=== PATIENT | male | born 1965 | race Caucasian/White ===

== ENCOUNTER 2019-10-09 15:27 | Emergency (ER) | payer OTHER, SELFPAY | END 2019-10-09 16:19 | disposition left against medical advice (07) | LOC: ER 10-10 06:49 | PROVIDERS: Emergency Provider Family Medicine; Family Provider Emergency Medicine Emergency Medical Services; PCP Emergency Medicine Emergency Medical Services | DX: Z53.21 Procedure and treatment not carried out due to patient leaving prior to being seen by health care provider (principal) | CPT/HCPCS: 87400; 87635; 99281 ==

== ENCOUNTER 2022-05-27 09:52 | Outpatient (CLI) | payer OTHER, SELFPAY ==
--- NOTE | 2022-05-27 10:02 | MR_ITS ---
WS: [id number] MRI BRAIN WITH HIGH-RESOLUTION IMAGING THROUGH THE INTERNAL AUDITORY CANALS WITHOUT AND WITH CONTRAST HISTORY: TINNITUS, BILATERAL/DIZZINESS GIDDINESS COMPARISON: None available. TECHNIQUE: Multiplanar, multisequence imaging is performed through the brain. Additional 3 mm imaging performed in multiple planes through the internal auditory canal. Postcontrast imaging with 19 ml's of MultiHance. No acute intracranial hemorrhage, midline shift, edema or mass effect. Scattered T2 and FLAIR signal hyperintensities in the subcortical white matter of the frontal, tempor al and parietal lobes. No prior infarct. Ventricles and extra-axial spaces are normal. No inferior displacement of cerebellar tonsils. Clivus and pituitary gland are normal. Internal and external auditory canals: Unremarkable. Cranial nerves VII and VIII complexes: Unremarkable. No enhancement or mass. Cerebellopontine angles: Normal. Paranasal sinuses: Normal. Mastoid air cells: Small amount of fluid in the RIGHT mastoid air cells. Calvarium and scalp: Normal. Visualized [place] of [place] and dural venous sinuses demonstrate no abnormality. MR/MR iac's wo/w con* [id number] IMPRESSION: 1. No signal abnormality or mass at the cerebellopontine angle or along the 7t h and 8th cranial nerve complexes. 2. Mild small vessel ischemic changes within the white matter. 3. No prior infarct or hemorrhage. 4. No mass.
== END 2022-05-27 09:53 | disposition home or self-care (01) ==
LOC: RAD 09:54
PROVIDERS: PCP Emergency Medicine Emergency Medical Services; Visit Provider Otolaryngology
DX: Z01.118 Encounter for examination of ears and hearing with other abnormal findings (principal); H93.13 Tinnitus, bilateral; R42 Dizziness and giddiness
CPT/HCPCS: 70553; A9577

== ENCOUNTER 2022-11-10 11:05 | Emergency (ER) | payer OTHER, SELFPAY ==
[2022-11-10 11:13] VITALS: BP 196/104; PULSE 68; RESP 18; TEMP 36.6; O2SAT 99
--- NOTE | 2022-11-10 11:16 | XR_ITS ---
WS: [id number] Exam: XR chest 1V portable [id number] Date/Time of Exam: 11/10/2022 11:25 AM Reason For Exam: cp Comparison 10/05/2016. Findings: The lungs are clear and fully expanded. Costophrenic angles are sharp. No infiltrates. Bronchovascula r relief appears normal. Cardiac silhouette is unremarkable. Bony elements are intact. XR/XR chest 1V portable [id number] IMPRESSION: Unremarkable chest radiograph.
--- NOTE | 2022-11-10 11:33 | ECG_ITS ---
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 Measurements Intervals [place] Rate: 57 P: 29 AR: 158 QRS: 8 QRSD: 87 T: -3 QT: 418 QTc: 407 Interpretive Statements SINUS BRADYCARDIA Compared to ECG 10/05/2016 20:37:34 Sinus rhythm no longer present Electronically Signed On 11-11-2022 10:07:12 CDT by Montez Baum M.D. [email or web address]conodataohio[facility] methodist hospitalYuantiku/store/[id number]
[2022-11-10 11:37] LABS: Basophils # 0.1 10^3/uL (0.0-0.1); Basophils % 1.1 %; Eosinophils # 0.4 10^3/uL (0.0-0.8); Eosinophils % 4.9 %; Hematocrit 40.6 % (42.0-52.0); Hemoglobin 13.9 g/dL (11.7-16.6); Lymphocytes # 2.4 10^3/uL (0.8-4.8); Lymphocytes % 32.6 %; Mean Corpuscular HGB Conc 34.2 g/dL (30.0-36.0); Mean Corpuscular Hemoglobin 32.5 pg (28.0-34.0); Mean Corpuscular Volume 94.9 fl (80-94); Mean Platelet Volume 8.7 fL (7.4-10.4); Monocytes # 0.5 10^3/uL (0.2-0.9); Monocytes % 7.1 %; Neutrophils # 3.93 10^3/uL (1.8-7.7); Nucleated Red Blood Cells % 0 %; Platelet Count 264 10^3/cmm (130-400); Red Blood Count 4.28 10^6/uL (4.1-5.3); Red Cell Distribution Width 12.9 % (12.1-15.1); White Blood Count 7.3 10^3/uL (4.0-10.0)
--- NOTE | 2022-11-10 11:48 | ED_ITS ---
HPI - Chest Pain General: Chief Complaint: Chest Pain Stated Complaint: [facility] Time Seen by Provider: 11/10/22 11:19 Source: patient Mode of arrival: ambulatory Limitations: no limitations History of Present Illness: 56-year-old male states he been having intermittent chest and left arm pain liborio ng with some neck pain for the last 2 weeks. States pains been sharp in nature rates it a 6 out of 10 denies any worsening improving factors. He has had no shortness of breath denies any vomiting or diarrhea states he has been under a lot of stress [facility] here as he was hypertensive. Associated symptoms: Deny abdominal pain, dyspnea, fever(s), nausea or vomiting Review of Systems Const: Denies: fever(s), chills, body aches or change in appetite Eyes: Denies: blurry vision or eye discomfort ENMT: Denies: throat pain or dental pain Card: Reports: chest pain Resp: Denies: dyspnea GI: Denies: abdominal pain, nausea, vomiting or diarrhea : Denies: dysuria Musc: Denies: neck pain or back pain Skin/Breast: Denies: rash Neuro: Denies: headache(s) PFSH ED PFSH: Social History Smoking and tobacco status: current every day smoker Physical Exam Const: COMMON NORMALS: no acute distress, patient oriented x3 and healthy appearing HENMT: COMMON NORMALS: normocephalic and atraumatic HEAD & SCALP: normocephalic and atraumatic Eye: COMMON NORMALS: conjunctivae normal CONJUNCTIVA: Yes conjunctivae normal Neck/C-Spine: COMMON NORMALS: full ROM and supple Chest: COMMONS NORMALS: normal inspection of the chest and normal palpation of entire chest wall Resp: COMMON NORMALS: normal respiratory effort, No retractions, No use of accessory muscles and clear to auscultation bilaterally AUSCULTATION: clear to auscultation bilaterally Cardio: COMMON NORMALS: regular rate, regular rhythm and No murmurs present (Cardio) RATE: regular rate RHYTHM: regular rhythm GI: COMMON NORMALS: Normal to inspection, nondistended, normoactive bowel sounds present, Soft to palpation, non-tender and no masses PALPATION: Yes Soft to palpation Extremity: COMMON NORMALS: normal to inspection and full ROM Neuro: COMMON NORMALS: patient oriented x3, moves all extremities and no focal motor deficits Psych: COMMON NORMALS: mental status grossly normal, Normal thought process present and cooperative THOUGHT PROCESS: Normal thought process present Skin: COMMON NORMALS: no rashes or lesions noted and no wounds GENERAL SKIN EXAM: no rashes or lesions noted Course Vital Signs: Vital signs: Vital Signs Temperature 97.9 F 11/10/22 11:13 Pulse Rate 68 11/10/22 11:13 Respiratory Rate 18 11/10/22 11:13 Blood Pressure 196/104 11/10/22 11:13 Pulse Oximetry 99 11/10/22 11:13 Oxygen Delivery Me thod Room Air 11/10/22 11:13 MDM - Chest Pain Medical Decision Making Patient presents here with chest pains atypical in nature he is having some neck pain it could be radicular he is hypertensive here he states he been running high we will double his dose of losartan from 25-50. He has no signs of acute coronary syndrome his troponin here is normal no signs of PE or dissection he is to follow-up with his PCP and return if worsening. Medical Records I reviewed the patient's medical records. Lab Data I reviewed the patient's lab results. 11/10/22 11:29 11/10/22 11:29 Radiology Impressions Chest X-Ray 11/10/22 11:16 IMPRESSION: Unremarkable chest radiograph. Laboratory Results WBC 7.3 10^3/uL (4.0-10.0) 11/10/22 11:29 RBC 4.28 10^6/uL (4.1-5.3) 11/10/22 11:29 Hgb 13.9 g/dL (11.7-16.6) 11/10/22 11:29 Hct 40.6 % (42.0-52.0) L 11/10/22 11:29 MCV 94.9 fl (80-94) H 11/10/22 11:29 MCH 32.5 pg (28.0-34.0) 11/10/22 11:29 MCHC 34.2 g/dL (30.0-36.0) 11/10/22 11:29 RDW 12.9 % (12.1-15.1) 11/10/22 11:29 Plt Count 264 10^3/cmm (130-400) 11/10/22 11:29 MPV 8.7 fL (7.4-10.4) 11/10/22 11:29 Neut % (Auto) 54.0 % 11/10/22 11:29 Lymph % (Auto) 32.6 % 11/10/22 11:29 [place] % (Auto) 7.1 % 11/10/22 11:29 Eos % (Auto) 4.9 % 11/10/22 11:29 Baso % (Auto) 1.1 % 11/10/22 11:29 Neut # (Auto) 3.93 10^3/uL (1.8-7.7) 11/10/22 11:29 Lymph # (Auto) 2.4 10^3/uL (0.8-4.8) 11/10/22 11:29 [place] # (Auto) 0.5 10^3/uL (0.2-0.9) 11/10/22 11:29 Eos # (Auto) 0.4 10^3/uL (0.0-0.8) 11/10/22 11:29 Baso # (Auto) 0.1 10^3/uL (0.0-0.1) 11/10/22 11:29 Nucleated RBC % (auto) 0 % 11/10/22 11:29 Nucleated RBCs # 0.0 /100WBC 11/10/22 11:29 PT 12.40 SECONDS (12.1-14.9) 11/10/22 11:29 INR 0.90 (0.8-1.2) 11/10/22 11:29 Sodium 142 mmol/L (136-145) 11/10/22 11:29 Potassium 4.3 mmol/L (3.5-5.1) 11/10/22 11:29 Chloride 106 mmol/L (98-107) 11/10/22 11:29 Carbon Dioxide 25 mmol/L (22-29) 11/10/22 11:29 Anion Gap 15.3 (5-19) 11/10/22 11:29 BUN 21 mg/dL (6-20) H 11/10/22 11:29 Creatinine 1.5 mg/dL (0.7-1.2) H 11/10/22 11:29 GFR Calculation 48.8 mL/min (90-130) L 11/10/22 11:29 Glucose 87 mg/dL (65-115) 11/10/22 11:29 Calculated Osmolality 296 mOsm/kg (285-295) H 11/10/22 11:29 Calcium 9.1 mg/dL (8.5-10.5) 11/10/22 11:29 Total Bilirubin 0.5 mg/dL (0.15-1.2) 11/10/22 11:29 AST 20 U/L (0-40) 11/10/22 11:29 ALT 16 U/L (0-41) 11/10/22 11:29 Alkaline Phosphatase 66 U/L (40-130) 11/10/22 11:29 Troponin T Baseline 10 ng/L (0-15) 11/10/22 11:29 Total Protein 6.5 g/dL (6.6-8.7) L 11/10/22 11:29 Albumin 4.5 g/dL (3.5-5.2) 11/10/22 11:29 Globulin 2.0 g/dL (1.3-4.6) 11/10/22 11:29 EKG Data EKG 1: I personally reviewed and interpreted this EKG as follows: EKG interpretation date: 11/10/22 EKG interpretation time: 11:33 Interpretation: sinus reese hr [address] or t wave anormalities qrs Discharge Plan Discharge Patient Disposition: Home Clinical Impression: Chest pain, Hypertension Condition: Stable Prescriptions: New losartan 50 mg tablet 50 mg PO DAILY Qty: 30 0RF Discontinued losartan 25 mg tablet 25 mg PO DAILY No Action hydrocodone-acetaminophen 10-325 mg tablet 1 tab PO Q4H PRN levothyroxine 50 mcg capsule 50 mcg PO DAILY albuterol sulfate [ProAir HFA] 90 mcg/actuation HFA aerosol inhaler 2 puff INHALATION Q6H PRN fluticasone propionate [Flonase Allergy Relief] 50 mcg/actuation spray,suspension 1 spray INTRANASAL DAILY Rx Instructions: administer into each nostril lisinopril 30 mg tablet 30 mg PO DAILY pantoprazole 40 mg tablet,delayed release (DR/EC) 40 mg PO DAILY Discharge Orders: Discharge ED (Routine); Ordered 11/10/22 Ordered By: Pipo Ham Referrals: Manchester,Jairon D, DO [Primary Care Provider] - 1-3 days Discharge Diet: Advance as tolerated Discharge Activity: Resume usual activity Patient Instructions: Chest Pain (ED), Hypertension (ED) Stand Alone Forms: Work/School Release Coding Level of Care Code ED Dock Worker for Azul Nash
[2022-11-10 11:58] LABS: Alanine Aminotransferase 16 U/L (0-41); Albumin Level 4.5 g/dL (3.5-5.2); Alkaline Phosphatase 66 U/L (40-130); Anion Gap 15.3 (5-19); Aspartate Amino Transferase 20 U/L (0-40); Blood Urea Nitrogen 21 mg/dL (6-20); Calcium 9.1 mg/dL (8.5-10.5); Carbon Dioxide 25 mmol/L (22-29); Chloride 106 mmol/L (98-107); Glomerular Filtration Rate 48.8 mL/min (90-130); Glucose 87 mg/dL (65-115); Osmolality Calculated 296 mOsm/kg (285-295); Potassium 4.3 mmol/L (3.5-5.1); Sodium 142 mmol/L (136-145); Total Bilirubin 0.5 mg/dL (0.15-1.2); Total Protein 6.5 g/dL (6.6-8.7)
[2022-11-10 12:00] LABS: Creatinine Clr Calc Pharmacy 61.1989
[2022-11-10 12:01] LABS: Troponin(5th) Baseline 10 ng/L (0-15)
--- NOTE | 2022-11-10 12:26 | PC.NURSE ---
PER PROVIDER IVP CHANGED TO IM. MD REQUESTED SAME DOSE, PT CARE PLAN TO DC WITH NEW RX.
[2022-11-10] MEDS: ondansetron 2 mg/ML SDV 2 mL 4 MG IM (12:32)
[2022-11-10] MEDS: morphine 4 mg/mL SDV 1 mL IM (12:33)
== END 2022-11-10 12:44 | disposition home or self-care (01) ==
PROVIDERS: Emergency Provider Emergency Medicine; PCP Emergency Medicine Emergency Medical Services
DX: R07.9 Chest pain, unspecified (principal); I10 Essential (primary) hypertension
CPT/HCPCS: 36415; 71045; 80053; 84484; 85025; 85610; 93005; 96372; 99285; J2270; J2405

== ENCOUNTER 2023-01-12 11:41 | Emergency (ER) | payer OTHER, SELFPAY ==
[2023-01-12 11:48] VITALS: BP 110/72; PULSE 77; RESP 16; TEMP 37.1; O2SAT 97
[2023-01-12 14:23] LABS: Basophils # 0.1 10^3/uL (0.0-0.1); Basophils % 0.9 %; Eosinophils # 0.1 10^3/uL (0.0-0.8); Eosinophils % 1.1 %; Hematocrit 38.6 % (37-53); Lymphocytes # 2.1 10^3/uL (0.8-4.8); Lymphocytes % 26.7 %; Mean Corpuscular HGB Conc 34.5 g/dL (30-55); Mean Corpuscular Hemoglobin 32.6 pg (27-33); Mean Corpuscular Volume 94.6 fl (82-101); Mean Platelet Volume 9.1 fL (7.4-10.4); Monocytes # 0.4 10^3/uL (0.2-0.9); Neutrophils # 5.25 10^3/uL (1.8-7.7); Nucleated Red Blood Cells % 0 %; Platelet Count 331 10^3/cmm (157-399); Red Blood Count 4.08 10^6/uL (3.85-5.65); Red Cell Distribution Width 12.2 % (12.1-15.1); White Blood Count 7.95 10^3/uL (3.29-11.43)
[2023-01-12 14:38] LABS: Alanine Aminotransferase 15 U/L (0-41); Albumin Level 5.1 g/dL (3.5-5.2); Alkaline Phosphatase 60 U/L (40-130); Anion Gap 14.8 (5-19); Aspartate Amino Transferase 21 U/L (0-40); Blood Urea Nitrogen 42 mg/dL (6-20); Calcium 10.1 mg/dL (8.5-10.5); Carbon Dioxide 28 mmol/L (22-29); Chloride 97 mmol/L (98-107); Globulin 2.6 g/dL (1.3-4.6); Glomerular Filtration Rate 42.1 mL/min (90-130); Glucose 171 mg/dL (65-115); Lipase 30 U/L (13-60); Osmolality Calculated 297 mOsm/kg (285-295); Potassium 3.8 mmol/L (3.5-5.1); Sodium 136 mmol/L (136-145); Total Bilirubin 0.8 mg/dL (0.15-1.2); Total Protein 7.7 g/dL (6.6-8.7)
--- NOTE | 2023-01-12 15:18 | ED_ITS ---
HPI - Nausea/Vomiting/Diarrhea General: Chief complaint: Nausea/Vomiting/Diarrhea Stated complaint: abd pain, N/V Time Seen by Provider: 01/12/23 15:11 History of Present Illness: Patient been having increasing left-sided flank pain that radiates down to his groin. Patient was seen by his doctor over [facility] and was told that he is having some kidney issues with elevated BUN and creatinine that she come here to get an ultrasound or CT scan. Patient does state he has some nausea vomiting every time he eats or drinks anything that comes right back up. Patient denies any diarrhea constipation or black and tarry stools at this time. Patient does not have a history of kidney stones. Patient does state he has seen Dr. Saucedo in the past for cystoscopy for some reason. Review of Systems General: Reports: 10 or more systems reviewed and unremarkable except in HPI and below PFSH ED PFSH: Social History Smoking and tobacco status: current every day smoker Physical Exam Const: COMMON NORMALS: no acute distress, average body habitus, patient oriented x3, no limitations, healthy appearing, alert and well nourished HENMT: COMMON NORMALS: normocephalic, atraumatic, hearing grossly normal bilaterally, external ears normal, Normal external nose present and moist oral mucous membranes HEAD & SCALP: normocephalic and atraumatic NOSE: Normal external nose present EXTERNAL EAR: Yes external ears normal Eye: COMMON NORMALS: Equal, round and reactive pupils present, EOMs intact bilaterally, conjunctivae normal and no scleral icterus CONJUNCTIVA: Yes conjunctivae normal PUPIL: Yes Equal, round and reactive pupils present Neck/C-Spine: COMMON NORMALS: full ROM, no lymphadenopathy, supple, no menin geal signs, no JVD and Thyroid normal THYROID: Thyroid normal Lymph: LYMPHATIC: no lymphadenopathy noted Chest: COMMONS NORMALS: normal inspection of the chest and normal palpation of entire chest wall Resp: COMMON NORMALS: normal respiratory effort, No retractions, No use of accessory muscles and clear to auscultation bilaterally AUSCULTATION: clear to auscultation bilaterally Cardio: COMMON NORMALS: no JVD, regular rate, regular rhythm, S1 normal heart sound present, S2 normal heart sound present, No gallops present (Cardio), No clicks present (Cardio), No murmurs present (Cardio) and No rub (Cardio) RATE: regular rate RHYTHM: regular rhythm HEART SOUNDS: S1 normal heart sound present and S2 normal heart sound present GI: COMMON NORMALS: Normal to inspection, nondistended, normoactive bowel sounds present, Soft to palpation, non-tender, No hepatosplenomegaly present and no masses PALPATION: Yes Soft to palpation and Yes No hepatosplenomegaly present : COMMON NORMALS: No no CVA tenderness (Left CVA tenderness) BLADDER/KIDNEY EXAM: No no CVA tenderness (Left CVA tenderness) Back/Pelvis: COMMON NORMALS: negative for no CVA tenderness (Left CVA tenderness) Neuro: COMMON NORMALS: patient oriented x3 SENSORIUM/ORIENTATION: Yes alert MENINGEAL SIGNS: Yes no meningeal signs Course Vital Signs: Vital signs: Vital Signs Temperature 98.8 F 01/12/23 11:48 Pulse Rate 77 01/12/23 11:48 Respiratory Rate 16 01/12/23 11:48 Blood Pressure 110/72 01/12/23 11:48 Pulse Oximetry 97 01/12/23 11:48 Oxygen Delivery Me thod Room Air 01/12/23 11:48 MDM - Nausea/Vomiting/Diarrhea Medical Decision Making Presents to the ER with complaints of nominal pain. Patient stated he was sent over here to have an ultrasound of his kidneys due to kidney disease. His lab work was obtained which showed slightly worsening kidney function with a BUN of 42 and creatinine of 1.7 these are elevated from the last time from a BUN of about 20 something to the creatinine of 1.5. Noncontrasted CT scan of his abdomen pelvis was obtained which was essentially benign. Patient be diagnosed with diagnosis of abdominal pain and acute kidney injury. Patient should fo llow-up with his PCP the next 7 days or sooner as needed. Differential Diagnosis Unlikely traveler's diarrhea, food poisoning, gastroenteritis, clostridium difficile infection, drug-induced nausea and vomiting or dehydration Medical Records I reviewed the patient's medical records. Lab Data I reviewed the patient's lab results. 01/12/23 14:13 01/12/23 14:13 Laboratory Results WBC 7.95 10^3/uL (3.29-11.43) 01/12/23 14:13 RBC 4.08 10^6/uL (3.85-5.65) 01/12/23 14:13 Hgb 13.30 g/dL (11.27-16.99) 01/12/23 14:13 Hct 38.6 % (37-53) 01/12/23 14:13 MCV 94.6 fl (82-101) 01/12/23 14:13 MCH 32.6 pg (27-33) 01/12/23 14:13 MCHC 34.5 g/dL (30-55) 01/12/23 14:13 RDW 12.2 % (12.1-15.1) 01/12/23 14:13 Plt Count 331 10^3/cmm (157-399) 01/12/23 14:13 MPV 9.1 fL (7.4-10.4) 01/12/23 14:13 Neut % (Auto) 66.0 % 01/12/23 14:13 Lymph % (Auto) 26.7 % 01/12/23 14:13 [place] % (Auto) 5.0 % 01/12/23 14:13 Eos % (Auto) 1.1 % 01/12/23 14:13 Baso % (Auto) 0.9 % 01/12/23 14:13 Neut # (Auto) 5.25 10^3/uL (1.8-7.7) 01/12/23 14:13 Lymph # (Auto) 2.1 10^3/uL (0.8-4.8) 01/12/23 14:13 [place] # (Auto) 0.4 10^3/uL (0.2-0.9) 01/12/23 14:13 Eos # (Auto) 0.1 10^3/uL (0.0-0.8) 01/12/23 14:13 Baso # (Auto) 0.1 10^3/uL (0.0-0.1) 01/12/23 14:13 Nucleated RBC % (auto) 0 % 01/12/23 14:13 Nucleated RBCs # 0.0 /100WBC 01/12/23 14:13 Sodium 136 mmol/L (136-145) 01/12/23 14:13 Potassium 3.8 mmol/L (3.5-5.1) 01/12/23 14:13 Chloride 97 mmol/L (98-107) L 01/12/23 14:13 Carbon Dioxide 28 mmol/L (22-29) 01/12/23 14:13 Anion Gap 14.8 (5-19) 01/12/23 14:13 BUN 42 mg/dL (6-20) H 01/12/23 14:13 Creatinine 1.7 mg/dL (0.7-1.2) H 01/12/23 14:13 GFR Calculation 42.1 mL/min (90-130) L 01/12/23 14:13 Glucose 171 mg/dL (65-115) H 01/12/23 14:13 Calculated Osmolality 297 mOsm/kg (285-295) H 01/12/23 14:13 Calcium 10.1 mg/dL (8.5-10.5) 01/12/23 14:13 Total Bilirubin 0.8 mg/dL (0.15-1.2) 01/12/23 14:13 AST 21 U/L (0-40) 01/12/23 14:13 ALT 15 U/L (0-41) 01/12/23 14:13 Alkaline Phosphatase 60 U/L (40-130) 01/12/23 14:13 Total Protein 7.7 g/dL (6.6-8.7) 01/12/23 14:13 Albumin 5.1 g/dL (3.5-5.2) 01/12/23 14:13 Globulin 2.6 g/dL (1.3-4.6) 01/12/23 14:13 Lipase 30 U/L (13-60) 01/12/23 14:13 Urine Color Yellow (Yellow) 01/12/23 15:17 Urine Appearance Clear (CLEAR) 01/12/23 15:17 Urine pH 5 (5-7) 01/12/23 15:17 Ur Specific [place] 1.020 (1.005-1.030) 01/12/23 15:17 Urine Protein Neg (Negative) 01/12/23 15:17 Urine Glucose (UA) Norm (Normal) 01/12/23 15:17 Urine Ketones Negative (Negative) 01/12/23 15:17 Urine Blood Neg (Negative) 01/12/23 15:17 Urine Nitrate Negative (Negative) 01/12/23 15:17 Urine Bilirubin 1+ (Negative) H 01/12/23 15:17 Urine Urobilinogen 1 mg/dL (Negative) H 01/12/23 15:17 Ur Leukocyte Esterase Negative (Negative) 01/12/23 15:17 Discharge Plan Discharge Patient Disposition: Home Clinical Impression: Acute kidney injury Abdominal pain Qualifiers: Abdominal location: unspecified location Qualified Code(s): R10.9 - Unspecified abdominal pain Condition: Stable Prescriptions: No Action hydrocodone-acetaminophen 10-325 mg tablet 1 tab PO Q4H PRN (Reason: Pain) levothyroxine 50 mcg capsule 50 mcg PO DAILY albuterol sulfate [ProAir HFA] 90 mcg/actuation HFA aerosol inhaler 2 puff INHALATION Q6H PRN (Reason: Shortness Of Breath) fluticasone propionate [Flonase Allergy Relief] 50 mcg/actuation spray,suspension 1 spray INTRANASAL DAILY Rx Instructions: administer into each nostril pantoprazole 40 mg tablet,delayed release (DR/EC) 40 mg PO DAILY losartan 50 mg tablet 50 mg PO DAILY Qty: 30 0RF gabapentin 600 mg Tablet 600 mg PO TID cetirizine 10 mg Tablet 10 mg PO DAILY hydrochlorothiazide 25 mg tablet 25 mg PO DAILY Discharge Orders: Discharge ED (Routine); Ordered 01/12/23 Ordered By: Laci Goncalves Referrals: Jairon Gan DO [Primary Care Provider] - 1 week Patient Instructions: Acute Kidney Injury (DC), Abdominal Pain (ED) Activity Restrictions/Additional Instructions: Please push plenty of fluids. Please follow-up with your family practice doctor in the next 7 days or sooner as needed for further evaluation and treatment. If symptoms worsen or change feel free to return to the ER for further evaluation. Coding Level of Care Code ED Membership Manager for Azul Nash
--- NOTE | 2023-01-12 15:18 | CT_ITS ---
WS: [id number] CT ABDOMEN AND PELVIS NONCONTRAST HISTORY: left flank pain, elevated bun/cr TECHNIQUE: Imaging performed through the abdomen and pelvis. Coronal and sagittal reformats are submi tted. All CT scans at [facility] use at least one of these dose optimization techniques: auto mated exposure control; mA and/or kV adjustment per patient size (includes targeted exams where dose is matched to clinical indication); or iterative reconstruction. DLP: 713.15 mGy.cm COMPARISON: None available. Lower thorax: Lung bases are clear. Visualized heart is normal. No hiatal hernia. Liver: Normal size liver. There are few too small to characterize hypodensities which may be cysts. N o bile duct dilatation. Gallbladder: Normal gallbladder. No pericholecystic fluid or cholelithiasis. No gallbladder wall thic k[place]. Pancreas: Normal size and attenuation. Normal pancreatic duct. No pancreatitis or mass. Spleen: Normal. Adrenal glands: Normal RIGHT adrenal gland. Very mild hyperplasia of the LEFT adrenal gland. Right kidney: Normal size kidney with no mass or hydronephrosis. Left kidney: Normal size kidney with no mass or hydronephrosis. Aorta: Mild atherosclerosis. No aneurysm. No free fluid, intraperitoneal air or significant lymphadenopathy. GI tract: Prior gastric bypass. No small bowel obstruction. Normal appendix. No colon obstruction or significant diverticular disease. No pericolonic inflammation. Abdominal wall: Negative. No hernia. Pelvis: Nondistended urinary bladder. No free fluid or adenopathy. Bilateral inguinal canals are [place] nt containing fat only. Osseous structures: Unremarkable. IMPRESSION: 1. No renal obstruction or calcifications. 2. Prior gastric bypass. 3. No GI tract obstruction or pericolonic inflammation. 4. No ascites or adenopathy.
[2023-01-12 15:25] LABS: Add Urine Microscopic? NO; Charge for UA Resulting for Rev
[2023-01-12 15:34] LABS: Bilirubin Urine 1+ (Negative); Blood Urine Neg (Negative); Glucose Urine UA Norm (Normal); Ketones Urine Negative (Negative); Nitrate Urine Negative (Negative); Protein Urine Neg (Negative); Urine Appearance Clear (CLEAR); Urine Color Yellow (Yellow); pH Urine 5 (5-7)
[2023-01-12 15:35] LABS: Leukocyte Esterase Urine Negative (Negative); Urobilinogen Urine 1 mg/dL (Negative)
[2023-01-12] MEDS: sodium chloride 0.9% 1,000 ML 999 ML IV (16:24)
== END 2023-01-12 17:48 | disposition home or self-care (01) ==
PROVIDERS: Physician Assistant; Emergency Provider Emergency Medicine; PCP Emergency Medicine Emergency Medical Services
DX: N17.9 Acute kidney failure, unspecified (principal); R10.9 Unspecified abdominal pain; F17.210 Nicotine dependence, cigarettes, uncomplicated
CPT/HCPCS: 36415; 74176; 80053; 81003; 83690; 85025; 99284; J7030

== ENCOUNTER 2023-08-24 10:56 | Outpatient (CLI) | payer MEDICAID, SELFPAY ==
--- NOTE | 2023-08-24 11:02 | US_ITS ---
WS: [id number] RENAL ULTRASOUND HISTORY: ISOLATED PROTEINURIA/MICROSCOPIC HEMATURIA COMPARISON: None available. TECHNIQUE: 2-D and color Doppler imaging of the kidney submitted. Right kidney: 9.8 cm x 5.0 cm x 4.6 cm. Cortex: 1.2 cm Normal echogenicity with no hydronephrosis or mass. Left kidney: 9.8 cm x 4.5 cm x 5.0 cm. Cortex: 1.5 cm Normal echogenicity with no hydronephrosis or mass. Aorta: Normal. Urinary Bladder: Nondistended. IMPRESSION: Normal renal ultrasound.
== END 2023-08-24 10:57 | disposition home or self-care (01) ==
PROVIDERS: PCP Emergency Medicine Emergency Medical Services; Visit Provider Internal Medicine
DX: R80.0 Isolated proteinuria (principal); R31.29 Other microscopic hematuria
CPT/HCPCS: 76770

== ENCOUNTER → 2023-10-25 08:54 | Outpatient (BNVA) | payer MEDICAID, SELFPAY | PROVIDERS: PCP Emergency Medicine Emergency Medical Services; Visit Provider Internal Medicine Cardiovascular Disease | DX: I10 Essential (primary) hypertension (principal) | CPT/HCPCS: 93005 ==

== ENCOUNTER 2024-04-28 07:41 | Emergency (ER) | payer OTHER, SELFPAY ==
[2024-04-28 07:50] VITALS: BP 137/76; PULSE 74; RESP 16; TEMP 36.7; O2SAT 97; BMI 31.3
--- NOTE | 2024-04-28 07:52 | ED_ITS ---
HPI - Abdominal Pain 2 General: Chief Complaint: Abdominal Pain Stated Complaint: burning sensation in stomach Time Seen by Provider: 04/28/24 07:43 Source: patient Mode of arrival: ambulatory Limitations: no limitations History of Present Illness: 58-year-old male states he has been havi ng a burning sensation in his upper abdomen over the last few days. States that some burning pain he rates a 4 out of 10 he denies any worse or improving factors he denies any radiation of pain he denies any chest pain denies any vomiting or diarrhea. Associated Symptoms: Denies chills, diarrhea, fever(s), nausea and vomiting Related Data Home Medications Medication Instructions Recorded Confirmed metoclopramide HCl 10 mg tablet See Rx Instructions .Route 04/28/24 04/28/24 .COMPLEX PRN Abdominal Pain Previous Rx's Medication Instructions Recorded pantoprazole 40 mg tablet,delayed 40 mg PO DAILY #60 tabs 04/28/24 release (Protonix) sucralfate 1 gram tablet 1 g PO BID 4 weeks #56 tabs 04/28/24 Allergies Allergy/AdvReac Type Severity Reaction Status Date / Time No Known Allergies Allergy Verified 04/28/24 07:57 Review of Systems 2 Const: Denies: fever(s), chills, body aches or change in appetite ENMT: Denies: throat pain or dental pain Card: Denies: chest pain Resp: Denies: dyspnea GI: Reports: abdominal pain; Denies: nausea, vomiting or diarrhea Musc: Denies: neck pain or back pain Skin/Breast: Denies: rash Neuro: Denies: headache(s) PFSH ED 2 PFSH: Social History Smoking and tobacco/nicotine status: current every day tobacco/nicotine user Physical Exam 2 Const: COMMON NORMALS: no acute distress, patient oriented x3 and healthy appearing HENMT: COMMON NORMALS: normocephalic and atraumatic HEAD & SCALP: n ormocephalic and atraumatic Eye: COMMON NORMALS: Equal, round and reactive pupils present and EOMs intact bilaterally PUPIL: Yes Equal, round and reactive pupils present Neck/C-Spine: COMMON NORMALS: full ROM and supple Chest: COMMONS NORMALS: normal inspection of the chest Resp: COMMON NORMALS: normal respiratory effort, No retractions, No use of accessory muscles and clear to auscultation bilaterally AUSCULTATION: clear to auscultation bilaterally Cardio: COMMON NORMALS: regular rate, regular rhythm and No murmurs present (Cardio) RATE: regular rate RHYTHM: regular rhythm GI: COMMON NORMALS: Normal to inspection, nondistended, normoactive bowel sounds present, Soft to palpation and no masses PALPATION: Yes Soft to palpation OTHER: mild epigastric tenderness Extremity: COMMON NORMALS: normal to inspection and full ROM Neuro: COMMON NORMALS: patient oriented x3, moves all extremities and no focal motor deficits Psych: COMMON NORMALS: mental status grossly normal, Normal thought process present and cooperative THOUGHT PROCESS: Normal thought process present Skin: COMMON NORMALS: no rashes or lesions noted and no wounds GENERAL SKIN EXAM: no rashes or lesions noted Course 2 Vital Signs: Vital signs: Vital Signs Temperature 98.0 F 04/28/24 07:50 Pulse Rate 74 04/28/24 07:50 Respiratory Rate 16 04/28/24 07:50 Blood Pressure 120/76 04/28/24 09:04 Pulse Oximetry 97 04/28/24 09:04 Oxygen Delivery Me thod Room Air 04/28/24 09:04 MDM - Abdominal Pain Medical Decision Making Patient presents with burning epigastric pain blood work here is normal CT showed no acute findings exam at discharge is benign he likely has a gastritis we will start him on sulcal fate along with Protonix we will get him follow-up with surgery he is return if worsening he understands agrees to plan. Medical Records I reviewed the patient's medical records. Lab Data I reviewed the patient's lab results. 04/28/24 08:09 04/28/24 08:09 Labs/Radiology: Radiology Impressions Abdomen/Pelvis CT 04/28/24 08:18 IMPRESSION: 1. No calcific stone seen of visualized portions of kidneys, ureters bilaterally, nor urinary bladder. No dilation seen of visualized portions of renal collecting systems, ureters bilaterally. 2. Atherosclerotic disease perhaps more advanced than expected for age. Correlate for causes, risk factors for atherosclerotic disease, arterial calcification. 3. Evidence of atherosclerotic plaque near origin superior mesenteric artery causing partial narrowing. 4. Please see body of report for additional findings. Laboratory Results WBC 9.02 10^3/uL (3.29-11.43) 04/28/24 08:09 RBC 4.26 10^6/uL (3.85-5.65) 04/28/24 08:09 Hgb 13.60 g/dL (11.27-16.99) 04/28/24 08:09 Hct 40.1 % (37-53) 04/28/24 08:09 MCV 94.1 fl (82-101) 04/28/24 08:09 MCH 31.9 pg (27-33) 04/28/24 08:09 MCHC 33.9 g/dL (30-55) 04/28/24 08:09 RDW 12.6 % (12.1-15.1) 04/28/24 08:09 Plt Count 309 10^3/cmm (157-399) 04/28/24 08:09 MPV 8.6 fL (7.4-10.4) 04/28/24 08:09 Neut % (Auto) 55.3 % 04/28/24 08:09 Lymph % (Auto) 33.3 % 04/28/24 08:09 [place] % (Auto) 8.4 % 04/28/24 08:09 Eos % (Auto) 1.8 % 04/28/24 08:09 Baso % (Auto) 0.8 % 04/28/24 08:09 Neut # (Auto) 4.99 10^3/uL (1.8-7.7) 04/28/24 08:09 Lymph # (Auto) 3.0 10^3/uL (0.8-4.8) 04/28/24 08:09 [place] # (Auto) 0.8 10^3/uL (0.2-0.9) 04/28/24 08:09 Eos # (Auto) 0.2 10^3/uL (0.0-0.8) 04/28/24 08:09 Baso # (Auto) 0.1 10^3/uL (0.0-0.1) 04/28/24 08:09 Nucleated RBC % (auto) 0 % 04/28/24 08:09 Nucleated RBCs # 0.0 /100WBC 04/28/24 08:09 Sodium 135 mmol/L (136-145) L 04/28/24 08:09 Potassium 3.5 mmol/L (3.5-5.1) 04/28/24 08:09 Chloride 95 mmol/L (98-107) L 04/28/24 08:09 Carbon Dioxide 28 mmol/L (22-29) 04/28/24 08:09 Anion Gap 15.5 (5-19) 04/28/24 08:09 BUN 28 mg/dL (6-20) H 04/28/24 08:09 Creatinine 1.7 mg/dL (0.7-1.2) H 04/28/24 08:09 GFR Calculation 41.9 mL/min (90-130) L 04/28/24 08:09 Glucose 105 mg/dL (65-115) 04/28/24 08:09 Calculated Osmolality 286 mOsm/kg (285-295) 04/28/24 08:09 Calcium 9.7 mg/dL (8.5-10.5) 04/28/24 08:09 Total Bilirubin 0.3 mg/dL (0.15-1.2) 04/28/24 08:09 AST 16 U/L (0-40) 04/28/24 08:09 ALT 16 U/L (0-41) 04/28/24 08:09 Alkaline Phosphatase 82 U/L (40-130) 04/28/24 08:09 Total Protein 6.3 g/dL (6.6-8.7) L 04/28/24 08:09 Albumin 4.0 g/dL (3.5-5.2) 04/28/24 08:09 Globulin 2.3 g/dL (1.3-4.6) 04/28/24 08:09 Lipase 21 U/L (13-60) 04/28/24 08:09 Urine Color Yellow (Yellow) 04/28/24 09:03 Urine Appearance Clear (CLEAR) 04/28/24 09:03 Urine pH 6.0 (5-7) 04/28/24 09:03 Ur Specific [place] 1.022 (1.005-1.030) 04/28/24 09:03 Urine Protein Trace (Negative) A 04/28/24 09:03 Urine Glucose (UA) Negative (Normal) 04/28/24 09:03 Urine Ketones Negative (Negative) 04/28/24 09:03 Urine Blood Trace (Negative) A 04/28/24 09:03 Urine Nitrate Negative (Negative) 04/28/24 09:03 Urine Bilirubin Negative (Negative) 04/28/24 09:03 Urine Urobilinogen 1.0 mg/dL (Negative) 04/28/24 09:03 Ur Leukocyte Esterase Negative (Negative) 04/28/24 09:03 Urine RBC 0-2 /hpf (0-2) 04/28/24 09:03 Urine WBC 0-5 /hpf (0-5) 04/28/24 09:03 Ur Squamous Epith Cells 0-5 /hpf (0-5) 04/28/24 09:03 Amorphous Sediment Not Reportable 04/28/24 09:03 Urine Bacteria None seen /hpf (NONE) 04/28/24 09:03 Hyaline Casts 2.05 /lpf 04/28/24 09:03 All radiology interpretation(s) finalized by discharge Discharge Plan Discharge Patient Disposition: Home Clinical Impression: Abdominal pain Condition: Stable Prescriptions: New pantoprazole [Protonix] 40 mg tablet,delayed release (DR/EC) 40 mg PO DAILY Qty: 60 0RF sucralfate 1 gram tablet 1 g PO BID 28 Days Qty: 56 0RF No Action metoclopramide HCl 10 mg tablet See Rx Instructions .ROUTE .COMPLEX PRN (Reason: Abdominal Pain) Rx Instructions: TAKE 1 TABLET BY MOUTH 1/2 HOUR PRIOR TO MEAL TWICE A DAY NEEDED. Discharge Orders: Discharge ED (Routine); Ordered 04/28/24 Ordered By: Pipo Ham Referrals: Ankit Muñoz MD [Physician] - 4-7 days Jairon Gan DO [Primary Care Provider] - Discharge Diet: Advance as tolerated Discharge Activity: Resume usual activity Patient Instructions: Abdominal Pain (ED) Coding Level of Care Code ED Extras Casting Director for Azul Nash
[2024-04-28] MEDS: lidocaine 2% viscous 15 ML, aluminum-mag hydrox-simethicon 30 ML, sucralfate oral liq 1 GM PO (08:01)
--- NOTE | 2024-04-28 08:13 | PC.PHAR ---
Pt had alot of old medications on file that he no longer takes. Removed all but Reglan 10mg, which is the only current medication pt states he is taking. Pt took Medrol DosePak therapy 04/18/24.
[2024-04-28 08:14] LABS: Basophils # 0.1 10^3/uL (0.0-0.1); Basophils % 0.8 %; Eosinophils # 0.2 10^3/uL (0.0-0.8); Eosinophils % 1.8 %; Hematocrit 40.1 % (37-53); Lymphocytes % 33.3 %; Mean Corpuscular HGB Conc 33.9 g/dL (30-55); Mean Corpuscular Hemoglobin 31.9 pg (27-33); Mean Corpuscular Volume 94.1 fl (82-101); Mean Platelet Volume 8.6 fL (7.4-10.4); Monocytes # 0.8 10^3/uL (0.2-0.9); Monocytes % 8.4 %; Neutrophils # 4.99 10^3/uL (1.8-7.7); Neutrophils % 55.3 %; Nucleated Red Blood Cells % 0 %; Platelet Count 309 10^3/cmm (157-399); Red Blood Count 4.26 10^6/uL (3.85-5.65); Red Cell Distribution Width 12.6 % (12.1-15.1); White Blood Count 9.02 10^3/uL (3.29-11.43)
--- NOTE | 2024-04-28 08:18 | CTR_ITS ---
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 Radiation optimization: All CT scans at this facility use at least one of these dose optimization techniques: automated exposure control; mA and/or kV adjustment per patient size (includes targeted exams where dose is matched to clinical indication); or iterative reconstruction. COMPARISON: CT kidney stone [id number] 01/12/2023 3:24 PM RADIATION DOSE METRICS: Total DLP (mGy-cm): 747.74 FINDINGS: Lungs: Slight probable atelectasis and/or fibrosis lung bases. Liver: Tiny hypodensities of the liver, too small to accurately characterize, not otherwise further characterized. Gallbladder and biliary ducts: Gallbladder appears perhaps mildly distended. No calcific stones seen of gallbladder. No obvious gallbladder wall thickening nor pericholecystic fluid seen. No bile duct dilatation seen. Pancreas: Noncontrasted pancreas perhaps mildly atrophic. Spleen: Noncontrasted spleen unremarkable. Adrenal glands: Noncontrasted adrenals unremarkable. Kidneys and ureters: Noncontrasted kidneys unremarkable. No calcific stone seen of visualized portions of kidneys, ureters bilaterally, nor urinary bladder. No dilation seen of visualized portions of renal collecting systems, ureters bilaterally. Minimal perinephric stranding bilaterally. Stomach and bowel: Postoperative changes stomach region. Bowel pattern appears nonobstructive. Stomach appears mostly empty, decompressed. [id number] stool and gas of the colon. Relative narrowing rectum, rectosigmoid colon, possibly transient, though stricture or other process not excluded. Appendix: Dense material near origin, base of appendix possibly ingested material versus appendicolith. No acute appendicitis seen. Intraperitoneal space: No free intraperitoneal air and no free abdominal or pelvic fluid collections seen. Vasculature: Atherosclerotic disease. No aneurysm seen of abdominal aorta. Evidence of atherosclerotic plaque near origin superior mesenteric artery causing some narrowing. Lymph nodes: Scattered small lymph nodes, nonspecific. Urinary bladder: Urinary bladder appears partly filled. Reproductive: Calcifications prostate. Seminal vesicles unremarkable. Bones/joints: Degenerative changes spine. Hypertrophic changes, possible fragmentation along anterior outer acetabular regions bilaterally. Correlate for femoroacetabular impingement (CHANO) or other process. Soft tissues: Small fat containing inguinal hernias, right greater than left. CT/CT abdomen pelvis wo con [id number] IMPRESSION: 1. No calcific stone seen of visualized portions of kidneys, ureters bilaterally, nor urinary bladder. No dilation seen of visualized portions of renal collecting systems, ureters bilaterally. 2. Atherosclerotic disease perhaps more advanced than expected for age. Correlate for causes, risk factors for atherosclerotic disease, arterial calcification. 3. Evidence of atherosclerotic plaque near origin superior mesenteric artery causing partial narrowing. 4. Please see body of report for additional findings.
[2024-04-28 08:34] LABS: Alanine Aminotransferase 16 U/L (0-41); Alkaline Phosphatase 82 U/L (40-130); Anion Gap 15.5 (5-19); Aspartate Amino Transferase 16 U/L (0-40); Blood Urea Nitrogen 28 mg/dL (6-20); Calcium 9.7 mg/dL (8.5-10.5); Carbon Dioxide 28 mmol/L (22-29); Chloride 95 mmol/L (98-107); Creatinine Clr Calc Pharmacy 52.1206; Globulin 2.3 g/dL (1.3-4.6); Glomerular Filtration Rate 41.9 mL/min (90-130); Glucose 105 mg/dL (65-115); Lipase 21 U/L (13-60); Osmolality Calculated 286 mOsm/kg (285-295); Potassium 3.5 mmol/L (3.5-5.1); Sodium 135 mmol/L (136-145); Total Bilirubin 0.3 mg/dL (0.15-1.2); Total Protein 6.3 g/dL (6.6-8.7)
[2024-04-28 09:04] VITALS: BP 120/76; O2SAT 97
[2024-04-28 09:21] LABS: Add Urine Microscopic? YES; Bacteria Urine None Seen /hpf; Bilirubin Urine Negative (Negative); Blood Urine Trace (Negative); Glucose Urine UA Negative (Normal); Hyaline Casts Urine 2.05 /lpf; Ketones Urine Negative (Negative); Leukocyte Esterase Urine Negative (Negative); Nitrate Urine Negative (Negative); Protein Urine Trace (Negative); RBC Urine 0-2 /hpf (0-2); Specific Gravity, Urine 1.022 (1.005-1.030); Squamous Epithelial Cell Urine 0-5 /hpf (0-5); Urine Appearance Clear (CLEAR); Urine Color Yellow (Yellow); WBC Urine 0-5 /hpf (0-5)
--- NOTE | 2024-04-30 07:38 | DCPLANNER ---
messaged gen surg for er f/u
== END 2024-04-28 10:12 | disposition home or self-care (01) ==
PROVIDERS: Emergency Provider Emergency Medicine; PCP Emergency Medicine Emergency Medical Services
DX: R10.9 Unspecified abdominal pain (principal); Z72.0 Tobacco use
CPT/HCPCS: 36415; 74176; 80053; 81001; 83690; 85025; 99284

== ENCOUNTER → 2024-05-18 09:28 | Outpatient (BNVA) | payer OTHER, SELFPAY | PROVIDERS: PCP Emergency Medicine Emergency Medical Services; Visit Provider Student in an Organized Health Care Education/Training Program | DX: R19.4 Change in bowel habit (principal); R12 Heartburn | CPT/HCPCS: 99204 ==

== ENCOUNTER 2024-05-21 07:33 | Emergency (ER) | payer OTHER, SELFPAY ==
[2024-05-21 07:33] VITALS: BP 139/94; PULSE 79; RESP 18; TEMP 36.7; O2SAT 100; BMI 29.7
--- NOTE | 2024-05-21 07:36 | XR_ITS ---
WS: [id number] PORTABLE CHEST HISTORY: dyspnea/cough COMPARISON: 11/10/2022 Subtle area of increased attenuation in the lingula, abutting the LEFT heart border. This is been pre sent on the prior study. This may be an artifact due to position of the patient with radiograph being obtained in the lordotic projection. Pneumonia not excluded. No pleural effusion or pneumothorax. Cardiac size: Normal. Mediastinum/Aorta: Normal mediastinum. No osseous abnormality seen. XR/XR chest 1V portable [id number] IMPRESSION: Subtle area of increased attenuation in the lingula. Developing pneumonia/pneum onitis versus artifact. Upright PA chest may help resolve artifact versus pneum onia.
--- NOTE | 2024-05-21 07:36 | ECG_ITS ---
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 Measurements Intervals [place] Rate: 81 P: 71 IA: 148 QRS: 41 QRSD: 89 T: 27 QT: 368 QTc: 428 Interpretive Statements SINUS RHYTHM NONSPECIFIC T-WAVE ABNORMALITY Compared to ECG 10/25/2023 09:01:34 T-wave abnormality now present Electronically Signed On 05-21-2024 17:11:39 [employer] by Montez Baum M.D. [email or web address]
--- NOTE | 2024-05-21 07:42 | ED_ITS ---
HPI - Abdominal Pain 2 General: Chief Complaint: Abdominal Pain Stated Complaint: RLQ pain Time Seen by Provider: 05/21/24 07:35 History of Present Illness: 58-year-old male presents emergency room patient with chronic abdominal pain seen here twice once about 3 weeks ago and then previously in late December 2022 both of those visits were for abdominal pain both times he had a CT done and were negative. Patient has a EGD scheduled for tomorrow. He has previously had gastric bypass surgery still has both his appendix and his gallbladder. Associated Symptoms: Reports nausea; Denies chills, dysuria and fever(s) Related Data Home Medications Medication Instructions Recorded Confirmed metoclopramide HCl 10 mg tablet See Rx Instructions .Route 04/28/24 05/21/24 .COMPLEX PRN Abdominal Pain albuterol sulfate 90 mcg/actuation 1 inh inhalation QID 05/18/24 05/21/24 aerosol inhaler fluticasone propionate 50 1 spray intranasal DAILY 05/18/24 05/21/24 mcg/actuation nasal spray,suspension hydrocodone 10 mg-acetaminophen 1 - 2 tab PO .Q4-6H PRN Pain 05/18/24 05/21/24 325 mg tablet levothyroxine 50 mcg tablet 50 mcg PO DAILY 05/18/24 05/21/24 atorvastatin 20 mg tablet 20 mg PO QPM 05/21/24 05/21/24 cholecalciferol (vitamin D3) 50 50 mcg PO DAILY 05/21/24 05/21/24 mcg (2,000 unit) tablet (Vitamin D3) finasteride 5 mg tablet 5 mg PO DAILY 05/21/24 05/21/24 losartan 100 mg tablet 100 mg PO DAILY 05/21/24 05/21/24 trazodone 50 mg tablet 50 mg PO QPM 05/21/24 05/21/24 Previous Rx's Medication Instructions Recorded pantoprazole 40 mg tablet,delayed 40 mg PO DAILY #60 tabs 04/28/24 release (Protonix) sucralfate 1 gram tablet 1 g PO BID 4 weeks #56 tabs 04/28/24 hydrocodone 5 mg-acetaminophen 325 1 tab PO Q6H PRN pain #10 tabs 05/21/24 mg tablet promethazine 25 mg tablet 25 mg PO Q6H PRN nausea and 05/21/24 vomiting #20 tabs Allergies Allergy/AdvReac Type Severity Reaction Status Date / Time No Known Allergies Allergy Verified 05/18/24 11:23 Review of Systems 2 Const: Denies: fever(s) or chills Card: Denies: chest pain Resp: Denies: dyspnea GI: Reports: abdominal pain and nausea : Denies: dysuria, urinary frequency or urinary urgency Musc: Denies: neck pain or back pain Skin/Breast: Denies: rash PFSH ED 2 PFSH: Social History Smoking and tobacco/nicotine status: current every day tobacco/nicotine user Physical Exam 2 Const: COMMON NORMALS: no acute distress GENERAL APPEARANCE: cooperative and comfortable ORIENTATION/CONSCIOUSNESS: Yes awake, Yes oriented to person, Yes oriented to place and Yes oriented to time HENMT: COMMON NORMALS: normocephalic, atraumatic and hearing grossly normal bilaterally HEAD & SCALP: normocephalic and atraumatic Resp: COMMON NORMALS: normal respiratory effort, No retractions, No use of accessory muscles and clear to auscultation bilaterally AUSCULTATION: clear to auscultation bilaterally Cardio: COMMON NORMALS: regular rate, regular rhythm and No murmurs present (Cardio) RATE: regular rate RHYTHM: regular rhythm GI: COMMON NORMALS: Soft to palpation and No hepatosplenomegaly present A USCULTATION: Yes normoactive bowel sounds PALPATION: Yes Soft to palpation, No Tenderness to palpation present (GI), No Guarding due to palpation present (GI) and Yes No hepatosplenomegaly present Extremity: COMMON NORMALS: normal to inspection, capillary refill normal, no clubbing, cyanosis or edema, no calf tenderness and no pedal edema Neuro: SENSORIUM/ORIENTATION: Yes oriented to person, Yes oriented to place and Yes oriented to time Skin: COMMON NORMALS: no rashes or lesions noted GENERAL SKIN EXAM: no rashes or lesions noted Course 2 Vital Signs: Vital signs: Vital Signs Temperature 98.1 F 05/21/24 07:33 Pulse Rate 77 05/21/24 10:09 Respiratory Rate 18 05/21/24 07:33 Blood Pressure 118/72 05/21/24 10:09 Pulse Oximetry 99 05/21/24 10:09 Oxygen Delivery Me thod Room Air 05/21/24 07:33 MDM - Abdominal Pain Medical Decision Making No acute findings. Very mild elevation of white count but CT of the abdomen is negative. He has some chronic kidney disease with a creatinine of 1.7. UA shows proteinuria but no acute infection. Patient is not having any further pain at this time. I suspect he may be having some biliary dyskinesia of the gallbladder ultrasound showed question of polyp. Discussed Dr. Kam she feels as warrants further evaluation. Patient has previously had a bariatric surgery. Discussed this with the patient he is frustrated he feels this may be an acute appendicitis and that he should have an MRI for evaluation. Discussed with him that CTs what is typically used we do not perform MRIs to evaluate acute appendicitis. He disagrees with this and feels that the MRI is the gold standard for evaluation of appendicitis. He has an EGD tomorrow we discussed Dr. Jane who is doing his EGD that I suspect he may have biliary dyskinesia we will set him up for an outpatient HIDA scan follow-up with Dr. Jane as outpatient. Patient does have a right inguinal hernia but there is no bowel or signs of inflammation in the hernia. Will discharge patient home have him follow-up with the Dr. Jane regarding his hernia as well. He is convinced that needs to be repaired. Advised him that if they do not have strangulated or incarcerated contents hernias often or just observed Medical Records I reviewed the patient's medical records. Lab Data I reviewed the patient's lab results. 05/21/24 07:45 05/21/24 07:45 Labs/Radiology: Radiology Impressions Chest X-Ray 05/21/24 07:36 IMPRESSION: Subtle area of increased attenuation in the lingula. Developing pneumonia/pneumonitis versus artifact. Upright PA chest may help resolve artifact versus pneumonia. Abdomen/Pelvis CT 05/21/24 08:20 IMPRESSION: 1. No renal obstruction or calcifications. 2. Normal appendix. 3. No GI tract obstruction. 4. Prior gastric bypass. 5. Few areas of increased attenuation within the gallbladder lumen. This corresponds to the findings on recent ultrasound. Tumefactive sludge versus mass. No adjacent inflammation. Gallbladder Ultrasound 05/21/24 08:20 IMPRESSION: 1. Abnormal gallbladder. There is lobulated soft tissue without increased vascularity projecting into the gallbladder lumen. No stones identified. This may be tumefactive sludge adherent to the gallbladder wall. Neoplastic polyp or gallbladder carcinoma should be considered also. Recommend surgical evaluation. 2. No intrahepatic duct dilatation. 3. Nonvisualization of the pancreas. Laboratory Results WBC 11.49 10^3/uL (3.29-11.43) H 05/21/24 07:45 RBC 3.86 10^6/uL (3.85-5.65) 05/21/24 07:45 Hgb 12.30 g/dL (11.27-16.99) 05/21/24 07:45 Hct 35.0 % (37-53) L 05/21/24 07:45 MCV 90.7 fl (82-101) 05/21/24 07:45 MCH 31.9 pg (27-33) 05/21/24 07:45 MCHC 35.1 g/dL (30-55) 05/21/24 07:45 RDW 12.9 % (12.1-15.1) 05/21/24 07:45 Plt Count 466 10^3/cmm (157-399) H 05/21/24 07:45 MPV 8.2 fL (7.4-10.4) 05/21/24 07:45 Neut % (Auto) 69.2 % 05/21/24 07:45 Lymph % (Auto) 22.0 % 05/21/24 07:45 Cooper % (Auto) 6.5 % 05/21/24 07:45 Eos % (Auto) 0.6 % 05/21/24 07:45 Baso % (Auto) 0.5 % 05/21/24 07:45 Neut # (Auto) 7.94 10^3/uL (1.8-7.7) H 05/21/24 07:45 Lymph # (Auto) 2.5 10^3/uL (0.8-4.8) 05/21/24 07:45 Cooper # (Auto) 0.8 10^3/uL (0.2-0.9) 05/21/24 07:45 Eos # (Auto) 0.1 10^3/uL (0.0-0.8) 05/21/24 07:45 Baso # (Auto) 0.1 10^3/uL (0.0-0.1) 05/21/24 07:45 Nucleated RBC % (auto) 0 % 05/21/24 07:45 Nucleated RBCs # 0.0 /100WBC 05/21/24 07:45 Sodium 141 mmol/L (136-145) 05/21/24 07:45 Potassium 3.9 mmol/L (3.5-5.1) 05/21/24 07:45 Chloride 103 mmol/L (98-107) 05/21/24 07:45 Carbon Dioxide 23 mmol/L (22-29) 05/21/24 07:45 Anion Gap 18.9 (5-19) 05/21/24 07:45 BUN 30 mg/dL (6-20) H 05/21/24 07:45 Creatinine 1.7 mg/dL (0.7-1.2) H 05/21/24 07:45 GFR Calculation 41.9 mL/min (90-130) L 05/21/24 07:45 Glucose 114 mg/dL (65-115) 05/21/24 07:45 Calculated Osmolality 299 mOsm/kg (285-295) H 05/21/24 07:45 Lactic Acid 1.8 mmol/L (0.5-2.2) 05/21/24 07:45 Calcium 9.4 mg/dL (8.5-10.5) 05/21/24 07:45 Total Bilirubin 0.3 mg/dL (0.15-1.2) 05/21/24 07:45 AST 16 U/L (0-40) 05/21/24 07:45 ALT 17 U/L (0-41) 05/21/24 07:45 Alkaline Phosphatase 80 U/L (40-130) 05/21/24 07:45 Total Protein 6.5 g/dL (6.6-8.7) L 05/21/24 07:45 Albumin 3.7 g/dL (3.5-5.2) 05/21/24 07:45 Globulin 2.8 g/dL (1.3-4.6) 05/21/24 07:45 Lipase 35 U/L (13-60) 05/21/24 07:45 Urine Color Yellow (Yellow) 05/21/24 08:20 Urine Appearance Cloudy (CLEAR) A 05/21/24 08:20 Urine pH 5.5 (5-7) 05/21/24 08:20 Ur Specific [place] 1.020 (1.005-1.030) 05/21/24 08:20 Urine Protein 2+ (Negative) A 05/21/24 08:20 Urine Glucose (UA) Negative (Normal) 05/21/24 08:20 Urine Ketones Negative (Negative) 05/21/24 08:20 Urine Blood Negative (Negative) 05/21/24 08:20 Urine Nitrate Negative (Negative) 05/21/24 08:20 Urine Bilirubin Negative (Negative) 05/21/24 08:20 Urine Urobilinogen 0.2 mg/dL (Negative) 05/21/24 08:20 Ur Leukocyte Esterase Negative (Negative) 05/21/24 08:20 Urine RBC 0-2 /hpf (0-2) 05/21/24 08:20 Urine WBC 0-5 /hpf (0-5) 05/21/24 08:20 Ur Squamous Epith Cells 0-5 /hpf (0-5) 05/21/24 08:20 Amorphous Sediment Not Reportable 05/21/24 08:20 Urine Bacteria None seen /hpf (NONE) 05/21/24 08:20 Hyaline Casts 1.65 /lpf 05/21/24 08:20 All radiology interpretation(s) finalized by discharge Discharge Plan Discharge Patient Disposition: Home Clinical Impression: Biliary dyskinesia, Right inguinal hernia, CKD (chronic kidney disease) Condition: Stable Prescriptions: New hydrocodone-acetaminophen 5-325 mg tablet 1 tab PO Q6H PRN (Reason: pain) Qty: 10 0RF promethazine 25 mg tablet 25 mg PO Q6H PRN (Reason: nausea and vomiting) Qty: 20 0RF No Action hydrocodone-acetaminophen 10-325 mg tablet 1 - 2 tab PO .Q4-6H PRN (Reason: Pain) Rx Instructions: max 8 tabs daily levothyroxine 50 mcg tablet 50 mcg PO DAILY albuterol sulfate 90 mcg/actuation HFA aerosol inhaler 1 inh inhalation QID fluticasone propionate 50 mcg/actuation spray,suspension 1 spray intranasal DAILY Rx Instructions: administer into each nostril metoclopramide HCl 10 mg tablet See Rx Instructions .ROUTE .COMPLEX PRN (Reason: Abdominal Pain) Rx Instructions: TAKE 1 TABLET BY MOUTH 1/2 HOUR PRIOR TO MEAL TWICE A DAY NEEDED. pantoprazole [Protonix] 40 mg tablet,delayed release (DR/EC) 40 mg PO DAILY Qty: 60 0RF sucralfate 1 gram tablet 1 g PO BID 28 Days Qty: 56 0RF atorvastatin 20 mg Tablet 20 mg PO QPM trazodone 50 mg Tablet 50 mg PO QPM losartan 100 mg Tablet 100 mg PO DAILY finasteride 5 mg Tablet 5 mg PO DAILY cholecalciferol (vitamin D3) [Vitamin D3] 50 mcg (2,000 unit) Tablet 50 mcg PO DAILY Discharge Orders: Discharge ED (Routine); Ordered 05/21/24 Ordered By: Yeyo Page Referrals: Jairon Gan, DO [Primary Care Provider] - Discharge Diet: As Directed Discharge Activity: Increase activity as tolerated Patient Instructions: Biliary Dyskinesia (DC), Opioid Safety, Pain Management Activity Restrictions/Additional Instructions: [facility]. It is very important that you follow up as instructed or that you return to the Emergency Department should you have concerns or if your condition changes or worsens in any way. You were seen in the emergency room with complaints of abdominal pain. CT did not show any acute emergent conditions. Ultrasound her gallbladder did show what appears to be some sludge and a possible polyp but there is no signs of acute infection. Your white count was not significantly elevated your liver functions were normal. Your kidney function is elevated but this is chronic. Based on the history you gave suspect you may have some biliary dyskinesia and this is where the gallbladder does not function properly and causes symptoms. I discussed with Dr. Jane the surgeon who is doing your EGD tomorrow he concurs with getting the HIDA scan and he will follow-up with you on this. With the CT there is an incidental finding of a inguinal hernia but it only contains a small amount of fat there is no sign of inflammation at that area and there is no bowel involved. Many times these do not require any intervention you can follow-up with this with Dr. Jane as well. To minimize irritation to your gallbladder avoid red meats fatty foods fried foods dairy products citrus fruit tomato based products. Also avoid any other foods that you noticed that seems to aggravate symptoms. You are given pain and nausea medications. Continue the other medications you have previously been prescribed as well. Coding Level of Care Code ED [employer] for Azul Nash
[2024-05-21] MEDS: ketorolac 30 mg/mL INJ IVP (07:53)
[2024-05-21] MEDS: ondansetron 2 mg/ML SDV 2 mL 4 MG IVP (07:53)
[2024-05-21 07:59] LABS: Basophils # 0.1 10^3/uL (0.0-0.1); Basophils % 0.5 %; Eosinophils # 0.1 10^3/uL (0.0-0.8); Eosinophils % 0.6 %; Lymphocytes # 2.5 10^3/uL (0.8-4.8); Mean Corpuscular HGB Conc 35.1 g/dL (30-55); Mean Corpuscular Hemoglobin 31.9 pg (27-33); Mean Corpuscular Volume 90.7 fl (82-101); Mean Platelet Volume 8.2 fL (7.4-10.4); Monocytes # 0.8 10^3/uL (0.2-0.9); Monocytes % 6.5 %; Neutrophils # 7.94 10^3/uL (1.8-7.7); Neutrophils % 69.2 %; Nucleated Red Blood Cells % 0 %; Platelet Count 466 10^3/cmm (157-399); Red Blood Count 3.86 10^6/uL (3.85-5.65); Red Cell Distribution Width 12.9 % (12.1-15.1); White Blood Count 11.49 10^3/uL (3.29-11.43)
--- NOTE | 2024-05-21 08:08 | PC.PHAR ---
[facility]
[2024-05-21 08:16] LABS: Alanine Aminotransferase 17 U/L (0-41); Albumin Level 3.7 g/dL (3.5-5.2); Alkaline Phosphatase 80 U/L (40-130); Anion Gap 18.9 (5-19); Aspartate Amino Transferase 16 U/L (0-40); Blood Urea Nitrogen 30 mg/dL (6-20); Calcium 9.4 mg/dL (8.5-10.5); Carbon Dioxide 23 mmol/L (22-29); Chloride 103 mmol/L (98-107); Creatinine Clr Calc Pharmacy 50.8757; Globulin 2.8 g/dL (1.3-4.6); Glomerular Filtration Rate 41.9 mL/min (90-130); Glucose 114 mg/dL (65-115); Lipase 35 U/L (13-60); Osmolality Calculated 299 mOsm/kg (285-295); Potassium 3.9 mmol/L (3.5-5.1); Sodium 141 mmol/L (136-145); Total Bilirubin 0.3 mg/dL (0.15-1.2); Total Protein 6.5 g/dL (6.6-8.7)
[2024-05-21 08:17] LABS: Lactic Sepsis W/Reflex 1.8 mmol/L (0.5-2.2)
--- NOTE | 2024-05-21 08:20 | CT_ITS ---
WS: [id number] CT ABDOMEN AND PELVIS NONCONTRAST HISTORY: RIGHT lower quadrant pain, nausea and vomiting for 6 weeks. TECHNIQUE: Imaging performed through the abdomen and pelvis. Coronal and sagittal reformats are submi tted. All CT scans at [facility] use at least one of these dose optimization techniques: auto mated exposure control; mA and/or kV adjustment per patient size (includes targeted exams where dose is matched to clinical indication); or iterative reconstruction. DLP: 747.56 mGy.cm COMPARISON: 04/28/2024 Lower thorax: No pneumonia at the lung bases. Opacification noted on the recent chest x-ray was proba charleen due to rotation of the patient. Normal size heart. Liver: Normal size liver. No mass or bile duct dilatation. Gallbladder: Normally distended gallbladder. No adjacent inflammation. There are a few areas of incre ased attenuation within the gallbladder lumen. These were better visualized by ultrasound. No wall th ickening. Pancreas: Normal size and attenuation. Normal pancreatic duct. No pancreatitis or mass. Spleen: Normal. Adrenal glands: Normal. No mass. Right kidney: Normal size kidney with no mass or hydronephrosis. Left kidney: Normal size kidney with no mass or hydronephrosis. Aorta: Mild atherosclerosis abdominal aorta with no aneurysm. No free fluid, intraperitoneal air or significant lymphadenopathy. GI tract: Prior gastric bypass surgery. No GI tract obstruction. No colitis. Normal appendix. Abdominal wall: Negative. No hernia. Pelvis: No free fluid or adenopathy. Urinary bladder is not distended. Patent RIGHT inguinal canal co ntaining fat only. Osseous structures: Small sclerotic foci in the proximal femurs most consistent with bone islands. CT/CT abdomen pelvis wo con [id number] IMPRESSION: 1. No renal obstruction or calcifications. 2. Normal appendix. 3. No GI tract obstruction. 4. Prior gastric bypass. 5. Few areas of increased attenuation within the gallbladder lumen. This corre sponds to the findings on recent ultrasound. Tumefactive sludge versus mass. No adjacent inflammation.
--- NOTE | 2024-05-21 08:20 | US_ITS ---
WS: [id number] RIGHT UPPER QUADRANT ULTRASOUND HISTORY: Abdominal pain, status post bariatric surgery COMPARISON: Prior ultrasound 05/10/2014, CT 05/21/2024 Liver: 16.7 cm in length. Normal size liver and echogenicity. No bile duct dilatation or mass. Portal Vein: Normal hepatopetal flow with monophasic waveform. Gallbladder: Normally distended gallbladder. Lobulated soft tissue within the gallbladder lumen witho ut increased vascularity. Multifocal areas of soft tissue component with the largest measuring 1.5 cm . There are a few small calcifications within the soft tissue component. CBD: 0.7 cm Pancreas: Obscured by bowel gas. Right kidney: 10.0 cm in length. Normal size and echogenicity. No hydronephrosis or mass. Aorta and IVC: Unremarkable abdominal aorta and IVC. No ascites. US/US gall bladder [id number] IMPRESSION: 1. Abnormal gallbladder. There is lobulated soft tissue without increased vasc ularity projecting into the gallbladder lumen. No stones identified. This may b e tumefactive sludge adherent to the gallbladder wall. Neoplastic polyp or gall bladder carcinoma should be considered also. Recommend surgical evaluation. 2. No intrahepatic duct dilatation. 3. Nonvisualization of the pancreas.
[2024-05-21 08:33] LABS: Bilirubin Urine Negative (Negative); Blood Urine Negative (Negative); Glucose Urine UA Negative (Normal); Ketones Urine Negative (Negative); Leukocyte Esterase Urine Negative (Negative); Nitrate Urine Negative (Negative); Protein Urine 2+ (Negative); Urine Appearance Cloudy (CLEAR); Urine Color Yellow (Yellow); Urobilinogen Urine 0.2 mg/dL (Negative); pH Urine 5.5 (5-7)
[2024-05-21 08:36] LABS: Add Urine Microscopic? YES; Bacteria Urine None Seen /hpf; Hyaline Casts Urine 1.65 /lpf; RBC Urine 0-2 /hpf (0-2); Squamous Epithelial Cell Urine 0-5 /hpf (0-5); WBC Urine 0-5 /hpf (0-5)
[2024-05-21] MEDS: morphine 4 mg/mL SDV 1 mL IVP (09:46)
[2024-05-21 10:09] VITALS: BP 118/72; PULSE 77; O2SAT 99
--- NOTE | 2024-05-21 11:07 | PC.PHAR ---
[facility]
--- NOTE | 2024-05-24 15:24 | DCPLANNER ---
faxed outpatient hida to scheduling for er f/u
== END 2024-05-21 11:22 | disposition home or self-care (01) ==
PROVIDERS: Emergency Provider Family Medicine; PCP Emergency Medicine Emergency Medical Services
DX: K82.8 Other specified diseases of gallbladder (principal); K40.90 Unilateral inguinal hernia, without obstruction or gangrene, not specified as recurrent; N18.9 Chronic kidney disease, unspecified
CPT/HCPCS: 36415; 71045; 74176; 76705; 80053; 81001; 83605; 83690; 85025; 93005; 96374; 96375; 99285; J1885; J2270; J2405

== ENCOUNTER 2024-05-22 10:01 | Day surgery (SDC) | payer OTHER, SELFPAY ==
[2024-05-22 10:29] VITALS: BP 140/100; PULSE 75; RESP 18; TEMP 36.7; O2SAT 97
[2024-05-22 10:30] VITALS: BMI 29.7
[2024-05-22] MEDS: sodium chloride 0.9% 500 ML 15 ML IV (10:56)
[2024-05-22] MEDS: ondansetron 2 mg/ML SDV 2 mL 4 MG IVP (11:03)
[2024-05-22] MEDS: fentaNYL 50 mcg/mL INJ 2mL IVP (11:17)
--- NOTE | 2024-05-22 12:04 | W.PM.OPSUD ---
Surgery/Procedure H&P Update DATE OF PROCEDURE: May 22, 2024 DATE H&P PERFORMED: 05/18/24 H&P UPDATE INFORMATION: I have reviewed H&P completed within last 30 days, I have examined patient prior to procedure, No changes to prior documentation and H&P is in [facility] [place] on date indicated PLANNED PROCEDURE: Operation Date: 05/22/24 11:30 Proposed Procedures p EGD 12299, 89018, G0105, R19.4, R12(Not Applicable) - Jorge Luis Jane MD s Colonoscopy(Not Applicable) - Jorge Luis Jane MD
--- NOTE | 2024-05-22 12:40 | ANES.PREANE2 ---
Pre-Anesthetic Assessment Height/Weight: Height 1.7 m Weight 86.183 kg Temp Pulse Resp BP Pulse Ox O2 Del Method 98.1 F 75 18 140/100 97 Room Air 05/22/24 10:29 05/22/24 10:29 05/22/24 10:29 05/22/24 10:29 05/22/24 10:29 05/22/24 10:29 Operation Date: 05/22/24 11:30 Proposed Procedures p EGD 42949, 94590, G0105, R19.4, R12(Not Applicable) - Jorge Luis Jane MD s Colonoscopy(Not Applicable) - Jorge Luis Jane MD Familial anesthetic complications: none Was Beta Spencer taken within 24 hours: N/A Was Clonidine taken within 24 hours: N/A Last intake: Intake Last Liquid Date 05/22/24 Last Liquid Time 10:20 Last Solid Date 05/20/24 Social Tobacco and No alcohol Exam alert, oriented x 3 and regular rate & rhythm Airway Submandibular: within normal limits Cervical ROM: within normal limits Mallampati: Class II Dentition: chipped CV/HEM Hypertension Chronic Renal Insufficiency Metabolic Hyperlipidemia and Thyroid Disease Neuropsych Chronic pain Anesthetic Plan ASA status: 3 Anesthesia: MAC Medications/Allergies Home Medications Medication Instructions Recorded Confirmed Last Taken Type metoclopramide HCl 10 mg tablet See Rx Instructions .Route 04/28/24 05/21/24 05/21/24 History .COMPLEX PRN Abdominal Pain pantoprazole 40 mg tablet,delayed 40 mg PO DAILY #60 tabs 04/28/24 05/22/24 05/21/24 Rx release (Protonix) sucralfate 1 gram tablet 1 g PO BID 4 weeks #56 tabs 04/28/24 05/21/24 05/21/24 Rx albuterol sulfate 90 mcg/actuation 1 inh inhalation QID 05/18/24 05/21/24 05/21/24 History aerosol inhaler fluticasone propionate 50 1 spray intranasal DAILY 05/18/24 05/21/24 05/21/24 History mcg/actuation nasal spray,suspension hydrocodone 10 mg-acetaminophen 1 - 2 tab PO .Q4-6H PRN Pain 05/18/24 05/21/24 05/22/24 History 325 mg tablet levothyroxine 50 mcg tablet 50 mcg PO DAILY 05/18/24 05/21/2425 History atorvastatin 20 mg tablet 20 mg PO QPM 05/21/24 05/22/24 05/21/24 History cholecalciferol (vitamin D3) 50 50 mcg PO DAILY 05/21/24 05/22/24 05/21/24 History mcg (2,000 unit) tablet (Vitamin D3) finasteride 5 mg tablet 5 mg PO DAILY 05/21/24 05/22/24 05/21/24 History hydrocodone 5 mg-acetaminophen 325 1 tab PO Q6H PRN pain #10 tabs 05/21/24 05/22/24 Unknown Rx mg tablet losartan 100 mg tablet 100 mg PO DAILY 05/21/24 05/22/24 05/21/24 History promethazine 25 mg tablet 25 mg PO Q6H PRN nausea and 05/21/24 05/22/24 05/21/24 Rx vomiting #20 tabs trazodone 50 mg tablet 50 mg PO QPM 05/21/24 05/22/24 05/21/24 History Allergies Allergy/AdvReac Type Severity Reaction Status Date / Time No Known Allergies Allergy Verified 05/22/24 10:27 Current Medications Generic Name Dose Route Start Last Admin Trade Name Freq PRN Reason Stop Dose Admin Fentanyl 50 mcg 05/22/24 10:05/22/24 11:17 Fentanyl 50 Mcg/Ml Inj 2ml IVP 50 mcg ONCE PRN Administration Preop or postop pain Sodium Chloride 500 mls @ 15 mls/hr 05/22/24 10:05/22/24 10:56 Sodium Chloride 0.9% IV 05/23/24 10:05 15 mls/hr .Q24H PRN Administration COLONOSCOPY FLUIDS Ondansetron HCl 4 mg 05/22/24 10:05/22/24 11:03 Ondansetron 2 Mg/Ml Sdv 2 Ml IVP 4 mg ONCE PRN Administration NAUSEA AND VOMITING PFSH Anesthesia Social History Smoking and tobacco/nicotine status: current every day tobacco/nicotine user Data Anesthesia Cardiac Studies: No Data to Display
[2024-05-22 13:38] VITALS: BP 109/77; PULSE 68; RESP 12; TEMP 36.1; O2SAT 99
[2024-05-22 13:54] VITALS: BP 133/91; PULSE 63; RESP 12; O2SAT 95
--- NOTE | 2024-05-22 13:54 | ANE.PACU2 ---
Inpatient post-anesthesia follow up: Airway intact: Yes Vital signs: Temperature 97 F Pulse Rate 68 Respiratory Rate 12 Blood Pressure 109/77 Pulse Oximetry 99 Oxygen Delivery Me thod Room Air Oxygen Flow Rate Fraction of Inspir ed Oxygen Hydration adequate: Yes Nausea and vomiting: No Pain level: 2 Mental status: Baseline
== END 2024-05-22 14:15 | disposition home or self-care (01) ==
PROVIDERS: Visit Provider Student in an Organized Health Care Education/Training Program
PROC: 0DJ08ZZ Inspection of Upper Intestinal Tract, Via Natural or Artificial Opening Endoscopic (ICD-10-PCS; principal; 2024-05-22 11:30)
PROC: 0DJD8ZZ Inspection of Lower Intestinal Tract, Via Natural or Artificial Opening Endoscopic (ICD-10-PCS; CPT 45378; 2024-05-22 11:30)
DX: R19.4 Change in bowel habit (principal); R12 Heartburn; K29.70 Gastritis, unspecified, without bleeding; K52.9 Noninfective gastroenteritis and colitis, unspecified; I10 Essential (primary) hypertension; E78.5 Hyperlipidemia, unspecified; G89.29 Other chronic pain; F17.200 Nicotine dependence, unspecified, uncomplicated
CPT/HCPCS: 43239; 45380; 88305; J2405; J2704; J3010; J7040

== ENCOUNTER 2024-05-23 08:32 | Emergency (ER) | payer OTHER, SELFPAY ==
--- NOTE | 2024-05-23 08:34 | XR_ITS ---
WS: [id number] Portable AP upright chest, 05/23/2024 Clinical Data: cp Comparison: Portable chest, 05/21/2024 Findings: No nodules, masses or effusions are seen. The heart is normal. The pulmonary vascularity is not increased. No pneumonia or pneumothorax is seen. Monitor leads are on the chest wall. There is a minimal calcification inferior to the left glenoid rim which could indicate calcific bursitis and/or tendinitis. XR/XR chest 1V portable [id number] Impression: Negative chest.
--- NOTE | 2024-05-23 08:41 | ECG_ITS ---
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 Measurements Intervals Ten Sleep Rate: 67 P: 40 MA: 146 QRS: 32 QRSD: 78 T: 16 QT: 411 QTc: 434 Interpretive Statements SINUS RHYTHM NONSPECIFIC T-WAVE ABNORMALITY Compared to ECG 05/21/2024 07:42:22 No significant changes Electronically Signed On 05-23-2024 17:23:38 [employer] by Montez Baum M.D. [email or web address]
--- NOTE | 2024-05-23 08:43 | ED_ITS ---
HPI - Abdominal Pain 2 General: Chief Complaint: Chest Pain Stated Complaint: ABD/CHEST PAIN Time Seen by Provider: 05/23/24 08:33 Source: patient and EMS Mode of arrival: EMS Limitations: no limitations History of Present Illness: 58-year-old male who states has been hav ing abdominal pains been going on for over a month. He did see Dr. Jane he had a EGD and a colonoscopy done yesterday states he had some worsening diffuse abdominal pain along with chest pain since then. States pain is an 8 out of 10 he states that he wants to have his gallbladder removed he believes that is causing his pain denies any fevers. Associated Symptoms: Denies chills, diarrhea, dysuria, fever(s), nausea and vomiting Related Data Home Medications Medication Instructions Recorded Confirmed metoclopramide HCl 10 mg tablet 10 mg PO BID PRN Abdominal Pain 04/28/24 05/23/24 albuterol sulfate 90 mcg/actuation 1 inh inhalation QID PRN Shortness 05/18/24 05/23/24 aerosol inhaler Of Breath fluticasone propionate 50 1 spray intranasal DAILY 05/18/24 05/23/24 mcg/actuation nasal spray,suspension hydrocodone 10 mg-acetaminophen 1 - 2 tab PO .Q4-6H PRN Pain 05/18/24 05/23/24 325 mg tablet levothyroxine 50 mcg tablet 50 mcg PO DAILY 05/18/24 05/23/24 atorvastatin 20 mg tablet 10 mg PO QPM 05/21/24 05/23/24 cholecalciferol (vitamin D3) 50 50 mcg PO DAILY 05/21/24 05/23/24 mcg (2,000 unit) tablet (Vitamin D3) finasteride 5 mg tablet 5 mg PO DAILY 05/21/24 05/23/24 losartan 100 mg tablet 100 mg PO DAILY 05/21/24 05/23/24 trazodone 50 mg tablet 50 mg PO QPM 05/21/24 05/23/24 Previous Rx's Medication Instructions Recorded pantoprazole 40 mg tablet,delayed 40 mg PO DAILY #60 tabs 04/28/24 release (Protonix) sucralfate 1 gram tablet 1 g PO BID 4 weeks #56 tabs 04/28/24 hydrocodone 5 mg-acetaminophen 325 1 tab PO Q6H PRN pain #10 tabs 05/21/24 mg tablet promethazine 25 mg tablet 25 mg PO Q6H PRN nausea and 05/21/24 vomiting #20 tabs sucralfate 100 mg/mL oral 1 g (10 mL) PO BID 8 weeks #1,120 05/22/24 suspension mL Allergies Allergy/AdvReac Type Severity Reaction Status Date / Time No Known Allergies Allergy Verified 05/22/24 10:27 Review of Systems 2 Const: Denies: fever(s), chills, body aches or change in appetite ENMT: Denies: throat pain or dental pain Card: Reports: chest pain Resp: Denies: dyspnea GI: Reports: abdominal pain; Denies: nausea, vomiting or diarrhea : Denies: dysuria Musc: Denies: neck pain or back pain Skin/Breast: Denies: rash Neuro: Denies: headache(s) PFSH ED 2 PFSH: Social History Smoking and tobacco/nicotine status: current every day tobacco/nicotine user Physical Exam 2 Const: COMMON NORMALS: no acute distress, patient oriented x3 and healthy appearing HENMT: COMMON NORMALS: normocephalic and atraumatic HEAD & SCALP: n ormocephalic and atraumatic Neck/C-Spine: COMMON NORMALS: full ROM and supple Chest: COMMONS NORMALS: normal inspection of the chest Resp: COMMON NORMALS: normal respiratory effort, No retractions, No use of accessory muscles and clear to auscultation bilaterally AUSCULTATION: clear to auscultation bilaterally Cardio: COMMON NORMALS: regular rate, regular rhythm and No murmurs present (Cardio) RATE: regular rate RHYTHM: regular rhythm GI: COMMON NORMALS: Normal to inspection, nondistended, normoactive bowel sounds present, Soft to palpation and no masses PALPATION: Yes Soft to palpation OTHER: mild diffuse tenderness Extremity: COMMON NORMALS: normal to inspection and full ROM Neuro: COMMON NORMALS: patient oriented x3, moves all extremities and no focal motor deficits Psych: COMMON NORMALS: mental status grossly normal, Normal thought process present and cooperative THOUGHT PROCESS: Normal thought process present Skin: COMMON NORMALS: no rashes or lesions noted and no wounds GENERAL SKIN EXAM: no rashes or lesions noted Course 2 Vital Signs: Vital signs: Vital Signs Temperature 97.6 F 05/23/24 08:46 Pulse Rate 71 05/23/24 08:46 Respiratory Rate 18 05/23/24 09:15 Blood Pressure 132/80 05/23/24 08:46 Pulse Oximetry 99 05/23/24 09:15 Oxygen Delivery Me thod Room Air 05/23/24 08:46 MDM - Abdominal Pain Medical Decision Making Patient presents here with abdominal pain exam is benign CT showed no acute findings here he complained of some chest pain 2 is atypical troponins negative no signs of ACS he is to follow back up with Dr. Jane he is return if worsening he understands agrees to plan. Medical Records I reviewed the patient's medical records. Lab Data I reviewed the patient's lab results. 05/23/24 08:20 05/23/24 08:20 Labs/Radiology: Radiology Impressions Chest X-Ray 05/23/24 08:34 Impression: Negative chest. Abdomen/Pelvis CT 05/23/24 08:43 IMPRESSION: 1. Recently described increased attenuation of the gallbladder is becoming less conspicuous by CT. Favor this is probably tumefactive sludge that is changing with gallbladder contraction. 2. No intrahepatic duct dilatation. 3. Prior gastric bypass. 4. No GI tract obstruction. 5. Normal appendix. Laboratory Results WBC 9.67 10^3/uL (3.29-11.43) 05/23/24 08:20 RBC 4.21 10^6/uL (3.85-5.65) 05/23/24 08:20 Hgb 13.40 g/dL (11.27-16.99) 05/23/24 08:20 Hct 38.1 % (37-53) 05/23/24 08:20 MCV 90.5 fl (82-101) 05/23/24 08:20 MCH 31.8 pg (27-33) 05/23/24 08:20 MCHC 35.2 g/dL (30-55) 05/23/24 08:20 RDW 12.7 % (12.1-15.1) 05/23/24 08:20 Plt Count 475 10^3/cmm (157-399) H 05/23/24 08:20 MPV 8.5 fL (7.4-10.4) 05/23/24 08:20 Neut % (Auto) 73.9 % 05/23/24 08:20 Lymph % (Auto) 20.0 % 05/23/24 08:20 [place] % (Auto) 5.0 % 05/23/24 08:20 Eos % (Auto) 0.2 % 05/23/24 08:20 Baso % (Auto) 0.4 % 05/23/24 08:20 Neut # (Auto) 7.15 10^3/uL (1.8-7.7) 05/23/24 08:20 Lymph # (Auto) 1.9 10^3/uL (0.8-4.8) 05/23/24 08:20 [place] # (Auto) 0.5 10^3/uL (0.2-0.9) 05/23/24 08:20 Eos # (Auto) 0.0 10^3/uL (0.0-0.8) 05/23/24 08:20 Baso # (Auto) 0.0 10^3/uL (0.0-0.1) 05/23/24 08:20 Nucleated RBC % (auto) 0 % 05/23/24 08:20 Nucleated RBCs # 0.0 /100WBC 05/23/24 08:20 Sodium 140 mmol/L (136-145) 05/23/24 08:20 Potassium 3.3 mmol/L (3.5-5.1) L 05/23/24 08:20 Chloride 102 mmol/L (98-107) 05/23/24 08:20 Carbon Dioxide 23 mmol/L (22-29) 05/23/24 08:20 Anion Gap 18.3 (5-19) 05/23/24 08:20 BUN 25 mg/dL (6-20) H 05/23/24 08:20 Creatinine 1.5 mg/dL (0.7-1.2) H 05/23/24 08:20 GFR Calculation 48.4 mL/min (90-130) L 05/23/24 08:20 Glucose 103 mg/dL (65-115) 05/23/24 08:20 Calculated Osmolality 295 mOsm/kg (285-295) 05/23/24 08:20 Calcium 9.8 mg/dL (8.5-10.5) 05/23/24 08:20 Total Bilirubin 0.5 mg/dL (0.15-1.2) 05/23/24 08:20 AST 17 U/L (0-40) 05/23/24 08:20 ALT 17 U/L (0-41) 05/23/24 08:20 Alkaline Phosphatase 77 U/L (40-130) 05/23/24 08:20 Troponin T Baseline 11 ng/L (0-15) 05/23/24 08:20 Total Protein 6.9 g/dL (6.6-8.7) 05/23/24 08:20 Albumin 4.1 g/dL (3.5-5.2) 05/23/24 08:20 Globulin 2.8 g/dL (1.3-4.6) 05/23/24 08:20 Lipase 33 U/L (13-60) 05/23/24 08:20 All radiology interpretation(s) finalized by discharge EKG Data EKG 1: I personally reviewed and interpreted this EKG as follows: EKG interpretation date: 05/23/24 EKG interpretation time: 08:41 Interpretation: nsr hr [address] elevation qrs 78 qtc 423 Discharge Plan Discharge Patient Disposition: Home Clinical Impression: Chest pain Condition: Stable Prescriptions: No Action hydrocodone-acetaminophen 10-325 mg tablet 1 - 2 tab PO .Q4-6H PRN (Reason: Pain) Rx Instructions: max 8 tabs daily levothyroxine 50 mcg tablet 50 mcg PO DAILY albuterol sulfate 90 mcg/actuation HFA aerosol inhaler 1 inh inhalation QID PRN (Reason: Shortness Of Breath) fluticasone propionate 50 mcg/actuation spray,suspension 1 spray intranasal DAILY Rx Instructions: administer into each nostril metoclopramide HCl 10 mg tablet 10 mg PO BID PRN (Reason: Abdominal Pain) pantoprazole [Protonix] 40 mg tablet,delayed release (DR/EC) 40 mg PO DAILY Qty: 60 0RF sucralfate 1 gram tablet 1 g PO BID 28 Days Qty: 56 0RF sucralfate 100 mg/mL suspension 1 g PO BID 56 Days Qty: 1120 0RF hydrocodone-acetaminophen 5-325 mg tablet 1 tab PO Q6H PRN (Reason: pain) Qty: 10 0RF promethazine 25 mg tablet 25 mg PO Q6H PRN (Reason: nausea and vomiting) Qty: 20 0RF atorvastatin 20 mg Tablet 10 mg PO QPM trazodone 50 mg Tablet 50 mg PO QPM losartan 100 mg Tablet 100 mg PO DAILY finasteride 5 mg Tablet 5 mg PO DAILY cholecalciferol (vitamin D3) [Vitamin D3] 50 mcg (2,000 unit) Tablet 50 mcg PO DAILY Discharge Orders: Discharge ED (Routine); Ordered 05/23/24 Ordered By: Pipo Ham Referrals: Jorge Luis Jane MD [Physician] - 4-7 days Discharge Diet: Advance as tolerated Discharge Activity: Resume usual activity Patient Instructions: Chest Pain (ED) Coding Level of Care Code ED Loom Technician for Azul Nash
--- NOTE | 2024-05-23 08:43 | CT_ITS ---
WS: [id number] CT ABDOMEN AND PELVIS WITH CONTRAST HISTORY: Abdomen pain without trauma. TECHNIQUE: Imaging performed of the abdomen and pelvis with IV contrast. Single phase imaging of the abdomen. Coronal and sagittal reformats are submitted. All CT scans at [facility] use at [address] one of these dose optimization techniques: automated exposure control; mA and/or kV adjustment per patient size (includes targeted exams where dose is matched to clinical indication); or iterative re construction. IV CONTRAST: Omnipaque 350; 100 mL IV. Oral contrast: No DLP: 719.95 mGy.cm COMPARISON: Prior CT and ultrasound 05/21/2024. Lower thorax: Lung bases are clear. Heart is normal size. No hiatal hernia. Liver/biliary system: Normal size liver with a few scattered hypodensities which are probably cysts. No intrahepatic duct dilatation. Gallbladder: Normal. No gallstones or wall thickening. No pericholecystic fluid. The recently describ ed increased attenuation within the gallbladder has become less apparent. Favor this is probably tume factive sludge that is resolving. Pancreas: Normal size pancreas and pancreatic duct. No adjacent inflammation. Spleen: Normal size spleen. No mass or infarct. Adrenal glands: Normal. Right kidney: Normal. Left kidney: Normal. Aorta: Mild atherosclerosis with no aneurysm. Lymphadenopathy: None. Free fluid: None. GI tract: Surgical changes at the stomach appear to be gastric bypass related. No obstruction. Normal appendix. New high density material in the descending colon is probably medicinal. Abdominal wall: Unremarkable abdominal wall. No hernia. Pelvis: No free fluid or adenopathy within the pelvis. RIGHT inguinal canal hernia contains fat only. Bones: No change. CT/CT abdomen pelvis w con* [id number] IMPRESSION: 1. Recently described increased attenuation of the gallbladder is becoming les s conspicuous by CT. Favor this is probably tumefactive sludge that is changing with gallbladder contraction. 2. No intrahepatic duct dilatation. 3. Prior gastric bypass. 4. No GI tract obstruction. 5. Normal appendix.
[2024-05-23 08:46] VITALS: BP 132/80; PULSE 71; RESP 18; TEMP 36.4; O2SAT 98
[2024-05-23 08:49] LABS: Basophils % 0.4 %; Eosinophils % 0.2 %; Hematocrit 38.1 % (37-53); Lymphocytes # 1.9 10^3/uL (0.8-4.8); Mean Corpuscular HGB Conc 35.2 g/dL (30-55); Mean Corpuscular Hemoglobin 31.8 pg (27-33); Mean Corpuscular Volume 90.5 fl (82-101); Mean Platelet Volume 8.5 fL (7.4-10.4); Monocytes # 0.5 10^3/uL (0.2-0.9); Neutrophils # 7.15 10^3/uL (1.8-7.7); Neutrophils % 73.9 %; Nucleated Red Blood Cells % 0 %; Platelet Count 475 10^3/cmm (157-399); Red Blood Count 4.21 10^6/uL (3.85-5.65); Red Cell Distribution Width 12.7 % (12.1-15.1); White Blood Count 9.67 10^3/uL (3.29-11.43)
[2024-05-23 09:07] LABS: Alanine Aminotransferase 17 U/L (0-41); Albumin Level 4.1 g/dL (3.5-5.2); Alkaline Phosphatase 77 U/L (40-130); Anion Gap 18.3 (5-19); Aspartate Amino Transferase 17 U/L (0-40); Blood Urea Nitrogen 25 mg/dL (6-20); Calcium 9.8 mg/dL (8.5-10.5); Carbon Dioxide 23 mmol/L (22-29); Chloride 102 mmol/L (98-107); Creatinine Clr Calc Pharmacy 57.6592; Globulin 2.8 g/dL (1.3-4.6); Glomerular Filtration Rate 48.4 mL/min (90-130); Glucose 103 mg/dL (65-115); Lipase 33 U/L (13-60); Osmolality Calculated 295 mOsm/kg (285-295); Potassium 3.3 mmol/L (3.5-5.1); Sodium 140 mmol/L (136-145); Total Bilirubin 0.5 mg/dL (0.15-1.2); Total Protein 6.9 g/dL (6.6-8.7); Troponin(5th) Baseline 11 ng/L (0-15)
[2024-05-23 09:15] VITALS: RESP 18; O2SAT 99
[2024-05-23] MEDS: HYDROmorphone 1 mg/mL INJ 1 mL IVP (09:15)
[2024-05-23] MEDS: ondansetron 2 mg/ML SDV 2 mL 4 MG IVP (09:15)
[2024-05-23] MEDS: iohexol 350 mg/mL 500 mL Btl (per mL) IV (09:16)
[2024-05-23 10:33] VITALS: BP 124/84; PULSE 68; O2SAT 98
[2024-05-23 10:50] VITALS: BP 128/82; PULSE 67; O2SAT 98
== END 2024-05-23 10:53 | disposition home or self-care (01) ==
PROVIDERS: Emergency Provider Emergency Medicine
DX: R07.9 Chest pain, unspecified (principal); Z72.0 Tobacco use
CPT/HCPCS: 71045; 74177; 80053; 83690; 84484; 85025; 93005; 96374; 96375; 99285; J1171; J2405

== ENCOUNTER → 2024-05-29 09:35 | Outpatient (BNVA) | payer OTHER, SELFPAY | PROVIDERS: Visit Provider Student in an Organized Health Care Education/Training Program | DX: K52.9 Noninfective gastroenteritis and colitis, unspecified (principal); Z09 Encounter for follow-up examination after completed treatment for conditions other than malignant neoplasm | CPT/HCPCS: 99214 ==

== ENCOUNTER 2024-10-01 09:56 | Outpatient (CLI) | payer OTHER, SELFPAY | END 2024-10-01 09:57 | disposition home or self-care (01) | LOC: RAD 10-03 13:56 | PROVIDERS: PCP Family Medicine; Visit Provider Student in an Organized Health Care Education/Training Program | DX: K82.9 Disease of gallbladder, unspecified (principal) | CPT/HCPCS: 99204 ==

== ENCOUNTER 2024-10-03 07:42 | Day surgery (SDC) | payer OTHER, SELFPAY ==
[2024-10-03] VITALS (26 sets, daily range): BP systolic 119–163; BP diastolic 77–103; PULSE 60–75; RESP 14–18; TEMP 36.1–36.8; O2SAT 96–100; BMI 31.3
--- NOTE | 2024-10-03 07:56 | W.PM.OPSUD ---
Surgery/Procedure H&P Update DATE OF PROCEDURE: October 03, 2024 DATE H&P PERFORMED: 10/01/24 H&P UPDATE INFORMATION: I have reviewed H&P completed within last 30 days, I have examined patient prior to procedure and No changes to prior documentation PLANNED PROCEDURE: Operation Date: 10/03/24 09:20 Proposed Procedures p Laparoscopic Cholecystectomy 18435 K82.9(Not Applicable) - Jorge Luis Jane MD
--- NOTE | 2024-10-03 08:07 | ANES.PREANE2 ---
Pre-Anesthetic Assessment Height/Weight: Height 5 ft 7 in Weight 200 lb O2 Del Method Room Air 10/03/24 08:02 Preop Diagnosis: Chronic cholecystitis Operation Date: 10/03/24 09:20 Proposed Procedures p Laparoscopic Cholecystectomy 21786 K82.9(Not Applicable) - Jorge Luis Jane MD Was Beta Spencer taken within 24 hours: N/A Was Clonidine taken within 24 hours: N/A Last intake: Intake Last Liquid Date 10/02/24 Last Liquid Time 19:30 Last Solid Date 10/02/24 Last Solid Time 19:30 Social Alcohol and Tobacco Occasional alcohol use Exam alert, oriented x 3 and regular rate & rhythm Decreased breath sounds bilaterally Airway Submandibular: within normal limits Cervical ROM: within normal limits Mallampati: Class III Dentition: full Anesthetic Plan ASA status: 3 Anesthesia: General Other: No prior issues with anesthesia NPO since yesterday evening Patient recently had a colonoscopy without issues RENETTA, no treatment Current smoker History of hypothyroidism on Synthroid Patient takes 5or6 hydrocodone 10?3 25 daily for leg pain Hypertension on losartan GERD on Protonix Labs reviewed acceptable for procedure today Plan for GETA Medications/Allergies Home Medications ?Medication ?Instructions ?Recorded ?Confirmed ?Last Taken ?Type metoclopramide HCl 10 mg tablet 10 mg PO BID PRN Abdominal Pain 04/28/24 10/02/24 10/02/24 History pantoprazole 40 mg tablet,delayed 40 mg PO DAILY #60 tabs 04/28/24 10/02/24 09/30/24 Rx release (Protonix) albuterol sulfate 90 mcg/actuation 1 inh inhalation QID PRN Shortness 05/18/24 10/02/24 10/02/24 History aerosol inhaler Of Breath fluticasone propionate 50 1 spray intranasal DAILY 05/18/24 10/02/24 10/02/24 History mcg/actuation nasal spray,suspension hydrocodone 10 mg-acetaminophen 1 - 2 tab PO .Q4-6H PRN Pain 05/18/24 10/02/24 10/03/24 History 325 mg tablet levothyroxine 50 mcg tablet 50 mcg PO DAILY 05/18/24 10/02/24 10/03/24 History atorvastatin 20 mg tablet 10 mg PO QPM 05/21/24 10/02/24 09/30/24 History cholecalciferol (vitamin D3) 50 50 mcg PO DAILY 05/21/24 10/02/24 10/02/24 History mcg (2,000 unit) tablet (Vitamin D3) finasteride 5 mg tablet 5 mg PO DAILY 05/21/24 10/02/24 10/02/24 History hydrocodone 5 mg-acetaminophen 325 1 tab PO Q6H PRN pain #10 tabs 05/21/24 10/02/24 Unknown Rx mg tablet losartan 100 mg tablet 100 mg PO DAILY 05/21/24 10/02/24 10/02/24 History promethazine 25 mg tablet 25 mg PO Q6H PRN nausea and 05/21/24 10/02/24 05/21/24 Rx vomiting #20 tabs trazodone 50 mg tablet 50 mg PO QPM 05/21/24 10/02/24 05/22/24 History sucralfate 100 mg/mL oral 1 g (10 mL) PO BID 8 weeks #1,120 09/24/24 10/02/24 10/02/24 Rx suspension mL Allergies Allergy/AdvReac Type Severity Reaction Status Date / Time No Known Allergies Allergy Verified 10/01/24 10:16 PFS Anesthesia Social History Smoking and tobacco/nicotine status: never used tobacco/nicotine
[2024-10-03] MEDS: sodium chloride 0.9% 1,000 ML 30 ML IV (08:24)
[2024-10-03] MEDS: ceFAZolin 2,000 mg SDV 2000 MG IVP (08:40)
[2024-10-03] MEDS: lidocaine-epi 1% 20 mL INJ INJECTION (09:32)
--- NOTE | 2024-10-03 10:02 | P.OP_ITS ---
Operative Report Date of procedure: October 03, 2024 Pre-op diagnosis: Gallbladder polyp Post-op diagnosis: same Post-op findings: Unremarkable gallbladder. Procedure done: Laparoscopic cholecystectomy Implants: N/A Specimens removed/disposition: Gallbladder sent to pathology Pathology: Gallbladder sent to pathology Surgeon: Jorge Luis Jane MD Specialty Development Consultant: N/A Anesthesia: General Estimated blood loss (mL): 10 Complications: N/A Findings: Unremarkable gallbladder. Condition: stable Disposition: same day Brief History: 58-year-old male who presented with gallbladder polyp. Discussed risk and benefits and patient agreed to proceed with laparoscopic cholecystectomy possible open. Procedure: I discussed the risks and benefits of laparoscopic cholecystectomy, and obtained consent prior to proceeding to the operating room. SCDs were utilized. Prophylactic antibiotics were administered. General anesthesia was induced. The patient was placed supine, and was prepped and draped in the usual sterile fashion. Insufflation to 15mmHg was achieved using a Veress needle at Roland's point. A 12mm optiview trocar was placed at the umbilicus under direct visualization. The left upper quadrant was inspected, and no injuries were not ed. Two 5mm ports were placed in the right upper quadrant, and a 12mm working port was placed in the epigastrium. The gallbladder was then retracted cephalad through the lateral RUQ port, and the infundibulum grabbed through the medial RUQ port and retracted laterally. The gallbladder was not inflammed. Gallbladder appeared normal without any obvious mass. I proceeded to score the peritoneum over the medial aspect of the gallbladder using a laparoscopic hook with electrocautery. Then the infundibulum was retracted medially in order to score the peritoneum over the lateral aspect of the galbladder. Using a combination of energy and blunt dissection with the [place] and a Kittner dissector, the cystic artery and cystic duct were dissected. I then proceeded to dissect the cystic plate in order to to achieve the critical view of safety. The cystic artery and the cystic duct were clipped three times (leaving two clips on the proximal end of both structures). I then proceeded to dissect the gallbladder off the liver using hook electrocautery. The specimen was placed in an endocatch bag and retrieved from the abdomen through the port on the epigastrium. I then irrigated the gallbladder fossa with 1L of NS to confirm adequate hemostasis and the absence of any bile leaks. The gallbladder fossa was then cauterized again. Prior to ending the laparoscopic portion, I examined the rest of the abdomen and did not find any abnormalities or injuries. The abdomen was then desufflated, and the 12mm port at the umbilicus was closed using 0 vicryl on a UR needle after irrigating copiously. Skin was closed using 4-0 monocryl and surgical glue. The patient woke up from anesthesia and transferred to PACU without any complications.
[2024-10-03] MEDS: fentaNYL 50 mcg/mL INJ 2mL IVP ×2 (10:19→10:37)
[2024-10-03] MEDS: HYDROmorphone 1 mg/mL INJ 1ml 0.5 MG IVP ×2 (10:46→10:57)
--- NOTE | 2024-10-03 11:19 | SUR.PHASEI ---
1105 1 mg Fenytanyl given IVP per Dr Rodriguez orders. Medication would not scan. given at 1105.
[2024-10-03] MEDS: oxyCODONE 5 mg IR Tab/Cap PO (12:10)
--- NOTE | 2024-10-03 13:00 | ANE.PACU2 ---
Inpatient post-anesthesia follow up: Airway intact: Yes Vital signs: Temperature 97.8 F Pulse Rate 75 Respiratory Rate 16 Blood Pressure 142/90 Pulse Oximetry 96 Oxygen Delivery Me thod Room Air Oxygen Flow Rate 2 Fraction of Inspir ed Oxygen Hydration adequate: Yes Nausea and vomiting: No Pain level: 1 Mental status: Baseline
== END 2024-10-03 13:00 | disposition home or self-care (01) ==
PROVIDERS: PCP Family Medicine; Visit Provider Student in an Organized Health Care Education/Training Program
PROC: 0FT44ZZ Resection of Gallbladder, Percutaneous Endoscopic Approach (ICD-10-PCS; CPT 47562; principal; 2024-10-03 09:10)
DX: K80.10 Calculus of gallbladder with chronic cholecystitis without obstruction (principal); G47.33 Obstructive sleep apnea (adult) (pediatric); K21.9 Gastro-esophageal reflux disease without esophagitis; E03.9 Hypothyroidism, unspecified; F17.200 Nicotine dependence, unspecified, uncomplicated; I10 Essential (primary) hypertension
CPT/HCPCS: 47562; 88304; A4216; J0131; J0690; J1100; J1171; J1885; J2704; J3010; J3475; J3490; J7030; J9999

== ENCOUNTER 2024-10-15 14:05 | Outpatient (CLI) | payer OTHER, SELFPAY ==
--- NOTE | 2024-10-15 14:09 | CTR_ITS ---
PROCEDURE INFORMATION: Exam: CTA Abdominal Aorta and Bilateral Lower Extremities (Run-off) With Contrast Exam date and time: 10/15/2024 2:32 PM Age: 58 years old Clinical indication: Chronic bilateral lower leg pain; Additional info: Bilateral leg pain w/atherosclerosis noted on knee xray TECHNIQUE: Imaging protocol: Computed tomographic angiography of the of the abdominal aorta, pelvis and bilateral lower extremities with contrast. 3D rendering (Not supervised by radiologist): MIP and/or 3D reconstructed images were created by the technologist. Radiation optimization: All CT scans at this facility use at least one of these dose optimization techniques: automated exposure control; mA and/or kV adjustment per patient size (includes targeted exams where dose is matched to clinical indication); or iterative reconstruction. Contrast material: OMNIPAQUE 350; Contrast volume: 100 ml; Contrast route: INTRAVENOUS (IV); COMPARISON: No relevant prior studies available. RADIATION DOSE METRICS: Total DLP (mGy-cm): 1366 FINDINGS: Aorta: The inferior most aorta is visualized and is nonaneurysmal. However, the abdominal aorta is not visualized in its entirety. Atherosclerotic calcifications. Right iliac arteries: No occlusion or significant stenosis. Right femoral/popliteal arteries: No occlusion or significant stenosis. Right infrapopliteal arteries: No occlusion or significant stenosis. Left iliac arteries: No occlusion or significant stenosis. Left femoral/popliteal arteries: No occlusion or significant stenosis. Left infrapopliteal arteries: No occlusion or significant stenosis. Bowel: Sigmoid diverticulosis without diverticulitis. Appendix: No evidence of appendicitis. Urinary bladder: Likely excreted contrast within the urinary bladder. No bladder wall thickening. Reproductive: Unremarkable as visualized. Intraperitoneal space: Unremarkable. No free air. No significant fluid collection. Lymph nodes: No lymphadenopathy. Bones/joints: No acute fracture. No dislocation. Soft tissues: Small fat containing right inguinal hernia. [place] [id number] IMPRESSION: No hemodynamically significant stenosis or occlusion involving the arteries of bilateral lower extremities. Patent three-vessel runoff bilaterally.
[2024-10-15] MEDS: iohexol 350 mg/mL 500 mL Btl (per mL) IV (14:50)
== END 2024-10-15 14:06 | disposition home or self-care (01) ==
PROVIDERS: PCP Family Medicine; Visit Provider Family Medicine
DX: Z01.89 Encounter for other specified special examinations (principal); I70.0 Atherosclerosis of aorta; K57.30 Diverticulosis of large intestine without perforation or abscess without bleeding; K40.90 Unilateral inguinal hernia, without obstruction or gangrene, not specified as recurrent
CPT/HCPCS: 73706

== ENCOUNTER → 2024-10-18 08:45 | Outpatient (BNVA) | payer OTHER, SELFPAY | PROVIDERS: PCP Family Medicine; Visit Provider Student in an Organized Health Care Education/Training Program | DX: Z90.49 Acquired absence of other specified parts of digestive tract (principal); Z98.890 Other specified postprocedural states | CPT/HCPCS: 99024 ==

== ENCOUNTER 2024-10-26 06:12 | Outpatient (CLI) | payer OTHER, SELFPAY ==
[2024-10-26 06:36] VITALS: BP 107/65; PULSE 67; BMI 29.7
--- NOTE | 2024-10-26 06:38 | ECG_ITS ---
[employer] Test Date: 2024-10-26 Pat Name: Tez Botello Department: Room: Gender: Male [place] Turner: : 1965 Requested By: Erna Boston Order Number: [id number] Dariusz MD: Montez Baum M.D. Interpretive Statements Lung unchanged pre/post procedure; Lung unchanged pre/post procedure; Symptoms resoled by discharge PROCEDURE: At the baseline, the EKG revealed sinus bradycardia with a nonspecific ST-T changes, diffuse. The baseline heart was 57 bpm with a blood pressue of 114/81 mm of Hg Lexiscan was infused over a period of 20 seconds. A total of 0.4 milligrams of Lexiscan was infused. The stress phase was continued for a total of 5 minutes. Heart rate at the end of the stress phase was 71 bpm with a blood pressure 102/71 mm of Hg. The EKG at the peak infusion revealed no significant changes. Sestamibi was injected 20 seconds after the Lexiscan infusion. Heart rate at the end of the recovery phase was 69 bpm with a blood pressure of 107/65 mm of Hg. CONCLUSION: 1. No significant EKG changes with the LexiScan infusion 2. No LexiScan induced chest pain or cardiac arrhythmia 3. Normal blood pressure and heart rate response 4. Sestamibi/sestamibi perfusion scan pending; see separate report. Electronically Signed On 10-26-2024 21:58:51 CDT by Montez Baum M.D. [email or web address]
--- NOTE | 2024-10-26 06:39 | NMCV_ITS ---
NM bell perf SPECT r/s* [id number] Tez Botello Age: 58 Gender: M : 1965 Exam Date: 10/26/2024 07:21 Ordering Phys: Erna Boston MD Technologist: DARIANA Lau Exam Location: [facility] [address] Indications: cp STRESS TEST Please see separate stress test report in [facility] for full findings IMAGE PROTOCOL Rest/Stress 1 Lexiscan Day Radiopharmaceutical Dose (mCi) Administration Site Administered by Rest: Tc-99m 10.3 IV Mely Vela, V BELT FINISHER Sestamibi Stress:Tc-99m 32.5 IV Mely Gossgle, V BELT FINISHER Sestamibi Rest: 26-Oct-2024 60 Discovery 630 Stress: 26-Oct-2024 30 Discovery 630 0.4mg Lexiscan. Images obtained in supine and prone position. SPECT RESULTS Technical Quality: Good Raw Data Analysis: Normal Image Corrections: No attenuation or motion correction applied Summed Stress Score: 0 Summed Rest Score: 0 Summed Difference Score: 0 PERFUSION FINDINGS Fairly uniform myocardial tracer uptake with no significant Perfusion abnormalities FUNCTIONAL RESULTS (calculated via Gated SPECT) Stress Image LV EF (%): 74 Stress EDV (mL):82 TID: 1.1 Stress ESV (mL):21 FUNCTIONAL FINDINGS: Segmental wall motion analysis revealing no gross wall motion abnormalities IMPRESSIONS 1. Myocardial perfusion imaging revealing fairly uniform tracer uptake with no significant Perfusion abnormalities 2. Normal LV ejection fraction 74%. 3. LV wall motion analysis revealing no gross wall motion abnormalities. 4. Normal LV volume . Low probability for coronary ischemia, based on the above findings Dr Montez Baum MD FACC (Electronically Signed) Final Date: 26 October 2024 09:26 S
[2024-10-26] MEDS: regadenoson 0.4 Mg/5 ml Syringe IVP (07:44)
== END 2024-10-26 06:13 | disposition home or self-care (01) ==
LOC: CDL 06:13
PROVIDERS: PCP Family Medicine; Visit Provider Family Medicine
DX: I25.10 Atherosclerotic heart disease of native coronary artery without angina pectoris (principal)
CPT/HCPCS: 36415; 78452; 93017; 96374; 99204; A9500; J2785

== ENCOUNTER 2025-01-16 14:19 | Inpatient (IN) | payer OTHER, SELFPAY ==
--- OUTSIDE RECORDS SUMMARY | 2024-03-11 04:00 | XMS_ITS ---
Author Organization [facility] Address [address] [place] [address] Care Team Providers Care Interventional Physician Name Role Phone Erna Larsen MD Primary Care Provider UnaBarby Chowdhury Unavailable [place], Mark Whitney Unavailable Unavailable Migration, Provider Unavailable Unavailable REASON FOR VISIT [facility] [place] Medications Medication SIG (Take, Route, Frequency, Duration) Notes Start Date End Date Status Fenofibrate *[facility]* Active ProAir HFA *Reorder from [facility] for eRx and Interaction Alerts* Active pantoprazole *Reorder from [facility] for eRx and Interaction Alerts* Active Ursodiol *Pick strength-f orm from [facility] for eRX* Active fluticasone *Reorder from [facility] for eRx and Interaction Alerts* Active Losartan *Reorder from [facility] for eRx and Interaction Alerts* Active Loratadine *[facility]* Active Meloxicam *[facility]* Active Levothyroxine *Reorder from [facility] for eRx and Interaction Alerts* Active Vitamin B-12 *[facility]* Active Social History Social History Additional Details Category Social Info Options Details Migrated Social History Migrated Social History Alcoholic beverages? - No, Currently on disability? - No, Drug or substance abuse? - No, Marital Status - single, Nonprescription drug use? - No, Smoking - 1 PPD, Smoking status (MU) - Current every day smoker, Working currently? - No Encounters Encounter Location Date Provider Diagnosis Migrated_Facility 0 0 03/11/2024 Provider Migration Plan Of Treatment Next Appt Details Provider Name:Helen Castellanos magy, 02/14/2025 08:40:00 AM, [address], [place], [address], Provider Name:Dada Lugo , 02/19/2025 09:30:00 AM, [address], [place], [address], Progress Notes * Tez GIRARD TDOB: [birth year] (59 yo M)Acc No.[id number]:03/11/2024 Patient: Tez ROGERS :1965 A ge:58 Y S ex:Male Address:[address] [place] [address], [address], [place] [address] Subjective: * Chief Complaints: * E MR-Lalo * Medical History: High blood pressure, M uscle disease, * Surgical History: Gastric bypass surgery * Social History: M igrated Social History: M igrated Social History: Alcoholic beverages? - No, C urrently on disability? - No, D rug or substance abuse? - No, M arital Status - single, N onprescription drug use? - No, S moking - 1 PPD, S moking status (MU) - Current every day smoker, W orking currently? - No. * Medications: T akingLosartan , Notes to Pharmacist: *Reorder from [facility] for eRx and Interaction Alerts*fluticasone , Notes to Pharmacist: *Reorder from [facility] for eRx and Interaction Alerts*Fenofibrate , Notes to Pharmacist: *Pick strength-form from [facility] for eRX*Vitamin B-12 , Notes to Pharmacist: *Pick strength-form from [facility] for eRX*Meloxicam , Notes to Pharmacist: *Pick strength-form from [facility] for eRX*Loratadine , Notes to Pharmacist: *Pick strength-form from [facility] for eRX*ProAir HFA , Notes to Pharmacist: *Reorder from [facility] for eRx and Interaction Alerts*Ursodiol , Notes to Pharmacist: *Pick strength-form from [facility] for eRX*pantoprazole , Notes to Pharmacist: *Reorder from [facility] for eRx and Interaction Alerts*Levothyroxine , Notes to Pharmacist: *Reorder from [facility] for eRx and Interaction Alerts*Taking Losartan , Notes to Pharmacist: *Reorder from [facility] for eRx and Interaction Alerts*Taking fluticasone , Notes to Pharmacist: *Reorder from [facility] for eRx and Interaction Alerts*Taking Fenofibrate , Notes to Pharmacist: *Pick strength-form from [facility] for eRX*Taking Vitamin B-12 , Notes to Pharmacist: *Pick strength-form from [facility] for eRX*Taking Meloxicam , Notes to Pharmacist: *Pick strength-form from [facility] for eRX*Taking Loratadine , Notes to Pharmacist: *Pick strength-form from [facility] for eRX*Taking ProAir HFA , Notes to Pharmacist: *Reorder from [facility] for eRx and Interaction Alerts*Taking Ursodiol , Notes to Pharmacist: *Pick strength-form from [facility] for eRX*Taking pantoprazole , Notes to Pharmacist: *Reorder from [facility] for eRx and Interaction Alerts*Taking Levothyroxine , Notes to Pharmacist: *Reorder from [facility] for eRx and Interaction Alerts* * * Date:
--- OUTSIDE RECORDS SUMMARY | 2024-03-12 08:00 | XMS_ITS | Encounter Summary ---
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 This section includes the names of all active insurance providers for the patient. Insurance Provider Type of Coverage Plan Name Start of Policy Coverage End of Policy Coverage Group Number Member ID Insurance Provider's Telephone Number Policy Gordon's Name Patient's Relationship to Policy Gordon BCBS [facility] (R) MEDICAID MEDIC AID Mar 18, 2009 [id number] [phone] TESSA BOTELLO JCARLOS PATIENT MEDICAID ([place]) MEDICAID MEDIC AID ([facility]) Mar 16, 2014 MEDICAI D [id number] TESSA BOTELLO JCARLOS PATIENT Selected Encounter This section includes the information on record at [place] for the Encounter. Date/Time Encounter Type Encounter Description Reason Provider Source Mar 12, 2024 01:00 PM OFFICE O/P EST MOD 30 MIN PRIMARY CARE/MEDICINE ICD-10-CM I10 Essential (primary) hypertension CAMERON,TAMM Y IHE Encounter Template Text not used by [place] Assessments - Encounter Diagnoses This section includes the primary and secondary diagnoses documented for the Encounter. Date/Time Primary/Secondary Diagnosis Diagnosis Name Provider Source Mar 12, 2024 09:06 PM PRIMARY Essential (primary) hypertension [facility] Mar 12, 2024 09:06 PM SECONDARY Benign prostatic hyperplasia with lower urinary tract symp [facility] Mar 12, 2024 09:06 PM SECONDARY Chronic obstructive pulmonary disease, unspecified CAMERON,ERNA DES[facility] Mar 12, 2024 09:06 PM SECONDARY Gastro-esophageal reflux disease without esophagitis [facility] Mar 12, 2024 09:06 PM SECONDARY Hyperlipidemia, unspecified CAMERON,ERNA [facility] Mar 12, 2024 09:06 PM SECONDARY Hypothyroidism, unspecified [facility]ERNA [facility] Mar 12, 2024 09:06 PM SECONDARY Insomnia, unspecified [facility]ON[place]ERNA [facility] Mar 12, 2024 09:06 PM SECONDARY Low back pain, unspecified [facility] Mar 12, 2024 09:06 PM SECONDARY Obesity, unspecified [facility] Mar 12, 2024 09:06 PM SECONDARY Other obstructive and reflux uropathy [facility] Mar 12, 2024 09:06 PM SECONDARY Sleep apnea, unspecified [facility]ERNA [facility] Plan of Treatment: Future Appointments (+ 6 months) and Future Tests (+/- 45 days) The Plan of Treatment section includes future care activities for the patient from all [place] treatmentfacilities. This section includes future appointments and future orders which are active, pending or scheduled. Future Appointments This section includes appointments that were scheduled to occur 6 months from the date of the Encounter, up to a maximum of 20 appointments. The data comes from all [place] treatment facilities. Appointment Date/Time Appointment Type Appointme nt Facility Name Mar 23, 2024 10:45 AM AMBULATORY - MEDICINE [facility] Apr 24, 2024 02:00 PM AMBULATORY - MEDICINE [facility] May 18, 2024 09:40 AM [facility] Jun 14, 2024 09:30 AM AMBULATORY - MEDICINE [facility] Jul 05, 2024 02:40 PM [facility] [facility] Sep 03, 2024 10:45 AM AMBULATORY - MEDICINE [facility] Active, Pending, and Scheduled Orders This section includes a listing of several types of active, pending, and scheduled orders, including clinic medications orders, diagnostic test orders, procedure orders and consult orders; where the start date of the order is 45 days before the date of the Encounter or 45 days after the date of theEncounter. The data comes from all [place] treatment facilities. Test Date/Time Test Type Test Details Facility Name Apr 25, 2024 08:03 AM Consult Order [facility] [id number] Cons Machine Operator Hay Stacker's Choice [facility] Lab Results: +/- 30 days of the encounter This section includes the Chemistry and Hematology Lab Results on record with [place] for the patient. Radiology Reports and Pathology Reports are provided separately, in subsequent sections. Lab Results This section contains the Chemistry/Hematology Results that were resulted 30 days before or 30 daysafter the date of the Encounter. Date/Time Source Result Type Result - Unit Interpretation Reference Range Specimen Type Comment Mar 23, 2024 10:38 AM [facility] HGA1C BLOOD Specimen Type: BLOOD No comment entered. Ordering Provider: ERNA BARNES Report Released Date/Time: Jan 23, 2024 02:12 PM Reporting Lab: [place] [facility] [address] [place] [address] Performing Lab: [facility] [facility] [address] [place] [address] HGA1C 5.5 4.0-6.0 Mar 23, 2024 10:38 AM [facility] VITAMIN D, 25-HYDROXY SERUM Specimen Type: SE RUM No comment entered. Ordering Provider: ERNA BARNES Report Released Date/Time: Jan 23, 2024 02:12 PM Reporting Lab: [facility] [place] [facility] [address] [place] [address] Performing Lab: [facility] [place] [facility] [address] [place] [address] VITAMIN D, 25-HYDROXY 20.2 ng/mL L 30-96 Mar 23, 2024 10:38 AM [facility] PROST. SPECIFIC AG.(PB-STL) SERUM Specimen Ty pe: SERUM No comment entered. Ordering Provider: ERNA BARNES Report Released Date/Time: Jan 23, 2024 02:12 PM Reporting Lab: [facility] [place] [facility] [address] [place] [address] Performing Lab: [facility] [place] [facility] [address] [place] [address] PROST. SPECIFIC AG.(PB-STL) 0.55 ng/mL 0 -4 Mar 23, 2024 10:38 AM [facility] CHOLESTEROL PANEL (PB) PLASMA Specimen Type: P LASMA Comment: LDL calculation invalid when Triglyceride exceeds 250 mg/dl Ordering Provider: ERNA BARNES Report Released Date/Time: Jan 23, 2024 02:12 PM Reporting Lab: [facility] [place] [facility] [address] [place] [address] Performing Lab: [facility] [place] [facility] [address] [place] [address] CHOLESTEROL 285 mg/dL H 0-200 TRIGLYCERIDE 352 mg/dL H 0-150 CALCULATED LDL comment mg/dL HDL(New) 48.1 mg/dL H >40 HDL % OF TOTAL CHOLESTEROL (PB) 16.9 >25 DIRECT LDL(MA) 181.2 mg/dL H 0-99.9 Mar 23, 2024 10:38 AM [facility] COMPREHENSIVE METABOLIC PANEL PLASMA Specimen Type: PLASMA Comment: LDL calculation invalid when Triglyceride exceeds 250 mg/dl Ordering Provider: ERNA BARNES Report Released Date/Time: Jan 23, 2024 02:12 PM Reporting Lab: [facility] [place] [facility] [address] [place] [address] Performing Lab: [facility] [place] [facility] [address] [place] [address] CREATININE 1.57 mg/dL H 0.7-1.3 UREA NITROGEN 32 mg/dL H 9-25 GLUCOSE 116 mg/dL H 72-99 SODIUM 137 meq/L 136-145 POTASSIUM 3.7 meq/L 3.5-5 CHLORIDE 100 meq/L 98-107 CARBON DIOXIDE 24 meq/L 22-31 CALCIUM 9.9 mg/dL 8.4-10.4 PROTEIN 7.8 g/dL 6-8.6 ALBUMIN 4.8 g/dL 3.4-5 TOTAL BILIRUBIN 0.4 mg/dL 0.2-1.2 ALKALINE PHOSPHATASE 74 U/L 40-150 AST/SGOT 23 U/L 5-34 ALT/SGPT 22 U/L 8-40 EGFR (CKD-EPI 2020) 51 Mar 23, 2024 10:38 AM [facility] TSH (MA-PB) SERUM Specimen Ty pe: SERUM No comment entered. Ordering Provider: ERNA BARNES Report Released Date/Time: Jan 23, 2024 02:12 PM Reporting Lab: [facility] [facility] [address] [facility] [address] Performing Lab: [facility] [address] [place] [address] TSH 8.158 u[IU]/mL H 0.47-5 Mar 23, 2024 10:38 AM [facility] CBC BLOO D Specimen Type: BLOOD No comment entered. Ordering Provider: ERNA BARNES Report Released Date/Time: Jan 23, 2024 02:12 PM Reporting Lab: [facility] [place] [facility] [address] [facility] [facility] [address] Performing Lab: [facility] [address] [facility] [address] WBC 8.4 10*3/uL 3.6-11.2 RBC 4.69 10*6/uL 4.10-5.70 HGB 15.4 g/dL 13.1-16.8 HCT 44.1 38.2-48.4 MCV 94.0 fL 80.0-100.0 MCH 32.8 pg 27.0-34.0 MCHC 34.9 g/dL 33.0-36.0 PLT 358 10*3/uL 150-400 MPV 9.5 fL 7.5-11.2 RDW 12.3 11.8-15.1 LYMPHOCYTES, AUTO % 26.9 MONOCYTES, AUTO % 6.5 NEUTROPHILS, AUTO % 64.1 EOSINOPHILS, AUTO % 1.4 BASOPHILS, AUTO % 0.7 LYMPHOCYTES, ABSOLUTE 2.25 10*3/uL 0.77- 4.50 MONOCYTES, ABSOLUTE 0.54 10*3/uL 0.19-0. 8 NEUTROPHILS, ABSOLUTE 5.36 10*3/uL 2.10- 8.00 EOSINOPHILS, ABSOLUTE 0.12 10*3/uL 0.00- 0.60 BASOPHILS, ABSOLUTE 0.06 10*3/uL 0.00-0. 20 IMMATURE GRANS, AUTO % 0.4 IMMATURE GRANS, AUTO ABS 0.03 10*3/uL 0. 00-0.05 Mar 23, 2024 10:38 AM [facility] BASIC METABOLIC PANEL PLASMA Specimen Type: PL ASMA No comment entered. Ordering Provider: ERNA BARNES Report Released Date/Time: Mar 12, 2024 01:54 PM Reporting Lab: [facility] [place] [facility] [address] [facility] [place] [address] Performing Lab: [facility] [place] [facility] [address] [facility] [address] CREATININE 1.57 mg/dL H 0.7-1.3 UREA NITROGEN 32 mg/dL H 9-25 GLUCOSE 116 mg/dL H 72-99 SODIUM 136 meq/L 136-145 POTASSIUM 3.6 meq/L 3.5-5 CHLORIDE 100 meq/L 98-107 CARBON DIOXIDE 24 meq/L 22-31 CALCIUM 9.9 mg/dL 8.4-10.4 EGFR (CKD-EPI 2020) 51 Vital Signs: All taken on the encounter date This section contains inpatient and outpatient Vital Signs collected on the date of the Encounter. Date/Time Temperature Pulse Blood Pressure Respiratory Rate SP02 Pain Height Weight Body Mass Index Source Mar 12, 2024 01:31 PM 168/102 [facility] Mar 12, 2024 01:30 PM 98.7 68 162/98 18 97 214.4 34 [facility] Social History: Smoking Status (Most current) and Tobacco Use (All prior to encounter date) This section includes the most current, and the historical, smoking and tobacco- related health factors from the [place] facility where the Encounter took place. Current Smoking Status This section includes the most current smoking, or tobacco-related health factor, from the [place] facility where the Encounter took place. Date/Time Current Smoking Status Comment Facil dominick Mar 12, 2024 01:00 PM VA-TOBACCO USER EVERY DAY [place] [facility] Tobacco Use History This section includes a history of the smoking, or tobacco-related health factors, that were collected on or before the date of the Encounter. The data comes from the [place] facility where the Encounter took place. Date/Time Smoking Status/Tobacco Use Comment F acility Mar 12, 2024 01:00 PM VA-TOBACCO USE > 1 5 LESS THAN 30 YEARS [facility] Mar 12, 2024 01:00 PM VA-TOBACCO USE ADVICE [facility] Mar 12, 2024 01:00 PM VA-TOBACCO USE SUPERVISOR GARAGE NO [place] [facility] Mar 12, 2024 01:00 PM VA-TOBACCO USE MED NO [place] [facility] Mar 12, 2024 01:00 PM VA-TOBACCO USER EVERY DAY [place] [facility] Jan 27, 2023 10:30 AM VA-TOBACCO USE 5 TO 15 YEARS [place] [facility] Jan 27, 2023 10:30 AM VA-TOBACCO USE ADVICE [place] [facility] Jan 27, 2023 10:30 AM VA-TOBACCO USE SUPERVISOR GARAGE NO [facility] [place] [facility] Jan 27, 2023 10:30 AM VA-TOBACCO USE MED NO [place] [facility] Jan 27, 2023 10:30 AM VA-TOBACCO USE WI 30 MIN OF WAKE UP [facility] [place] [facility] Jan 27, 2023 10:30 AM VA-TOBACCO USER EVERY DAY [place] [facility] Jan 21, 2022 10:30 AM VA-TOBACCO USE 30 YEARS OR MORE [facility] Jan 21, 2022 10:30 AM VA-TOBACCO USE ADVICE [facility] Jan 21, 2022 10:30 AM VA-TOBACCO USE SUPERVISOR GARAGE NO [facility] [place] [facility] Jan 21, 2022 10:30 AM VA-TOBACCO USE MED NO [place] [facility] Jan 21, 2022 10:30 AM VA-TOBACCO USE WI 30 MIN OF WAKE UP [facility] [place] [facility] Jan 21, 2022 10:30 AM VA-TOBACCO USER EVERY DAY [facility] [place] [facility] Oct 30, 2020 02:30 PM VA-TOBACCO USE 30 YEARS OR MORE [facility] Oct 30, 2020 02:30 PM VA-TOBACCO USE ADVICE [place] [facility] Oct 30, 2020 02:30 PM VA-TOBACCO USE SUPERVISOR GARAGE NO [facility] Oct 30, 2020 02:30 PM VA-TOBACCO USE MED NO [facility] Oct 30, 2020 02:30 PM VA-TOBACCO USE WI 30 MIN OF WAKE UP [facility] Oct 30, 2020 02:30 PM VA-TOBACCO USER EVERY DAY [facility] Dec 21, 2018 11:23 AM VA-TOBACCO USE 5 TO 15 YEARS [facility] Dec 21, 2018 11:23 AM VA-TOBACCO USE ADVICE [facility] Dec 21, 2018 11:23 AM VA-TOBACCO USE SUPERVISOR GARAGE NO [facility] Dec 21, 2018 11:23 AM VA-TOBACCO USE MED NO [facility] Dec 21, 2018 11:23 AM VA-TOBACCO USE WI 30 MIN OF WAKE UP [facility] Dec 21, 2018 11:23 AM VA-TOBACCO USER EVERY DAY [facility] Mar 14, 2018 10:04 AM CURRENT TOBACCO USER [facility] Mar 14, 2018 10:04 AM CURRENT TOBACCO US ER (NOT READY TO QUIT) [facility] Mar 14, 2018 10:04 AM TOBACCO CESSATION REFERRAL DECLI MANN [facility] Mar 14, 2018 10:04 AM TOBACCO MEDS OFFERED BUT DECLINE D [place] [facility] Mar 14, 2018 10:04 AM TOBACCO USER OFFERED MEDS [facility] Jan 26, 2018 09:08 AM CURRENT TOBACCO USER [facility] Jan 26, 2018 09:08 AM CURRENT TOBACCO US ER (NOT READY TO QUIT) [facility] Jan 26, 2018 09:08 AM TOBACCO CESSATION REFERRAL DECLI MANN [facility] Jan 26, 2018 09:08 AM TOBACCO MEDS OFFERED BUT DECLINE D [place] [facility] Jan 26, 2018 09:08 AM TOBACCO USER OFFERED MEDS [facility] Feb 23, 2017 08:37 AM CURRENT TOBACCO USER [facility] Feb 23, 2017 08:37 AM CURRENT TOBACCO US ER (NOT READY TO QUIT) [facility] Feb 23, 2017 08:37 AM TOBACCO CESSATION REFERRAL DECLI MANN [facility] Feb 23, 2017 08:37 AM TOBACCO MEDS OFFERED BUT DECLINE D [place] [facility] Feb 23, 2017 08:37 AM TOBACCO USER OFFERED MEDS [place] [facility] Jan 12, 2011 01:21 PM LIFETIME NON-USER OF TOBACCO [place] [facility] Radiology Reports: +/- 30 days of the encounter Radiology Reports For cases when an order for radiology services may have been completed prior to the date of the Encounter, the report list includes the Radiology Reports that were completed up to 30 days before dateof the Encounter. For cases when an order for radiology services may have been completed after the date of the Encounter, the report list also includes the Radiology Reports that were completed up to30 days after date of the Encounter. The data comes from all [place] treatment facilities. Date/Time Radiology Report Provider Source Mar 12, 2024 02:00 PM SPINE LUMBOSACRAL 2 OR 3 VIEWS: BELL BOTELLO ERLINDA [id number] -1965 M Ex Date: MAR 12, 2024@14:00 Req Phys: ERNA BARNES Loc: [facility] (Req'g Lo Img Loc: [facility] Service: [place] [address] (Case [id number] COMPLETE) SPINE LUMBOSACRAL 2 OR 3 VIEWS (RAD Detailed) CPT:19074 Reason for Study: chronic LBP Clinical History: Report Status: Verified Date Reported: MAR 12, 2024 Date Verified: MAR 12, 2024 [employer] E-Sig: Report: Lumbar spine 3 views. There is no fracture or dislocation. No bony destruction. Narrowing L1-2, and L5-S1 disc spaces. There are degenerative changes. Plaque in the abdominal aorta. Impression: 1. Mild degenerative arthritis 2. Narrowing L1-2 and L5-S1 disc spaces Primary Interpreting Staff: DANIELLE CHRISTOPHER, RADIOLOGIST ([employer], no e-sig) /DANIELLE Berkowitz [facility] [facility] Mar 12, 2024 02:00 PM KNEE,RIGHT 3 VIEWS : BELL BOTELLO ERLINDA [id number] -1965 M Ex Date: MAR 12, 2024@14:00 Req Phys: ERNA BARNES Loc: [facility] (Req[facility]g Lo Img [facility] Service: [place] [address] (Case [id number] COMPLETE) KNEE,RIGHT 3 VIEWS (RAD Detailed) CPT:31421 Proc Modifiers : RIGHT Reason for Study: progessive pain Clinical History: Report Status: Verified Date Reported: MAR 12, 2024 Date Verified: MAR 12, 2024 [employer] E-Sig: Report: Right knee 3 views including AP weightbearing view. There is no fracture or dislocation. No bony destruction. No significant degenerative changes. Knee joint appears fairly well maintained. Calcification in the soft tissues posterior knee joint having the appearance of a flabella. Plaque in the arteries. Impression: Essentially unremarkable knee survey Primary Interpreting Staff: DANIELLE CHRISTOPHER, RADIOLOGIST ([employer], no e-sig) /DANIELLE Berkowitz [place] [facility] Mar 12, 2024 02:00 PM HIP W/PELVIS 2-3 V IEW LEFT: BELL BOTELLO [id number] -1965 M Exm Date: MAR 12, 2024@14:00 Req Phys: ERNA BARNES Loc: [facility] (Req'g Lo Img Loc: [facility] [place] Service: [place] [address] (Case [id number] COMPLETE) HIP W/PELVIS 2-3 VIEW LEFT (RAD Detailed) CPT:20081 Reason for Study: pain, no injury Clinical History: Report Status: Verified Date Reported: MAR 12, 2024 Date Verified: MAR 12, 2024 [employer] E-Sig: Report: Pelvis and left hip 3 views. No evidence of a fracture or dislocation. No evidence of bony destruction. Early degenerative changes similar to the right hip. Plaque in the arteries. Impression: Early degenerative changes Primary Interpreting Staff: DANIELLE CHRISTOPHER, RADIOLOGIST ([employer], no e-sig) /DANIELLE Berkowitz [facility] [facility] Mar 12, 2024 02:00 PM KNEE,LEFT, 3 VIEWS : SHAJIBELL Lynn [id number] -1965 M Exm Date: MAR 12, 2024@14:00 Req Phys: ERNA BARNES Loc: [facility] PCP (Req'g Lo Img Loc: [facility] [place] Service: [place] [address] (Case [id number] COMPLETE) KNEE,LEFT, 3 VIEWS (RAD Detailed) CPT:80500 Proc Modifiers : LEFT Reason for Study: progressive pain Clinical History: Report Status: Verified Date Reported: MAR 12, 2024 Date Verified: MAR 12, 2024 [employer] E-Sig: Report: Left knee 3 views including AP weightbearing view. There is no fracture or dislocation. No bony destruction. Knee joint appears fairly well maintained. No significant degenerative changes. Calcification in the soft tissues posterior to the knee joint having the appearance of bowel. Plaque in the arteries. Impression: Essentially unremarkable knee survey Primary Interpreting Staff: DANIELLE CHRISTOPHER, RADIOLOGIST ([employer], no e-sig) /DANIELLE Berkowitz [place] [facility] Mar 12, 2024 02:00 PM HIP 2 VIEW RIGHT: BELL BOTELLO [id number] -1965 M Exm Date: MAR 12, 2024@14:00 Req Phys: ERNA BARNES Pat Loc: [facility] PCP (Req'g Lo Img Loc: [facility] [place] Service: [place] [address] (Case [id number] COMPLETE) HIP 2 VIEW RIGHT (RAD Detailed) CPT:85164 Reason for Study: pain, no injury Clinical History: Report Status: Verified Date Reported: MAR 12, 2024 Date Verified: MAR 12, 2024 [employer] E-Sig: Report: Right hip 2 views. No fracture or dislocation. No bony destruction. Early degenerative changes. Impression: Early degenerative changes Primary Interpreting Staff: DANIELLE CHRISTOPHER RADIOLOGIST ([employer], no e-sig) /DANIELLE Berkowitz [facility] Encounter Notes: All associated encounter notes This section contains the clinical notes associated to the Encounter. Date/Time Encounter Note(s) Provider Source May 25, 2024 12:47 PM PHYSICIAN LETTERS: LOCAL TITLE: TEST RESULT GENERAL LETTER [facility] STANDARD TITLE: PHYSICIAN LETTERS DATE OF NOTE: MAY 25, 2024@12:47 ENTRY DATE: MAY 25, 2024@12:48:05 AUTHOR: ERNA BARNES EXP COSIGNER: URGENCY: STATUS: COMPLETED [facility] [address] [place] [address] May 25, 2024 Mr. Bell Botello [address] [place], [place] [address] Dear Mr. Botello: This letter is to inform you regarding your recent laboratory tests. The ordering provider has reviewed these reports and will take necessary action, if needed. Date Lab Test Result H/L Unit Range 05/04/2024 T3 TOTAL 79.9 ng/dL 76 - 181 05/04/2024 T4 FREE 1.12 ng/dL 0.70 - 05/04/2024 TSH 5.025 H uIU/mL 0.47 - 5 03/23/2024 TSH 8.158 H uIU/mL 0.47 - 5 03/23/2024 VITAMIN D LEVEL 20.2 L ng/mL 30 - 96 03/23/2024 PSA, TOTAL 0.55 ng/mL 0 - 4 03/23/2024 LDL-CHOL 181.2 H mg/dL 0 - 99.9 03/23/2024 eGFR 51 - 03/23/2024 SODIUM 137 mEq/L 136 - 145 03/23/2024 POTASSIUM 3.7 mEq/L 3.5 - 5 03/23/2024 CHLORIDE 100 mEq/L 98 - 107 03/23/2024 UREA NITROGEN 32 H mg/dL 9 - 25 03/23/2024 CREATININE, SERUM 1.57 H mg/dL 0.7 - 1.3 03/23/2024 CALCIUM, SERUM 9.9 mg/dL 8.4 - 10.4 03/23/2024 PROTEIN, TOTAL 7.8 g/dL 6 - 8.6 03/23/2024 ALBUMIN, SERUM 4.8 g/dL 3.4 - 5 03/23/2024 TRIGLYCERIDE 352 H mg/dL 0 - 150 03/23/2024 CHOLESTEROL 285 H mg/dL 0 - 200 03/23/2024 ALKALINE PHOSPHAT 74 U/L 40 - 150 03/23/2024 ALT (SGPT) 22 U/L 8 - 40 03/23/2024 AST (SGOT) 23 U/L 5 - 34 03/23/2024 BILIRUBIN, TOTAL 0.4 mg/dL 0.2 - 1.2 03/23/2024 CO2 24 mEq/L 22 - 31 03/23/2024 GLUCOSE 116 H mg/dL 72 - 99 03/23/2024 HDL-CHOL 48.1 H mg/dL 40 - 03/23/2024 LDL-CHOL comment mg/dL - 03/23/2024 HDL%CHO 16.9 % 25 - 03/23/2024 HEMOGLOBIN A1C 5.5 % 4.0 - 6.0 03/23/2024 WBC 8.4 10*3/uL 3.6 - 11.2 03/23/2024 RBC 4.69 10*6/uL 4.10 - 5.70 03/23/2024 HEMOGLOBIN 15.4 g/dL 13.1 - 16.8 03/23/2024 HEMATOCRIT 44.1 % 38.2 - 48.4 03/23/2024 MCV 94.0 fL 80.0 - 100.0 03/23/2024 MCH 32.8 pg 27.0 - 34.0 03/23/2024 MCHC 34.9 g/dL 33.0 - 36.0 03/23/2024 RDW 12.3 % 11.8 - 15.1 03/23/2024 PLATELETS 358 10*3/uL 150 - 400 03/23/2024 MPV 9.5 fL 7.5 - 11.2 03/23/2024 NEUTROPHIL % 64.1 % - 03/23/2024 LYMPHOCYTE % 26.9 % - 03/23/2024 MONOCYTES, AUTO % 6.5 % - 03/23/2024 EO% 1.4 % - 03/23/2024 BASOPHILS, AUTO % 0.7 % - 03/23/2024 IG% 0.4 % - 03/23/2024 NEUT ABS 5.36 10*3/uL 2.10 - 8.00 03/23/2024 LYMPH ABS 2.25 10*3/uL 0.77 - 4.50 03/23/2024 MONO ABS 0.54 10*3/uL 0.19 - 0.8 03/23/2024 EO ABS 0.12 10*3/uL 0.00 - 0.60 03/23/2024 BASO ABS 0.06 10*3/uL 0.00 - 0.20 03/23/2024 IG ABS 0.03 10*3/uL 0.00 - 0.05 03/23/2024 eGFR 51 - 03/23/2024 SODIUM 136 mEq/L 136 - 145 03/23/2024 POTASSIUM 3.6 mEq/L 3.5 - 5 03/23/2024 CHLORIDE 100 mEq/L 98 - 107 03/23/2024 UREA NITROGEN 32 H mg/dL 9 - 25 03/23/2024 CREATININE, SERUM 1.57 H mg/dL 0.7 - 1.3 03/23/2024 CALCIUM, SERUM 9.9 mg/dL 8.4 - 10.4 03/23/2024 CO2 24 mEq/L 22 - 31 03/23/2024 GLUCOSE 116 H mg/dL 72 - 99 If you are seeing any outside provider(s), please share this information with him/her. If you have any questions, please feel free to contact our clinic. Your thyroid studies have improved. At this time I do not see any need for intervention. We can do a another double check in about 6 months if you would like or just wait until your annual in February. Sincerely, Erna Barnes MD [facility] Apr 19, 2024 01:40 PM ADDENDUM: LOCAL TITLE: Addendum STANDARD TITLE: ADDENDUM DATE OF NOTE: APR 19, 2024@13:40:47 ENTRY DATE: APR 19, 2024@13:40:49 AUTHOR: RENETTA JUSTICE EXP COSIGNER: URGENCY: STATUS: COMPLETED Called and spoke with regarding the following: Notify patient his cholesterol level is elevated and I would recommend him being on a statin. His vitamin D level is low and would recommend a supplement. His TSH was elevated and would recommend repeating his thyroid studies here and again in 6 as he may need an thyroid supplement as well. /sai/ Erna Barnes MD [facility] Signed: 03/27/2024 08:42 [place] is agreeable to start statin medication and Vit D supplement, can get thru the mail from [place]. advised he is on Levothyroxine 50 mcg ( we do not have that on his med list)- he will RTC on 05/04 for repeat TSH to see if dosage possibly needs adjusted. Please order statin and Vit D. /sai/ RENETTA JUSTICE LPN [facility] Signed: 04/19/2024 13:43 Receipt Acknowledged By: 04/19/2024 14:03 /es/ LEAH BOWIE, [facility]- LEAH ORTEGA [facility] for ERNA BARNES --- Original Document --- 03/12/24 PRIMARY CARE CLINIC PROGRESS NOTE PB: SUBJECTIVE: BELL BOTELLO is a 58 years old MALE. HPI: Presents to the clinic today to establish care with new pact team and for a periodic health maintenance visit. Last seen June 21, [address] Gan. He reports he is seen by the pain clinic and is currently on Fombell 10/325 taken a total of 8 tablets a day. He reports chronic pain in bilateral legs but on further questioning it is really his knees in the joint area he does not have any nodules that are causing him pain although he has been told that it is his erythema nodules though some that he was diagnosed with back in the [employer] service. He does report chronic hip and low back pain as well that his main complaint is his bilateral knee pain Non-[place] Primary Care Provider Dr. Vera; [facility] Dr. 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 RINSE MOUTHPIECE FREQUENTLY TO PREVENT CLOGGING. 2) CETIRIZINE HCL 10MG TAB TAKE ONE TABLET BY MOUTH ONCE ACTIVE A DAY NEEDED FOR ALLERGY SYMPTOMS. 3) FLUTICASONE PROP 50MCG 120D NASAL INHL INSTILL 2 ACTIVE SPRAYS IN EACH NOSTRIL ONCE A DAY NEEDED FOR ALLERGIES (MUST BE USED DIRECTED FOR MINIMUM OF 21 DAYS TO PROVIDE ADEQUATE BENEFITS) 4) GABAPENTIN 600MG TAB TAKE ONE TABLET BY MOUTH EVERY 6 ACTIVE HOURS FOR 28 DAYS 5) HYDROCHLOROTHIAZIDE 25MG TAB TAKE ONE TABLET BY MOUTH ACTIVE ONCE A DAY FOR HIGH BLOOD PRESSURE 6) HYDROCODONE 10/ACETAMINOPHEN 325MG TAB TAKE 1-2 ACTIVE TABLETS BY MOUTH EVERY 4 TO 6 HOURS NEEDED FOR PAIN (MAX 8 TAB/DAY; HOLD WITHIN 4 HOURS OF PLANNED SLEEP) MUST LAST 28 DAYS OR MORE CAUTION: DO NOT EXCEED 4000MG PER DAY ACETAMINOPHEN (APAP) FROM ALL MEDS. Pending Outpatient Medications Status 1) FINASTERIDE 5MG TAB TAKE ONE TABLET BY MOUTH ONCE A PENDING DAY SWALLOW WHOLE, DO NOT CRUSH, SPLIT, OR CHEW. 2) GABAPENTIN 600MG TAB PENDING 3) HYDROCHLOROTHIAZIDE 25MG TAB TAKE ONE TABLET BY MOUTH PENDING ONCE A DAY 4) LOSARTAN 100MG TAB TAKE ONE TABLET BY MOUTH ONCE A PENDING DAY TO LOWER BLOOD PRESSURE 5) PANTOPRAZOLE NA 40MG EC TAB TAKE ONE TABLET BY MOUTH PENDING EVERY MORNING BEFORE A MEAL TO LOWER STOMACH ACID - TAKE 30 MINUTES BEFORE MEAL(S) 6) TRAZODONE HCL 100MG TAB TAKE ONE-HALF TABLET BY MOUTH PENDING AT BEDTIME NEEDED FOR MOOD OR SLEEP. 12 Total Medications Allergies: Patient has answered NKA Review of Systems: as per HPI and Systemic: Denies fatigue, fever, chills, or weight loss CV: Denies chest pain, palpitations Pulmonary: Denies hemoptysis, Shortness of breath, dyspnea on exertion GI: Denies constipation, bloody stools, diarrhea, indigestion, or n/v Ext: Denies any swelling Neuro: Denies slurred speech or dizziness Skin: Denies abnormal lesions; denies any new rashes PSYCH: Denies SI/HI; denies nightmares OBJECTIVE: Vital Signs Temperature: 98.7 F [37.1 C] (03/12/2024 13:30) Respiratory Rate: 18 (03/12/2024 13:30) Pulse Rate: 68 (03/12/2024 13:30) Blood Pressure: 168/102 (03/12/2024 13:31) HT: 67 in [170.2 cm] (04/22/2023 09:11) WT: 214.4 lb [97.25 kg] (03/12/2024 13:30) BMI: 33.6 97% (03/12/2024 13:30) Physical Exam General: NAD noted, A&Ox3, pleasant, appears stated age HEENT: NCAT, TM's clear, nares and oropharynx clear Neck: Supple with normal active ROM, without any lymphadenopathy Heart: RRR, no murmur, clicks, or rub Resp: Lungs CTA bilaterally, respirations even and unlabored Ext: No clubbing, cyanosis, edema or obvious deformity Skin: Warm, pink, and dry, no rashes Neuro: Grossly intact Psych: Affect normal, answers questions appropriately throughout visit A/P: ASSESSMENT and PLAN Health Maintenance: Labs reviewed with patient and printout given to patient. Discussed preventative health to include diet and exercise as well as immunizations. Declines the zoster vaccine Hyperlipidemia-no meds; lab pending Chronic obstructive lung disease-uses albuterol as needed usually once a day monitor than likely has restrictive lung disease versus COPD Hypothyroidis-lab pending on levothyroxine Gastroesophageal reflux disease-controlled on pantoprazole Essential hypertension-uncontrolled; on losartan he had quit taking his hydrochlorothiazide we will get him back on that have him return in 10 to 14 days for blood pressure check and BMP; discouraged his excessive intake of energy drinks; as well as using his CPAP H/O Erythema nodosum while in the -no active nodules for years or any anterior woods pain Sleep Apnea-not using his CPAP encouraged him to do so; and to take the trazodone to help him sleep using it which he has used in the past informed him I cannot give him anything any stronger and less he is using his CPAP Chronic back, bilateral hip, and knee pain-x-rays of his lumbar spine bilateral hip bilateral knee done today he does have degenerative changes in his hips and knees mostly in the right hip very mild in bilateral knees; discussed with patient steroid knee injections which he was agreeable to try today; also discussed BFA which he wanted to hold off on that would consider Insomnia-encourage patient to use his trazodone as well as his CPAP will consider consultation to sleep medicine if he is still unable to use BPH-on finasteride Renal Impairment-lab pending Obesity-encouraged improved diet and increased Stable. Discussed medications with patient; med rec completed. Continue current regimen as prescribed by PCP and specialists. RTC as needed if developing any new or worsening symptoms. Please notify PACT with medication changes or for orders coordination as needed if seen by a specialist in the future. Will f/u with patient once updated labs / imaging / testing received; otherwise f/u as listed below. Informed consent was obtained and time out performed. Bilateral knee joint was prepped with betadine and injected with 2ml of 0.25% bupivacaine and 40mg of triamcinolone with lateral approach to each knee. Patient tolerated well. Patient tolerated well. Area cleaned and band-aide applied. Time of Timeout: 03/12/2024 at 1445 Has a valid consent form been obtained? Yes PATIENT IDENTIFICATION: (The patient is identified by at least two of the following (check all that apply)) Full Name, Full SSN, Method of Identification: (no less than two of the following) Patient verbalized name, Patient verbalized social security number, Patient verbalized date of PROCEDURE: Bilateral knee joint injection SITE (including laterality if applicable): Bilateral knee joint VERIFICATION OF SITE MARKING: (Required for procedures involving left/right distinction, multiple structures (fingers, toes, kidneys, etc.), or multiple levels (as in spinal procedures)) Location of site marked Obvious wound or lesion, single organ, mucous membranes, interventional case for which insertion site is not pre-determined (cardiac catheterization, central line, etc.) PATIENT POSITION: Sitting upright If applicable, pertinent medical images have been confirmed? Yes If applicable, appropriate antibiotic prophylaxis has been ordered? N/A TIME OUT PARTICIPANTS (list all members present): , CONSULTING PRACTICE MANAGER, PA (s): Erna Barnes MD and Jan Post RN Follow-up: 12 months with fasting labs prior to appointment and/or as needed. Discussed with patient that in the event of community imaging / testing being ordered in the future, once the imaging / testing has been completed, please notify PACT of completion at outside facility if not called with results within 1 week by a [facility] member; this is due to intermittent lapses in notification of imaging completion within CPRS. All questions answered; agrees to plan of care. Follow up as listed above, annually, and as needed. Keep all appointments. Medications Reconciled. See AVS given to [place]. Time spent 30 minutes. /sai/ Erna Barnes MD [facility] Signed: 03/12/2024 21:06 03/27/2024 ADDENDUM STATUS: COMPLETED Notify patient his cholesterol level is elevated and I would recommend him being on a statin. His vitamin D level is low and would recommend a supplement. His TSH was elevated and would recommend repeating his thyroid studies here and again in 6 as he may need an thyroid supplement as well. /sai/ Erna Barnes MD [facility] Signed: 03/27/2024 08:42 Receipt Acknowledged By: 04/19/2024 13:37 /sai/ RENETTA JUSTICE LPN [facility] RENETTA JUSTICE [place] [facility] Mar 27, 2024 08:41 AM ADDENDUM: LOCAL TITLE: Addendum STANDARD TITLE: ADDENDUM DATE OF NOTE: MAR 27, 2024@08:41:48 ENTRY DATE: MAR 27, 2024@08:41:49 AUTHOR: ERNA BARNES EXP COSIGNER: URGENCY: STATUS: COMPLETED Notify patient his cholesterol level is elevated and I would recommend him being on a statin. His vitamin D level is low and would recommend a supplement. His TSH was elevated and would recommend repeating his thyroid studies here and again in 6 as he may need an thyroid supplement as well. /es/ Erna Barnes MD [facility] Signed: 03/27/2024 08:42 Receipt Acknowledged By: 04/19/2024 13:37 /es/ RENETTA JUSTICE LPN [facility] --- Original Document --- 03/12/24 PRIMARY CARE CLINIC PROGRESS NOTE PB: SUBJECTIVE: BELL BOTELLO is a 58 years old MALE. HPI: Presents to the clinic today to establish care with new pact team and for a periodic health maintenance visit. Last seen June 21, [address] Gan. He reports he is seen by the pain clinic and is currently on Fombell 10/325 taken a total of 8 tablets a day. He reports chronic pain in bilateral legs but on further questioning it is really his knees in the joint area he does not have any nodules that are causing him pain although he has been told that it is his erythema nodules though some that he was diagnosed with back in the [employer] service. He does report chronic hip and low back pain as well that his main complaint is his bilateral knee pain [facility] Primary [facility]. Vera; [facility] Dr. 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: [employer] MAJOR ACCIDENTS OR INJURIES WHILE ON ACTIVE DUTY: Erythema nodosum MST: no SURGICAL HX: gastric bypass 2016 Problem List 1) Hyperlipidemia (SNOMED CT 05650065) 2) Chronic obstructive lung disease (SNOMED CT 54622644) 3) Hypothyroidism (SNOMED CT 50994395) 4) Gastroesophageal reflux disease (SNOMED CT 312237919) 5) Essential hypertension (SNOMED CT 49534789) 6) Erythema nodosum (SNOMED CT 90316301) 7) Sleep Apnea (SCT 92796938) 8) Chronic back pain 9) Insomnia 10) Benign Prostatic Hypertrophy with Outflow Obstruction (SCT 251653527) 11) Renal Impairment (SCT 973380300) Active Outpatient Medications (including Supplies): Active Outpatient Medications Status 1) ALBUTEROL 90MCG (CFC-F) 200D ORAL INHL INHALE 2 PUFFS ACTIVE BY ORAL INHALATION FOUR TIMES A DAY NEEDED FOR ASTHMA SHAKE WELL. RINSE MOUTHPIECE FREQUENTLY TO PREVENT CLOGGING. 2) CETIRIZINE HCL 10MG TAB TAKE ONE TABLET BY MOUTH ONCE ACTIVE A DAY NEEDED FOR ALLERGY SYMPTOMS. 3) FLUTICASONE PROP 50MCG 120D NASAL INHL INSTILL 2 ACTIVE SPRAYS IN EACH NOSTRIL ONCE A DAY NEEDED FOR ALLERGIES (MUST BE USED DIRECTED FOR MINIMUM OF 21 DAYS TO PROVIDE ADEQUATE BENEFITS) 4) GABAPENTIN 600MG TAB TAKE ONE TABLET BY MOUTH EVERY 6 ACTIVE HOURS FOR 28 DAYS 5) HYDROCHLOROTHIAZIDE 25MG TAB TAKE ONE TABLET BY MOUTH ACTIVE ONCE A DAY FOR HIGH BLOOD PRESSURE 6) HYDROCODONE 10/ACETAMINOPHEN 325MG TAB TAKE 1-2 ACTIVE TABLETS BY MOUTH EVERY 4 TO 6 HOURS NEEDED FOR PAIN (MAX 8 TAB/DAY; HOLD WITHIN 4 HOURS OF PLANNED SLEEP) MUST LAST 28 DAYS OR MORE CAUTION: DO NOT EXCEED 4000MG PER DAY ACETAMINOPHEN (APAP) FROM ALL MEDS. Pending Outpatient Medications Status 1) FINASTERIDE 5MG TAB TAKE ONE TABLET BY MOUTH ONCE A PENDING DAY SWALLOW WHOLE, DO NOT CRUSH, SPLIT, OR CHEW. 2) GABAPENTIN 600MG TAB PENDING 3) HYDROCHLOROTHIAZIDE 25MG TAB TAKE ONE TABLET BY MOUTH PENDING ONCE A DAY 4) LOSARTAN 100MG TAB TAKE ONE TABLET BY MOUTH ONCE A PENDING DAY TO LOWER BLOOD PRESSURE 5) PANTOPRAZOLE NA 40MG EC TAB TAKE ONE TABLET BY MOUTH PENDING EVERY MORNING BEFORE A MEAL TO LOWER STOMACH ACID - TAKE 30 MINUTES BEFORE MEAL(S) 6) TRAZODONE HCL 100MG TAB TAKE ONE-HALF TABLET BY MOUTH PENDING AT BEDTIME NEEDED FOR MOOD OR SLEEP. 12 Total Medications Allergies: Patient has answered NKA Review of Systems: as per HPI and Systemic: Denies fatigue, fever, chills, or weight loss CV: Denies chest pain, palpitations Pulmonary: Denies hemoptysis, Shortness of breath, dyspnea on exertion GI: Denies constipation, bloody stools, diarrhea, indigestion, or n/v Ext: Denies any swelling Neuro: Denies slurred speech or dizziness Skin: Denies abnormal lesions; denies any new rashes PSYCH: Denies SI/HI; denies nightmares OBJECTIVE: Vital Signs Temperature: 98.7 F [37.1 C] (03/12/2024 13:30) Respiratory Rate: 18 (03/12/2024 13:30) Pulse Rate: 68 (03/12/2024 13:30) Blood Pressure: 168/102 (03/12/2024 13:31) HT: 67 in [170.2 cm] (04/22/2023 09:11) WT: 214.4 lb [97.25 kg] (03/12/2024 13:30) BMI: 33.6 97% (03/12/2024 13:30) Physical Exam General: NAD noted, A&Ox3, pleasant, appears stated age HEENT: NCAT, TM's clear, nares and oropharynx clear Neck: Supple with normal active ROM, without any lymphadenopathy Heart: RRR, no murmur, clicks, or rub Resp: Lungs CTA bilaterally, respirations even and unlabored Ext: No clubbing, cyanosis, edema or obvious deformity Skin: Warm, pink, and dry, no rashes Neuro: Grossly intact Psych: Affect normal, answers questions appropriately throughout visit A/P: ASSESSMENT and PLAN Health Maintenance: Labs reviewed with patient and printout given to patient. Discussed preventative health to include diet and exercise as well as immunizations. Declines the zoster vaccine Hyperlipidemia-no meds; lab pending Chronic obstructive lung disease-uses albuterol as needed usually once a day monitor than likely has restrictive lung disease versus COPD Hypothyroidis-lab pending on levothyroxine Gastroesophageal reflux disease-controlled on pantoprazole Essential hypertension-uncontrolled; on losartan he had quit taking his hydrochlorothiazide we will get him back on that have him return in 10 to 14 days for blood pressure check and BMP; discouraged his excessive intake of energy drinks; as well as using his CPAP H/O Erythema nodosum while in the -no active nodules for years or any anterior woods pain Sleep Apnea-not using his CPAP encouraged him to do so; and to take the trazodone to help him sleep using it which he has used in the past informed him I cannot give him anything any stronger and less he is using his CPAP Chronic back, bilateral hip, and knee pain-x-rays of his lumbar spine bilateral hip bilateral knee done today he does have degenerative changes in his hips and knees mostly in the right hip very mild in bilateral knees; discussed with patient steroid knee injections which he was agreeable to try today; also discussed BFA which he wanted to hold off on that would consider Insomnia-encourage patient to use his trazodone as well as his CPAP will consider consultation to sleep medicine if he is still unable to use BPH-on finasteride Renal Impairment-lab pending Obesity-encouraged improved diet and increased Stable. Discussed medications with patient; med rec completed. Continue current regimen as prescribed by PCP and specialists. RTC as needed if developing any new or worsening symptoms. Please notify PACT with medication changes or for orders coordination as needed if seen by a specialist in the future. Will f/u with patient once updated labs / imaging / testing received; otherwise f/u as listed below. Informed consent was obtained and time out performed. Bilateral knee joint was prepped with betadine and injected with 2ml of 0.25% bupivacaine and 40mg of triamcinolone with lateral approach to each knee. Patient tolerated well. Patient tolerated well. Area cleaned and band-aide applied. Time of Timeout: 03/12/2024 at 1445 Has a valid consent form been obtained? Yes PATIENT IDENTIFICATION: (The patient is identified by at least two of the following (check all that apply)) Full Name, Full SSN, Method of Identification: (no less than two of the following) Patient verbalized name, Patient verbalized social security number, Patient verbalized date of PROCEDURE: Bilateral knee joint injection SITE (including laterality if applicable): Bilateral knee joint VERIFICATION OF SITE MARKING: (Required for procedures involving left/right distinction, multiple structures (fingers, toes, kidneys, etc.), or multiple levels (as in spinal procedures)) Location of site marked Obvious wound or lesion, single organ, mucous membranes, interventional case for which insertion site is not pre-determined (cardiac catheterization, central line, etc.) PATIENT POSITION: Sitting upright If applicable, pertinent medical images have been confirmed? Yes If applicable, appropriate antibiotic prophylaxis has been ordered? N/A TIME OUT PARTICIPANTS (list all members present): , CONSULTING PRACTICE MANAGER, PA (s): Erna Barnes MD and Jan Post RN Follow-up: 12 months with fasting labs prior to appointment and/or as needed. Discussed with patient that in the event of community imaging / testing being ordered in the future, once the imaging / testing has been completed, please notify PACT of completion at outside facility if not called with results within 1 week by a [facility] PACT member; this is due to intermittent lapses in notification of imaging completion within CPRS. All questions answered; agrees to plan of care. Follow up as listed above, annually, and as needed. Keep all appointments. Medications Reconciled. See AVS given to [place]. Time spent 30 minutes. /sai/ Erna Barnes MD [facility] Signed: 03/12/2024 21:06 ERNA BARNES [place] [facility] Mar 27, 2024 08:40 AM PHYSICIAN LETTERS: LOCAL TITLE: TEST RESULT GENERAL LETTER STL STANDARD TITLE: PHYSICIAN LETTERS DATE OF NOTE: MAR 27, 2024@08:40 ENTRY DATE: MAR 27, 2024@08:40:22 AUTHOR: ERNA BARNES EXP COSIGNER: URGENCY: STATUS: COMPLETED [facility] [address] [place] [address] Mar 27, 2024 Mr. Bell Botello [address] [place], [place] [address] Dear Mr. Botello: This letter is to inform you regarding your recent laboratory tests. The ordering provider has reviewed these reports and will take necessary action, if needed. Date Lab Test Result H/L Unit Range 03/23/2024 TSH 8.158 H uIU/mL 0.47 - 5 03/23/2024 VITAMIN D LEVEL 20.2 L ng/mL 30 - 96 03/23/2024 PSA, TOTAL 0.55 ng/mL 0 - 4 03/23/2024 LDL-CHOL 181.2 H mg/dL 0 - 99.9 03/23/2024 eGFR 51 - 03/23/2024 SODIUM 137 mEq/L 136 - 145 03/23/2024 POTASSIUM 3.7 mEq/L 3.5 - 5 03/23/2024 CHLORIDE 100 mEq/L 98 - 107 03/23/2024 UREA NITROGEN 32 H mg/dL 9 - 25 03/23/2024 CREATININE, SERUM 1.57 H mg/dL 0.7 - 1.3 03/23/2024 CALCIUM, SERUM 9.9 mg/dL 8.4 - 10.4 03/23/2024 PROTEIN, TOTAL 7.8 g/dL 6 - 8.6 03/23/2024 ALBUMIN, SERUM 4.8 g/dL 3.4 - 5 03/23/2024 TRIGLYCERIDE 352 H mg/dL 0 - 150 03/23/2024 CHOLESTEROL 285 H mg/dL 0 - 200 03/23/2024 ALKALINE PHOSPHAT 74 U/L 40 - 150 03/23/2024 ALT (SGPT) 22 U/L 8 - 40 03/23/2024 AST (SGOT) 23 U/L 5 - 34 03/23/2024 BILIRUBIN, TOTAL 0.4 mg/dL 0.2 - 1.2 03/23/2024 CO2 24 mEq/L 22 - 31 03/23/2024 GLUCOSE 116 H mg/dL 72 - 99 03/23/2024 HDL-CHOL 48.1 H mg/dL 40 - 03/23/2024 LDL-CHOL comment mg/dL - 03/23/2024 HDL%CHO 16.9 % 25 - 03/23/2024 HEMOGLOBIN A1C 5.5 % 4.0 - 6.0 03/23/2024 WBC 8.4 10*3/uL 3.6 - 11.2 03/23/2024 RBC 4.69 10*6/uL 4.10 - 5.70 03/23/2024 HEMOGLOBIN 15.4 g/dL 13.1 - 16.8 03/23/2024 HEMATOCRIT 44.1 % 38.2 - 48.4 03/23/2024 MCV 94.0 fL 80.0 - 100.0 03/23/2024 MCH 32.8 pg 27.0 - 34.0 03/23/2024 MCHC 34.9 g/dL 33.0 - 36.0 03/23/2024 RDW 12.3 % 11.8 - 15.1 03/23/2024 PLATELETS 358 10*3/uL 150 - 400 03/23/2024 MPV 9.5 fL 7.5 - 11.2 03/23/2024 NEUTROPHIL % 64.1 % - 03/23/2024 LYMPHOCYTE % 26.9 % - 03/23/2024 MONOCYTES, AUTO % 6.5 % - 03/23/2024 EO% 1.4 % - 03/23/2024 BASOPHILS, AUTO % 0.7 % - 03/23/2024 IG% 0.4 % - 03/23/2024 NEUT ABS 5.36 10*3/uL 2.10 - 8.00 03/23/2024 LYMPH ABS 2.25 10*3/uL 0.77 - 4.50 03/23/2024 MONO ABS 0.54 10*3/uL 0.19 - 0.8 03/23/2024 EO ABS 0.12 10*3/uL 0.00 - 0.60 03/23/2024 BASO ABS 0.06 10*3/uL 0.00 - 0.20 03/23/2024 IG ABS 0.03 10*3/uL 0.00 - 0.05 03/23/2024 eGFR 51 - 03/23/2024 SODIUM 136 mEq/L 136 - 145 03/23/2024 POTASSIUM 3.6 mEq/L 3.5 - 5 03/23/2024 CHLORIDE 100 mEq/L 98 - 107 03/23/2024 UREA NITROGEN 32 H mg/dL 9 - 25 03/23/2024 CREATININE, SERUM 1.57 H mg/dL 0.7 - 1.3 03/23/2024 CALCIUM, SERUM 9.9 mg/dL 8.4 - 10.4 03/23/2024 CO2 24 mEq/L 22 - 31 03/23/2024 GLUCOSE 116 H mg/dL 72 - 99 If you are seeing any outside provider(s), please share this information with him/her. If you have any questions, please feel free to contact our clinic. Your cholesterol level is elevated and I would recommend being on a statin medication. Your vitamin D level is low and I would recommend taking vitamin D. Your thyroid stimulating hormone was also elevated and I would like to recheck your thyroid level here in 6 weeks. Sincerely, Erna Barnes MD [facility] SHAJIBELLERNA [facility] Mar 12, 2024 01:33 PM PRIMARY CARE PROGRESS NOTE: LOCAL TITLE: PRIMARY CARE CLINIC PROGRESS NOTE PB STANDARD TITLE: PRIMARY CARE PROGRESS NOTE DATE OF NOTE: MAR 12, 2024@13:33 ENTRY DATE: MAR 12, 2024@13:33:36 AUTHOR: ERNA BARNES EXP COSIGNER: URGENCY: STATUS: COMPLETED PRIMARY CARE CLINIC PROGRESS NOTE PB Has ADDENDA SUBJECTIVE: SHAJIBELL ERLINDA is a 58 years old MALE. HPI: Presents to the clinic today to establish care with new pact team and for a periodic health maintenance visit. Last seen June 21, [address] Gan. He reports he is seen by the pain clinic and is currently on [place] 10/325 taken a total of 8 tablets a day. He reports chronic pain in bilateral legs but on further questioning it is really his knees in the joint area he does not have any nodules that are causing him pain although he has been told that it is his erythema nodules though some that he was diagnosed with back in the [employer] service. He does report chronic hip and low back pain as well that his main complaint is his bilateral knee pain Non-VA Primary Care Provider Dr. Vera; [facility] Dr. 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: [employer] ACCIDENTS OR INJURIES WHILE ON ACTIVE DUTY: Erythema nodosum MST: no SURGICAL HX: gastric bypass 2015 Problem List 1) Hyperlipidemia (SNOMED CT 05182130) 2) Chronic obstructive lung disease (SNOMED CT 54082335) 3) Hypothyroidism (SNOMED CT 94461239) 4) Gastroesophageal reflux disease (SNOMED CT 761919784) 5) Essential hypertension (SNOMED CT 58312713) 6) Erythema nodosum (SNOMED CT 52493027) 7) Sleep Apnea (SCT 57655681) 8) Chronic back pain 9) Insomnia 10) Benign Prostatic Hypertrophy with Outflow Obstruction (SCT 098022674) 11) Renal Impairment (SCT 067960451) Active Outpatient Medications (including Supplies): Active Outpatient Medications Status 1) ALBUTEROL 90MCG (CFC-F) 200D ORAL INHL INHALE 2 PUFFS ACTIVE BY ORAL INHALATION FOUR TIMES A DAY NEEDED FOR ASTHMA SHAKE WELL. RINSE MOUTHPIECE FREQUENTLY TO PREVENT CLOGGING. 2) CETIRIZINE HCL 10MG TAB TAKE ONE TABLET BY MOUTH ONCE ACTIVE A DAY NEEDED FOR ALLERGY SYMPTOMS. 3) FLUTICASONE PROP 50MCG 120D NASAL INHL INSTILL 2 ACTIVE SPRAYS IN EACH NOSTRIL ONCE A DAY NEEDED FOR ALLERGIES (MUST BE USED DIRECTED FOR MINIMUM OF 21 DAYS TO PROVIDE ADEQUATE BENEFITS) 4) GABAPENTIN 600MG TAB TAKE ONE TABLET BY MOUTH EVERY 6 ACTIVE HOURS FOR 28 DAYS 5) HYDROCHLOROTHIAZIDE 25MG TAB TAKE ONE TABLET BY MOUTH ACTIVE ONCE A DAY FOR HIGH BLOOD PRESSURE 6) HYDROCODONE 10/ACETAMINOPHEN 325MG TAB TAKE 1-2 ACTIVE TABLETS BY MOUTH EVERY 4 TO 6 HOURS NEEDED FOR PAIN (MAX 8 TAB/DAY; HOLD WITHIN 4 HOURS OF PLANNED SLEEP) MUST LAST 28 DAYS OR MORE CAUTION: DO NOT EXCEED 4000MG PER DAY ACETAMINOPHEN (APAP) FROM ALL MEDS. Pending Outpatient Medications Status 1) FINASTERIDE 5MG TAB TAKE ONE TABLET BY MOUTH ONCE A PENDING DAY SWALLOW WHOLE, DO NOT CRUSH, SPLIT, OR CHEW. 2) GABAPENTIN 600MG TAB PENDING 3) HYDROCHLOROTHIAZIDE 25MG TAB TAKE ONE TABLET BY MOUTH PENDING ONCE A DAY 4) LOSARTAN 100MG TAB TAKE ONE TABLET BY MOUTH ONCE A PENDING DAY TO LOWER BLOOD PRESSURE 5) PANTOPRAZOLE NA 40MG EC TAB TAKE ONE TABLET BY MOUTH PENDING EVERY MORNING BEFORE A MEAL TO LOWER STOMACH ACID - TAKE 30 MINUTES BEFORE MEAL(S) 6) TRAZODONE HCL 100MG TAB TAKE ONE-HALF TABLET BY MOUTH PENDING AT BEDTIME NEEDED FOR MOOD OR SLEEP. 12 Total Medications Allergies: Patient has answered NKA Review of Systems: as per HPI and Systemic: Denies fatigue, fever, chills, or weight loss CV: Denies chest pain, palpitations Pulmonary: Denies hemoptysis, Shortness of breath, dyspnea on exertion GI: Denies constipation, bloody stools, diarrhea, indigestion, or n/v Ext: Denies any swelling Neuro: Denies slurred speech or dizziness Skin: Denies abnormal lesions; denies any new rashes PSYCH: Denies SI/HI; denies nightmares OBJECTIVE: Vital Signs Temperature: 98.7 F [37.1 C] (03/12/2024 13:30) Respiratory Rate: 18 (03/12/2024 13:30) Pulse Rate: 68 (03/12/2024 13:30) Blood Pressure: 168/102 (03/12/2024 13:31) HT: 67 in [170.2 cm] (04/22/2023 09:11) WT: 214.4 lb [97.25 kg] (03/12/2024 13:30) BMI: 33.6 97% (03/12/2024 13:30) Physical Exam General: NAD noted, A&Ox3, pleasant, appears stated age HEENT: NCAT, TM's clear, nares and oropharynx clear Neck: Supple with normal active ROM, without any lymphadenopathy Heart: RRR, no murmur, clicks, or rub Resp: Lungs CTA bilaterally, respirations even and unlabored Ext: No clubbing, cyanosis, edema or obvious deformity Skin: Warm, pink, and dry, no rashes Neuro: Grossly intact Psych: Affect normal, answers questions appropriately throughout visit A/P: ASSESSMENT and PLAN Health Maintenance: Labs reviewed with patient and printout given to patient. Discussed preventative health to include diet and exercise as well as immunizations. Declines the zoster vaccine Hyperlipidemia-no meds; lab pending Chronic obstructive lung disease-uses albuterol as needed usually once a day monitor than likely has restrictive lung disease versus COPD Hypothyroidis-lab pending on levothyroxine Gastroesophageal reflux disease-controlled on pantoprazole Essential hypertension-uncontrolled; on losartan he had quit taking his hydrochlorothiazide we will get him back on that have him return in 10 to 14 days for blood pressure check and BMP; discouraged his excessive intake of energy drinks; as well as using his CPAP H/O Erythema nodosum while in the -no active nodules for years or any anterior woods pain Sleep Apnea-not using his CPAP encouraged him to do so; and to take the trazodone to help him sleep using it which he has used in the past informed him I cannot give him anything any stronger and less he is using his CPAP Chronic back, bilateral hip, and knee pain-x-rays of his lumbar spine bilateral hip bilateral knee done today he does have degenerative changes in his hips and knees mostly in the right hip very mild in bilateral knees; discussed with patient steroid knee injections which he was agreeable to try today; also discussed BFA which he wanted to hold off on that would consider Insomnia-encourage patient to use his trazodone as well as his CPAP will consider consultation to sleep medicine if he is still unable to use BPH-on finasteride Renal Impairment-lab pending Obesity-encouraged improved diet and increased Stable. Discussed medications with patient; med rec completed. Continue current regimen as prescribed by PCP and specialists. RTC as needed if developing any new or worsening symptoms. Please notify PACT with medication changes or for orders coordination as needed if seen by a specialist in the future. Will f/u with patient once updated labs / imaging / testing received; otherwise f/u as listed below. Informed consent was obtained and time out performed. Bilateral knee joint was prepped with betadine and injected with 2ml of 0.25% bupivacaine and 40mg of triamcinolone with lateral approach to each knee. Patient tolerated well. Patient tolerated well. Area cleaned and band-aide applied. Time of Timeout: 03/12/2024 at 1445 Has a valid consent form been obtained? Yes PATIENT IDENTIFICATION: (The patient is identified by at least two of the following (check all that apply)) Full Name, Full SSN, Method of Identification: (no less than two of the following) Patient verbalized name, Patient verbalized social security number, Patient verbalized date of PROCEDURE: Bilateral knee joint injection SITE (including laterality if applicable): Bilateral knee joint VERIFICATION OF SITE MARKING: (Required for procedures involving left/right distinction, multiple structures (fingers, toes, kidneys, etc.), or multiple levels (as in spinal procedures)) Location of site marked Obvious wound or lesion, single organ, mucous membranes, interventional case for which insertion site is not pre-determined (cardiac catheterization, central line, etc.) PATIENT POSITION: Sitting upright If applicable, pertinent medical images have been confirmed? Yes If applicable, appropriate antibiotic prophylaxis has been ordered? N/A TIME OUT PARTICIPANTS (list all members present): , CONSULTING PRACTICE MANAGER, PA (s): Erna Barnes MD and Jan Post RN Follow-up: 12 months with fasting labs prior to appointment and/or as needed. Discussed with patient that in the event of community imaging / testing being ordered in the future, once the imaging / testing has been completed, please notify PACT of completion at outside facility if not called with results within 1 week by a [facility] PACT member; this is due to intermittent lapses in notification of imaging completion within [facility]. All questions answered; agrees to plan of care. Follow up as listed above, annually, and as needed. Keep all appointments. Medications Reconciled. See AVS given to . Time spent 30 minutes. /sai/ Erna Barnes MD [facility] Signed: 03/12/2024 21:06 03/27/2024 ADDENDUM STATUS: COMPLETED Notify patient his cholesterol level is elevated and I would recommend him being on a statin. His vitamin D level is low and would recommend a supplement. His TSH was elevated and would recommend repeating his thyroid studies here and again in 6 as he may need an thyroid supplement as well. /sai/ Erna Barnes MD [facility] Signed: 03/27/2024 08:42 Receipt Acknowledged By: 04/19/2024 13:37 /hillary JUSTICE LPN [facility] 04/19/2024 ADDENDUM STATUS: COMPLETED Called and spoke with [place] regarding the following: Notify patient his cholesterol level is elevated and I would recommend him being on a statin. His vitamin D level is low and would recommend a supplement. His TSH was elevated and would recommend repeating his thyroid studies here and again in 6 as he may need an thyroid supplement as well. /hillary Barnes MD [facility] Signed: 03/27/2024 08:42 is agreeable to start statin medication and Vit D supplement, can get thru the mail from [place]. advised he is on Levothyroxine 50 mcg ( we do not have that on his med list)- he will RTC on 05/04 for repeat TSH to see if dosage possibly needs adjusted. Please order statin and Vit D. /hillary JUSTICE LPN [facility] Signed: 04/19/2024 13:43 Receipt Acknowledged By: 04/19/2024 14:03 /sai/ [facility] for ERNA CAMERON 06/19/2024 ADDENDUM STATUS: COMPLETED Patient had colonoscopy on 05/22/2024 which showed mild colitis with mild patchy areas of inflammation and several petechiae no polyps recommended repeat colonoscopy in 10 years which would be May 2034. He also had an EKG that showed gastritis. /hillary Barnes MD [facility] Signed: 06/19/2024 12:00 ERNA BARNES [facility] Mar 12, 2024 01:01 PM PRIMARY CARE NURSING NOTE: LOCAL TITLE: PRIMARY CARE NURSING PROGRESS NOTE (TEXT) NURSING P STANDARD TITLE: PRIMARY CARE NURSING NOTE DATE OF NOTE: MAR 12, 2024@13:01 ENTRY DATE: MAR 12, 2024@13:01:40 AUTHOR: JAN POST COSIGNER: URGENCY: STATUS: COMPLETED Established Patient BELL BOTELLO IS A 58 YEAR OLD MALE BEING SEEN IN CLINIC MAR 12, 2024. REASON FOR VISIT: Annual visit, new to [facility] from [employer] after provider retired. Erythema nodosum in both legs, from time is service is asking about injections to help with the pain. Can't sleep most nights, drinks energy drinks to stay awake Has sleep apnea can't use the CPAP Are you receiving care any where other than the [facility]? Yes, List: Dr. Vera, last seen a couple of months ago. HEALTH AND SURGICAL HISTORY: Does patient report using home oxygen? No CURRENT ACTIVE MEDICATIONS FOR REVIEW: Allergies/ADRs (Tool #5) FACILITY ALLERGY/ADR -------- [facility] NO KNOWN ALLERGIES [facility] NO KNOWN ALLERGIES [facility] NO KNOWN ALLERGIES [facility] No Known Allergies Med. Reconciliation (Tool #1) INCLUDED IN THIS LIST: Alphabetical list of active outpatient prescriptions dispensed from this VA (local) and dispensed from another VA or DoD facility (remote) as well as inpatient orders (local pending and active), local clinic medications, locally documented non-VA medications, and local prescriptions that have or been discontinued in the past 90 days. Non-VA Meds Last Documented On: Data not found NOTE The display of VA prescriptions dispensed from another VA or DoD facility (remote) is limited to active outpatient prescription entries matched to National Drug File at the originating site and may not include some items such as investigational drugs, compounds, etc. NOT INCLUDED IN THIS LIST: Medications self-entered by the patient into personal health records (i.e. Contacts+) are NOT included in this list. Non-VA medications documented outside this [place], remote inpatient orders (regardless of status) and remote clinic medications are NOT included in this list. The patient and provider must always discuss medications the patient is taking, regardless of where the medication was dispensed or obtained. OUTPT ALBUTEROL 90MCG (CFC-F) 200D ORAL INHL (Status = Discontinued) INHALE 2 PUFFS BY ORAL INHALATION FOUR TIMES A DAY NEEDED FOR ASTHMA SHAKE WELL. RINSE MOUTHPIECE FREQUENTLY TO PREVENT CLOGGING. Rx# [id number] Last Released: 09/30/23 Qty/Days Supply: 06/14 Rx Expiration Date: 01/28/24 Refills Remainin Indication: FOR ASTHMA OUTPT ALBUTEROL 90MCG (CFC-F) 200D ORAL INHL (Status = Active) INHALE 2 PUFFS BY ORAL INHALATION FOUR TIMES A DAY NEEDED FOR ASTHMA SHAKE WELL. RINSE MOUTHPIECE FREQUENTLY TO PREVENT CLOGGING. Rx# [id number] Last Released: 02/04/24 Qty/Days Supply: 06/14 Rx Expiration Date: 01/31/25 Refills Remainin Indication: FOR ASTHMA OUTPT CETIRIZINE HCL 10MG TAB (Status = Active) TAKE ONE TABLET BY MOUTH ONCE A DAY NEEDED FOR ALLERGY SYMPTOMS. Rx# [id number] Last Released: 11/15/23 Qty/Days Supply: Rx Expiration Date: 06/20/24 Refills Remainin OUTPT FLUTICASONE PROP 50MCG 120D NASAL INHL (Status = Discontinued) INSTILL 2 SPRAYS IN EACH NOSTRIL ONCE A DAY NEEDED FOR ALLERGIES (MUST BE USED DIRECTED FOR MINIMUM OF 21 DAYS TO PROVIDE ADEQUATE BENEFITS) Rx# [id number] Last Released: 09/30/23 Qty/Days Supply: Rx Expiration Date: 01/28/24 Refills Remainin OUTPT FLUTICASONE PROP 50MCG 120D NASAL INHL (Status = Active) INSTILL 2 SPRAYS IN EACH NOSTRIL ONCE A DAY NEEDED FOR ALLERGIES (MUST BE USED DIRECTED FOR MINIMUM OF 21 DAYS TO PROVIDE ADEQUATE BENEFITS) Rx# [id number] Last Released: 02/06/24 Qty/Days Supply: Rx Expiration Date: 01/31/25 Refills Remainin OUTPT GABAPENTIN 600MG TAB (Status = Discontinued) TAKE ONE TABLET BY MOUTH EVERY 8 HOURS FOR 28 DAYS Rx# [id number] Last Released: 12/01/23 Qty/Days Supply: Rx Expiration Date: 12/22/23 Refills Remainin OUTPT GABAPENTIN 600MG TAB (Status = ) TAKE ONE TABLET BY MOUTH EVERY 8 HOURS FOR 28 DAYS Rx# [id number] Last Released: 12/24/23 Qty/Days Supply: Rx Expiration Date: 01/19/24 Refills Remainin OUTPT GABAPENTIN 600MG TAB (Status = Discontinued) TAKE ONE TABLET BY MOUTH EVERY 6 HOURS FOR 28 DAYS Rx# [id number] Last Released: 01/25/24 Qty/Days Supply: Rx Expiration Date: 02/16/24 Refills Remainin OUTPT GABAPENTIN 600MG TAB (Status = Active) TAKE ONE TABLET BY MOUTH EVERY 6 HOURS FOR 28 DAYS Rx# [id number] Last Released: 02/20/24 Qty/Days Supply: Rx Expiration Date: 03/15/24 Refills Remainin OUTPT HYDROCODONE 10/ACETAMINOPHEN 325MG TAB (Status = Discontinued) TAKE 1-2 TABLETS BY MOUTH EVERY 4 TO 6 HOURS NEEDED FOR PAIN (MAX 8 TABLETS PER DAY; HOLD WITHIN 4 HOURS OF PLANNED SLEEP) THIS QUANTITY MUST LAST 28 DAYS OR MORE CAUTION: DO NOT EXCEED 4000MG PER DAY ACETAMINOPHEN (APAP) FROM ALL MEDS. Rx# [id number] Last Released: 11/25/23 Qty/Days Supply: Rx Expiration Date: 12/22/23 Refills Remainin OUTPT HYDROCODONE 10/ACETAMINOPHEN 325MG TAB (Status = ) TAKE 1-2 TABLETS BY MOUTH EVERY 4 TO 6 HOURS NEEDED FOR PAIN. (MAX 8/DAY. HOLD WITHIN 4 HOURS OF PLANNED SLEEP) CAUTION: DO NOT EXCEED 4000MG PER DAY ACETAMINOPHEN (APAP) FROM ALL MEDS. THIS QUANTITY MUST LAST 28 DAYS OR MORE Rx# [id number] Last Released: 12/23/23 Qty/Days Supply: Rx Expiration Date: 01/19/24 Refills Remainin OUTPT HYDROCODONE 10/ACETAMINOPHEN 325MG TAB (Status = Discontinued) TAKE 1-2 TABLETS BY MOUTH EVERY 4 TO 6 HOURS NEEDED FOR PAIN (MAX 8 TABLETS PER DAY; HOLD WITHIN 4 HOURS OF PLANNED SLEEP) THIS QUANTITY MUST LAST 28 DAYS OR MORE CAUTION: DO NOT EXCEED 4000MG PER DAY ACETAMINOPHEN (APAP) FROM ALL MEDS. Rx# [id number] Last Released: 01/20/24 Qty/Days Supply: Rx Expiration Date: 02/16/24 Refills Remainin OUTPT HYDROCODONE 10/ACETAMINOPHEN 325MG TAB (Status = Active) TAKE 1-2 TABLETS BY MOUTH EVERY 4 TO 6 HOURS NEEDED FOR PAIN (MAX 8 TAB/DAY; HOLD WITHIN 4 HOURS OF PLANNED SLEEP) MUST LAST 28 DAYS OR MORE CAUTION: DO NOT EXCEED 4000MG PER DAY ACETAMINOPHEN (APAP) FROM ALL MEDS. Rx# [id number] Last Released: 02/16/24 Qty/Days Supply: Rx Expiration Date: 03/15/24 Refills Remainin OUTPT LEVOTHYROXINE NA (SYNTHROID) 50MCG TAB (Status = ) TAKE ONE TABLET BY MOUTH EVERY MORNING BEFORE A MEAL FOR THYROID. TAKE 30 MINUTES BEFORE FOOD. TAKE SEPARATELY FROM ALL OTHER MEDICATIONS. Rx# [id number] Last Released: 08/05/23 Qty/Days Supply: Rx Expiration Date: 01/28/24 Refills Remainin OUTPT LOSARTAN 100MG TAB (Status = ) TAKE ONE TABLET BY MOUTH ONCE A DAY TO LOWER BLOOD PRESSURE Rx# [id number] Last Released: 12/29/23 Qty/Days Supply: Rx Expiration Date: 01/28/24 Refills Remainin OUTPT NALOXONE HCL 4MG/SPRAY SOLN NASAL SPRAY (Status = ) USE 1 SPRAY (4MG) INTO ONE NOSTRIL ONLY ONE-TIME FOR OPIOID OVERDOSE DO NOT PRIME NASAL SPRAY. SPRAY ONE DOSE IN ONE NOSTRIL, GIVE ADDITIONAL DOSE IF PATIENT DOES NOT START BREATHING WITHIN 2-3 MINUTES OR STOPS BREATHING AGAIN. CALL 911. IF USED, NOTIFY PROVIDER. Rx# [id number] Last Released: 12/28/23 Qty/Days Supply: 06/16 Rx Expiration Date: 01/21/24 Refills Remainin Indication: FOR OPIOID OVERDOSE OUTPT PANTOPRAZOLE NA 40MG EC TAB (Status = ) TAKE ONE TABLET BY MOUTH EVERY MORNING BEFORE A MEAL TO LOWER STOMACH ACID - TAKE 30 MINUTES BEFORE MEAL(S) Rx# [id number] Last Released: 02/23/23 Qty/Days Supply: Rx Expiration Date: 01/28/24 Refills Remainin OUTPT TRAZODONE HCL 100MG TAB (Status = ) TAKE ONE-HALF TABLET BY MOUTH AT BEDTIME NEEDED FOR MOOD OR SLEEP. Rx# [id number] Last Released: 01/28/23 Qty/Days Supply: Rx Expiration Date: 01/28/24 Refills Remainin SUPPLIES PHARMACY TERMS AND POSSIBLE PATIENT ACTIONS INPT = [place] inpatient order IV = [place] intravenous medication OUTPT = [place] outpatient prescription PHARMACY POSSIBLE PATIENT TERMS EXPLANATION ACTIONS -------- -- ACTIVE A prescription that can be If you have refills, filled at the local VA pharmacy. you may request a refill of this prescription from your VA pharmacy. CLINIC A medication you received during If you have questions a visit to a VA clinic or about this medication emergency department. contact your VA healthcare team. DISCONTINUED A prescription your provider has Contact your VA stopped. It is no longer healthcare team if you available to be sent to you or need more of this picked up at the [place] pharmacy medication. window. A prescription which is too old Contact your VA to fill. This does not refer to healthcare team if you the expiration date of the need more of this medication in the container. medication. NON-VA A medication that came from If this medication someplace other than a VA information is pharmacy. This may be a incorrect or out of prescription from either the VA date, please tell your or non VA providers that was VA healthcare team. filled outside the VA. Or, it may be an hlxq-dbh-hjtyabr (OTC), herbal, dietary supplements or sample medication. ON HOLD An active prescription that will Contact your VA not be filled until pharmacy pharmacy when you need resolves the issue. more of this medication. PARKED An active prescription that will Contact your VA not be filled until the patient pharmacy when you need requests it. this medication. PENDING This prescription order has been If you have been sent to the pharmacy for review instructed to start and is not ready yet. this medication now, contact your VA pharmacy. SUSPENDED An active prescription that is Contact your [place] not scheduled to be filled yet. pharmacy if you need You should receive it before this medication now. you run out. ====== Patient reports taking meds other than as directed/ordered: Trazodone stopped 6 months ago, HCTZ stopped, a long time ag IS PATIENT TAKING ANY OVER THE COUNTER MEDICATIONS, SUCH VITAMINS OR HERBAL SUPPLEMENTS, INCLUDING ANY MEDICATIONS PRESCRIBED BY ANOTHER PHYSICIAN? Yes, List: Finasteride ALLERGIES/ADVERSE REACTIONS: Patient has answered NKA Does patient have any new allergies to report since last visit? NO VITALS: TEMPERATURE: 98.1 F [36.7 C] (04/22/2023 09:11) BP: 142/94 (06/21/2023 11:42) RESP: 22 (06/21/2023 11:27) PULSE: 72 (06/21/2023 11:27) HT: 67 in [170.2 cm] (04/22/2023 09:11) WT: 210.5 lb [95.48 kg] (06/21/2023 11:27) BMI: 33.0 PAIN ASSESSMENT: (Most Recent Pain Score in Vitals Package: 0 (06/21/2023 11:27) ) The patient indicated that they and their close contacts have not traveled outside of the [place] in the past 21 days. The patient reports the following symptoms: No symptoms present The patient is not immunocompromised. The patient does not report having a history of Multi Drug Resistant Organism (MDRO) within the last five years. The patient does not report having been exposed to measles, chickenpox, or zoster in last 30 days. STRESS: Thank you for your service. Now let us serve you. At the [facility], we strive to provide you with exceptional health care that improves your health and well-being. Are you feeling sad, empty, or depressed? No Do you need to talk about things in your life that worry you or cause you stress? No Do you need to talk about personal problems, family problems, alcohol use, drug use, or mental or emotional illness? No SUICIDE SCREENING: The patient was asked, Over the past two weeks, how often have you been bothered by thoughts that you would be better off or of hurting yourself in some way? Not At All SPIRITUAL ASSESSMENT: Are there buddhist practices or spiritual concerns you want the molecular modeler, your physician, and other health care team members to immediately know about? No Patient advised to call the clinic for any concerns, questions, or symptoms. Patient and/or caregiver verbalized understanding of plan of care. Suicide Screen - V: C-SSRS Screening [place]-Suicide Severity Rating Scale (C-SSRS Screener) 1. Over the past month, have you wished you were or wished you could go to sleep and not wake up? No 2. Over the past month, have you had any actual thoughts of killing yourself? No 3. Over the past month, have you been thinking about how you might do this? Response not required due to responses to other questions. 4. Over the past month, have you had these thoughts and had some intention of acting on them? Response not required due to responses to other questions. 5. Over the past month, have you started to work out or worked out the details of how to kill yourself? Response not required due to responses to other questions. 6. If yes, at any time in the past month did you intend to carry out this plan? Response not required due to responses to other questions. 7. In your lifetime, have you ever done anything, started to do anything, or prepared to do anything to end your life (for example, collected pills, obtained a gun, gave away valuables, went to the roof but didn't jump)? No 8. If YES, was this within the past 3 months? Response not required due to responses to other questions. COVID-19 Immunization - L,N,P,PH,U: Refused Moderna Monovalent COVID-19 vaccine Immunization: COVID-19 (MODERNA), MRNA, LNP-S, PF, 50 MCG/0.5 ML (AGES 12+ YEARS) Refusal Reason: PATIENT DECISION Patient refuses all immunization(s) in the COVID-19 group Date Documented: 03/12/24 14:40 Alcohol Use Screen (AUDIT-C) - V: Alcohol Screen: SCREEN FOR ALCOHOL (AUDIT-C) An alcohol screening test (AUDIT-C) was negative (score=1). 1. How often did you have a drink containing alcohol in the past year? Consider a drink to be a 12 ounce can or bottle of regular beer, 8 ounces of malt liquor, a 5 ounce glass of table wine, or a 1.5 ounce shot of liquor (like scotch, gin, or vodka). Monthly or less 2. How many drinks containing alcohol did you have on a typical day when you were drinking in the past year? One or two drinks 3. How often did you have six or more drinks on one occasion in the past year? Never Depression Screening - V: Perform PHQ-2 A PHQ-2 screen was performed. The score was 0 which is a negative screen for depression. Over the past two weeks, how often have you been bothered by the following problems? 1. Little interest or pleasure in doing things Not at all 2. Feeling down, depressed, or hopeless Not at all Tobacco Use Screening - AT,DE,L,M,N,P,PH,PS,S: The patient uses tobacco every day. The patient does not use tobacco within 30 minutes of waking up. The patient has been smoking or using tobacco for more than fifteen years and less than thirty years. Patient was advised to quit smoking and/or using tobacco. Discussion with patient included: - Quitting smoking or tobacco use is one of the most important things you can do to protect and improve your health and [place] has the resources to support you. - Set a quit date when you are ready to quit. - Get support from your family and friends. - Review any past quit attempts- What helped? What didn't? - On the day you plan to quit, get rid of all cigarettes and tobacco products from your home, car or work. - Using a combination of behavioral counseling or other support strategies and FDA-approved cessation medications is the most effective way to ensure success in quitting. Patient was offered Behavioral Counseling and other support strategies to assist with quitting. Discussion with patient included: - Behavioral counseling or other support strategies greatly increases your chances of successfully quitting smoking or tobacco use by helping you develop a quit plan and providing support and other strategies to make behavioral changes to help you quit. - [facility] has a number of behavioral counseling options to help you with quitting, including: * Provide information about the facility smoking or tobacco use treatment options or clinics * [facility]'s national quitline, 7-169-DTCL-VET, with counseling available Tuesday-Tuesday The patient was not interested in receiving additional information about how to use the treatment options discussed. Patient was offered FDA-approved cessation medications. Discussion with patient included: - Medications for Nicotine replacement therapy such as the patch, gum or lozenge, and other medications such as varenicline or bupropion, can play an important role in the initial weeks and months after you quit smoking or tobacco use. - Medications help with cravings and withdrawal symptoms and they greatly increase your chances of successfully quitting. The patient was not interested in a prescription for tobacco cessation medications. Influenza Immunization - L,N,P,PH,U: Deferral / Refusal The patient declines to receive the recommended dose of seasonal influenza vaccine. Immunization: INFLUENZA, UNSPECIFIED FORMULATION Refusal Reason: PATIENT DECISION Patient refuses all immunization(s) in the FLU group Date Documented: 03/12/24 14:41 Advanced Directive Screen/Negative Notcher: ADVANCE DIRECTIVE SCREENING: I asked if the patient has an advance directive, and determined that: Patient has an Advance Directive. Patient does not wish to make any changes to the Advance Directive at this time. ADVANCE DIRECTIVE NOTIFICATION I did not provide the patient with written notification about advance directives because declined Level of understanding: Good MOVE Weight Management: Most recent BMI: 33.6. educated on health risk of obesity and treatment is offered. Participation in a weight management program was considered/offered for this patient based on the current BMI score. Patient declines participation in a weight management program. Pneumococcal Conjugate Vaccine (PCV15/PCV20) - L,N,P,PH,U: Refuses PCV vaccine Immunization: PNEUMOCOCCAL CONJUGATE, UNSPECIFIED FORMULATION Refusal Reason: PATIENT DECISION Patient refuses all immunization(s) in the PneumoPCV group Date Documented: 03/13/24 06:24 Pain Assessment: - PAIN ASSESSMENT: .. This patient's last pain assessment score was: 0 (06/21/2023 11:27). A detailed pain assessment showed the following: Pain characteristics (per patient's own words) Constant, Aching Location of current pain Legs Onset/Duration of the current pain. Constant or variable? More than a year Patient's self identified pain goal: 0 Weight Control/Nutrition Counseling: * Patient declined nutrition and weight screen counseling at this encounter. URINE DRUG SCREEN: Patients on chronic opioid therapy for chronic non-malignant pain are required to have an UDS at least every 6 months. In addition, documentation of verbal consent for ongoing UDS is required at least every 6 months Patient is receiving opioid from non-[facility] provider and is therefore excluded from having to obtain a bi-annual UDS at this facility Herpes Zoster (Shingles) Vaccine - L,N,P,PH,U: The patient declines to receive the recommended dose of zoster (shingles) vaccine. Immunization: ZOSTER RECOMBINANT Refusal Reason: PATIENT DECISION Patient refuses all immunization(s) in the ZOSTER group Date Documented: 03/13/24 06:26 Patient/Nurse Interview: * * Patient stated that adequate information was received regarding the condition and/or treatment. Comment: If you have any questions please call the clinic [facility] MAP: PERSONAL HEALTH PLAN INVENTORY & MAP 's Response: My daughter and granddaughter Cigarette Pack Year History: The patient smokes cigarettes. How many years have you smoked cigarettes? # of years: 25 Average number of packs/day over the entire time patient smoked: Packs/day: 1 Per [facility] Directive 1605.06, wristband documentation: Patient wristband was removed and destroyed by (staff name) Hillary Post RN and placed in the designated [employer] bin. /es/ Jan Post RN,BSN STUART Yap Signed: 03/13/2024 06:28 JAN POST
--- OUTSIDE RECORDS SUMMARY | 2024-03-23 05:45 | XMS_ITS | Encounter Summary ---
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 Date/Time Encounter Type Encounter Description Reason Provider Source Mar 23, 2024 10:45 AM BP SCRN PERF REC INTERVAL PRIMARY CARE/MEDICINE ICD-10-CM I10 Essential (primary) hypertension THONG JUSTICE SARWAT Garvey IHE Encounter Template Text not used by [place] Assessments - Encounter Diagnoses This section includes the primary and secondary diagnoses documented for the Encounter. Date/Time Primary/Secondary Diagnosis Diagnosis Name Provider Source Mar 23, 2024 02:22 PM PRIMARY Essential (primary) hypertension RAMONE JUSTICE Guru [facility] Plan of Treatment: Future Appointments (+ 6 months) and Future Tests (+/- 45 days) The Plan of Treatment section includes future care activities for the patient from all [place] [facility] This section includes future appointments and future orders which are active, pending or scheduled. Future Appointments This section includes appointments that were scheduled to occur 6 months from the date of the Encounter, up to a maximum of 20 appointments. The data comes from all [place] treatment facilities. Appointment Date/Time Appointment Type Appointme nt Facility Name Apr 24, 2024 02:00 PM [facility] May 18, 2024 09:40 AM [facility] - SURGERY [facility] Jun 14, 2024 09:30 AM AMBULATORY - MEDICINE [facility] Jul 05, 2024 02:40 PM [facility] - MEDICINE [facility] Sep 03, 2024 10:45 AM AMBULATORY - MEDICINE [facility] September 19, 2024 02:00 PM AMBULATORY - MEDICINE [facility] Active, Pending, and Scheduled Orders This section includes a listing of several types of active, pending, and scheduled orders, including clinic medications orders, diagnostic test orders, procedure orders and consult orders; where the start date of the order is 45 days before the date of the Encounter or 45 days after the date of theEncounter. The data comes from all [facility]. Test Date/Time Test Type Test Details Facility Name Apr 25, 2024 08:03 AM Consult Order [facility]ITY [facility]-NEPHROLOGY 657A4 Cons [facility] Lab Results: +/- 30 days of the encounter This section includes the Chemistry and Hematology Lab Results on record with [place] for the patient. Radiology Reports and Pathology Reports are provided separately, in subsequent sections. Lab Results This section contains the Chemistry/Hematology Results that were resulted 30 days before or 30 daysafter the date of the Encounter. Date/Time Source Result Type Result - Unit Interpretation Reference Range Specimen Type Comment Mar 23, 2024 10:38 AM [place] [facility] HGA1C BLOOD Specimen Type: BLOOD No comment entered. Ordering Provider: KECIA BOSTON Report Released Date/Time: Jan 23, 2024 02:12 PM Reporting Lab: [place] [facility] [address] [place] [address] Performing Lab: [place] [facility] [address] [place] [address] HGA1C 5.5 4.0-6.0 Mar 23, 2024 10:38 AM [place] [facility] VITAMIN D, 25-HYDROXY SERUM Specimen Type: SE RUM No comment entered. Ordering Provider: KECIA BOSTON Report Released Date/Time: Jan 23, 2024 02:12 PM Reporting Lab: [place] [facility] [address] [place] [address] Performing Lab: [place] [facility] [address] [place] [address] VITAMIN D, 25-HYDROXY 20.2 ng/mL L 30-96 Mar 23, 2024 10:38 AM [place] [facility] CHOLESTEROL PANEL (PB) PLASMA Specimen Type: P LASMA Comment: LDL calculation invalid when Triglyceride exceeds 250 mg/dl Ordering Provider: KECIA BOSTON Report Released Date/Time: Jan 23, 2024 02:12 PM Reporting Lab: [place] [facility] [address] [place] [address] Performing Lab: [place] [facility] [address] [place] [address] CHOLESTEROL 285 mg/dL H 0-200 TRIGLYCERIDE 352 mg/dL H 0-150 CALCULATED LDL comment mg/dL HDL(New) 48.1 mg/dL H >40 HDL % OF TOTAL CHOLESTEROL (PB) 16.9 >25 DIRECT LDL(MA) 181.2 mg/dL H 0-99.9 Mar 23, 2024 10:38 AM [place] [facility] TSH (MA-PB) SERUM Specimen Ty pe: SERUM No comment entered. Ordering Provider: KECIA BOSTON Report Released Date/Time: Jan 23, 2024 02:12 PM Reporting Lab: [place] [facility] [address] [place] [address] Performing Lab: [place] [facility] [address] [place] [address] TSH 8.158 u[IU]/mL H 0.47-5 Mar 23, 2024 10:38 AM [facility] COMPREHENSIVE METABOLIC PANEL PLASMA Specimen Type: PLASMA Comment: LDL calculation invalid when Triglyceride exceeds 250 mg/dl Ordering Provider: KECIA BOSTON Report Released Date/Time: Jan 23, 2024 02:12 PM Reporting Lab: [place] [facility] [address] [place] [address] Performing Lab: [place] [facility] [address] [place] [facility] CREATININE 1.57 mg/dL H 0.7-1.3 UREA NITROGEN [...] 2020) 51 Mar 23, 2024 10:38 AM [place] [facility] PROST. SPECIFIC AG.(PB-STL) SERUM Specimen Ty pe: SERUM No comment entered. Ordering Provider: KECIA BOSTON Report Released Date/Time: Jan 23, 2024 02:12 PM Reporting Lab: [place] [facility] [address] [place] [address] Performing Lab: [place] [facility] [address] [place] [address] PROST. SPECIFIC AG.(PB-STL) 0.55 ng/mL 0 -4 Mar 23, 2024 10:38 AM [facility] CBC BLOO D Specimen Type: BLOOD No comment entered. Ordering Provider: KECIA BOSTON Report Released Date/Time: Jan 23, 2024 02:12 PM Reporting Lab: [place] [facility] [address] [place] [address] Performing Lab: [place] [facility] [address] [place] [facility] WBC 8.4 10*3/uL 3.6-11.2 RBC 4.69 10*6/uL [...] 0. 00-0.05 Mar 23, 2024 10:38 AM [facility] BASIC METABOLIC PANEL PLASMA Specimen Type: PL ASMA No comment entered. Ordering Provider: KECIA BOSTON Report Released Date/Time: Mar 12, 2024 01:54 PM Reporting Lab: [place] [facility] [address] [place] [address] Performing Lab: [place] [facility] [address] [place] [facility] CREATININE 1.57 mg/dL H 0.7-1.3 UREA NITROGEN [...] Height Weight Body Mass Index Source Mar 23, 2024 02:22 PM 121/87 [facility] Mar 23, 2024 02:22 PM 74 144/95 18 95 [facility] Social History: Smoking Status (Most current) and Tobacco Use (All prior to encounter date) This section includes the most current, and the historical, smoking and tobacco- related health factors from the [place] facility where the Encounter took place. Current Smoking Status This section includes the most current smoking, or tobacco-related health factor, from the [place] facility where the Encounter took place. Date/Time Current Smoking Status Comment Facil ity Mar 12, 2024 01:00 PM VA-TOBACCO USER EVERY DAY [facility] Tobacco Use History This section includes a history of the smoking, or tobacco-related health factors, that were collected on or before the date of the Encounter. The data comes from the [place] facility where the Encounter took place. Date/Time Smoking Status/Tobacco Use Comment F acility Mar 12, 2024 01:00 PM VA-TOBACCO USE > 1 5 LESS THAN 30 YEARS [facility] [place] [facility] Mar 12, 2024 01:00 PM VA-TOBACCO USE ADVICE [facility] Mar 12, 2024 01:00 PM VA-TOBACCO USE GAS LINE SERVICER NO [facility] Mar 12, 2024 01:00 PM VA-TOBACCO USE MED NO [facility] Mar 12, 2024 01:00 PM VA-TOBACCO USER EVERY DAY [facility] Jan 27, 2023 10:30 AM VA-TOBACCO USE 5 TO 15 YEARS [facility] Jan 27, 2023 10:30 AM VA-TOBACCO USE ADVICE [facility] Jan 27, 2023 10:30 AM VA-TOBACCO USE GAS LINE SERVICER NO [facility] Jan 27, 2023 10:30 AM VA-TOBACCO USE MED NO [facility] Jan 27, 2023 10:30 AM VA-TOBACCO USE [place] 30 MIN OF WAKE UP [place] [facility] Jan 27, 2023 10:30 AM VA-TOBACCO USER EVERY DAY [facility] [place] [facility] Jan 21, 2022 10:30 AM VA-TOBACCO USE 30 YEARS OR MORE [facility] [place] [facility] Jan 21, 2022 10:30 AM VA-TOBACCO USE ADVICE [facility] [place] [facility] Jan 21, 2022 10:30 AM VA-TOBACCO USE GAS LINE SERVICER NO [facility] [place] [facility] Jan 21, 2022 10:30 AM VA-TOBACCO USE MED NO [facility] [place] [facility] Jan 21, 2022 10:30 AM VA-TOBACCO USE WI 30 MIN OF WAKE UP [facility] [place] [facility] Jan 21, 2022 10:30 AM VA-TOBACCO USER EVERY DAY [facility] [place] [facility] Oct 30, 2020 02:30 PM VA-TOBACCO USE 30 YEARS OR MORE [facility] [place] [facility] Oct 30, 2020 02:30 PM VA-TOBACCO USE ADVICE [facility] Oct 30, 2020 02:30 PM VA-TOBACCO USE GAS LINE SERVICER NO [facility] Oct 30, 2020 02:30 PM VA-TOBACCO USE MED NO [facility] Oct 30, 2020 02:30 PM VA-TOBACCO USE WI 30 MIN OF WAKE UP [facility] [place] [facility] Oct 30, 2020 02:30 PM VA-TOBACCO USER EVERY DAY [facility] Dec 21, 2018 11:23 AM VA-TOBACCO USE 5 TO 15 YEARS [facility] Dec 21, 2018 11:23 AM VA-TOBACCO USE ADVICE [facility] Dec 21, 2018 11:23 AM VA-TOBACCO USE GAS LINE SERVICER NO [facility] [place] [facility] Dec 21, 2018 11:23 AM VA-TOBACCO USE MED NO [facility] [place] [facility] Dec 21, 2018 11:23 AM VA-TOBACCO USE WI 30 MIN OF WAKE UP [facility] [place] [facility] Dec 21, 2018 11:23 AM VA-TOBACCO USER EVERY DAY [facility] [place] [facility] Mar 14, 2018 10:04 AM CURRENT TOBACCO USER [facility] [place] [facility] Mar 14, 2018 10:04 AM CURRENT TOBACCO US ER (NOT READY TO QUIT) [facility] [place] [facility] Mar 14, 2018 10:04 AM TOBACCO CESSATION REFERRAL DECLI MANN [facility] [place] [facility] Mar 14, 2018 10:04 AM TOBACCO MEDS OFFERED BUT DECLINE D [facility] Mar 14, 2018 10:04 AM TOBACCO USER OFFERED MEDS [facility] [place] [facility] Jan 26, 2018 09:08 AM CURRENT TOBACCO USER [facility] Jan 26, 2018 09:08 AM CURRENT TOBACCO US ER (NOT READY TO QUIT) [facility] Jan 26, 2018 09:08 AM TOBACCO CESSATION REFERRAL DECLI MANN [facility] Jan 26, 2018 09:08 AM TOBACCO MEDS OFFERED BUT DECLINE D [facility] Jan 26, 2018 09:08 AM TOBACCO USER OFFERED MEDS [facility] [place] [facility] Feb 23, 2017 08:37 AM CURRENT TOBACCO USER [facility] Feb 23, 2017 08:37 AM CURRENT TOBACCO US ER (NOT READY TO QUIT) [facility] Feb 23, 2017 08:37 AM TOBACCO CESSATION REFERRAL DECLI MANN [facility] Feb 23, 2017 08:37 AM TOBACCO MEDS OFFERED BUT DECLINE D [facility] Feb 23, 2017 08:37 AM TOBACCO USER OFFERED MEDS [facility] Jan 12, 2011 01:21 PM LIFETIME NON-USER OF TOBACCO [facility] Radiology Reports: +/- 30 days of [...] the Encounter. The data comes from all [place] treatment facilities. Date/Time Radiology Report Provider Source Mar 12, 2024 02:00 PM SPINE LUMBOSACRAL 2 OR 3 VIEWS: BELL GIRARD [id number] -1965 M Exm Date: MAR 12, 2024@14:00 Req Phys: KECIA BOSTON Loc: [facility]CT ECHO PCP (Prince'g Lo Img Loc: [facility] Service: [place] [address] (Case [id number] COMPLETE) SPINE LUMBOSACRAL 2 OR 3 VIEWS (RAD Detailed) CPT:28599 Reason for Study: chronic LBP Clinical History: Report Status: Verified Date Reported: MAR 12, 2024 Date Verified: MAR 12, 2024 Air Quality Specialist E-Sig: Report: Lumbar spine 3 views. There is no fracture or dislocation. No bony destruction. Narrowing L1-2, and L5-S1 disc spaces. There are degenerative changes. Plaque in the abdominal aorta. Impression: 1. Mild degenerative arthritis 2. Narrowing L1-2 and L5-S1 disc spaces Primary Interpreting Staff: DANIELLE CHRISTOPHER RADIOLOGIST (Air Quality Specialist, no e-sig) /DANIELLE Berkowitz [facility] Mar 12, 2024 02:00 PM KNEE,RIGHT 3 VIEWS : BELL GIRARD [id number] -1965 M Exm Date: MAR 12, 2024@14:00 Req Phys: KECIA BOSTON Loc: [email or web address] PACT ECHO PCP (Req[facility]g Lo Img [facility] Service: [place] [address] (Case [id number] COMPLETE) KNEE,RIGHT 3 VIEWS (RAD Detailed) CPT:10650 Proc Modifiers : RIGHT Reason for Study: progessive pain Clinical History: Report Status: Verified Date Reported: MAR 12, 2024 Date Verified: MAR 12, 2024 Air Quality Specialist E-Sig: Report: Right knee 3 views including AP weightbearing view. There is no fracture or dislocation. No bony destruction. No significant degenerative changes. Knee joint appears fairly well maintained. Calcification in the soft tissues posterior knee joint having the appearance of a flabella. Plaque in the arteries. Impression: Essentially unremarkable knee survey Primary Interpreting Staff: DANIELLE CHRISTOPHER RADIOLOGIST (Air Quality Specialist, no e-sig) /DANIELLE Berkowitz [facility] Mar 12, 2024 02:00 PM KNEE,LEFT, 3 VIEWS : BELL GIRARD [id number] -1965 M Exm Date: MAR 12, 2024@14:00 Req Phys: KECIA BOSTON Loc: [facility] ECHO PCP (Req'g Lo Img Loc: [facility] Service: [place] [address] (Case [id number] COMPLETE) KNEE,LEFT, 3 VIEWS (RAD Detailed) CPT:41768 Proc Modifiers : LEFT Reason for Study: progressive pain Clinical History: Report Status: Verified Date Reported: MAR 12, 2024 Date Verified: MAR 12, 2024 Air Quality Specialist E-Sig: Report: Left knee 3 views including AP weightbearing view. There is no fracture or dislocation. No bony destruction. Knee joint appears fairly well maintained. No significant degenerative changes. Calcification in the soft tissues posterior to the knee joint having the appearance of bowel. Plaque in the arteries. Impression: Essentially unremarkable knee survey Primary Interpreting Staff: DANIELLE CHRISTOPHER, RADIOLOGIST (Air Quality Specialist, no e-sig) /DANIELLE Berkowitz [facility] Mar 12, 2024 02:00 PM HIP W/PELVIS 2-3 V IEW LEFT: BELL GIRARD ERLINDA [id number] -1965 M Exm Date: MAR 12, 2024@14:00 Req Phys: KECIA BOSTON Loc: [facility] ECHO PCP (Req'g Lo Img Loc: [facility] Service: [place] [address] (Case [id number] COMPLETE) HIP W/PELVIS 2-3 VIEW LEFT (RAD Detailed) CPT:63768 Reason for Study: pain, no injury Clinical History: Report Status: Verified Date Reported: MAR 12, 2024 Date Verified: MAR 12, 2024 Air Quality Specialist E-Sig: Report: Pelvis and left hip 3 views. No evidence of a fracture or dislocation. No evidence of bony destruction. Early degenerative changes similar to the right hip. Plaque in the arteries. Impression: Early degenerative changes Primary Interpreting Staff: DANIELLE CHRISTOPHER RADIOLOGIST (Air Quality Specialist, no e-sig) /DANIELLE Berkowitz [facility] [place] [facility] Mar 12, 2024 02:00 PM HIP 2 VIEW RIGHT: BELL GIRARD ERLINDA [id number] -1965 M Exm Date: MAR 12, 2024@14:00 Req Phys: KECIA BOSTON Loc: [facility] PA[facility] ECHO PCP (Req'g Lo Img Loc: [facility] Service: [place] [address] (Case [id number] COMPLETE) HIP 2 VIEW RIGHT (RAD Detailed) CPT:61570 Reason for Study: pain, no injury Clinical History: Report Status: Verified Date Reported: MAR 12, 2024 Date Verified: MAR 12, 2024 Air Quality Specialist E-Sig: Report: Right hip 2 views. No fracture or dislocation. No bony destruction. Early degenerative changes. Impression: Early degenerative changes Primary Interpreting Staff: DANIELLE CHRISTOPHER, RADIOLOGIST (Air Quality Specialist, no e-sig) /DANIELLE Berkwoitz [facility] Encounter Notes: All associated encounter notes This section contains the clinical notes associated to the Encounter. Date/Time Encounter Note(s) Provider Source Mar 23, 2024 02:14 PM NURSING PROGRESS N OTE: LOCAL TITLE: NURSING NOTE PB STANDARD TITLE: NURSING PROGRESS NOTE DATE OF NOTE: MAR 23, 2024@14:14 ENTRY DATE: MAR 23, 2024@14:15:01 AUTHOR: RENETTA JUSTICE EXP COSIGNER: URGENCY: STATUS: COMPLETED [place] presented to clinic today for follow up BP check as well as labs and possible BFA. Note from 03/12/24: Essential hypertension-uncontrolled; on losartan he had quit taking his hydrochlorothiazide we will get him back on that have him return in 10 to 14 days for blood pressure check and BMP; discouraged his excessive intake of energy drinks; as well as using his CPAP Chronic back, bilateral hip, [...] to hold off on that would consider [place] had to work and was unable to stay for BFA. I did advise of BFA on Tuesdays and [place] said he will come back for that. Veterans vital signs while in lab as follows: BP: 144/95, repeated 121/87 sp02: 95: Pulse: 74 Advised I will alert Dr Boston of this and he will RTC to try BFA next week. /sai/ RENETTA JUSTICE LPN [facility] Signed: 03/23/2024 14:23 [facility]ICE [facility]
--- OUTSIDE RECORDS SUMMARY | 2024-06-14 04:30 | XMS_ITS | Encounter Summary ---
Author Name [facility] Address [address] [place] [address] Care Team Providers Care Fruit Peeler Name Role Phone NEMO BOSTONMY Primary Care Provider Unavailabl e Insurance Providers: [...] Gordon's Name Patient's Relationship to Policy Gordon [facility] (R) MEDICAID MEDIC AID Mar 18, 2009 [phone] TESSA GIRARD JCARLOS PATIENT MEDICAID ([place]) MEDICAID MEDIC AID ([facility]) Mar 16, 2014 MEDICAI D [id number] TESSA GIRARD PATIENT Selected Encounter This section includes the information on record at [place] for the Encounter. Date/Time Encounter Type Encounter Description Reason Provider Source Jun 14, 2024 09:30 AM DRAIN/INJ JOINT/BURSA W/O US PRIMARY CARE/MEDICINE ICD-10-CM M17.0 Bilateral primary osteoarthritis of knee FRANNY BOSTON [employer] Encounter Template Text not used by [place] Assessments - Encounter Diagnoses This section includes the primary and secondary diagnoses documented for the Encounter. Date/Time Primary/Secondary Diagnosis Diagnosis Name Provider Source Jun 19, 2024 10:51 AM PRIMARY Bilateral primary osteoarthritis of knee ERNA BOSTON [facility] Plan of Treatment: Future Appointments (+ 6 months) and Future Tests (+/- 45 days) The Plan of Treatment section includes future care activities for the patient from all [place] treatmentfacity hospital. This section includes future appointments and future orders which are active, pending or scheduled. Future Appointments This section includes appointments that were scheduled to occur 6 months from the date of the Encounter, up to a maximum of 20 appointments. The data comes from all [place] treatment facilities. Appointment Date/Time Appointment Type Appointme nt Facility Name Jul 05, 2024 02:40 PM AMBULATORY - MEDICINE [facility] Sep 03, 2024 10:45 AM AMBULATORY - MEDICINE [facility] September 19, 2024 02:00 PM AMBULATORY - MEDICINE [facility] September 27, 2024 09:15 AM AMBULATORY - MEDICINE [facility] October 01, 2024 10:30 AM AMBULATORY - MEDICINE [facility] [facility] Oct 15, 2024 02:30 PM AMBULATORY - MEDICINE [facility] [facility] Oct 22, 2024 09:00 AM AMBULATORY - MEDICINE [facility] [facility] Oct 26, 2024 09:45 AM AMBULATORY - MEDICINE [facility] Nov 20, 2024 04:00 PM AMBULATORY - MEDICINE [facility] Active, Pending, and Scheduled Orders This section includes a listing of several types of active, pending, and scheduled orders, including clinic medications orders, diagnostic test orders, procedure orders and consult orders; where the start date of the order is 45 days before the date of the Encounter or 45 days after the date of theEncounter. The data comes from all [place] treatment facilities. Test Date/Time Test Type Test Details Facility Name Jun 22, 2024 07:47 AM Consult Order [facility] [id number] Cons [employer] Operator's Choice [facility] Vital Signs: All taken on the encounter date This section contains inpatient and outpatient Vital Signs collected on the date of the Encounter. Date/Time Temperature Pulse Blood Pressure Respiratory Rate SP02 Pain Height Weight Body Mass Index Source Jun 14, 2024 10:49 AM 98.1 59 132/86 18 96 196.8 31 [facility] Social History: Smoking Status (Most current) and Tobacco Use (All prior to encounter date) This section includes the most current, and the historical, smoking and tobacco- related health factors from the [place] facility where the Encounter took place. Current Smoking Status This section includes the most current smoking, or tobacco-related health factor, from the [place] facility where the Encounter took place. Date/Time Current Smoking Status Comment Facil ity Mar 12, 2024 01:00 PM VA-TOBACCO USER EVERY DAY [facility] Tobacco Use History This section includes a history of the smoking, or tobacco-related health factors, that were collected on or before the date of the Encounter. The data comes from the [place] facility where the Encounter took place. Date/Time Smoking Status/Tobacco Use Comment F acility Mar 12, 2024 01:00 PM VA-TOBACCO USE > 1 5 LESS THAN 30 YEARS [facility] Mar 12, 2024 01:00 PM VA-TOBACCO USE ADVICE [facility] Mar 12, 2024 01:00 PM VA-TOBACCO USE PIZZA CHEF NO [facility] Mar 12, 2024 01:00 PM VA-TOBACCO USE MED NO [facility] Mar 12, 2024 01:00 PM VA-TOBACCO USER EVERY DAY [facility] Jan 27, 2023 10:30 AM VA-TOBACCO USE 5 TO 15 YEARS [facility] Jan 27, 2023 10:30 AM VA-TOBACCO USE ADVICE [facility] Jan 27, 2023 10:30 AM VA-TOBACCO USE PIZZA CHEF NO [facility] Jan 27, 2023 10:30 AM VA-TOBACCO USE MED NO [facility] Jan 27, 2023 10:30 AM VA-TOBACCO USE WI 30 MIN OF WAKE UP [facility] Jan 27, 2023 10:30 AM VA-TOBACCO USER EVERY DAY [facility] Jan 21, 2022 10:30 AM VA-TOBACCO USE 30 YEARS OR MORE [facility] Jan 21, 2022 10:30 AM VA-TOBACCO USE ADVICE [facility] Jan 21, 2022 10:30 AM VA-TOBACCO USE PIZZA CHEF NO [facility] Jan 21, 2022 10:30 AM VA-TOBACCO USE MED NO [facility] Jan 21, 2022 10:30 AM VA-TOBACCO USE WI 30 MIN OF WAKE UP [facility] Jan 21, 2022 10:30 AM VA-TOBACCO USER EVERY DAY [facility] Oct 30, 2020 02:30 PM VA-TOBACCO USE 30 YEARS OR MORE [facility] Oct 30, 2020 02:30 PM VA-TOBACCO USE ADVICE [facility] Oct 30, 2020 02:30 PM VA-TOBACCO USE PIZZA CHEF NO [facility] Oct 30, 2020 02:30 PM VA-TOBACCO USE MED NO [facility] Oct 30, 2020 02:30 PM VA-TOBACCO USE WI 30 MIN OF WAKE UP [facility] Oct 30, 2020 02:30 PM VA-TOBACCO USER EVERY DAY [facility] Dec 21, 2018 11:23 AM VA-TOBACCO USE 5 TO 15 YEARS [facility] Dec 21, 2018 11:23 AM VA-TOBACCO USE ADVICE [facility] Dec 21, 2018 11:23 AM VA-TOBACCO USE PIZZA CHEF NO [facility] Dec 21, 2018 11:23 AM VA-TOBACCO USE MED NO [facility] Dec 21, 2018 11:23 AM VA-TOBACCO USE WI 30 MIN OF WAKE UP [facility] Dec 21, 2018 11:23 AM VA-TOBACCO USER EVERY DAY [facility] Mar 14, 2018 10:04 AM CURRENT TOBACCO USER [facility] Mar 14, 2018 10:04 AM CURRENT TOBACCO US ER (NOT READY TO QUIT) [facility] Mar 14, 2018 10:04 AM TOBACCO CESSATION REFERRAL DECLI MANN [facility] Mar 14, 2018 10:04 AM TOBACCO MEDS OFFERED BUT DECLINE D [facility] Mar 14, 2018 10:04 AM TOBACCO USER OFFERED MEDS [facility] Jan 26, 2018 09:08 AM CURRENT TOBACCO USER [facility] Jan 26, 2018 09:08 AM CURRENT TOBACCO US ER (NOT READY TO QUIT) [facility] Jan 26, 2018 09:08 AM TOBACCO CESSATION REFERRAL [facility] Jan 26, 2018 09:08 AM TOBACCO MEDS OFFERED BUT DECLINE D [facility] Jan 26, 2018 09:08 AM TOBACCO USER OFFERED MEDS [facility] Feb 23, 2017 08:37 AM CURRENT TOBACCO USER [facility] Feb 23, 2017 08:37 AM CURRENT TOBACCO US ER (NOT READY TO QUIT) [facility] Feb 23, 2017 08:37 AM TOBACCO CESSATION REFERRAL [facility] Feb 23, 2017 08:37 AM TOBACCO MEDS OFFERED BUT DECLINE D [facility] Feb 23, 2017 08:37 AM TOBACCO USER OFFERED MEDS [facility] Jan 12, 2011 01:21 PM LIFETIME NON-USER OF TOBACCO [facility] Encounter Notes: All associated encounter notes This section contains the clinical notes associated to the Encounter. Date/Time Encounter Note(s) Provider Source Jun 14, 2024 10:52 AM PRIMARY CARE PROGR ESS NOTE: LOCAL TITLE: PRIMARY CARE CLINIC PROGRESS NOTE PB STANDARD TITLE: PRIMARY CARE PROGRESS NOTE DATE OF NOTE: JUN 14, 2024@10:52 ENTRY DATE: JUN 14, 2024@10:52:14 AUTHOR: ERNA BOSTON COSIGNER: URGENCY: STATUS: COMPLETED CC: Bilateral knee pain HPI: Patient presents today for bilateral knee steroid injections last injection was in February with good relief they just started bothering him the last couple of weeks again. Non-VA Primary Care Provider Dr. Vera; [facility] Dr. 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: [employer] ACCIDENTS OR INJURIES WHILE ON ACTIVE DUTY: Erythema nodosum MST: no SURGICAL HX: gastric bypass 2015 Problem List: 1) Hyperlipidemia (SNOMED CT 09914109) 2) Chronic obstructive lung disease (SNOMED CT 19349131) 3) Hypothyroidism (SNOMED CT 64701322) 4) Gastroesophageal reflux disease (SNOMED CT 010365061) 5) Essential hypertension (SNOMED CT 66039152) 6) Erythema nodosum (SNOMED CT 79824998) 7) Sleep Apnea (SCT 94302044) 8) Chronic back pain 9) Insomnia 10) Benign Prostatic Hypertrophy with Outflow Obstruction (SCT 337867601) 11) Renal Impairment ([facility] 079272431) 12) Obesity Active Outpatient Medications (including Supplies): Active Outpatient Medications Status 1) ALBUTEROL 90MCG (CFC-F) 200D ORAL INHL INHALE 2 PUFFS BY ACTIVE (S) ORAL INHALATION FOUR TIMES A DAY NEEDED SHAKE WELL. RINSE MOUTHPIECE FREQUENTLY TO PREVENT CLOGGING. Indication: FOR ASTHMA 2) ATORVASTATIN CALCIUM 40MG TAB TAKE ONE-HALF TABLET BY MOUTH ACTIVE EVERY EVENING Indication: FOR HIGH CHOLESTEROL 3) CETIRIZINE HCL 10MG TAB TAKE ONE TABLET BY MOUTH ONCE A DAY ACTIVE (S) NEEDED FOR ALLERGY SYMPTOMS. 4) CHOLECALCIF 50MCG (D3-2,000UNIT) TAB TAKE ONE TABLET BY ACTIVE MOUTH ONCE A DAY FOR VITAMIN D DEFICIENCY. 5) FINASTERIDE 5MG TAB TAKE ONE TABLET BY MOUTH ONCE A DAY ACTIVE SWALLOW WHOLE, DO NOT CRUSH, SPLIT, OR CHEW. Indication: FOR BENIGN PROSTATIC HYPERPLASIA 6) FLUTICASONE PROP 50MCG 120D NASAL INHL INSTILL 2 SPRAYS IN ACTIVE (S) EACH NOSTRIL ONCE A DAY NEEDED FOR ALLERGIES (MUST BE USED DIRECTED FOR MINIMUM OF 21 DAYS TO PROVIDE ADEQUATE BENEFITS) 7) GABAPENTIN 600MG TAB TAKE ONE TABLET BY MOUTH EVERY 6 HOURS ACTIVE (S) 8) HYDROCHLOROTHIAZIDE 25MG TAB TAKE ONE TABLET BY MOUTH ONCE A ACTIVE DAY Indication: FOR HIGH BLOOD PRESSURE 9) HYDROCODONE 10/ACETAMINOPHEN 325MG TAB TAKE 1-2 TABLETS BY ACTIVE MOUTH EVERY 4 TO 6 HOURS NEEDED FOR PAIN (MAX 8 TABS/DAY, HOLD WITHIN 4 HOURS OF PLANNED SLEEP) THIS QUANTITY MUST LAST 28 DAYS OR MORE CAUTION: DO NOT EXCEED 4000MG PER DAY ACETAMINOPHEN (APAP) FROM ALL MEDS. 10) LEVOTHYROXINE NA 50MCG TAB TAKE ONE TABLET BY MOUTH EVERY ACTIVE (S) MORNING BEFORE A MEAL FOR THYROID. TAKE 30 MINUTES BEFORE FOOD. TAKE SEPARATELY FROM ALL OTHER MEDICATIONS. 11) LOSARTAN 100MG TAB TAKE ONE TABLET BY MOUTH ONCE A DAY TO ACTIVE LOWER BLOOD PRESSURE 12) PANTOPRAZOLE NA 40MG EC TAB TAKE ONE TABLET BY MOUTH EVERY ACTIVE MORNING BEFORE A MEAL TO LOWER STOMACH ACID - TAKE 30 MINUTES BEFORE MEAL(S) 13) TRAZODONE HCL 100MG TAB TAKE ONE-HALF TABLET BY MOUTH AT ACTIVE BEDTIME NEEDED FOR MOOD OR SLEEP. OBJECTIVE: Vital Signs Temperature: 98.1 F [36.7 C] (06/14/2024 10:49) Respiratory Rate: 18 (06/14/2024 10:49) Pulse Rate: 59 (06/14/2024 10:49) Blood Pressure: 132/86 (06/14/2024 10:49) HT: 67 in [170.2 cm] (04/22/2023 09:11) WT: 196.8 lb [89.27 kg] (06/14/2024 10:49) BMI: 30.9 96% (06/14/2024 10:49) Physical Exam General: NAD noted, A&Ox3, pleasant, appears stated age HEENT: NCAT, TM's clear, nares and oropharynx clear Neck: Supple with normal active ROM, without any lymphadenopathy Heart: RRR, no murmur, clicks, or rub Resp: Lungs CTA bilaterally, respirations even and unlabored Abdomen: Soft, non-distended, non-tender Ext: No clubbing, cyanosis, edema or obvious deformity Neuro: Grossly intact Psych: Affect normal, answers questions appropriately throughout visit Assessment/Plan: Osteoarthritis bilateral knees-discussed again potential risk benefits of steroid injection patient like to proceed with procedure. Informed consent was obtained and time out performed. Bilateral knee joint was prepped with betadine and injected with 2ml of 0.25% bupivacaine and 40mg of triamcinolone with lateral approach to each knee. Patient tolerated well. Patient tolerated well. Area cleaned and band-aide applied. Time of Timeout: 06/14/2024 at 11:20 AM Has a valid consent form been obtained? Yes PATIENT IDENTIFICATION: (The patient is identified by at least two of the following (check all that apply)) Full Name, Full SSN, Method of Identification: (no less than two of the following) Patient verbalized name, Patient verbalized social security number, Patient verbalized date of PROCEDURE: Bilateral knee steroid injections SITE (including laterality if applicable): Bilateral knee joints VERIFICATION OF SITE MARKING: (Required for procedures [...] OUT PARTICIPANTS (list all members present): , TANGLED YARN SPOOL STRAIGHTENER, PA (s): Erna Boston MD and Mecca Post RN Follow-up: As scheduled and/or as needed. Discussed with patient that [...] to . Time spent 30 minutes. /sai/ MD Destin Leo [facility] Primary Care Signed: 06/14/2024 11:47 ERNA BOSTON [facility]
--- OUTSIDE RECORDS SUMMARY | 2024-09-19 09:00 | XMS_ITS | Encounter Summary ---
Author Name [facility] [place] [facility] [place] [facility] [place] Address [address], [place] [address] Care Team Providers Care Creative Services Producer Name Role Phone ERNA BARNES Primary Care Provider Unavailabl e Insurance Providers: [...] Gordon's Name Patient's Relationship to Policy Gordon [facility] ([place]) MEDICAID MEDIC AID Mar 18, 2009 [phone] TESSA BOTELLO JCARLOS PATIENT [place]ICAID ([place] MEDICAID MEDIC A[place]) Mar 16, 2014 MEDICAI D [id number] TESSA BOTELLO JCARLOS PATIENT Selected Encounter This section includes the information on record at [place] for the Encounter. Date/Time Encounter Type Encounter Description Reason Provider Source September 19, 2024 02:00 PM OFFICE O/P EST MOD 30 MIN PRIMARY CARE/MEDICINE ICD-10-CM K82.4 Cholesterolosis of gallbladder CAMERON,TAMM Y IHE Encounter Template Text not used by [place] Assessments - Encounter Diagnoses This section includes the primary and secondary diagnoses documented for the Encounter. Date/Time Primary/Secondary Diagnosis Diagnosis Name Provider Source September 19, 2024 03:37 PM PRIMARY Cholesterolosis of gallbladder [facility] September 19, 2024 03:37 PM SECONDARY Bilateral primary osteoarthritis of knee [facility] September 19, 2024 03:37 PM SECONDARY Low back pain, unspecified [facility] September 19, 2024 03:37 PM SECONDARY Unspecified atherosclerosis [facility]ERONERNA K[facility]DR[facility] Plan of Treatment: Future Appointments (+ 6 months) and Future Tests (+/- 45 days) The Plan of Treatment section includes future care activities for the patient from all [place] [facility] This section includes future appointments and future orders which are active, pending or scheduled. Future Appointments This section includes appointments that were scheduled to occur 6 months from the date of the Encounter, up to a maximum of 20 appointments. The data comes from all [place] treatment [facility]. Appointment Date/Time Appointment Type Appointme nt Facility Name September 27, 2024 09:15 AM AMBULATORY - MEDICINE [facility] October 01, 2024 10:30 AM AMBULATORY - MEDIC[place] [facility] Oct 15, 2024 02:30 PM AMBULATORY - MEDIC[place] [facility] Oct 22, 2024 09:00 AM AMBULATORY - MEDICINE [place] [facility] Oct 26, 2024 09:45 AM AMBULATORY - MEDICINE [facility] [place] [facility] Nov 20, 2024 04:00 PM AMBULATORY - MEDICINE [place] [facility] Feb 19, 2025 09:30 AM AMBULATORY - MEDICINE [place] [facility] Mar 08, 2025 11:00 AM AMBULATORY - MEDICINE [facility] Active, Pending, and Scheduled Orders This section includes a listing of several types of active, pending, and scheduled orders, including clinic medications orders, diagnostic test orders, procedure orders and consult orders; where the start date of the order is 45 days before the date of the Encounter or 45 days after the date of theEncounter. The data comes from all [place] treatment [facility]. Test Date/Time Test Type Test Details Facility Name September 19, 2024 02:31 PM Consult Order [facility] [id number] [employer] [facility] September 19, 2024 02:32 PM Laboratory - Chemi stry Order POC UA (STL-PB-MA) URINE SP [facility] September 28, 2024 08:32 AM Consult Order [facility] [id number] Cons [employer] [facility] Lab Results: +/- 30 days of the encounter This section includes the Chemistry and Hematology Lab Results on record with [place] for the patient. Radiology Reports and Pathology Reports are provided separately, in subsequent sections. Lab Results This section contains the Chemistry/Hematology Results that were resulted 30 days before or 30 daysafter the date of the Encounter. Date/Time Source Result Type Result - Unit Interpretation Reference Range Specimen Type Comment September 19, 2024 02:43 PM [facility] POC UA (STL-PB-MA) URINE Specimen Type: URINE No comment entered. Ordering Provider: ERNA BARNES Report Released Date/Time: October 09, 2024 02:06 PM Reporting Lab: [facility] [address] [facility] [address] Performing Lab: [facility] [address] [facility] [address] PROTEIN POC UA 30 mg/dL Negative BLOOD POC UA Trace-intact Negative LEUKOCYTES POC UA Negative Negative COLOR POC UA Dark yellow YELLOW SPEC GRAV POC UA 1.025 1.005-1.030 UROBILINOGEN POC UA 0.2 {Whitney'U}/dL 0 .1-1.0 BILIRUBIN POC UA Negative Negative KETONES POC UA Negative mg/dL Negative GLUCOSE POC UA Negative mg/dL Negative pH POC UA 5.5 5.0-8.0 NITRITE POC UA Negative Negative CLARITY POC UA Clear CLEAR September 19, 2024 02:32 PM [facility] FOLATE (PB) SERUM Specimen Typ e: SERUM No comment entered. Ordering Provider: ERNA BARNES Report Released Date/Time: September 19, 2024 02:31 PM Reporting Lab: [place] [facility] [address] [place] [address] Performing Lab: [place] [facility] [address] [place] [address] FOLATE (PB) 3.5 ng/mL L 7-20 September 19, 2024 02:32 PM [facility] B12 SERUM Specimen Type: SERUM No comment entered. Ordering Provider: ERNA BARNES Report Released Date/Time: September 19, 2024 02:31 PM Reporting Lab: [place] [facility] [address] [place] [address] Performing Lab: [place] [facility] [address] [place] [address] B12 517 pg/mL 213-816 September 19, 2024 02:32 PM [facility] VITAMIN D, 25-HYDROXY SERUM Specimen Type: SE RUM No comment entered. Ordering Provider: ERNA BARNES Report Released Date/Time: September 19, 2024 02:31 PM Reporting Lab: [place] [facility] [address] [place] [address] Performing Lab: [place] [facility] [address] [place] [address] VITAMIN D, 25-HYDROXY 28.8 ng/mL L 30-96 September 19, 2024 02:32 PM [facility] DRUG SCREEN URINE-inhouse (PB) URINE Specimen Type: URINE No comment entered. Ordering Provider: ERNA BARNES Report Released Date/Time: September 19, 2024 02:27 PM Reporting Lab: [place] [facility] [address] [place] [address] Performing Lab: [place] [facility] [address] [place] [address] METHADONE Negative Negative OPIATES (PB) Positive Negative COCAINE... Negative Negative THC(Marijuana... Negative Negative BENZODIAZEPINE (PB) Negative Negative AMPHETAMINE... Negative Negative CREATININE URINE/OTHERS 194.03 mg/dL OXYCODONE (WHFDQ-IUN-CQ) Negative Negati ve BUPRENORPHINE (STL-PB-MA) Negative ng/mL Negative ETHANOL URINE <10 mg/dL L 0-20 FENTANYL, URINE (PB) Negative ng/mL September 19, 2024 02:32 PM [facility] COMPREHENSIVE METABOLIC PANEL PLASMA Specimen Type: PLASMA No comment entered. Ordering Provider: ERNA BARNES Report Released Date/Time: September 19, 2024 02:31 PM Reporting Lab: [place] [facility] [address] [place] [address] Performing Lab: [facility] [address] [place] [address] CREATININE 1.57 mg/dL H 0.7-1.3 UREA NITROGEN 25 mg/dL 9-25 GLUCOSE 88 mg/dL 72-99 SODIUM 140 meq/L 136-145 POTASSIUM 4.2 meq/L 3.5-5 CHLORIDE 102 meq/L 98-107 CARBON DIOXIDE 27 meq/L 22-31 CALCIUM 9.5 mg/dL 8.4-10.4 PROTEIN 7.1 g/dL 6-8.6 ALBUMIN 4.6 g/dL 3.4-5 TOTAL BILIRUBIN 0.5 mg/dL 0.2-1.2 ALKALINE PHOSPHATASE 58 U/L 40-150 AST/SGOT 25 U/L 5-34 ALT/SGPT 19 U/L 8-40 EGFR (CKD-EPI 2020) 51 September 19, 2024 02:32 PM [facility] CBC BLOOD Specimen Type: BLOOD No comment entered. Ordering Provider: ERNA BARNES Report Released Date/Time: September 19, 2024 02:31 PM Reporting Lab: [facility] [place] [facility] [address] [place] [address] Performing Lab: [facility] [address] [place] [address] WBC 7.9 10*3/uL 3.6-11.2 RBC 4.58 10*6/uL 4.10-5.70 HGB 14.8 g/dL 13.1-16.8 HCT 43.2 38.2-48.4 MCV 94.3 fL 80.0-100.0 MCH 32.3 pg 27.0-34.0 MCHC 34.3 g/dL 33.0-36.0 PLT 336 10*3/uL 150-400 MPV 9.3 fL 7.5-11.2 RDW 12.2 11.8-15.1 LYMPHOCYTES, AUTO % 27.4 MONOCYTES, AUTO % 7.2 NEUTROPHILS, AUTO % 62.0 EOSINOPHILS, AUTO % 2.0 BASOPHILS, AUTO % 1.1 LYMPHOCYTES, ABSOLUTE 2.17 10*3/uL 0.77- 4.50 MONOCYTES, ABSOLUTE 0.57 10*3/uL 0.19-0. 8 NEUTROPHILS, ABSOLUTE 4.90 10*3/uL 2.10- 8.00 EOSINOPHILS, ABSOLUTE 0.16 10*3/uL 0.00- 0.60 BASOPHILS, ABSOLUTE 0.09 10*3/uL 0.00-0. 20 IMMATURE GRANS, AUTO % 0.3 IMMATURE GRANS, AUTO ABS 0.02 10*3/uL 0. 00-0.05 Vital Signs: All taken on the encounter date This section contains inpatient and outpatient Vital Signs collected on the date of the Encounter. Date/Time Temperature Pulse Blood Pressure Respiratory Rate SP02 Pain Height Weight Body Mass Index Source September 19, 2024 01:59 PM 65 128/82 97 [facility] September 19, 2024 01:58 PM 98.5 63 155/99 20 97 6 201.8 32 [facility] Social History: Smoking Status (Most current) and Tobacco Use (All prior to encounter date) This section includes the most current, and the historical, smoking and tobacco- related health factors from the [place] facility where the Encounter took place. Current Smoking Status This section includes the most current smoking, or tobacco-related health factor, from the [place] facility where the Encounter took place. Date/Time Current Smoking Status Comment Facil ity Mar 12, 2024 01:00 PM VA-TOBACCO USER EVERY DAY [facility] Tobacco Use History This section includes a history of the smoking, or tobacco-related health factors, that were collected on or before the date of the Encounter. The data comes from the [place] facility where the Encounter took place. Date/Time Smoking Status/Tobacco Use Comment F acility Mar 12, 2024 01:00 PM VA-TOBACCO USE > 1 5 LESS THAN 30 YEARS [facility] Mar 12, 2024 01:00 PM VA-TOBACCO USE ADVICE [facility] Mar 12, 2024 01:00 PM VA-TOBACCO USE WEB CONTENT DIRECTOR NO [facility] Mar 12, 2024 01:00 PM VA-TOBACCO USE MED NO [facility] Mar 12, 2024 01:00 PM VA-TOBACCO USER EVERY DAY [facility] Jan 27, 2023 10:30 AM VA-TOBACCO USE 5 TO 15 YEARS [facility] Jan 27, 2023 10:30 AM VA-TOBACCO USE ADVICE [facility] [place] [facility] Jan 27, 2023 10:30 AM VA-TOBACCO USE WEB CONTENT DIRECTOR NO [facility] Jan 27, 2023 10:30 AM VA-TOBACCO USE MED NO [facility] Jan 27, 2023 10:30 AM VA-TOBACCO USE WI 30 MIN OF WAKE UP [facility] Jan 27, 2023 10:30 AM VA-TOBACCO USER EVERY DAY [facility] Jan 21, 2022 10:30 AM VA-TOBACCO USE 30 YEARS OR MORE [facility] Jan 21, 2022 10:30 AM VA-TOBACCO USE ADVICE [facility] Jan 21, 2022 10:30 AM VA-TOBACCO USE WEB CONTENT DIRECTOR NO [facility] Jan 21, 2022 10:30 AM VA-TOBACCO USE MED NO [facility] Jan 21, 2022 10:30 AM VA-TOBACCO USE WI 30 MIN OF WAKE UP [facility] Jan 21, 2022 10:30 AM VA-TOBACCO USER EVERY DAY [facility] Oct 30, 2020 02:30 PM VA-TOBACCO USE 30 YEARS OR MORE [facility] Oct 30, 2020 02:30 PM VA-TOBACCO USE ADVICE [facility] Oct 30, 2020 02:30 PM VA-TOBACCO USE WEB CONTENT DIRECTOR NO [facility] Oct 30, 2020 02:30 PM VA-TOBACCO USE MED NO [facility] Oct 30, 2020 02:30 PM VA-TOBACCO USE WI 30 MIN OF WAKE UP [facility] Oct 30, 2020 02:30 PM VA-TOBACCO USER EVERY DAY [facility] Dec 21, 2018 11:23 AM VA-TOBACCO USE 5 TO 15 YEARS [place] [facility] Dec 21, 2018 11:23 AM VA-TOBACCO USE ADVICE [facility] Dec 21, 2018 11:23 AM VA-TOBACCO USE WEB CONTENT DIRECTOR NO [place] [facility] Dec 21, 2018 11:23 AM VA-TOBACCO USE MED NO [facility] Dec 21, 2018 11:23 AM VA-TOBACCO USE WI 30 MIN OF WAKE UP [facility] Dec 21, 2018 11:23 AM VA-TOBACCO USER EVERY DAY [facility] Mar 14, 2018 10:04 AM CURRENT TOBACCO USER [place] [facility] Mar 14, 2018 10:04 AM CURRENT TOBACCO US ER (NOT READY TO QUIT) [place] [facility] Mar 14, 2018 10:04 AM TOBACCO CESSATION REFERRAL DECLI MANN [place] [facility] Mar 14, 2018 10:04 AM TOBACCO MEDS OFFERED BUT DECLINE D [place] [facility] Mar 14, 2018 10:04 AM TOBACCO USER OFFERED MEDS [place] [facility] Jan 26, 2018 09:08 AM CURRENT TOBACCO USER [place] [facility] Jan 26, 2018 09:08 AM CURRENT TOBACCO US ER (NOT READY TO QUIT) [place] [facility] Jan 26, 2018 09:08 AM TOBACCO CESSATION REFERRAL DECLI [facility]ANN [place] [facility] Jan 26, 2018 09:08 AM TOBACCO MEDS OFFERED BUT DECLINE D [place] [facility] Jan 26, 2018 09:08 AM TOBACCO USER OFFERED MEDS [place] [facility] Feb 23, 2017 08:37 AM CURRENT TOBACCO USER [place] Feb 23, 2017 08:37 AM CURRENT TOBACCO US ER (NOT READY TO QUIT) [facility] Feb 23, 2017 08:37 AM TOBACCO CESSATION REFERRAL [facility] [place] [facility] Feb 23, 2017 08:37 AM TOBACCO MEDS OFFERED BUT DECLINE D [place] [facility] Feb 23, 2017 08:37 AM TOBACCO USER OFFERED MEDS [place] [facility] Jan 12, 2011 01:21 PM LIFETIME NON-USER OF TOBACCO [facility] [place] [facility] Radiology Reports: +/- 30 days of the [...] the Encounter. The data comes from all [place] treatment facilities. Date/Time Radiology Report Provider Source Oct 15, 2024 02:[address] ANGIO-AA W ILIO FEMORAL RUNOFF: SHAJIBELL ERLINDA [id number] -[id number] M Exm Date: OCT 15, 2024@14:32 Req Phys: ERNA BARNES Pat Loc: OUTSIDE PB-CT (Req'g Loc) Img Loc: OUTSIDE PB-CT Service: Unknown (Case [id number] COMPLETE) CT ANGIO-AA W ILIOFEMORAL RUNOFF (CT Detailed) CPT:34645 Reason for Study: Exam imported from outside Clinical History: Original Data for Imported Study Patient Name: BELL BOTELLO Date: 1965 Sex: M Study Date: 10/15/24 Study Time: 02:32:54 Study Description: [place] [address] Referring Physician: UNKNOWN, UNKNOWN Series 1: 2 CT files, description: 2.0 Series 2: 1147 CT files, description: CTA 1.0 CE Axial Series 3: 711 CT files, description: CTA 1.0 CE Axial Series 4: 3 CT files, description: 1 CE Series 5: 121 CT files, description: CTA 1.000 CE Coronal Series 6: 228 CT files, description: CTA 1.000 CE Sagittal Series 7: 42 CT files, description: MIPS CTA 5.000 CE Cor-MIP Series 8: 80 CT files, description: MIPS CTA 5.000 CE Sag-MIP Series 9: 56 CT files, description: CTA 0.782 CE Cor-MIP Series 10: 85 CT files, description: CTA 0.782 CE Sagittal Series 11: 155 CT files, description: CTA 0.782 CE Sagittal Series 12: 55 CT files, description: CTA 0.782 CE Cor-MIP Report Status: Electronically Filed Date Reported: OCT 25, 2024 Report: No report text Impression: No impression text VERIFIED BY: / *ELECTRONICALLY FILED* [place] [facility] September 19, 2024 03:24 PM HIP W/PELVIS 2-3 V IEWS RIGHT: BELL BOTELLO [id number] -1965 M Exm Date: SEPTEMBER 19, 2024@15:24 Req Phys: ERNA BARNES Loc: PB-[place] PACT ECHO PCP (Req'g Lo Img Loc: PB-XRAY [place] Service: Unknown [facility] [address] (Case [id number] COMPLETE) HIP W/PELVIS 2-3 VIEWS RIGHT (RAD Detailed) CPT:69839 Reason for Study: progressive pain Clinical History: no injury Report Status: Verified Date Reported: SEPTEMBER 19, 2024 Date Verified: SEPTEMBER 19, 2024 Electrotype Caster E-Sig: Report: Pelvis and right hip 3 views. There are degenerative changes similar to the left hip. Probable spur involving the lateral superior aspect of the acetabulum. Other etiologies are less likely. No fracture or dislocation. Degenerative change involving the visualized lumbar spine and sacroiliac joints. Plaque in the arteries. Impression: 1. Mild degenerative arthritis 2. Probable spur lateral superior aspect of the acetabulum. Other etiologies are less likely Primary Interpreting Staff: DANIELLE CHRISTOPHER, RADIOLOGIST (Electrotype Caster, no e-sig) /DANIELLE Berkowitz [facility] Encounter Notes: All associated encounter notes This section contains the clinical notes associated to the Encounter. Date/Time Encounter Note(s) Provider Source Nov 02, 2024 08:49 AM ADDENDUM: LOCAL TITLE: Addendum STANDARD TITLE: ADDENDUM DATE OF NOTE: NOV 02, 2024@08:49:14 ENTRY DATE: NOV 02, 2024@08:49:15 AUTHOR: ERNA BARNES EXP COSIGNER: URGENCY: STATUS: COMPLETED Notify patient his stress test done at [facility] on September 25, 2024 was essentially normal showing low probability of coronary ischemia normal ejection fraction is 74% /sai/ Erna Barnes MD [facility] Signed: 11/02/2024 08:49 Receipt Acknowledged By: 11/05/2024 14:32 /sai/ RENETTA JUSTICE LPN [facility] --- Original Document --- 09/19/24 PRIMARY CARE CLINIC PROGRESS NOTE PB: SUBJECTIVE: BELL BOTELLO is a 58 years old MALE. HPI: Presents to the clinic today complains of bilateral knee pain wanting knee injections again. He reports his last injections only lasted 30 days for the most part and started hurting again but still wants repeat injections. He needs a new [facility] referral since Dr. Severino is retiring. He reports mainly seen Dr. Severino for the pain in his legs which consist of his entire legs not just his knees. As noted on his knee x-rays back in May he did have atherosclerotic changes. Last seen June 14, 2024 for bilateral knee joint steroid injections. He reports also is having increasing pain in his right side more right upper quadrant into his back but it will actually rotate down into his hip area as well. Non-VA Primary Care Provider Dr. Vera; [facility] Dr. Severino FAMILY HX: Mother is living age - Father is , age - 72 Siblings - unknown SOCIAL HX: MARITAL STATUS: , lives alone WORK HX: [employer] and [employer] HOBBIES: Football TOBACCO: 1ppd ALCOHOL: occ DRUGS: no HX: BRANCH: [employer] . 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 RINSE MOUTHPIECE FREQUENTLY TO PREVENT CLOGGING. Indication: FOR ASTHMA 2) ATORVASTATIN CALCIUM 40MG TAB TAKE ONE-HALF TABLET BY MOUTH ACTIVE EVERY EVENING Indication: FOR HIGH CHOLESTEROL 3) CHOLECALCIF 50MCG (D3-2,000UNIT) TAB TAKE ONE TABLET BY ACTIVE MOUTH ONCE A DAY FOR VITAMIN D DEFICIENCY. 4) FINASTERIDE 5MG TAB TAKE ONE TABLET BY MOUTH ONCE A DAY ACTIVE SWALLOW WHOLE, DO NOT CRUSH, SPLIT, OR CHEW. Indication: FOR BENIGN PROSTATIC HYPERPLASIA 5) FLUTICASONE PROP 50MCG 120D NASAL INHL INSTILL 2 SPRAYS IN ACTIVE EACH NOSTRIL ONCE A DAY NEEDED FOR ALLERGIES (MUST BE USED DIRECTED FOR MINIMUM OF 21 DAYS TO PROVIDE ADEQUATE BENEFITS) 6) GABAPENTIN 600MG TAB TAKE ONE TABLET BY MOUTH EVERY 6 HOURS ACTIVE 7) HYDROCHLOROTHIAZIDE 25MG TAB TAKE ONE TABLET BY MOUTH ONCE A ACTIVE DAY Indication: FOR HIGH BLOOD PRESSURE 8) HYDROCODONE 10/ACETAMINOPHEN 325MG TAB TAKE 1-2 TABLETS BY ACTIVE MOUTH EVERY 4 TO 6 HOURS NEEDED FOR PAIN (MAX 8 TABLETS PER DAY; HOLD WITHIN 4 HOURS OF PLANNED SLEEP) THIS QUANTITY MUST LAST 28 DAYS OR MORE CAUTION: DO NOT EXCEED 4000MG PER DAY ACETAMINOPHEN (APAP) FROM ALL MEDS. 9) LEVOTHYROXINE NA 50MCG TAB TAKE ONE TABLET BY MOUTH EVERY ACTIVE MORNING BEFORE A MEAL FOR THYROID. TAKE 30 MINUTES BEFORE FOOD. TAKE SEPARATELY FROM ALL OTHER MEDICATIONS. 10) LOSARTAN 100MG TAB TAKE ONE TABLET BY MOUTH ONCE A DAY TO ACTIVE LOWER BLOOD PRESSURE 11) PANTOPRAZOLE NA 40MG EC TAB TAKE ONE TABLET BY MOUTH EVERY ACTIVE MORNING BEFORE A MEAL TO LOWER STOMACH ACID - TAKE 30 MINUTES BEFORE MEAL(S) 12) TRAZODONE HCL 100MG TAB TAKE ONE-HALF TABLET BY MOUTH AT ACTIVE BEDTIME NEEDED FOR MOOD OR SLEEP. Allergies: AMLODIPINE Review of Systems: as per HPI and [...] SI/HI; denies nightmares OBJECTIVE: Vital Signs Temperature: 98.5 F [36.9 C] (09/19/2024 13:58) Respiratory Rate: 20 (09/19/2024 13:58) Pulse Rate: 65 (09/19/2024 13:59) Blood Pressure: 128/82 (09/19/2024 13:59) HT: 67 in [170.2 cm] (04/22/2023 09:11) WT: 201.8 lb [91.53 kg] (09/19/2024 13:58) BMI: 31.7 97% (09/19/2024 13:59) Physical Exam General: NAD noted, A&Ox3, pleasant, appears stated age HEENT: NCAT, TM's clear, nares and oropharynx clear Neck: Supple with normal active ROM, without any lymphadenopathy Heart: RRR, no murmur, clicks, or rub Resp: Lungs CTA bilaterally, respirations even and unlabored Ext: No clubbing, cyanosis, edema or obvious deformity Abdomen: Positive right upper quadrant tenderness and just right side tenderness in general. No distention positive bowel sounds Skin: Warm, pink, and dry, no rashes Neuro: Grossly intact Psych: Affect normal, answers questions appropriately throughout visit A/P: ASSESSMENT and PLAN Health Maintenance: Labs reviewed with patient and printout given to patient. Discussed preventative health to include diet and exercise as well as immunizations. 1) Polyp of gallbladder with continued pain-we will obtain labs today getting back into the surgeon he really needs a cholecystectomy hopefully will get done this time 2) Osteoarthritis bilateral knees-discussed risk and benefits of repeat knee injections patient wanted to proceed with 3) Atherosclerotic arterial disease-we will set him up for a CTA of the aorta with runoff into his legs in addition with family history of coronary artery disease going to set him up for a chemical stress test and she cannot walk on the treadmill significantly. Renewed his pain clinic consult although I think some of his pain may be related to peripheral artery disease. Informed consent was obtained and time out performed. Bilateral knee joints was prepped with betadine and injected with 2ml of 0.25% bupivacaine and 40mg of triamcinolone with lateral approach each knee. Patient tolerated well. Patient tolerated well. Area cleaned and band-aide applied. Time of Timeout: September 20, 2023 at 3:28 PM Has a valid consent form been obtained? Yes PATIENT IDENTIFICATION: (The patient is identified by at least two of the following (check all that apply)) Full Name, Full SSN, Method of Identification: (no less than two of the following) Patient verbalized name, Patient verbalized social security number, Patient verbalized date of PROCEDURE: Bilateral knee joints steroid injection SITE (including laterality if applicable): Bilateral [...] OUT PARTICIPANTS (list all members present): , CONCIERGE RECEPTIONIST, PA (s): Erna Barnes MD and Ethel Damian LPN Stable. Discussed medications with patient; med rec [...] testing received; otherwise f/u as listed below. Follow-up: As scheduled with fasting labs prior to appointment and/or [...] appointments. Medications Reconciled. See AVS given to [place]. Time spent 30 minutes. /sai/ Erna Barnes MD [facility] Signed: 09/19/2024 15:37 09/20/2024 ADDENDUM STATUS: COMPLETED Notify patient the results of his hip x-ray: Exam Date/Time 09/19/2024 15:24 Procedure Name HIP W/PELVIS 2-3 VIEWS RIGHT Reason for Study progressive pain Clinical History no injury Impression 1. Mild degenerative arthritis 2. Probable spur lateral superior aspect of the acetabulum. Other etiologies are less likely If he would like to see the orthopedist for further evaluation and treatment would be happy to place consult for him. /sai/ Erna Barnes MD [facility] Signed: 09/20/2024 13:16 Receipt Acknowledged By: 09/28/2024 08:02 /sai/ TIAK Hua [facility] for JAN ANDRES 09/24/2024 ADDENDUM STATUS: COMPLETED Notify patient that his folate and vitamin D levels are both low I would recommend supplementation of both if he wants [facility] to let me know otherwise he can get that [id number]. /sai/ Erna Barnes MD [facility] Signed: 09/24/2024 20:42 Receipt Acknowledged By: 09/26/2024 11:17 /sai/ ETHEL DAMIAN LPN [facility] 09/28/2024 ADDENDUM STATUS: COMPLETED [place] notified of above results and recommendations. [place] agrees to see orthopedics and would like to be seen at [facility] in [place]. [place] has no preference for particular physician. Advised to contact PACT team if he has not heard anything from scheduling in 2 weeks /sai/ TIKA Hua [facility] Signed: 09/28/2024 08:01 Receipt Acknowledged By: 09/28/2024 12:55 /sai/ Erna Barnes MD [facility] 11/02/2024 ADDENDUM STATUS: COMPLETED Attempted to call regarding the following: Notify patient his stress test done at [facility] on September 25, 2024 was essentially normal showing low probability of coronary ischemia normal ejection fraction is 74% /sai/ Erna Barnes MD [facility] Signed: 11/02/2024 08:49 No answer, no voicemail. unable to leave a message, will try again /sai/ RENETTA JUSTICE LPN [facility] Signed: 11/02/2024 15:11 ERNA BARNES [place] [facility] Oct 26, 2024 02:15 PM PHYSICIAN LETTERS: LOCAL TITLE: TEST RESULT GENERAL LETTER STL STANDARD TITLE: PHYSICIAN LETTERS DATE OF NOTE: OCT 26, 2024@14:15 ENTRY DATE: OCT 26, 2024@14:15:25 AUTHOR: ERNA BARNES EXP COSIGNER: URGENCY: STATUS: COMPLETED [facility] [address] [place] [address] OCT 26, 2024 BELL BOTELLO [address] [place], [place] [address] Dear Bell Botello, I would like to update you on your recent test results. Your CT angiogram of bilateral lower extremities performed at [facility] on 10/15/2024 showed no significant stenosis or occlusion of your bilateral lower extremities. This is normal. FUTURE APPOINTMENTS: 11/20/2024 16:00 COM CARE-PAIN [id number] 02/19/2025 09:30 COM CARE-GI GENERAL [id number] 03/08/2025 11:00 PB-[facility] PACT ECHO PCP Sincerely, Erna Barnes MD [facility] BELL BOTELLO T[facility] [place] [facility] September 28, 2024 07:58 AM ADDENDUM: LOCAL TITLE: Addendum STANDARD TITLE: ADDENDUM DATE OF NOTE: SEPTEMBER 28, 2024@07:58:50 ENTRY DATE: SEPTEMBER 28, 2024@07:58:51 AUTHOR: TRAAN TINEO EXP COSIGNER: URGENCY: STATUS: COMPLETED [place] notified of above results and recommendations. agrees to see orthopedics and would like to be seen at [facility] in [place]. [place] has no preference for particular physician. Advised to contact PACT team if he has not heard anything from scheduling in 2 weeks /sai/ TIKA Hua [facility] Signed: 09/28/2024 08:01 Receipt Acknowledged By: 09/28/2024 12:55 /sai/ Erna Barnes MD [facility] --- Original Document --- 09/19/24 PRIMARY CARE CLINIC PROGRESS NOTE PB: SUBJECTIVE: BELL BOTELLO is a 58 years old MALE. HPI: Presents to the clinic today complains of bilateral knee pain wanting knee injections again. He reports his last injections only lasted 30 days for the most part and started hurting again but still wants repeat injections. He needs a [facility] referral since Dr. Severino is retiring. He reports mainly seen Dr. Severino for the pain in his legs which consist of his entire legs not just his knees. As noted on his knee x-rays back in May he did have atherosclerotic changes. Last seen June 14, 2024 for bilateral knee joint steroid injections. He reports also is having increasing pain in his right side more right upper quadrant into his back but it will actually rotate down into his hip area as well. Non-[facility] Primary Care Provider Dr. Vera; [facility] Dr. 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: [employer] MAJOR ACCIDENTS OR INJURIES WHILE ON ACTIVE DUTY: Erythema nodosum MST: no SURGICAL HX: gastric bypass 2015 Problem List 1) Hyperlipidemia (SNOMED CT 67835795) 2) Chronic obstructive lung disease (SNOMED CT 43754797) 3) Hypothyroidism (SNOMED CT 32317252) 4) Gastroesophageal reflux disease (SNOMED CT 317835758) 5) Essential hypertension (SNOMED CT 72713102) 6) Erythema nodosum (SNOMED CT 07812909) 7) Sleep Apnea (SCT 42115758) 8) Chronic back pain 9) Insomnia 10) Benign Prostatic Hypertrophy with Outflow Obstruction (SCT 605897256) 11) Renal Impairment (SCT 358523151) 12) Obesity 13) Bilateral osteoarthritis of knees 14) Colitis 15) Gastritis 16) Polyp of gallbladder Active Outpatient Medications (including Supplies): Active Outpatient Medications Status 1) ALBUTEROL 90MCG (CFC-F) 200D ORAL INHL INHALE 2 PUFFS BY ACTIVE ORAL INHALATION FOUR TIMES A DAY NEEDED SHAKE WELL. RINSE MOUTHPIECE FREQUENTLY TO PREVENT CLOGGING. Indication: FOR ASTHMA 2) ATORVASTATIN CALCIUM 40MG TAB TAKE ONE-HALF TABLET BY MOUTH ACTIVE EVERY EVENING Indication: FOR HIGH CHOLESTEROL 3) CHOLECALCIF 50MCG (D3-2,000UNIT) TAB TAKE ONE TABLET BY ACTIVE MOUTH ONCE A DAY FOR VITAMIN D DEFICIENCY. 4) FINASTERIDE 5MG TAB TAKE ONE TABLET BY MOUTH ONCE A DAY ACTIVE SWALLOW WHOLE, DO NOT CRUSH, SPLIT, OR CHEW. Indication: FOR BENIGN PROSTATIC HYPERPLASIA 5) FLUTICASONE PROP 50MCG 120D NASAL INHL INSTILL 2 SPRAYS IN ACTIVE EACH NOSTRIL ONCE A DAY NEEDED FOR ALLERGIES (MUST BE USED DIRECTED FOR MINIMUM OF 21 DAYS TO PROVIDE ADEQUATE BENEFITS) 6) GABAPENTIN 600MG TAB TAKE ONE TABLET BY MOUTH EVERY 6 HOURS ACTIVE 7) HYDROCHLOROTHIAZIDE 25MG TAB TAKE ONE TABLET BY MOUTH ONCE A ACTIVE DAY Indication: FOR HIGH BLOOD PRESSURE 8) HYDROCODONE 10/ACETAMINOPHEN 325MG TAB TAKE 1-2 TABLETS BY ACTIVE MOUTH EVERY 4 TO 6 HOURS NEEDED FOR PAIN (MAX 8 TABLETS PER DAY; HOLD WITHIN 4 HOURS OF PLANNED SLEEP) THIS QUANTITY MUST LAST 28 DAYS OR MORE CAUTION: DO NOT EXCEED 4000MG PER DAY ACETAMINOPHEN (APAP) FROM ALL MEDS. 9) LEVOTHYROXINE NA 50MCG TAB TAKE ONE TABLET BY MOUTH EVERY ACTIVE MORNING BEFORE A MEAL FOR THYROID. TAKE 30 MINUTES BEFORE FOOD. TAKE SEPARATELY FROM ALL OTHER MEDICATIONS. 10) LOSARTAN 100MG TAB TAKE ONE TABLET BY MOUTH ONCE A DAY TO ACTIVE LOWER BLOOD PRESSURE 11) PANTOPRAZOLE NA 40MG EC TAB TAKE ONE TABLET BY MOUTH EVERY ACTIVE MORNING BEFORE A MEAL TO LOWER STOMACH ACID - TAKE 30 MINUTES BEFORE MEAL(S) 12) TRAZODONE HCL 100MG TAB TAKE ONE-HALF TABLET BY MOUTH AT ACTIVE BEDTIME NEEDED FOR MOOD OR SLEEP. Allergies: AMLODIPINE Review of Systems: as per HPI and [...] SI/HI; denies nightmares OBJECTIVE: Vital Signs Temperature: 98.5 F [36.9 C] (09/19/2024 13:58) Respiratory Rate: 20 (09/19/2024 13:58) Pulse Rate: 65 (09/19/2024 13:59) Blood Pressure: 128/82 (09/19/2024 13:59) HT: 67 in [170.2 cm] (04/22/2023 09:11) WT: 201.8 lb [91.53 kg] (09/19/2024 13:58) BMI: 31.7 97% (09/19/2024 13:59) Physical Exam General: NAD noted, A&Ox3, pleasant, appears stated age HEENT: NCAT, TM's clear, nares and oropharynx clear Neck: Supple with normal active ROM, without any lymphadenopathy Heart: RRR, no murmur, clicks, or rub Resp: Lungs CTA bilaterally, respirations even and unlabored Ext: No clubbing, cyanosis, edema or obvious deformity Abdomen: Positive right upper quadrant tenderness and just right side tenderness in general. No distention positive bowel sounds Skin: Warm, pink, and dry, no rashes Neuro: Grossly intact Psych: Affect normal, answers questions appropriately throughout visit A/P: ASSESSMENT and PLAN Health Maintenance: Labs reviewed with patient and printout given to patient. Discussed preventative health to include diet and exercise as well as immunizations. 1) Polyp of gallbladder with continued pain-we will obtain labs today getting back into the surgeon he really needs a cholecystectomy hopefully will get done this time 2) Osteoarthritis bilateral knees-discussed risk and benefits of repeat knee injections patient wanted to proceed with 3) Atherosclerotic arterial disease-we will set him up for a CTA of the aorta with runoff into his legs in addition with family history of coronary artery disease going to set him up for a chemical stress test and she cannot walk on the treadmill significantly. Renewed his pain clinic consult although I think some of his pain may be related to peripheral artery disease. Informed consent was obtained and time out performed. Bilateral knee joints was prepped with betadine and injected with 2ml of 0.25% bupivacaine and 40mg of triamcinolone with lateral approach each knee. Patient tolerated well. Patient tolerated well. Area cleaned and band-aide applied. Time of Timeout: September 20, 2023 at 3:28 PM Has a valid consent form been obtained? Yes PATIENT IDENTIFICATION: (The patient is identified by at least two of the following (check all that apply)) Full Name, Full SSN, Method of Identification: (no less than two of the following) Patient verbalized name, Patient verbalized social security number, Patient verbalized date of PROCEDURE: Bilateral knee joints steroid injection SITE (including laterality if applicable): Bilateral [...] OUT PARTICIPANTS (list all members present): , CONCIERGE RECEPTIONIST, PA (s): Erna Barnes MD and Ethel Damian LPN Stable. Discussed medications with patient; med rec [...] testing received; otherwise f/u as listed below. Follow-up: As scheduled with fasting labs prior to appointment and/or as needed. Discussed with patient that in the event of community imaging / testing being ordered in the future, once the imaging / testing has been completed, please notify PACT of completion at outside facility if not called with results within 1 week by a [place] PACT member; this is due to intermittent lapses in notification of imaging completion within [facility]. All questions answered; agrees to plan of care. Follow up as listed above, annually, and as needed. Keep all appointments. Medications Reconciled. See AVS given to [place]. Time spent 30 minutes. /sai/ Erna Barnes MD [facility] Signed: 09/19/2024 15:37 09/20/2024 ADDENDUM STATUS: COMPLETED Notify patient the results of his hip x-ray: Exam Date/Time 09/19/2024 15:24 Procedure Name HIP W/PELVIS 2-3 VIEWS RIGHT Reason for Study progressive pain Clinical History no injury Impression 1. Mild degenerative arthritis 2. Probable spur lateral superior aspect of the acetabulum. Other etiologies are less likely If he would like to see the orthopedist for further evaluation and treatment would be happy to place consult for him. /sai/ Erna Barnes MD [facility] Signed: 09/20/2024 13:16 Receipt Acknowledged By: 09/28/2024 08:02 /es/ Taran Tineo RN BSN [facility] for JAN ANDRES 09/24/2024 ADDENDUM STATUS: COMPLETED Notify patient that his folate and vitamin D levels are both low I would recommend supplementation of both if he wants me to [facility] to let me know otherwise he can get that [id number]. /sai/ Erna Barnes MD [facility] Signed: 09/24/2024 20:42 Receipt Acknowledged By: 09/26/2024 11:17 /es/ ETHEL DAMIAN LPN [facility] September 24, 2024 08:43 PM PHYSICIAN LETTERS: LOCAL TITLE: TEST RESULT GENERAL LETTER STL STANDARD TITLE: PHYSICIAN LETTERS DATE OF NOTE: SEPTEMBER 24, 2024@20:43 ENTRY DATE: SEPTEMBER 24, 2024@20:43:09 AUTHOR: ERNA BARNES EXP COSIGNER: URGENCY: STATUS: COMPLETED [facility] [address] [place] [address] September 24, 2024 Mr. Bell Botello [address] [place], [place] [address] Dear Mr. Botello: This letter is to inform you regarding your recent laboratory tests. The ordering provider has reviewed these reports and will take necessary action, if needed. Date Lab Test Result H/L Unit Range 09/19/2024 FOLIC ACID LEVEL 3.5 L ng/mL 7 - 20 09/19/2024 VITAMIN B12 LEVEL 517 pg/mL 213 - 816 09/19/2024 VITAMIN D LEVEL 28.8 L ng/mL 30 - 96 09/19/2024 eGFR 51 - 09/19/2024 SODIUM 140 mEq/L 136 - 145 09/19/2024 POTASSIUM 4.2 mEq/L 3.5 - 5 09/19/2024 CHLORIDE 102 mEq/L 98 - 107 09/19/2024 UREA NITROGEN 25 mg/dL 9 - 25 09/19/2024 CREATININE, SERUM 1.57 H mg/dL 0.7 - 1.3 09/19/2024 CALCIUM, SERUM 9.5 mg/dL 8.4 - 10.4 09/19/2024 PROTEIN, TOTAL 7.1 g/dL 6 - 8.6 09/19/2024 ALBUMIN, SERUM 4.6 g/dL 3.4 - 5 09/19/2024 ALKALINE PHOSPHAT 58 U/L 40 - 150 09/19/2024 ALT (SGPT) 19 U/L 8 - 40 09/19/2024 AST (SGOT) 25 U/L 5 - 34 09/19/2024 BILIRUBIN, TOTAL 0.5 mg/dL 0.2 - 1.2 09/19/2024 CO2 27 mEq/L 22 - 31 09/19/2024 GLUCOSE 88 mg/dL 72 - 99 09/19/2024 WBC 7.9 10*3/uL 3.6 - 11.2 09/19/2024 RBC 4.58 10*6/uL 4.10 - 5.70 09/19/2024 HEMOGLOBIN 14.8 g/dL 13.1 - 16.8 09/19/2024 HEMATOCRIT 43.2 % 38.2 - 48.4 09/19/2024 MCV 94.3 fL 80.0 - 100.0 09/19/2024 MCH 32.3 pg 27.0 - 34.0 09/19/2024 MCHC 34.3 g/dL 33.0 - 36.0 09/19/2024 RDW 12.2 % 11.8 - 15.1 09/19/2024 PLATELETS 336 10*3/uL 150 - 400 09/19/2024 MPV 9.3 fL 7.5 - 11.2 09/19/2024 NEUTROPHIL % 62.0 % - 09/19/2024 LYMPHOCYTE % 27.4 % - 09/19/2024 MONOCYTES, AUTO % 7.2 % - 09/19/2024 EO% 2.0 % - 09/19/2024 BASOPHILS, AUTO % 1.1 % - 09/19/2024 IG% 0.3 % - 09/19/2024 NEUT ABS 4.90 10*3/uL 2.10 - 8.00 09/19/2024 LYMPH ABS 2.17 10*3/uL 0.77 - 4.50 09/19/2024 MONO ABS 0.57 10*3/uL 0.19 - 0.8 09/19/2024 EO ABS 0.16 10*3/uL 0.00 - 0.60 09/19/2024 BASO ABS 0.09 10*3/uL 0.00 - 0.20 09/19/2024 IG ABS 0.02 10*3/uL 0.00 - 0.05 09/19/2024 FENTANYL UR (PB) Negative ng/mL - 09/19/2024 CREATuF 194.03 mg/dL - 09/19/2024 METHADONE, URINE Negative Negative - 09/19/2024 OXYCODONE, URINE Negative Negative - 09/19/2024 BUPREN Negative ng/mL Negative - 09/19/2024 OPIATES, URINE Positive Negative - 09/19/2024 COCAINE, URINE Negative Negative - 09/19/2024 CANNABINOIDS, URI Negative Negative - 09/19/2024 BENZODIAZEPINES, Negative Negative - 09/19/2024 AMPHETAMINES, URI Negative Negative - 09/19/2024 ETHANOL URINE <10 L mg/dL 0 - 20 If you are seeing any outside provider(s), please share this information with him/her. If you have any questions, please feel free to contact our clinic. Your folate and vitamin D levels are low I would recommend you start taking a supplement which you can buy [id number] or if you want me to order that through the [facility] please let me know. Sincerely, Erna Barnes MD [facility] BELL BOTELLO ERNA BARNES [facility] September 24, 2024 08:41 PM ADDENDUM: LOCAL TITLE: Addendum STANDARD TITLE: ADDENDUM DATE OF NOTE: SEPTEMBER 24, 2024@20:41:53 ENTRY DATE: SEPTEMBER 24, 2024@20:41:55 AUTHOR: ERNA BARNES EXP COSIGNER: URGENCY: STATUS: COMPLETED Notify patient that his folate and vitamin D levels are both low I would recommend supplementation of both if he wants me to order that through the [facility] to let me know otherwise he can get that [id number]. /es/ Erna Barnes MD [facility] Signed: 09/24/2024 20:42 Receipt Acknowledged By: 09/26/2024 11:17 /es/ ETHEL DAMIAN LPN [facility] --- Original Document --- 09/19/24 PRIMARY CARE CLINIC PROGRESS NOTE PB: SUBJECTIVE: BELL BOTELLO is a 58 years old MALE. HPI: Presents to the clinic today complains of bilateral knee pain wanting knee injections again. He reports his last injections only lasted 30 days for the most part and started hurting again but still wants repeat injections. He needs a new [place] clinic referral since Dr. Severino is retiring. He reports mainly seen Dr. Severino for the pain in his legs which consist of his entire legs not just his knees. As noted on his knee x-rays back in May he did have atherosclerotic changes. Last seen June 14, 2024 for bilateral knee joint steroid injections. He reports also is having increasing pain in his right side more right upper quadrant into his back but it will actually rotate down into his hip area as well. Non-VA Primary Care Provider Dr. Vera; [facility] Dr. 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: [employer] MAJOR ACCIDENTS OR INJURIES WHILE ON ACTIVE DUTY: Erythema nodosum MST: no SURGICAL HX: gastric bypass 2015 Problem List 1) Hyperlipidemia (SNOMED CT 30209667) 2) Chronic obstructive lung disease (SNOMED CT 20868496) 3) Hypothyroidism (SNOMED CT 08796696) 4) Gastroesophageal reflux disease (SNOMED CT 279879992) 5) Essential hypertension (SNOMED CT 35574725) 6) Erythema nodosum (SNOMED CT 64688863) 7) Sleep Apnea (SCT 87518844) 8) Chronic back pain 9) Insomnia 10) Benign Prostatic Hypertrophy with Outflow Obstruction (SCT 762480759) 11) Renal Impairment (SCT 452014995) 12) Obesity 13) Bilateral osteoarthritis of knees 14) Colitis 15) Gastritis 16) Polyp of gallbladder Active Outpatient Medications (including Supplies): Active Outpatient Medications Status 1) ALBUTEROL 90MCG (CFC-F) 200D ORAL INHL INHALE 2 PUFFS BY ACTIVE ORAL INHALATION FOUR TIMES A DAY NEEDED SHAKE WELL. RINSE MOUTHPIECE FREQUENTLY TO PREVENT CLOGGING. Indication: FOR ASTHMA 2) ATORVASTATIN CALCIUM 40MG TAB TAKE ONE-HALF TABLET BY MOUTH ACTIVE EVERY EVENING Indication: FOR HIGH CHOLESTEROL 3) CHOLECALCIF 50MCG (D3-2,000UNIT) TAB TAKE ONE TABLET BY ACTIVE MOUTH ONCE A DAY FOR VITAMIN D DEFICIENCY. 4) FINASTERIDE 5MG TAB TAKE ONE TABLET BY MOUTH ONCE A DAY ACTIVE SWALLOW WHOLE, DO NOT CRUSH, SPLIT, OR CHEW. Indication: FOR BENIGN PROSTATIC HYPERPLASIA 5) FLUTICASONE PROP 50MCG 120D NASAL INHL INSTILL 2 SPRAYS IN ACTIVE EACH NOSTRIL ONCE A DAY NEEDED FOR ALLERGIES (MUST BE USED DIRECTED FOR MINIMUM OF 21 DAYS TO PROVIDE ADEQUATE BENEFITS) 6) GABAPENTIN 600MG TAB TAKE ONE TABLET BY MOUTH EVERY 6 HOURS ACTIVE 7) HYDROCHLOROTHIAZIDE 25MG TAB TAKE ONE TABLET BY MOUTH ONCE A ACTIVE DAY Indication: FOR HIGH BLOOD PRESSURE 8) HYDROCODONE 10/ACETAMINOPHEN 325MG TAB TAKE 1-2 TABLETS BY ACTIVE MOUTH EVERY 4 TO 6 HOURS NEEDED FOR PAIN (MAX 8 TABLETS PER DAY; HOLD WITHIN 4 HOURS OF PLANNED SLEEP) THIS QUANTITY MUST LAST 28 DAYS OR MORE CAUTION: DO NOT EXCEED 4000MG PER DAY ACETAMINOPHEN (APAP) FROM ALL MEDS. 9) LEVOTHYROXINE NA 50MCG TAB TAKE ONE TABLET BY MOUTH EVERY ACTIVE MORNING BEFORE A MEAL FOR THYROID. TAKE 30 MINUTES BEFORE FOOD. TAKE SEPARATELY FROM ALL OTHER MEDICATIONS. 10) LOSARTAN 100MG TAB TAKE ONE TABLET BY MOUTH ONCE A DAY TO ACTIVE LOWER BLOOD PRESSURE 11) PANTOPRAZOLE NA 40MG EC TAB TAKE ONE TABLET BY MOUTH EVERY ACTIVE MORNING BEFORE A MEAL TO LOWER STOMACH ACID - TAKE 30 MINUTES BEFORE MEAL(S) 12) TRAZODONE HCL 100MG TAB TAKE ONE-HALF TABLET BY MOUTH AT ACTIVE BEDTIME NEEDED FOR MOOD OR SLEEP. Allergies: AMLODIPINE Review of Systems: as per HPI and [...] SI/HI; denies nightmares OBJECTIVE: Vital Signs Temperature: 98.5 F [36.9 C] (09/19/2024 13:58) Respiratory Rate: 20 (09/19/2024 13:58) Pulse Rate: 65 (09/19/2024 13:59) Blood Pressure: 128/82 (09/19/2024 13:59) HT: 67 in [170.2 cm] (04/22/2023 09:11) WT: 201.8 lb [91.53 kg] (09/19/2024 13:58) BMI: 31.7 97% (09/19/2024 13:59) Physical Exam General: NAD noted, A&Ox3, pleasant, appears stated age HEENT: NCAT, TM's clear, nares and oropharynx clear Neck: Supple with normal active ROM, without any lymphadenopathy Heart: RRR, no murmur, clicks, or rub Resp: Lungs CTA bilaterally, respirations even and unlabored Ext: No clubbing, cyanosis, edema or obvious deformity Abdomen: Positive right upper quadrant tenderness and just right side tenderness in general. No distention positive bowel sounds Skin: Warm, pink, and dry, no rashes Neuro: Grossly intact Psych: Affect normal, answers questions appropriately throughout visit A/P: ASSESSMENT and PLAN Health Maintenance: Labs reviewed with patient and printout given to patient. Discussed preventative health to include diet and exercise as well as immunizations. 1) Polyp of gallbladder with continued pain-we will obtain labs today getting back into the surgeon he really needs a cholecystectomy hopefully will get done this time 2) Osteoarthritis bilateral knees-discussed risk and benefits of repeat knee injections patient wanted to proceed with 3) Atherosclerotic arterial disease-we will set him up for a CTA of the aorta with runoff into his legs in addition with family history of coronary artery disease going to set him up for a chemical stress test and she cannot walk on the treadmill significantly. Renewed his pain clinic consult although I think some of his pain may be related to peripheral artery disease. Informed consent was obtained and time out performed. Bilateral knee joints was prepped with betadine and injected with 2ml of 0.25% bupivacaine and 40mg of triamcinolone with lateral approach each knee. Patient tolerated well. Patient tolerated well. Area cleaned and band-aide applied. Time of Timeout: September 20, 2023 at 3:28 PM Has a valid consent form been obtained? Yes PATIENT IDENTIFICATION: (The patient is identified by at least two of the following (check all that apply)) Full Name, Full SSN, Method of Identification: (no less than two of the following) Patient verbalized name, Patient verbalized social security number, Patient verbalized date of PROCEDURE: Bilateral knee joints steroid injection SITE (including laterality if applicable): Bilateral [...] OUT PARTICIPANTS (list all members present): , CONCIERGE RECEPTIONIST, PA (s): Erna Barnes MD and Ethel Damian LPN Stable. Discussed medications with patient; med rec [...] testing received; otherwise f/u as listed below. Follow-up: As scheduled with fasting labs prior to appointment and/or [...] appointments. Medications Reconciled. See AVS given to [place]. Time spent 30 minutes. /sai/ MD Destin Leo [facility] Signed: 09/19/2024 15:37 09/20/2024 ADDENDUM STATUS: COMPLETED Notify patient the results of his hip x-ray: Exam Date/Time 09/19/2024 15:24 Procedure Name HIP W/PELVIS 2-3 VIEWS RIGHT Reason for Study progressive pain Clinical History no injury Impression 1. Mild degenerative arthritis 2. Probable spur lateral superior aspect of the acetabulum. Other etiologies are less likely If he would like to see the orthopedist for further evaluation and treatment would be happy to place consult for him. /sai/ MD Destin Leo [facility] [facility] Signed: 09/20/2024 13:16 Receipt Acknowledged By: * AWAITING SIGNATURE * JAN ANDRES,[facility] September 20, 2024 01:15 PM ADDENDUM: LOCAL TITLE: Addendum STANDARD TITLE: ADDENDUM DATE OF NOTE: SEPTEMBER 20, 2024@13:15:38 ENTRY DATE: SEPTEMBER 20, 2024@13:15:39 AUTHOR: ERNA BARNES COSIGNER: URGENCY: STATUS: COMPLETED Notify patient the results of his hip x-ray: Exam Date/Time 09/19/2024 15:24 Procedure Name HIP W/PELVIS 2-3 VIEWS RIGHT Reason for Study progressive pain Clinical History no injury Impression 1. Mild degenerative arthritis 2. Probable spur lateral superior aspect of the acetabulum. Other etiologies are less likely If he would like to see the orthopedist for further evaluation and treatment would be happy to place consult for him. /sai/ Erna Barnes MD [facility] Signed: 09/20/2024 13:16 Receipt Acknowledged By: 09/28/2024 08:02 /es/ Taran Tineo RN BSN [facility] for JAN Villanueva DMITRY --- Original Document --- 09/19/24 PRIMARY CARE CLINIC PROGRESS NOTE PB: SUBJECTIVE: BELL BOTELLO is a 58 years old MALE. HPI: Presents to the clinic today complains of bilateral knee pain wanting knee injections again. He reports his last injections only lasted 30 days for the most part and started hurting again but still wants repeat injections. He needs a new [facility] clinic referral since Dr. Severino is retiring. He reports mainly seen Dr. Severino for the pain in his legs which consist of his entire legs not just his knees. As noted on his knee x-rays back in May he did have atherosclerotic changes. Last seen June 14, 2024 for bilateral knee joint steroid injections. He reports also is having increasing pain in his right side more right upper quadrant into his back but it will actually rotate down into his hip area as well. Non-VA Primary Care Provider Dr. Vera; [facility] Dr. 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: [employer] MAJOR ACCIDENTS OR INJURIES WHILE ON ACTIVE DUTY: Erythema nodosum MST: no SURGICAL HX: gastric bypass 2015 Problem List 1) Hyperlipidemia (SNOMED CT 86439782) 2) Chronic obstructive lung disease (SNOMED CT 38210214) 3) Hypothyroidism (SNOMED CT 55523602) 4) Gastroesophageal reflux disease (SNOMED CT 770858717) 5) Essential hypertension (SNOMED CT 21706047) 6) Erythema nodosum (SNOMED CT 40668521) 7) Sleep Apnea (SCT 30895880) 8) Chronic back pain 9) Insomnia 10) Benign Prostatic Hypertrophy with Outflow Obstruction (SCT 432987929) 11) Renal Impairment (SCT 368192569) 12) Obesity 13) Bilateral osteoarthritis of knees 14) Colitis 15) Gastritis 16) Polyp of gallbladder Active Outpatient Medications (including Supplies): Active Outpatient Medications Status 1) ALBUTEROL 90MCG (CFC-F) 200D ORAL INHL INHALE 2 PUFFS BY ACTIVE ORAL INHALATION FOUR TIMES A DAY NEEDED SHAKE WELL. RINSE MOUTHPIECE FREQUENTLY TO PREVENT CLOGGING. Indication: FOR ASTHMA 2) ATORVASTATIN CALCIUM 40MG TAB TAKE ONE-HALF TABLET BY MOUTH ACTIVE EVERY EVENING Indication: FOR HIGH CHOLESTEROL 3) CHOLECALCIF 50MCG (D3-2,000UNIT) TAB TAKE ONE TABLET BY ACTIVE MOUTH ONCE A DAY FOR VITAMIN D DEFICIENCY. 4) FINASTERIDE 5MG TAB TAKE ONE TABLET BY MOUTH ONCE A DAY ACTIVE SWALLOW WHOLE, DO NOT CRUSH, SPLIT, OR CHEW. Indication: FOR BENIGN PROSTATIC HYPERPLASIA 5) FLUTICASONE PROP 50MCG 120D NASAL INHL INSTILL 2 SPRAYS IN ACTIVE EACH NOSTRIL ONCE A DAY NEEDED FOR ALLERGIES (MUST BE USED DIRECTED FOR MINIMUM OF 21 DAYS TO PROVIDE ADEQUATE BENEFITS) 6) GABAPENTIN 600MG TAB TAKE ONE TABLET BY MOUTH EVERY 6 HOURS ACTIVE 7) HYDROCHLOROTHIAZIDE 25MG TAB TAKE ONE TABLET BY MOUTH ONCE A ACTIVE DAY Indication: FOR HIGH BLOOD PRESSURE 8) HYDROCODONE 10/ACETAMINOPHEN 325MG TAB TAKE 1-2 TABLETS BY ACTIVE MOUTH EVERY 4 TO 6 HOURS NEEDED FOR PAIN (MAX 8 TABLETS PER DAY; HOLD WITHIN 4 HOURS OF PLANNED SLEEP) THIS QUANTITY MUST LAST 28 DAYS OR MORE CAUTION: DO NOT EXCEED 4000MG PER DAY ACETAMINOPHEN (APAP) FROM ALL MEDS. 9) LEVOTHYROXINE NA 50MCG TAB TAKE ONE TABLET BY MOUTH EVERY ACTIVE MORNING BEFORE A MEAL FOR THYROID. TAKE 30 MINUTES BEFORE FOOD. TAKE SEPARATELY FROM ALL OTHER MEDICATIONS. 10) LOSARTAN 100MG TAB TAKE ONE TABLET BY MOUTH ONCE A DAY TO ACTIVE LOWER BLOOD PRESSURE 11) PANTOPRAZOLE NA 40MG EC TAB TAKE ONE TABLET BY MOUTH EVERY ACTIVE MORNING BEFORE A MEAL TO LOWER STOMACH ACID - TAKE 30 MINUTES BEFORE MEAL(S) 12) TRAZODONE HCL 100MG TAB TAKE ONE-HALF TABLET BY MOUTH AT ACTIVE BEDTIME NEEDED FOR MOOD OR SLEEP. Allergies: AMLODIPINE Review of Systems: as per HPI and [...] SI/HI; denies nightmares OBJECTIVE: Vital Signs Temperature: 98.5 F [36.9 C] (09/19/2024 13:58) Respiratory Rate: 20 (09/19/2024 13:58) Pulse Rate: 65 (09/19/2024 13:59) Blood Pressure: 128/82 (09/19/2024 13:59) HT: 67 in [170.2 cm] (04/22/2023 09:11) WT: 201.8 lb [91.53 kg] (09/19/2024 13:58) BMI: 31.7 97% (09/19/2024 13:59) Physical Exam General: NAD noted, A&Ox3, pleasant, appears stated age HEENT: NCAT, TM's clear, nares and oropharynx clear Neck: Supple with normal active ROM, without any lymphadenopathy Heart: RRR, no murmur, clicks, or rub Resp: Lungs CTA bilaterally, respirations even and unlabored Ext: No clubbing, cyanosis, edema or obvious deformity Abdomen: Positive right upper quadrant tenderness and just right side tenderness in general. No distention positive bowel sounds Skin: Warm, pink, and dry, no rashes Neuro: Grossly intact Psych: Affect normal, answers questions appropriately throughout visit A/P: ASSESSMENT and PLAN Health Maintenance: Labs reviewed with patient and printout given to patient. Discussed preventative health to include diet and exercise as well as immunizations. 1) Polyp of gallbladder with continued pain-we will obtain labs today getting back into the surgeon he really needs a cholecystectomy hopefully will get done this time 2) Osteoarthritis bilateral knees-discussed risk and benefits of repeat knee injections patient wanted to proceed with 3) Atherosclerotic arterial disease-we will set him up for a CTA of the aorta with runoff into his legs in addition with family history of coronary artery disease going to set him up for a chemical stress test and she cannot walk on the treadmill significantly. Renewed his pain clinic consult although I think some of his pain may be related to peripheral artery disease. Informed consent was obtained and time out performed. Bilateral knee joints was prepped with betadine and injected with 2ml of 0.25% bupivacaine and 40mg of triamcinolone with lateral approach each knee. Patient tolerated well. Patient tolerated well. Area cleaned and band-aide applied. Time of Timeout: September 20, 2023 at 3:28 PM Has a valid consent form been obtained? Yes PATIENT IDENTIFICATION: (The patient is identified by at least two of the following (check all that apply)) Full Name, Full SSN, Method of Identification: (no less than two of the following) Patient verbalized name, Patient verbalized social security number, Patient verbalized date of PROCEDURE: Bilateral knee joints steroid injection SITE (including laterality if applicable): Bilateral [...] OUT PARTICIPANTS (list all members present): , CONCIERGE RECEPTIONIST, PA (s): Erna Barnes MD and Ethel Damian LPN Stable. Discussed medications with patient; med rec [...] testing received; otherwise f/u as listed below. Follow-up: As scheduled with fasting labs prior to appointment and/or [...] appointments. Medications Reconciled. See AVS given to [place]. Time spent 30 minutes. /sai/ Erna Barnes MD [facility] Signed: 09/19/2024 15:37 09/24/2024 ADDENDUM STATUS: COMPLETED Notify patient that his folate and vitamin D levels are both low I would recommend supplementation of both if he wants me to order that through the [place] to let me know otherwise he can get that [id number]. /sai/ Erna Barnes MD [facility] Signed: 09/24/2024 20:42 Receipt Acknowledged By: 09/26/2024 11:17 /sai/ ETHEL DAMIAN [facility]PN [facility] 09/28/2024 ADDENDUM STATUS: COMPLETED notified of above results and recommendations. [place] agrees to see orthopedics and would like to be seen at [facility] in [place]. has no preference for particular physician. Advised to contact PACT team if he has not heard anything from scheduling in 2 weeks /es/ Taran Tineo STREET INSPECTOR [facility] Signed: 09/28/2024 08:01 Receipt Acknowledged By: * AWAITING SIGNATURE * ERAN BARNES [facility] September 19, 2024 02:05 PM PRIMARY CARE PROGRESS NOTE: LOCAL TITLE: PRIMARY CARE CLINIC PROGRESS NOTE PB STANDARD TITLE: PRIMARY CARE PROGRESS NOTE DATE OF NOTE: SEPTEMBER 19, 2024@14:05 ENTRY DATE: SEPTEMBER 19, 2024@14:06:02 AUTHOR: ERNA BARNES EXP COSIGNER: URGENCY: STATUS: COMPLETED PRIMARY CARE CLINIC PROGRESS NOTE PB Has ADDENDA SUBJECTIVE: BELL BOTELLO is a 58 years old MALE. HPI: Presents to the clinic today complains of bilateral knee pain wanting knee injections again. He reports his last injections only lasted 30 days for the most part and started hurting again but still wants repeat injections. He needs a new [facility] clinic referral since Dr. Severino is retiring. He reports mainly seen Dr. Severino for the pain in his legs which consist of his entire legs not just his knees. As noted on his knee x-rays back in May he did have atherosclerotic changes. Last seen June 14, 2024 for bilateral knee joint steroid injections. He reports also is having increasing pain in his right side more right upper quadrant into his back but it will actually rotate down into his hip area as well. Non-VA Primary Care Provider Dr. Vera; [facility] Dr. 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: [employer] MAJOR ACCIDENTS OR INJURIES WHILE ON ACTIVE DUTY: Erythema nodosum MST: no SURGICAL HX: gastric bypass 2015 Problem List 1) Hyperlipidemia (SNOMED CT 47958235) 2) Chronic obstructive lung disease (SNOMED CT 55865050) 3) Hypothyroidism (SNOMED CT 11229565) 4) Gastroesophageal reflux disease (SNOMED CT 744187281) 5) Essential hypertension (SNOMED CT 98839157) 6) Erythema nodosum (SNOMED CT 93193190) 7) Sleep Apnea (SCT 40072169) 8) Chronic back pain 9) Insomnia 10) Benign Prostatic Hypertrophy with Outflow Obstruction (SCT 300838795) 11) Renal Impairment (SCT 227082583) 12) Obesity 13) Bilateral osteoarthritis of knees 14) Colitis 15) Gastritis 16) Polyp of gallbladder Active Outpatient Medications (including Supplies): Active Outpatient Medications Status 1) ALBUTEROL 90MCG (CFC-F) 200D ORAL INHL INHALE 2 PUFFS BY ACTIVE ORAL INHALATION FOUR TIMES A DAY NEEDED SHAKE WELL. RINSE MOUTHPIECE FREQUENTLY TO PREVENT CLOGGING. Indication: FOR ASTHMA 2) ATORVASTATIN CALCIUM 40MG TAB TAKE ONE-HALF TABLET BY MOUTH ACTIVE EVERY EVENING Indication: FOR HIGH CHOLESTEROL 3) CHOLECALCIF 50MCG (D3-2,000UNIT) TAB TAKE ONE TABLET BY ACTIVE MOUTH ONCE A DAY FOR VITAMIN D DEFICIENCY. 4) FINASTERIDE 5MG TAB TAKE ONE TABLET BY MOUTH ONCE A DAY ACTIVE SWALLOW WHOLE, DO NOT CRUSH, SPLIT, OR CHEW. Indication: FOR BENIGN PROSTATIC HYPERPLASIA 5) FLUTICASONE PROP 50MCG 120D NASAL INHL INSTILL 2 SPRAYS IN ACTIVE EACH NOSTRIL ONCE A DAY NEEDED FOR ALLERGIES (MUST BE USED DIRECTED FOR MINIMUM OF 21 DAYS TO PROVIDE ADEQUATE BENEFITS) 6) GABAPENTIN 600MG TAB TAKE ONE TABLET BY MOUTH EVERY 6 HOURS ACTIVE 7) HYDROCHLOROTHIAZIDE 25MG TAB TAKE ONE TABLET BY MOUTH ONCE A ACTIVE DAY Indication: FOR HIGH BLOOD PRESSURE 8) HYDROCODONE 10/ACETAMINOPHEN 325MG TAB TAKE 1-2 TABLETS BY ACTIVE MOUTH EVERY 4 TO 6 HOURS NEEDED FOR PAIN (MAX 8 TABLETS PER DAY; HOLD WITHIN 4 HOURS OF PLANNED SLEEP) THIS QUANTITY MUST LAST 28 DAYS OR MORE CAUTION: DO NOT EXCEED 4000MG PER DAY ACETAMINOPHEN (APAP) FROM ALL MEDS. 9) LEVOTHYROXINE NA 50MCG TAB TAKE ONE TABLET BY MOUTH EVERY ACTIVE MORNING BEFORE A MEAL FOR THYROID. TAKE 30 MINUTES BEFORE FOOD. TAKE SEPARATELY FROM ALL OTHER MEDICATIONS. 10) LOSARTAN 100MG TAB TAKE ONE TABLET BY MOUTH ONCE A DAY TO ACTIVE LOWER BLOOD PRESSURE 11) PANTOPRAZOLE NA 40MG EC TAB TAKE ONE TABLET BY MOUTH EVERY ACTIVE MORNING BEFORE A MEAL TO LOWER STOMACH ACID - TAKE 30 MINUTES BEFORE MEAL(S) 12) TRAZODONE HCL 100MG TAB TAKE ONE-HALF TABLET BY MOUTH AT ACTIVE BEDTIME NEEDED FOR MOOD OR SLEEP. Allergies: AMLODIPINE Review of Systems: as per HPI and [...] SI/HI; denies nightmares OBJECTIVE: Vital Signs Temperature: 98.5 F [36.9 C] (09/19/2024 13:58) Respiratory Rate: 20 (09/19/2024 13:58) Pulse Rate: 65 (09/19/2024 13:59) Blood Pressure: 128/82 (09/19/2024 13:59) HT: 67 in [170.2 cm] (04/22/2023 09:11) WT: 201.8 lb [91.53 kg] (09/19/2024 13:58) BMI: 31.7 97% (09/19/2024 13:59) Physical Exam General: NAD noted, A&Ox3, pleasant, appears stated age HEENT: NCAT, TM's clear, nares and oropharynx clear Neck: Supple with normal active ROM, without any lymphadenopathy Heart: RRR, no murmur, clicks, or rub Resp: Lungs CTA bilaterally, respirations even and unlabored Ext: No clubbing, cyanosis, edema or obvious deformity Abdomen: Positive right upper quadrant tenderness and just right side tenderness in general. No distention positive bowel sounds Skin: Warm, pink, and dry, no rashes Neuro: Grossly intact Psych: Affect normal, answers questions appropriately throughout visit A/P: ASSESSMENT and PLAN Health Maintenance: Labs reviewed with patient and printout given to patient. Discussed preventative health to include diet and exercise as well as immunizations. 1) Polyp of gallbladder with continued pain-we will obtain labs today getting back into the surgeon he really needs a cholecystectomy hopefully will get done this time 2) Osteoarthritis bilateral knees-discussed risk and benefits of repeat knee injections patient wanted to proceed with 3) Atherosclerotic arterial disease-we will set him up for a CTA of the aorta with runoff into his legs in addition with family history of coronary artery disease going to set him up for a chemical stress test and she cannot walk on the treadmill significantly. Renewed his pain clinic consult although I think some of his pain may be related to peripheral artery disease. Informed consent was obtained and time out performed. Bilateral knee joints was prepped with betadine and injected with 2ml of 0.25% bupivacaine and 40mg of triamcinolone with lateral approach each knee. Patient tolerated well. Patient tolerated well. Area cleaned and band-aide applied. Time of Timeout: September 20, 2023 at 3:28 PM Has a valid consent form been obtained? Yes PATIENT IDENTIFICATION: (The patient is identified by at least two of the following (check all that apply)) Full Name, Full SSN, Method of Identification: (no less than two of the following) Patient verbalized name, Patient verbalized social security number, Patient verbalized date of PROCEDURE: Bilateral knee joints steroid injection SITE (including laterality if applicable): Bilateral [...] OUT PARTICIPANTS (list all members present): , CONCIERGE RECEPTIONIST, PA (s): Erna Barnes MD and Ethel Damian LPN Stable. Discussed medications with patient; med rec [...] testing received; otherwise f/u as listed below. Follow-up: As scheduled with fasting labs prior to appointment and/or [...] spent 30 minutes. /sai/ Erna Barnes MD [facility] Signed: 09/19/2024 15:37 09/20/2024 ADDENDUM STATUS: COMPLETED Notify patient the results of his hip x-ray: Exam Date/Time 09/19/2024 15:24 Procedure Name HIP W/PELVIS 2-3 VIEWS RIGHT Reason for Study progressive pain Clinical History no injury Impression 1. Mild degenerative arthritis 2. Probable spur lateral superior aspect of the acetabulum. Other etiologies are less likely If he would like to see the orthopedist for further evaluation and treatment would be happy to place consult for him. /sai/ Erna Barnes MD [facility] Signed: 09/20/2024 13:16 Receipt Acknowledged By: 09/28/2024 08:02 /sai/ Taran Tineo RN BSN [facility] for JAN Villanueva DMITRY 09/24/2024 ADDENDUM STATUS: COMPLETED Notify patient that his folate and vitamin D levels are both low I would recommend supplementation of both if he wants [facility] to let me know otherwise he can get that [id number]. /sai/ Erna Barnes MD [facility] Signed: 09/24/2024 20:42 Receipt Acknowledged By: 09/26/2024 11:17 /sai/ ETHEL DAMIAN LPN [facility] 09/28/2024 ADDENDUM STATUS: COMPLETED notified of above results and recommendations. agrees to see orthopedics and would like to be seen at [facility] in [place]. has no preference for particular physician. Advised to contact PACT team if he has not heard anything from scheduling in 2 weeks /hillary Tineo RN BSN [facility] Signed: 09/28/2024 08:01 Receipt Acknowledged By: 09/28/2024 12:55 /hillary Barnes MD [facility] 11/02/2024 ADDENDUM STATUS: COMPLETED Notify patient his stress test done at [facility] on September 25, 2024 was essentially normal showing low probability of coronary ischemia normal ejection fraction is 74% /hillary Barnes MD [facility] Signed: 11/02/2024 08:49 Receipt Acknowledged By: 11/05/2024 14:32 /hillary JUSTICE LPN [facility] 11/02/2024 ADDENDUM STATUS: COMPLETED Attempted to call regarding the following: Notify patient his stress test done at [facility] on September 25, 2024 was essentially normal showing low probability of coronary ischemia normal ejection fraction is 74% /sai/ Erna Barnes MD [facility] Signed: 11/02/2024 08:49 No answer, no voicemail. unable to leave a message, will try again /hillary JUSTICE LPN [facility] Signed: 11/02/2024 15:11 11/05/2024 ADDENDUM STATUS: COMPLETED Notify patient his stress test done at [facility] on September 25, 2024 was essentially normal showing low probability of coronary ischemia normal ejection fraction is 74% /hillary Barnes MD [facility] Signed: 11/02/2024 08:49 voiced understanding of alll, no questions. /hillary JUSTICE MANAGER [employer]INO [facility] Signed: 11/05/2024 14:34 [facility] September 19, 2024 01:49 PM PRIMARY CARE NURSING NOTE: LOCAL TITLE: PRIMARY CARE NURSING PROGRESS NOTE (TEXT) NURSING P STANDARD TITLE: PRIMARY CARE NURSING NOTE DATE OF NOTE: SEPTEMBER 19, 2024@13:49 ENTRY DATE: SEPTEMBER 19, 2024@13:49:17 AUTHOR: ETHEL DAMIAN COSIGNER: URGENCY: STATUS: COMPLETED Established Patient BELL BOTELLO IS A 58 YEAR OLD MALE BEING SEEN IN CLINIC SEPTEMBER 19, 2024. REASON FOR VISIT: Left side and back pain x 3 months. Are you receiving care any [facility] other than [facility]? No HEALTH AND SURGICAL HISTORY: Does patient report using home oxygen? CURRENT ACTIVE MEDICATIONS FOR REVIEW: If the list for review does not include a component, then it was not applicable to this patient. Allergies/ADRs (Tool #5) FACILITY ALLERGY/ADR -------- [facility] NO KNOWN ALLERGIES [facility] NO KNOWN ALLERGIES [facility] NO KNOWN ALLERGIES [facility] AMLODIPINE Med. Reconciliation (Tool #1) INCLUDED IN THIS LIST: Alphabetical list of active outpatient prescriptions dispensed from this [facility] (local) and dispensed from another [place] or [facility] facility (remote) as well as [...] the patient into personal health records (i.e. [place]) are NOT included in this list. Non-VA medications documented outside this [place], remote inpatient orders (regardless of status) and [...] RINSE MOUTHPIECE FREQUENTLY TO PREVENT CLOGGING. Rx# [id number] Last Released: 06/21/24 Qty/Days Supply: 06/14 Rx Expiration Date: 01/31/25 Refills Remainin Indication: FOR ASTHMA OUTPT ALBUTEROL 90MCG (CFC-F) 200D ORAL INHL (Status = Discontinued) INHALE 2 PUFFS BY ORAL INHALATION FOUR TIMES A DAY NEEDED FOR ASTHMA SHAKE WELL. RINSE MOUTHPIECE FREQUENTLY TO PREVENT CLOGGING. Rx# [id number] Last Released: 07/04/24 Qty/Days Supply: 06/14 Rx Expiration Date: 01/31/25 Refills Remainin Indication: FOR ASTHMA OUTPT ALBUTEROL 90MCG (CFC-F) 200D ORAL INHL (Status = Discontinued) INHALE 2 PUFFS BY ORAL INHALATION FOUR TIMES A DAY NEEDED FOR ASTHMA SHAKE WELL. RINSE MOUTHPIECE FREQUENTLY TO PREVENT CLOGGING. Rx# [id number] Last Released: Qty/Days Supply: 06/14 Rx Expiration Date: 07/05/25 Refills Remainin Indication: FOR ASTHMA OUTPT ALBUTEROL 90MCG (CFC-F) 200D ORAL INHL (Status = Active) INHALE 2 PUFFS BY ORAL INHALATION FOUR TIMES A DAY NEEDED FOR ASTHMA SHAKE WELL. RINSE MOUTHPIECE FREQUENTLY TO PREVENT CLOGGING. Rx# [id number] Last Released: 07/12/24 Qty/Days Supply: Rx Expiration Date: 10/02/24 Refills Remainin Indication: FOR ASTHMA OUTPT ATORVASTATIN CALCIUM 40MG TAB (Status = Active) TAKE ONE-HALF TABLET BY MOUTH EVERY EVENING FOR HIGH CHOLESTEROL Rx# [id number] Last Released: 04/23/24 Qty/Days Supply: 45 Rx Expiration Date: 04/20/25 Refills Remainin Indication: FOR HIGH CHOLESTEROL OUTPT CHOLECALCIF 50MCG (D3-2,000UNIT) TAB (Status = Active) TAKE ONE TABLET BY MOUTH ONCE A DAY FOR VITAMIN D DEFICIENCY. Rx# [id number] Last Released: 04/23/24 Qty/Days Supply: 100 Rx Expiration Date: 04/20/25 Refills Remainin OUTPT FINASTERIDE 5MG TAB (Status = Active) TAKE ONE TABLET BY MOUTH ONCE A DAY FOR BENIGN PROSTATIC HYPERPLASIA SWALLOW WHOLE, DO NOT CRUSH, SPLIT, OR CHEW. Rx# [id number] Last Released: 03/17/24 Qty/Days Supply: Rx Expiration Date: 03/13/25 Refills Remainin Indication: FOR BENIGN PROSTATIC HYPERPLASIA OUTPT FLUTICASONE PROP 50MCG 120D NASAL INHL (Status = Active) INSTILL 2 SPRAYS IN EACH NOSTRIL ONCE A DAY NEEDED FOR ALLERGIES (MUST BE USED DIRECTED FOR MINIMUM OF 21 DAYS TO PROVIDE ADEQUATE BENEFITS) Rx# [id number] Last Released: 06/21/24 Qty/Days Supply: Rx Expiration Date: 01/31/25 Refills Remainin OUTPT GABAPENTIN 600MG TAB (Status = ) TAKE ONE TABLET BY MOUTH EVERY 6 HOURS Rx# [id number] Last Released: 06/22/24 Qty/Days Supply: Rx Expiration Date: 06/30/24 Refills Remainin OUTPT GABAPENTIN 600MG TAB (Status = Active) TAKE ONE TABLET BY MOUTH EVERY 6 HOURS Rx# [id number] Last Released: 08/31/24 Qty/Days Supply: Rx Expiration Date: 09/26/24 Refills Remainin OUTPT HYDROCHLOROTHIAZIDE 25MG TAB (Status = Active) TAKE ONE TABLET BY MOUTH ONCE A DAY FOR HIGH BLOOD PRESSURE Rx# [id number] Last Released: 05/22/24 Qty/Days Supply: Rx Expiration Date: 03/13/25 Refills Remainin Indication: FOR HIGH BLOOD PRESSURE OUTPT HYDROCODONE 10/ACETAMINOPHEN 325MG TAB (Status = ) TAKE 1-2 TABLETS BY MOUTH EVERY 4 TO 6 HOURS NEEDED FOR PAIN (MAX 8 TABS/DAY, HOLD WITHIN 4 HOURS OF PLANNED SLEEP) THIS QUANTITY MUST LAST 28 DAYS OR MORE CAUTION: DO NOT EXCEED 4000MG PER DAY ACETAMINOPHEN (APAP) FROM ALL MEDS. Rx# [id number] Last Released: 06/07/24 Qty/Days Supply: Rx Expiration Date: 06/30/24 Refills Remainin OUTPT HYDROCODONE 10/ACETAMINOPHEN 325MG TAB (Status = ) TAKE 1-2 TABLETS BY MOUTH EVERY 4 TO 6 HOURS NEEDED FOR PAIN MAX 8 TABLETS PER DAY, HOLD WITHIN 4 HOURS OF PLANNED SLEEP. MUST LAST 28 DAYS. CAUTION: DO NOT EXCEED 4000MG PER DAY ACETAMINOPHEN (APAP) FROM ALL MEDS. Rx# [id number] Last Released: 07/06/24 Qty/Days Supply: Rx Expiration Date: 08/04/24 Refills Remainin OUTPT HYDROCODONE 10/ACETAMINOPHEN 325MG TAB (Status = Discontinued) TAKE 1-2 TABLETS BY MOUTH EVERY 4 TO 6 HOURS NEEDED FOR PAIN (MAX 8 TABLETS PER DAY; HOLD WITHIN 4 HOURS OF PLANNED SLEEP) THIS QUANTITY MUST LAST 28 DAYS OR MORE CAUTION: DO NOT EXCEED 4000MG PER DAY ACETAMINOPHEN (APAP) FROM ALL MEDS. Rx# [id number] Last Released: 08/13/24 Qty/Days Supply: Rx Expiration Date: 09/08/24 Refills [facility] OUTPT HYDROCODONE 10/ACETAMINOPHEN 325MG TAB (Status = Active) TAKE 1-2 TABLETS BY MOUTH EVERY 4 TO 6 HOURS NEEDED FOR PAIN (MAX 8 TABLETS PER DAY; HOLD WITHIN 4 HOURS OF PLANNED SLEEP) THIS QUANTITY MUST LAST 28 DAYS OR MORE CAUTION: DO NOT EXCEED 4000MG PER DAY ACETAMINOPHEN (APAP) FROM ALL MEDS. Rx# [id number] Last Released: 08/31/24 Qty/Days Supply: Rx Expiration Date: 09/26/24 Refills [facility] OUTPT LEVOTHYROXINE NA 50MCG TAB (Status = Active) TAKE ONE TABLET BY MOUTH EVERY MORNING BEFORE A MEAL FOR THYROID. TAKE 30 MINUTES BEFORE FOOD. TAKE SEPARATELY FROM ALL OTHER MEDICATIONS. Rx# [id number] Last Released: 07/17/24 Qty/ Supply: Rx Expiration Date: 05/05/25 Refills [facility] OUTPT LOSARTAN 100MG TAB (Status = Active) TAKE ONE TABLET BY MOUTH ONCE A DAY TO LOWER BLOOD PRESSURE Rx# [id number] Last Released: 03/15/24 Qty/Days Supply: Rx Expiration Date: 03/13/25 Refills [facility] OUTPT PANTOPRAZOLE NA 40MG EC TAB (Status = Active) TAKE ONE TABLET BY MOUTH EVERY MORNING BEFORE A MEAL TO LOWER STOMACH ACID - TAKE 30 MINUTES BEFORE MEAL(S) Rx# [id number] Last Released: 03/17/24 Qt Supply: Rx Expiration Date: 03/13/25 Refills [facility] OUTPT TRAZODONE HCL 100MG TAB (Status = Active) TAKE ONE-HALF TABLET BY MOUTH AT BEDTIME NEEDED FOR MOOD OR SLEEP. Rx# [id number] Last Released: 03/17/24 Qty Supply: Rx Expiration Date: 03/13/25 Refills [facility] SUPPLIES PHARMACY TERMS AND POSSIBLE PATIENT ACTIONS INPT = [place] inpatient order IV = RI intravenous medication OUTPT = [place] outpatient prescription PHARMACY POSSIBLE PATIENT TERMS EXPLANATION [...] [facility]. A prescription which is [...] [facility] Or, it may be an ylir-qhj-lwcxben (OTC), herbal, dietary supplements or sample medication. [...] An active prescription that is Contact your [place] not scheduled to be filled yet. pharmacy if you need You should receive it before this medication now. you run out. ====== Medication list reviewed with Patient Patient/Caregiver reports taking medications as ordered. IS PATIENT TAKING ANY OVER THE COUNTER MEDICATIONS, SUCH VITAMINS OR HERBAL SUPPLEMENTS, INCLUDING ANY MEDICATIONS PRESCRIBED BY ANOTHER PHYSICIAN? No Does patient have any new allergies to report since last visit? NO VITALS: TEMPERATURE: 98.1 F [36.7 C] (06/14/2024 10:49) BP: 132/86 (06/14/2024 10:49) RESP: 18 (06/14/2024 10:49) PULSE: 59 (06/14/2024 10:49) HT: 67 in [170.2 cm] (04/22/2023 09:11) WT: 196.8 lb [89.27 kg] (06/14/2024 10:49) BMI: 30.9 PAIN ASSESSMENT: (Most Recent Pain Score in [...] Now let us serve you. At the [facility], we strive to provide you with [...] Not At All SPIRITUAL ASSESSMENT: Are there christian practices or spiritual concerns you want the bread distributor, your physician, and other health care team members to immediately know about? No Patient advised to call the clinic for any concerns, questions, or symptoms. Patient and/or caregiver verbalized understanding of plan of care. Per [facility] Directive 1605.06, wristband documentation: Patient wristband was removed and destroyed by (staff name) Ethel Damian and placed in the designated [employer] bin. Sexual Orientation - CP,L,N,P,PH,PS,S,U: The patient thinks of their sexual orientation as: Straight or Heterosexual COVID-19 Immunization-L,N,P,PH,U: Refused Moderna Monovalent COVID-19 vaccine Immunization: COVID-19 (MODERNA), MRNA, LNP-S, PF, 50 MCG/0.5 ML (AGES 12+ YEARS) Refusal Reason: PATIENT DECISION Patient refuses all immunization(s) in the COVID-19 group Date Documented: 09/19/24 13:55 RHS Screen - VS: RHS Screen Session Format: Face to Face Environmental Check Upon inquiry, the individual reports that the environment is safe to proceed. Informed Consent to Screen and Document The individual consents to proceed with screening. The individual consents to documentation of responses. PRIMARY SCREEN: In the past 12 months, how often did a current or former intimate partner (e.g., boyfriend, girlfriend, , , sexual partner): 1. Scream or curse at you Never 2. Insult or talk down to you Never 3. Threaten you with harm Never 4. Physically hurt you Never 5. Force or pressure you to have sexual contact against your will, or when you were unable to say no Never The HITS tool (items 1-4 above) is [place] copyright protected by Alexis Blum MD, and the user has full rights to use it throughout the [place] system. PRIMARY SCREEN RESULT: The Primary Screen is NEGATIVE. The individual answered never to all forms of IPV above (i.e., answered never to all 5 items) The individual accepts education and/or resources: No EDUCATION: The individual indicated readiness to learn. Education offered during this session as noted above. The individual indicated understanding by asking relevant questions and making appropriate comments. No barriers to learning were observed or identified. Homelessness/Food Insecurity Screen - DI,L,N,P,PH,PS,S,U: In the past 2 months, have you been living in stable housing that you own, rent, or stay in as part of a household? Yes - Living in stable housing. Are you worried or concerned that in the next 2 months you may NOT have stable housing that you own, rent, or stay in as part of a household? No - Not worried about housing near future The reports the following: Within the past 12 months, you worried whether your food would run out before you got money to buy more. Never true Within the past 12 months, the food you bought just didn't last and you didn't have money to get more. Never true Influenza Immunization - L,N,P,PH,U: Deferral / Refusal The patient declines to receive the recommended dose of seasonal influenza vaccine. Immunization: INFLUENZA, UNSPECIFIED FORMULATION Refusal Reason: PATIENT DECISION Patient refuses all immunization(s) in the FLU group Date Documented: 09/19/24 13:55 Pneumococcal Conjugate Vaccine (PCV15/PCV20/PCV21) - L,N,P,PH,U: Refuses PCV vaccine Immunization: PNEUMOCOCCAL CONJUGATE, UNSPECIFIED FORMULATION Refusal Reason: PATIENT DECISION Patient refuses all immunization(s) in the PneumoPCV group Date Documented: 09/19/24 13:56 Pain Assessment: - PAIN ASSESSMENT: .. This patient's last pain assessment score was: 0 (06/21/2023 11:27). A detailed pain assessment showed the following: Location of current pain Left side and back, bilateral knee's Patient's self identified pain goal: 6 Patient/Nurse Interview: * * Patient stated that adequate information was received regarding the condition and/or treatment. /sai/ ETHEL DAMIAN LPN [place] [facility] Signed: 09/19/2024 13:57 ETHEL DAMIAN [facility]
--- OUTSIDE RECORDS SUMMARY | 2024-10-26 04:45 | XMS_ITS | Encounter Summary ---
Author Name [facility] [place] Address [address] [place] [address] Care Team Providers Care Shipping Checker Name Role Phone ERNA BOSTON Primary Care Provider Unavailabl e Insurance Providers: [...] Gordon's Name Patient's Relationship to Policy [facility]ICA[facility] MEDIC AID Mar 18, 2009 [phone] TESSA GIRARD JCARLOS PATIENT MEDICAID (WNR) MEDICAID MEDIC AID (WNR) Mar 16, 2014 MEDICAI D [id number] TESSA GIRARD PATIENT Selected Encounter This section includes the information on record at [place] for the Encounter. Date/Time Encounter Type Encounter Description Reason Provider Source Oct 26, 2024 09:45 AM OFF/OP EST SEPTEMBER X REQ PHY/QHP PRIMARY CARE/MEDICINE ICD-10-CM Z71.89 Other specified counseling EV POST E Encounter Template Text not used by [place] Assessments - Encounter Diagnoses This section includes the primary and secondary diagnoses documented for the Encounter. Date/Time Primary/Secondary Diagnosis Diagnosis Name Provider Source Oct 26, 2024 10:48 AM PRIMARY Other specified counseling JAN POST [facility] Plan of Treatment: Future Appointments (+ 6 months) and Future Tests (+/- 45 days) The Plan of Treatment section includes future care activities for the patient [facility] This section includes future appointments and future orders which are active, pending or scheduled. Future Appointments This section includes appointments that were scheduled to occur 6 months from the date of the Encounter, up to a maximum of 20 appointments. The data comes from all [place] treatment facilities. Appointment Date/Time Appointment Type Appointme nt Facility Name Nov 20, 2024 04:00 PM AMBULATORY [place]IC[place] [facility] [place] 2] Feb 19, 2025 09:30 AM AMB[facility]ATORY [facility] MED[facility] [facility] [place] 2] Mar 08, 2025 11:00 AM AM[facility]ULATORY - [facility]ICINE [facility] Active, Pending, and Scheduled Orders This section includes a listing of several types of active, pending, and scheduled orders, including clinic medications orders, diagnostic test orders, procedure orders and consult orders; where the start date of the order is 45 days before the date of the Encounter or 45 days after the date of theEncounter. The data comes from all [facility]. Test Date/Time Test Type Test Details Facility Name September 19, 2024 02:31 PM Consult Order COMMUNITY CARE-PAIN [id number] Cons Foundation Relations Director's Choice [facility] September 19, 2024 02:32 PM Laboratory - Chemi stry Order POC UA (STL-PB-MA) URINE SP [facility] September 28, 2024 08:32 AM Consult Order COMMUNITY CARE-ORTHOPEDICS [id number] Cons Foundation Relations Director's [facility] Social History: Smoking Status (Most current) and Tobacco Use (All prior to encounter date) This section includes the most current, and the historical, smoking and tobacco- related health factors from the [place] facility where the Encounter took place. Current Smoking Status This section includes the most current smoking, or tobacco-related health factor, from the [place] facility where the Encounter took place. Date/Time Current Smoking Status Comment Facil ity Mar 12, 2024 01:00 PM VA-TOBACCO USER EVERY DAY [facility] Tobacco Use History This section includes a history of the smoking, or tobacco-related health factors, that were collected on or before the date of the Encounter. The data comes from the [place] facility where the Encounter took place. 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 [facility] Mar 12, 2024 01:00 PM VA-TOBACCO USE MED NO [facility] Mar 12, 2024 01:00 PM VA-TOBACCO USER EVERY DAY [facility] Jan 27, 2023 10:30 AM VA-TOBACCO USE 5 TO 15 YEARS [facility] Jan 27, 2023 10:30 AM VA-TOBACCO USE ADVICE [facility] Jan 27, 2023 10:30 AM 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 [facility] Jan 27, 2023 10:30 AM VA-TOBACCO USE MED NO [facility] Jan 27, 2023 10:30 AM VA-TOBACCO USE WI 30 MIN OF WAKE UP [facility] Jan 27, 2023 10:30 AM VA-TOBACCO USER EVERY DAY [facility] Jan 21, 2022 10:30 AM VA-TOBACCO USE 30 YEARS OR MORE [facility] Jan 21, 2022 10:30 AM VA-TOBACCO USE ADVICE [facility] Jan 21, 2022 10:30 AM 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 [facility] Jan 21, 2022 10:30 AM VA-TOBACCO USE MED NO [facility] Jan 21, 2022 10:30 AM VA-TOBACCO USE WI 30 MIN OF WAKE UP [facility] Jan 21, 2022 10:30 AM VA-TOBACCO USER EVERY DAY [facility] Oct 30, 2020 02:30 PM VA-TOBACCO USE 30 YEARS OR MORE [facility] Oct 30, 2020 02:30 PM VA-[place]BACCO USE ADVICE [facility] Oct 30, 2020 02:30 PM 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 [facility] Oct 30, 2020 02:30 PM VA-TOBACCO USE MED NO [facility] Oct 30, 2020 02:30 PM VA-TOBACCO USE WI 30 MIN OF WAKE UP [facility] Oct 30, 2020 02:30 PM VA-TOBACCO USER EVERY DAY [facility] Dec 21, 2018 11:23 AM VA-TOBACCO USE 5 TO 15 YEARS [facility] Dec 21, 2018 11:23 AM VA-TOBACCO USE ADVICE [facility] Dec 21, 2018 11:23 AM 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 [facility] Dec 21, 2018 11:23 AM VA-TOBACCO USE MED NO [facility] Dec 21, 2018 11:23 AM VA-TOBACCO USE WI 30 MIN OF WAKE UP [facility] Dec 21, 2018 11:23 AM VA-TOBACCO USER EVERY DAY [facility] Mar 14, 2018 10:04 AM CURRENT TOBACCO USER [facility] Mar 14, 2018 10:04 AM CURRENT TOBACCO US ER (NOT READY TO QUIT) [facility] Mar 14, 2018 10:04 AM TOBACCO CESSATION REFERRAL DECLI MANN [facility] Mar 14, 2018 10:04 AM TOBACCO MEDS OFFERED BUT DECLINE D [facility] Mar 14, 2018 10:04 AM TOBACCO USER OFFERED MEDS [facility] Jan 26, 2018 09:08 AM CURRENT TOBACCO USER [facility] Jan 26, 2018 09:08 AM CURRENT TOBACCO US ER (NOT READY TO QUIT) [facility] Jan 26, 2018 09:08 AM TOBACCO CESSATION REFERRAL DECLI MANN [facility] Jan 26, 2018 09:08 AM TOBACCO MEDS OFFERED BUT DECLINE D [place] [facility] Jan 26, 2018 09:08 AM TOBACCO USER OFFERED MEDS [facility] Feb 23, 2017 08:37 AM CURRENT TOBACCO USER [facility] Feb 23, 2017 08:37 AM CURRENT TOBACCO US ER (NOT READY TO QUIT) [facility] Feb 23, 2017 08:37 AM TOBACCO CESSATION REFERRAL DECLI MANN [facility] Feb 23, 2017 08:37 AM TOBACCO MEDS OFFERED BUT DECLINE D [facility] Feb 23, 2017 08:37 AM TOBACCO USER OFFERED MEDS [facility] Jan 12, 2011 01:21 PM LIFETIME NON-USER OF TOBACCO [facility] Radiology Reports: +/- 30 days [...] the Encounter. The data comes from all [place] treatment facilities. Date/Time Radiology Report Provider Source Oct 15, 2024 02:[address] ANGIO-AA W ILIO FEMORAL RUNOFF: BELL GIRARD [id number] -1965 M Exm Date: OCT 15, 2024@14:32 Req Phys: ERNA BOSTON Pat Loc: OUTSIDE PB-CT (Req'g Loc) Img Loc: OUTSIDE PB-CT Service: Unknown (Case [id number] COMPLETE) CT ANGIO-AA W ILIOFEMORAL RUNOFF (CT Detailed) CPT:35258 Reason for Study: Exam imported from outside Clinical History: Original Data for Imported Study Patient Name: BELL GIRARD Date: 1965 Sex: M Study Date: 10/15/24 Study Time: 02:32:54 Study Description: CT angio [facility] [id number] Referring Physician: UNKNOWN, UNKNOWN Series 1: 2 [...] impression text VERIFIED BY: / *ELECTRONICALLY FILED* MARISASEVERO REEVES [facility] Encounter Notes: All associated encounter notes This section contains the clinical notes associated to the Encounter. Date/Time Encounter Note(s) Provider Source Oct 26, 2024 10:09 AM NURSING PROGRESS N OTE: LOCAL TITLE: NURSING NOTE PB STANDARD TITLE: NURSING PROGRESS NOTE DATE OF NOTE: OCT 26, 2024@10:09 ENTRY DATE: OCT 26, 2024@10:09:15 AUTHOR: JAN POST COSIGNER: URGENCY: STATUS: COMPLETED The was in the clinic today to find out results of the CT angio. Results are in [place]. Nettie also had a print out of his results today. Let him know that I did not see anything but that the provider would have to review and we would call him with any recommendations. The also reports that he had his stress test done today and would like to know something about the results. Again let the know that we would call him after Dr. Boston had reviewed those results. The also asked about getting knee injections today. Let the know that he had gotten bilateral knee injections done on 09/19/24 and that he gets them every 30 days. let the know that joint injections are given no more than every 90 days. The states, I know I have been getting them every 30 days, I got one in July and August and then in September. Let the know that I did not see anything in the chart showing this. Let him know that 03/12/24, 06/14/24 and 09/19/24 were the dates that we had for him receiving injections. The than stated, that is not true the injections only last 30 days for me that is why I know I have been getting them every 30 days. Discussed the above with Dr. Boston. Let the know that she reported that she does not give them more frequently than 90 days and that he was not due to have the injections at this time. Let the know that we would call him with the results of the CT and stress test after they were reviewed. Tried to call [facility] for stress test results, was told that it is in draft. Please call for results. /es/ Jan Post RN,BSN [place] [facility] Signed: 10/26/2024 10:47 Receipt Acknowledged By: 10/26/2024 11:01 /es/ Erna Boston [facility] 10/30/2024 11:08 /es/ [facility]
--- OUTSIDE RECORDS SUMMARY | 2025-01-01 10:30 | XMS_ITS | Encounter Summary ---
Author Name [facility] [facility] Address [address] [place] [address] Care Team Providers Care Handicapped Teacher Name Role Phone NEMO BOSTONMY Primary Care [...] Gordon's Name Patient's Relationship to Policy [facility] (R) MEDICAID MEDIC AID Mar 18, 2009 [id number] [phone] TESSA GIRARD JCARLOS PATIENT MEDICAID ([place]) MEDICAID MEDIC AID ([facility]) Mar 16, 2014 MEDICAI D [id number] TESSA GIRARD PATIENT Selected Encounter This section includes the information on record at [place] for the Encounter. Date/Time Encounter Type Encounter Description Reason Provider Source Jan 01, 2025 03:30 PM DRAIN/INJ JOINT/BURSA W/O US PRIMARY CARE/MEDICINE ICD-10-CM M17.0 Bilateral primary osteoarthritis of knee FRANNY BOSTON [employer] Encounter Template Text not used by [place] Assessments - Encounter Diagnoses This section includes the primary and secondary diagnoses documented for the Encounter. Date/Time Primary/Secondary Diagnosis Diagnosis Name Provider Source Jan 02, 2025 01:46 PM PRIMARY Bilateral primary osteoarthritis of knee ERNA BOSTON [facility] Plan of Treatment: Future Appointments (+ 6 months) and Future Tests (+/- 45 days) The Plan of Treatment section includes future care activities for the [facility] This section includes future appointments and future orders which are active, pending or scheduled. Future Appointments This section includes appointments that were scheduled to occur 6 months from the date of the Encounter, up to a maximum of 20 appointments. The data comes from all [place] treatment facilities. Appointment Date/Time Appointment Type Appointme nt Facility Name Feb 19, 2025 09:30 AM AMBULATORY - MEDICINE [facility] Mar 08, 2025 11:00 AM AMBULATORY - MEDICINE [facility] Vital Signs: All taken on the encounter date This section contains inpatient and outpatient Vital Signs collected on the date of the Encounter. Date/Time Temperature Pulse Blood Pressure Respiratory Rate SP02 Pain Height Weight Body Mass Index Source Jan 01, 2025 04:03 PM 78 /min 100/69 mm[Hg] 17 /min 95 % 6 193.6 lb 30 [facility] Social History: Smoking Status (Most current) and Tobacco Use (All prior to encounter date) This section includes the most current, and the historical, smoking and tobacco- related health factors from the [place] facility where the Encounter took place. Current Smoking Status This section includes the most current smoking, or tobacco-related health factor, from the [place] facility where the Encounter took place. Date/Time Current Smoking Status Comment Facil ity Mar 12, 2024 01:00 PM VA-TOBACCO USER EVERY DAY [facility] Tobacco Use History This section includes a history of the smoking, or tobacco-related health factors, that were collected on or before the date of the Encounter. The data comes from the [place] facility where the Encounter took place. Date/Time Smoking Status/Tobacco Use Comment F acility Mar 12, 2024 01:00 PM VA-TOBACCO USE > 1 5 LESS THAN 30 YEARS [facility] Mar 12, 2024 01:00 PM VA-TOBACCO USE ADVICE [facility] Mar 12, 2024 01:00 PM VA-TOBACCO USE MAIL AGENT NO [facility] Mar 12, 2024 01:00 PM VA-TOBACCO USE MED NO [facility] Mar 12, 2024 01:00 PM VA-TOBACCO USER EVERY DAY [facility] Jan 27, 2023 10:30 AM VA-TOBACCO USE 5 TO 15 YEARS [facility] Jan 27, 2023 10:30 AM VA-TOBACCO USE ADVICE [facility] Jan 27, 2023 10:30 AM VA-TOBACCO USE MAIL AGENT NO [facility] Jan 27, 2023 10:30 AM VA-TOBACCO USE MED NO [facility] Jan 27, 2023 10:30 AM VA-TOBACCO USE WI 30 MIN OF WAKE UP [facility] Jan 27, 2023 10:30 AM VA-TOBACCO USER EVERY DAY [facility] Jan 21, 2022 10:30 AM VA-TOBACCO USE 30 YEARS OR MORE [facility] Jan 21, 2022 10:30 AM VA-TOBACCO USE ADVICE [facility] Jan 21, 2022 10:30 AM VA-TOBACCO USE MAIL AGENT NO [facility] Jan 21, 2022 10:30 AM VA-TOBACCO USE MED NO [facility] Jan 21, 2022 10:30 AM VA-TOBACCO USE WI 30 MIN OF WAKE UP [facility] Jan 21, 2022 10:30 AM VA-TOBACCO USER EVERY DAY [facility] Oct 30, 2020 02:30 PM VA-TOBACCO USE 30 YEARS OR MORE [facility] Oct 30, 2020 02:30 PM VA-TOBACCO USE ADVICE [facility] Oct 30, 2020 02:30 PM VA-TOBACCO USE MAIL AGENT NO [facility] Oct 30, 2020 02:30 PM VA-TOBACCO USE MED NO [facility] Oct 30, 2020 02:30 PM VA-TOBACCO USE WI 30 MIN OF WAKE UP [facility] Oct 30, 2020 02:30 PM VA-TOBACCO USER EVERY DAY [facility] [place] [facility] Dec 21, 2018 11:23 AM VA-TOBACCO USE 5 TO 15 YEARS [facility] Dec 21, 2018 11:23 AM VA-TOBACCO USE ADVICE [facility] Dec 21, 2018 11:23 AM VA-TOBACCO USE MAIL AGENT NO [place] [place] [facility] Dec 21, 2018 11:23 AM VA-TOBACCO USE MED NO [facility] Dec 21, 2018 11:23 AM VA-TOBACCO USE [place] 30 MIN OF WAKE UP [facility] Dec 21, 2018 11:23 AM VA-TOBACCO USER EVERY DAY [facility] Mar 14, 2018 10:04 AM CURRENT TOBACCO USER [facility] Mar 14, 2018 10:04 AM CURRENT TOBACCO US ER (NOT READY TO QUIT) [facility] [place] Mar 14, 2018 10:04 AM TOBACCO CESSATION REFERRAL DECLI [facility] [place] [facility] Mar 14, 2018 10:04 AM TOBACCO MEDS OFFERED BUT DECLINE D [facility] [place] Mar 14, 2018 10:04 AM TOBACCO USER OFFERED MEDS [facility] [place] [facility] Jan 26, 2018 09:08 AM CURRENT TOBACCO USER [facility] [place] Jan 26, 2018 09:08 AM CURRENT TOBACCO US ER (NOT READY TO QUIT) [facility] Jan 26, 2018 09:08 AM TOBACCO CESSATION REFERRAL DE[facility] [place] [facility] Jan 26, 2018 09:08 AM TOBACCO MEDS OFFERED BUT DECLINE D [facility] Jan 26, 2018 09:08 AM TOBACCO USER OFFERED MEDS [facility] [place] [facility] Feb 23, 2017 08:37 AM CURRENT TOBACCO USER [facility] [place] Feb 23, 2017 08:37 AM CURRENT TOBACCO US ER (NOT READY TO QUIT) [facility] Feb 23, 2017 08:37 AM TOBACCO CESSATION REFERRAL [facility] [place] [facility] Feb 23, 2017 08:37 AM TOBACCO MEDS OFFERED BUT DECLINE D [facility] [place] Feb 23, 2017 08:37 AM TOBACCO USER OFFERED MEDS [facility] [place] [facility] Jan 12, 2011 01:21 PM LIFETIME NON-USER OF TOBACCO [facility] Encounter Notes: All associated encounter notes This section contains the clinical notes associated to the Encounter. Date/Time Encounter Note(s) Provider Source Jan 01, 2025 04:06 PM PRIMARY CARE PROGR ESS NOTE: LOCAL TITLE: PRIMARY CARE CLINIC PROGRESS NOTE PB STANDARD TITLE: PRIMARY CARE PROGRESS NOTE DATE OF NOTE: JAN 01, 2025@16:06 ENTRY DATE: JAN 01, 2025@16:06:38 AUTHOR: ERNA BOSTON COSIGNER: URGENCY: STATUS: COMPLETED CC: Bilateral knee pain HPI: Patient presents today for bilateral knee joint injections he last had both knees injected in September. He reports he gets 2 to 4 weeks worth of improvement with that but it is improvement. Non-[facility] Primary Care Provider Dr. Vera; [facility] Dr. 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: [employer] ACCIDENTS OR INJURIES WHILE ON ACTIVE DUTY: Erythema nodosum MST: no SURGICAL HX: gastric bypass 2015 Problem List 1) Hyperlipidemia (SNOMED CT 64514570) 2) Chronic obstructive lung disease (SNOMED CT 54541376) 3) Hypothyroidism (SNOMED CT 68515198) 4) Gastroesophageal reflux disease (SNOMED CT 764937698) 5) Essential hypertension (SNOMED CT 19611730) 6) Erythema nodosum (SNOMED CT 56121579) 7) Sleep Apnea (SCT 18447525) 8) Chronic back pain 9) Insomnia 10) Benign Prostatic Hypertrophy with Outflow Obstruction (SCT 452634833) 11) Renal Impairment (SCT 298722023) 12) Obesity 13) Bilateral osteoarthritis of knees 14) Colitis 15) Gastritis 16) Polyp of gallbladder Active Outpatient Medications (including Supplies): Active Outpatient Medications Status 1) ATORVASTATIN CALCIUM 40MG TAB TAKE ONE-HALF TABLET BY MOUTH ACTIVE EVERY EVENING Indication: FOR HIGH CHOLESTEROL 2) CETIRIZINE HCL 10MG TAB TAKE ONE TABLET BY MOUTH ONCE A DAY ACTIVE Indication: FOR ALLERGY SYMPTOMS 3) CHOLECALCIF 50MCG (D3-2,000UNIT) TAB TAKE ONE [...] 21 DAYS TO PROVIDE ADEQUATE BENEFITS) 6) FOLIC ACID 1MG TAB TAKE ONE TABLET BY MOUTH ONCE A DAY ACTIVE Indication: FOR FOLIC ACID SUPPLEMENTATION 7) HYDROCHLOROTHIAZIDE 25MG TAB TAKE ONE TABLET BY MOUTH ONCE A ACTIVE DAY Indication: FOR HIGH BLOOD PRESSURE 8) LEVOTHYROXINE NA 50MCG TAB TAKE ONE TABLET BY MOUTH EVERY ACTIVE MORNING BEFORE A MEAL FOR THYROID. TAKE 30 MINUTES BEFORE FOOD. TAKE SEPARATELY FROM ALL OTHER MEDICATIONS. 9) LOSARTAN 100MG TAB TAKE ONE TABLET BY MOUTH ONCE A DAY TO ACTIVE LOWER BLOOD PRESSURE 10) OXYCODONE 10MG/ACETAMINOPHEN 325MG TAB TAKE 1 TABLET BY ACTIVE MOUTH EVERY 4 TO 6 HOURS NEEDED FOR PAIN (NOT TO EXCEED 4 TABLETS PER DAY) *THIS SUPPLY MUST LAST 23 DAYS OR MORE* NOTE: DO NOT EXCEED 4000MG PER DAY ACETAMINOPHEN (APAP) 11) PANTOPRAZOLE NA 40MG EC TAB TAKE ONE TABLET BY MOUTH EVERY ACTIVE MORNING BEFORE A MEAL TO LOWER STOMACH ACID - TAKE 30 MINUTES BEFORE MEAL(S) 12) SUCRALFATE 1GM TAB TAKE ONE TABLET BY MOUTH TWICE A DAY - ACTIVE TAKE ON AN EMPTY STOMACH. Indication: FOR DUODENAL ULCER 13) TRAZODONE HCL 100MG TAB TAKE ONE-HALF TABLET BY MOUTH AT ACTIVE BEDTIME NEEDED FOR MOOD OR SLEEP. OBJECTIVE: Vital Signs Temperature: 98.5 F [36.9 C] (09/19/2024 13:58) Respiratory Rate: 17 (01/01/2025 16:03) Pulse Rate: 78 (01/01/2025 16:03) Blood Pressure: 100/69 (01/01/2025 16:03) HT: 67 in [170.2 cm] (04/22/2023 09:11) WT: 193.6 lb [87.82 kg] (01/01/2025 16:03) BMI: 30.4 95% (01/01/2025 16:03) Physical Exam General: NAD noted, A&Ox3, pleasant, appears stated age Ext: No clubbing, cyanosis, edema or obvious deformity; bilateral knees without any effusion no redness erythema. No joint laxity Neuro: Grossly intact Psych: Answers questions with minimal response Assessment/Plan: Osteoarthritis bilateral knees-discussed risk and benefits of repeat knee injections patient wanted to proceed with bilateral knee injections. Discussed with patient orthopedic consult since he is only getting maximum of 1 month improvement with the steroid injections at this time he declines any further referrals. Informed consent was obtained and time out performed. Bilateral knee joints was prepped with betadine and injected with 2ml of 0.25% bupivacaine and 40mg of triamcinolone with lateral approach each knee. Patient tolerated well. Patient tolerated well. Area cleaned and band-aide applied. Time of Timeout: January 01, 2025 at 4:18 PM Has a valid consent form been [...] OUT PARTICIPANTS (list all members present): , INSIDE CHANNEL ACCOUNT MANAGER, PA (s): Erna Boston MD and Mecca Post RN Follow-up: as needed. Discussed with patient that in [...] appointments. Medications Reconciled. See AVS given to [facility]. Time spent 30 minutes. /sai/ Erna Boston MD [facility] Primary Care Signed: 01/01/2025 16:25 [facility]
[2025-01-16] VITALS (15 sets, daily range): BP systolic 103–137; BP diastolic 63–96; PULSE 63–88; RESP 16–20; O2SAT 91–99
--- OUTSIDE RECORDS SUMMARY | 2025-01-16 09:33 | XMS_ITS | Continuity of Care Document ---
Author Name [facility] Organization [facility] Care Team Providers Care Pattern Carrier Name Role Phone [facility] Unavailable Unavailable Problems Combined list of problems from Department of Defense and Veterans Affairs facilities. It does not include entries that were removed or entered in error. Problem Status Onset Date Problem Type Date of Resolution Comments Source Benign Prostatic Hypertrophy with Outflow Obstruction (SCT 032560237) Active Condition [place] [facility] Bilateral osteoarthritis of knees Active Condition [place] [facility] Bleeding internal hemorrhoids (SNOMED CT 89988592) Active Condition [facility] Chronic back pain Active Condition [place] [facility] Chronic obstructive lung disease (SNOMED CT 83899744) Active Condition [place] [facility] Chronic Obstructive Pulmonary Disease * (ICD-9-CM 496.) Active Condition [facility] Colitis Active Condition Jun 19 Entered By: FRANNY BARNES Comment: Mild on colonoscopy 05/22/2024 repeat 10 years [place] [facility] Depression * (ICD-9-CM 311.) Active Condition [facility] Diarrhea * (ICD-9-CM 787.91) Active Condition [facility] Dysfunction of right eustachian tube Active Condition [facility] Erythema nodosum (SNOMED CT 03322872) Active Condition [facility] Erythema Nodosum * (ICD-9-CM 695.2) Active Condition [facility] Essential hypertension Active Condition [facility] Essential hypertension (SNOMED CT 20633437) Active Condition [place] [facility] Flatfoot * (ICD-9-CM 734.) Active Condition [facility] Gastritis Active Condition Jun 19 Entered By: FRANNY BARNES Comment: EGD 05/22/2024 [place] [facility] Gastroesophageal reflux disease (SNOMED CT 013908791) Active Condition [place] [facility] Gastroesophageal Reflux Disorder Active Condition [facility] GERD - Gastro-esophageal reflux disease Active Condition [facility] Hyperlipidemia (SNOMED CT 65769460) Active Condition [place] [facility] Hypertension * (ICD-9-CM 401.9) Active Condition 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 Morbid obesity Active Condition [facility] Obesity Active Condition [place] [facility] Obesity * (ICD-9-CM 278.00) Active Condition [facility] Pain (SNOMED CT 86302279) Active Condition [facility] Polyp of gallbladder Active Condition [place] [facility] Recurrent microscopic hematuria Active Condition [facility] Renal Impairment (SCT 848783848) Active Condition Feb 04, 2023 Entered By: DARRICK YEH Comment: Mild....GFR 54 01/2023. [place] [facility] Shoulder: arthralgia * (ICD-9-CM 719.41) Active Condition [facility] Sleep Apnea (SCT 64275578) Active Condition [place] [facility] Tobacco Use Disorder Active Condition [facility] Diagnosis: ICD-10-CM M17.0 Bilateral primary osteoarthritis of knee Active Diagnosis [facility] Diagnosis: ICD-10-CM Z71.89 Other specified counseling Active Diagnosis [facility] Diagnosis: ICD-10-CM K82.4 Cholesterolosis of gallbladder Active Diagnosis [facility] Diagnosis: ICD-10-CM M54.50 Low back pain, unspecified Active Diagnosis [facility] Diagnosis: ICD-10-CM R07.82 Intercostal pain Active Diagnosis [facility] Diagnosis: ICD-10-CM I10 Essential (primary) hypertension Active Diagnosis [facility] Medications Combined list of outpatient medications from Department of Defense and Veterans Affairs facilities.Medications provided include 1) outpatient medications from the last 15 months, and 2) patient-reported medications. Medication Details Route Status Patient Instructions Prescription Expires Prescription Number Last Dispense Date Ordering Provider Order Date Order Qty Source ACETAMINOPH EN TAB TAKE BY MOUTH EVERY 6 HOURS NEEDED ORAL ACTIVE DONTE VAZQUEZ TT [address] [facility] ALBUTEROL 90MCG/ACTUA T (CFC-F) INHL,ORAL,8 .5GM DOSE COUNTER USE 2 PUFFS BY INHALATI ON EVERY 12 HOURS RESPIR ATORY (INHAL ATION) ACTIVE JACIEL WYATT E 2015 [facility] ALBUTEROL SO4 90MCG/ACTUA T (CFC-F) INHL,ORAL,8 .5GM INHALE 2 PUFFS BY ORAL INHALATI ON FOUR TIMES A DAY NEEDED FOR ASTHMA SHAKE WELL. RINSE MOUTHPIE CE FREQUENT LY TO PREVENT CLOGGING . RESPIR ATORY (INHAL ATION) DISCONT INUED 07/05/2025 [id number] 5 CAMERONKECIA 2024 1 [facility] ALBUTEROL SO4 90MCG/ACTUA T (CFC-F) INHL,ORAL,8 .5GM INHALE 2 PUFFS BY ORAL INHALATI ON FOUR TIMES A DAY NEEDED FOR ASTHMA SHAKE WELL. RINSE MOUTHPIE CE FREQUENT LY TO PREVENT CLOGGING . RESPIR ATORY (INHAL ATION) DISCONT INUED 01/31/2025 [id number] 5 KECIA BARNES 2024 1 [facility] ALBUTEROL SO4 90MCG/ACTUA T (CFC-F) INHL,ORAL,8 .5GM INHALE 2 PUFFS BY ORAL INHALATI ON FOUR TIMES A DAY NEEDED FOR ASTHMA SHAKE WELL. RINSE MOUTHPIE CE FREQUENT LY TO PREVENT CLOGGING . RESPIR ATORY (INHAL ATION) DISCONT INUED 01/31/2025 [id number] 5 CAMERONKECIA KENDRICK 2023 1 [facility] ALBUTEROL SO4 90MCG/ACTUA T (CFC-F) INHL,ORAL,8 .5GM INHALE 2 PUFFS BY ORAL INHALATI ON FOUR TIMES A DAY NEEDED FOR ASTHMA SHAKE WELL. RINSE MOUTHPIE CE FREQUENT LY TO PREVENT CLOGGING . RESPIR ATORY (INHAL ATION) 10/02/2024 [id number] 5 CAMERON KECIA 2024 3 [facility] ATORVASTATI N CA 40MG TAB TAKE ONE-HALF TABLET BY MOUTH EVERY EVENING FOR HIGH CHOLESTE ROL ORAL ACTIVE 09/28/2025 [id number] 5 CAMERON, KECIA 2024 45 [facility] ATORVASTATI N CA 40MG TAB TAKE ONE-HALF TABLET BY MOUTH EVERY EVENING FOR HIGH CHOLESTE ROL ORAL DISCONT INUED 04/20/2025 [id number] 4 LEAH BOWIE 2023 45 [facility] BACLOFEN 10MG TAB TAKE ONE TABLET BY MOUTH EVERY DAY ORAL ACTIVE JACIEL WYATT 2015 [facility] CETIRIZINE HCL 10MG TAB TAKE ONE TABLET BY MOUTH ONCE A DAY FOR ALLERGY SYMPTOMS ORAL ACTIVE 11/28/2025 [id number] 5 Caprice KEMP [address] [place] [address] [facility] CETIRIZINE HCL 10MG TAB TAKE ONE TABLET BY MOUTH ONCE A DAY NEEDED FOR ALLERGY SYMPTOMS . ORAL 06/20/2024 [id number] OPAL YEH 2023 90 [facility] CETIRIZINE HCL 10MG TAB TAKE ONE TABLET BY MOUTH EVERY DAY NEEDED ORAL ACTIVE KADY GARCIA 2017 [facility] CHOLECALCIF IAN 50MCG (2,000UNIT) TAB TAKE ONE TABLET BY MOUTH ONCE A DAY FOR VITAMIN D DEFICIEN CY. ORAL ACTIVE 09/28/2025 [id number] 5 [facility] 2024 100 [facility] CHOLECALCIF IAN 50MCG (2,000UNIT) TAB TAKE ONE TABLET BY MOUTH ONCE A DAY FOR VITAMIN D DEFICIEN CY. ORAL DISCONT INUED 04/20/2025 [id number] LEAH BOWIE 2023 100 [facility] FENOFIBRATE TAB TAKE 54 MG BY MOUTH EVERY DAY ORAL ACTIVE JOSE ANTONIO HARRISON 2016 [facility] FINASTERIDE 5MG TAB TAKE ONE TABLET BY MOUTH ONCE A DAY FOR BENIGN PROSTATI C HYPERPLA JILLIAN SWALLOW WHOLE, DO NOT CRUSH, SPLIT, OR CHEW. ORAL ACTIVE 03/13/2025 [id number] 4 CAMERONKECIA GARCIA 2023 90 [facility] FLUTICASONE 230MCG/SALM ETEROL 21MCG INHL,ORAL,1 2GM INHALE 1 PUFF BY INHALATI ON EVERY 12 HOURS RESPIR ATORY (INHAL ATION) ACTIVE JI MONTANO 2009 [facility] FLUTICASONE PROPIONATE 50MCG/SPRAY SOLN,NASAL, 16GM INSTILL 2 SPRAYS IN EACH NOSTRIL ONCE A DAY NEEDED FOR ALLERGIE S (MUST BE USED DIRECTED FOR MINIMUM OF 21 DAYS TO PROVIDE ADEQUATE BENEFITS ) NASAL ACTIVE 01/31/2025 [id number] 5 KECIA BARNES 2023 3 [facility] FLUTICASONE PROPIONATE 50MCG/SPRAY SOLN,NASAL, 16GM INSTILL 2 SPRAYS IN EACH NOSTRIL EVERY DAY NASAL ACTIVE KADY GARCIA 2016 [facility] FOLIC ACID 1MG TAB TAKE ONE TABLET BY MOUTH ONCE A DAY FOR FOLIC ACID SUPPLEME NTATION ORAL ACTIVE 09/28/2025 [id number] 5 KECIA BARNES 2024 100 [facility] GABAPENTIN 600MG TAB TAKE ONE TABLET BY MOUTH EVERY 6 HOURS FOR 28 DAYS ORAL DISCONT INUED 10/20/2024 [id number] 5 Rich VASQUEZ 2024 112 [place] [facility] GABAPENTIN 600MG TAB TAKE ONE TABLET BY MOUTH EVERY 6 HOURS ORAL DISCONT INUED 09/26/2024 [id number] 5 Rich VASQUEZ 2024 112 [place] [facility] GABAPENTIN 600MG TAB TAKE ONE TABLET BY MOUTH EVERY 6 HOURS FOR 28 DAYS ORAL DISCONT INUED 05/10/2024 [id number] 4 Rich VASQUEZ 2023 112 [place] [facility] GABAPENTIN 600MG TAB TAKE ONE TABLET BY MOUTH EVERY 6 HOURS FOR 28 DAYS ORAL DISCONT INUED 04/11/2024 [id number] 4 KECIA BARNES 2023 112 [place] [facility] GABAPENTIN 600MG TAB TAKE ONE TABLET BY MOUTH EVERY 6 HOURS FOR 28 DAYS ORAL DISCONT INUED 03/15/2024 [id number] 4 Rich VASQUEZ 2023 112 [place] [facility] GABAPENTIN 600MG TAB TAKE ONE TABLET BY MOUTH EVERY 6 HOURS FOR 28 DAYS ORAL DISCONT INUED 02/16/2024 [id number] 4 Rich VASQUEZ 2023 112 [place] [facility] GABAPENTIN 600MG TAB TAKE ONE TABLET BY MOUTH EVERY 8 HOURS FOR 28 DAYS ORAL DISCONT INUED 12/22/2023 [id number] 4 Rich VASQUEZ 2023 84 [place] [facility] GABAPENTIN 600MG TAB TAKE ONE TABLET BY MOUTH EVERY 8 HOURS FOR 28 DAYS ORAL DISCONT INUED 2023 [id number] 4 Rich VASQUEZ 2023 84 [place] [facility] GABAPENTIN 600MG TAB TAKE ONE TABLET BY MOUTH FOUR TIMES A DAY ORAL 12/20/2024 [id number] 5 SREEDHAR GRIJALVA 2024 120 [place] [facility] GABAPENTIN 600MG TAB TAKE ONE TABLET BY MOUTH EVERY 6 HOURS FOR 28 DAYS ORAL 11/10/2024 [id number] 5 Rich VASQUEZ 2024 112 [place] [facility] GABAPENTIN 600MG TAB TAKE ONE TABLET BY MOUTH EVERY 6 HOURS ORAL 06/30/2024 [id number] 5 Rich VASQUEZ 2024 112 [place] [facility] GABAPENTIN 600MG TAB TAKE ONE TABLET BY MOUTH EVERY 6 HOURS ORAL 05/31/2024 [id number] 5 Rich VASQUEZ 2024 112 [place] [facility] GABAPENTIN 600MG TAB TAKE ONE TABLET BY MOUTH EVERY 6 HOURS FOR 28 DAYS FOR NERVE PAIN ORAL 04/12/2024 [id number] 4 Rich VASQUEZ 2023 112 [place] [facility] GABAPENTIN 600MG TAB TAKE ONE TABLET BY MOUTH EVERY 8 HOURS FOR 28 DAYS ORAL 01/19/2024 [id number] 4 Rich VASQUEZ 2023 84 [place] [facility] HYDROCHLORO THIAZIDE 25MG TAB TAKE ONE TABLET BY MOUTH ONCE A DAY FOR HIGH BLOOD PRESSURE ORAL ACTIVE 03/13/2025 [id number] 5 KECIA BARNES [address] [place] [address] [facility] HYDROCHLORO THIAZIDE 25MG TAB TAKE ONE TABLET BY MOUTH ONCE A DAY FOR HIGH BLOOD PRESSURE ORAL DISCONT INUED 03/13/2025 [id number] 4 KECIA BARNES 2023 90 [facility] HYDROCODONE 10MG/ACETAM INOPHEN 325MG TAB TAKE 1-2 TABLETS BY MOUTH EVERY 4 TO 6 HOURS NEEDED FOR PAIN (MAX 8 TABS/DAY , HOLD WITHIN 4 HOURS OF PLANNED SLEEP) THIS QUANTITY MUST LAST 28 DAYS OR MORE CAUTION: DO NOT EXCEED 4000MG PER DAY ACETAMIN OPHEN (APAP) FROM ALL MEDS. ORAL DISCONT INUED 10/20/2024 [id number] 5 Rich VASQUEZ 2024 224 [place] [facility] HYDROCODONE 10MG/ACETAM INOPHEN 325MG TAB TAKE 1-2 TABLETS BY MOUTH EVERY 4 TO 6 HOURS NEEDED FOR PAIN (MAX 8 TABLETS PER DAY; HOLD WITHIN 4 HOURS OF PLANNED SLEEP) THIS QUANTITY MUST LAST 28 DAYS OR MORE CAUTION: DO NOT EXCEED 4000MG PER DAY ACETAMIN OPHEN (APAP) FROM ALL MEDS. ORAL DISCONT INUED 09/26/2024 [id number] 5 Rich VASQUEZ 2024 224 [place] [facility] HYDROCODONE 10MG/ACETAM INOPHEN 325MG TAB TAKE 1-2 TABLETS BY MOUTH EVERY 4 TO 6 HOURS NEEDED FOR PAIN (MAX 8 TABLETS PER DAY; HOLD WITHIN 4 HOURS OF PLANNED SLEEP) THIS QUANTITY MUST LAST 28 DAYS OR MORE CAUTION: DO NOT EXCEED 4000MG PER DAY ACETAMIN OPHEN (APAP) FROM ALL MEDS. ORAL DISCONT INUED 09/08/2024 [id number] 5 Rich VASQUEZ 2024 224 [place] [facility] HYDROCODONE 10MG/ACETAM INOPHEN 325MG TAB TAKE 1-2 TABLETS BY MOUTH EVERY 4 TO 6 HOURS NEEDED FOR PAIN MAX OF 8 TABLETS DAILY. HOLD WITHIN 4 HOURS OF PLANNED SLEEP. MUST LAST 28 DAYS OR LONGER. ORAL DISCONT INUED 05/10/2024 [id number] 4 Rich VASQUEZ 2023 224 [place] [facility] HYDROCODONE 10MG/ACETAM INOPHEN 325MG TAB TAKE 1-2 TABLETS BY MOUTH EVERY 4 TO 6 HOURS NEEDED FOR PAIN (MAX 8 TAB/DAY; HOLD WITHIN 4 HOURS OF PLANNED SLEEP) MUST LAST 28 DAYS OR MORE CAUTION: DO NOT EXCEED 4000MG PER DAY ACETAMIN OPHEN (APAP) FROM ALL MEDS. ORAL DISCONT INUED 03/15/2024 [id number] 4 Rich VASQUEZ 2023 224 [place] [facility] HYDROCODONE 10MG/ACETAM INOPHEN 325MG TAB TAKE 1-2 TABLETS BY MOUTH EVERY 4 TO 6 HOURS NEEDED FOR PAIN (MAX 8 TABLETS PER DAY; HOLD WITHIN 4 HOURS OF PLANNED SLEEP) THIS QUANTITY MUST LAST 28 DAYS OR MORE CAUTION: DO NOT EXCEED 4000MG PER DAY ACETAMIN OPHEN (APAP) FROM ALL MEDS. ORAL DISCONT INUED 02/16/2024 [id number] 4 Rich VASQUEZ 2023 224 [place] [facility] HYDROCODONE 10MG/ACETAM INOPHEN 325MG TAB TAKE 1-2 TABLETS BY MOUTH EVERY 4 TO 6 HOURS NEEDED FOR PAIN (MAX 8 TABLETS PER DAY; HOLD WITHIN 4 HOURS OF PLANNED SLEEP) THIS QUANTITY MUST LAST 28 DAYS OR MORE CAUTION: DO NOT EXCEED 4000MG PER DAY ACETAMIN OPHEN (APAP) FROM ALL MEDS. ORAL DISCONT INUED 12/22/2023 [id number] 4 Rich VASQUEZ 2023 224 [place] [facility] HYDROCODONE 10MG/ACETAM INOPHEN 325MG TAB TAKE 1-2 TABLETS BY MOUTH EVERY 4 TO 6 HOURS NEEDED FOR PAIN (MAX 8/DAY; HOLD WITHIN 4 HOURS OF PLANNED SLEEP) MUST LAST 28 DAYS OR MORE CAUTION: DO NOT EXCEED 4000MG PER DAY ACETAMIN OPHEN (APAP) FROM ALL MEDS. ORAL DISCONT INUED 2023 [id number] 4 Rich VASQUEZ 2023 224 [place] [facility] HYDROCODONE 10MG/ACETAM INOPHEN 325MG TAB TAKE 1-2 TABLETS BY MOUTH EVERY 4 TO 6 HOURS NEEDED FOR PAIN (MAX 8 TABS/DAY , HOLD WITHIN 4 HOURS OF PLANNED SLEEP) THIS QUANTITY MUST LAST 28 DAYS OR MORE CAUTION: DO NOT EXCEED 4000MG PER DAY ACETAMIN OPHEN (APAP) FROM ALL MEDS. ORAL 11/10/2024 [id number] 5 Rich VASQUEZ 2024 224 [place] [facility] HYDROCODONE 10MG/ACETAM INOPHEN 325MG TAB TAKE 1-2 TABLETS BY MOUTH EVERY 4 TO 6 HOURS NEEDED FOR PAIN MAX 8 TABLETS PER DAY, HOLD WITHIN 4 HOURS OF PLANNED SLEEP. MUST LAST 28 DAYS. CAUTION: DO NOT EXCEED 4000MG PER DAY ACETAMIN OPHEN (APAP) FROM ALL MEDS. ORAL 08/04/2024 [id number] 5 Rich VASQUEZ 2024 224 [place] [facility] HYDROCODONE 10MG/ACETAM INOPHEN 325MG TAB TAKE 1-2 TABLETS BY MOUTH EVERY 4 TO 6 HOURS NEEDED FOR PAIN (MAX 8 TABS/DAY , HOLD WITHIN 4 HOURS OF PLANNED SLEEP) THIS QUANTITY MUST LAST 28 DAYS OR MORE CAUTION: DO NOT EXCEED 4000MG PER DAY ACETAMIN OPHEN (APAP) FROM ALL MEDS. ORAL 06/30/2024 [id number] 5 Rich VASQUEZ 2024 224 [place] [facility] HYDROCODONE 10MG/ACETAM INOPHEN 325MG TAB TAKE 1-2 TABLETS BY MOUTH EVERY 4 TO 6 HOURS NEEDED FOR PAIN (MAX OF 8 TABLETS DAILY. HOLD WITHIN 4 HOURS OF PLANNED SLEEP) MUST LAST 28 DAYS OR LONGER * ORAL 05/31/2024 [id number] 5 Rich VASQUEZ 2024 224 [place] [facility] HYDROCODONE 10MG/ACETAM INOPHEN 325MG TAB TAKE 1-2 TABLETS BY MOUTH EVERY 4 TO 6 HOURS NEEDED FOR PAIN. MAX 8/DAY. HOLD WITHIN 4 HOURS OF PLANNED SLEEP. CAUTION: DO NOT EXCEED 4000MG PER DAY ACETAMIN OPHEN (APAP) FROM ALL MEDS. ORAL 04/12/2024 [id number] 4 Rich VASQUEZ 2023 224 [place] [facility] HYDROCODONE 10MG/ACETAM INOPHEN 325MG TAB TAKE 1-2 TABLETS BY MOUTH EVERY 4 TO 6 HOURS NEEDED FOR PAIN. (MAX 8/DAY. HOLD WITHIN 4 HOURS OF PLANNED SLEEP) CAUTION: DO NOT EXCEED 4000MG PER DAY ACETAMIN OPHEN (APAP) FROM ALL MEDS. THIS QUANTITY MUST LAST 28 DAYS OR MORE ORAL 01/19/2024 [id number] 4 Rich VASQUEZ 2023 224 [place] [facility] HYDROCODONE 10MG/ACETAM INOPHEN 325MG TAB TAKE ONE TABLET BY MOUTH EVERY 4 HOURS NEEDED ORAL ACTIVE KADY GARCIA 2017 [facility] LEVOTHYROXI NE NA 25MCG TAB (SYNTHROID) TAKE THREE TABLETS BY MOUTH EVERY MORNING ORAL ACTIVE JACIEL WYATT 2015 [facility] LEVOTHYROXI NE NA 50MCG TAB TAKE ONE TABLET BY MOUTH EVERY MORNING BEFORE A MEAL FOR THYROID. TAKE 30 MINUTES BEFORE FOOD. TAKE SEPARATE LY FROM ALL OTHER MEDICATI ONS. ORAL ACTIVE 05/05/2025 [id number] 5 Rosa Isela DINERO [facility] Q 2023 90 [place] [facility] LORATADINE 10MG TAB TAKE ONE TABLET BY MOUTH EVERY DAY NEEDED ORAL ACTIVE KADY GARCIA 2016 [facility] LOSARTAN 50MG TAB TAKE ONE TABLET BY MOUTH EVERY DAY ORAL ACTIVE YOSELINJACIEL Pratik 2015 [facility] [place] POTASSIUM 100MG TAB TAKE ONE TABLET BY MOUTH ONCE A DAY TO LOWER BLOOD PRESSURE ORAL ACTIVE 03/13/2025 [id number] 5 KECIA BARNES [address] [place] [address] [facility] [place] POTASSIUM 100MG TAB TAKE ONE TABLET BY MOUTH ONCE A DAY TO LOWER BLOOD PRESSURE ORAL DISCONT INUED 01/28/2024 [id number] 4 OPAL YEH [address] [place] [address] [facility] MELOXICAM TAB TAKE BY MOUTH EVERY DAY ORAL ACTIVE KADY GARCIA 2016 [facility] NALOXONE HCL 4MG/SPRAY SOLN,SPRAY, NASAL USE 1 SPRAY (4MG) INTO ONE NOSTRIL ONLY DIRECTED NEEDED DO NOT PRIME NASAL SPRAY. SPRAY ONE DOSE IN ONE NOSTRIL, GIVE ADDITION AL DOSE IF PATIENT DOES NOT START BREATHIN G WITHIN 2-3 MINUTES OR STOPS BREATHIN G AGAIN. CALL 911. IF USED, NOTIFY PROVIDER . NASAL 12/20/2024 [id number] 5 SREEDHAR GRIJALVA 2024 2 [place] [facility] NALOXONE HCL 4MG/SPRAY SOLN,SPRAY, NASAL USE 1 SPRAY (4MG) INTO ONE NOSTRIL ONLY ONE-TIME FOR OPIOID OVERDOSE DO NOT PRIME NASAL SPRAY. SPRAY ONE DOSE IN ONE NOSTRIL, GIVE ADDITION AL DOSE IF PATIENT DOES NOT START BREATHIN G WITHIN 2-3 MINUTES OR STOPS BREATHIN G AGAIN. CALL 911. IF USED, NOTIFY PROVIDER . NASAL 01/21/2024 [id number] 4 KECIA BARNES [address] [facility] OXYCODONE HCL 10MG/ACETAM INOPHEN 325MG TAB TAKE 1 TABLET BY MOUTH EVERY 4 TO 6 HOURS NEEDED MAX 4 TABLETS PER DAY - NOTE: DO NOT EXCEED 4000MG PER DAY ACETAMIN OPHEN (APAP) ORAL SUSPEND ED 02/06/2025 [id number] 5 Zairge, SREEDHAR 2024 120 [place] [facility] OXYCODONE HCL 10MG/ACETAM INOPHEN 325MG TAB TAKE 1 TABLET BY MOUTH EVERY 4 TO 6 HOURS NEEDED FOR PAIN (NOT TO EXCEED 4 TABLETS PER DAY) *THIS SUPPLY MUST LAST 23 DAYS OR MORE* NOTE: DO NOT EXCEED 4000MG PER DAY ACETAMIN OPHEN (APAP) ORAL DISCONT INUED 01/24/[id number] [facility], [facility] 2024 92 [place] [facility] OXYCODONE HCL 10MG/ACETAM INOPHEN 325MG TAB TAKE 1 TABLET BY MOUTH EVERY 4 TO 6 HOURS NEEDED FOR PAIN (NOT TO EXCEED 4 TABLETS PER DAY) THIS QUANTITY MUST LAST 28 DAYS OR MORE - NOTE: DO NOT EXCEED 4000MG PER DAY ACETAMIN OPHEN (APAP) ORAL 12/20/[id number] [facility] [employer], [facility] 2024 [address] [place] [facility] PANTOPRAZOL E NA 40MG TAB,EC TAKE ONE TABLET BY MOUTH EVERY MORNING BEFORE A MEAL TO LOWER STOMACH ACID - TAKE 30 MINUTES BEFORE MEAL(S) ORAL ACTIVE 03/13/2025 [id number] 4 CAMERON KECIA 2023 90 [place] [facility] PANTOPRAZOL E NA 40MG TAB,EC TAKE ONE TABLET BY MOUTH EVERY DAY ORAL ACTIVE KADY GARCIA 2016 [facility] PRAVASTATIN NA 40MG TAB TAKE ONE TABLET BY MOUTH AT BEDTIME ORAL ACTIVE YOSELINJACIEL Rouse E 2015 [facility] PSEUDOEPHED RINE HCL 60MG TAB TAKE ONE TABLET BY MOUTH EVERY 6 HOURS NEEDED ORAL ACTIVE KADY GARCIA 2017 [facility] ROSUVASTATI N CA 40MG TAB TAKE ONE TABLET BY MOUTH AT BEDTIME ORAL ACTIVE JI MONTANO [address] [facility] SUCRALFATE 1GM TAB TAKE ONE TABLET BY MOUTH TWICE A DAY FOR DUODENAL ULCER - TAKE ON AN EMPTY STOMACH. ORAL ACTIVE 11/28/2025 [id number] 5 Caprice KEMP 2024 180 [facility] TRAZODONE HCL 100MG TAB TAKE ONE-HALF TABLET BY MOUTH AT BEDTIME NEEDED FOR MOOD OR SLEEP. ORAL ACTIVE 03/13/2025 [id number] 4 CAMERON KECIA 2023 45 [facility] Allergies, Adverse Reactions, Alerts Combined list of allergies from Department of Defense and Veterans Affairs facilities. It does not include entries that were removed or entered in error. Substance Category Reaction Severity Reaction type Status Date Reported Comments Source AMLODIPINE Propensity to adverse reactions to drug (finding) Edema MODERATE active 4 [facility] Immunizations Combined list of available immunizations from the Department of Defense and Veterans Affairs facilities. Immunization Series Date Given Administered By Site Reaction Lot Number CVX Code Drug Ep Tech Status Comments Source TDAP 2 2020 115 complet ed HISTORICA L INFORMATI ON - FROM OTHER REGISTRY, [facility] TDAP 2017 115 complet ed [place] [facility] INFLUENZA, INJECTABLE, QUADRIVALENT, PRESERVATIVE FREE [address] [facility] INFLUENZA, UNSPECIFIED FORMULATION 2017 88 complet ed [facility] INFLUENZA, UNSPECIFIED FORMULATION 2016 88 complet ed [place] INFLUENZA, SEASONAL, INJECTABLE, PRESERVATIVE FREE 2016 140 complet ed Left Deltoid [facility] TDAP 2016 115 complet ed [facility] INFLUENZA, UNSPECIFIED FORMULATION 2015 88 complet ed [place] INFLUENZA, SPLIT VIRUS, QUADRIVALENT, PF 3 2015 150 complet ed HISTORICA L INFORMATI ON - FROM OTHER [facility], [facility] INFLUENZA, HIGH-DOSE, TRIVALENT, PF 2 2014 135 complet ed HISTORICA L INFORMATI ON - FROM OTHER [facility], [facility] INFLUENZA, UNSPECIFIED FORMULATION 2014 88 complet ed [place] INFLUENZA, WHOLE 1 2014 16 complet ed HISTORICA L INFORMATI ON - FROM OTHER REGISTRY, [facility] PNEUMOCOCCAL CONJUGATE PCV 13 1 2013 133 complet ed HISTORICA L INFORMATI ON - FROM OTHER REGISTRY, [facility] INFLUENZA, UNSPECIFIED FORMULATION 2012 88 complet ed [facility] PNEUMOCOCCAL, UNSPECIFIED FORMULATION 2011 109 complet ed [facility] INFLUENZA (HISTORICAL) 2011 88 complet ed [facility] INFLUENZA, UNSPECIFIED FORMULATION 2010 88 complet ed [facility] INFLUENZA, SPLIT VIRUS, TRIVALENT, PRESERVATIVE 2009 141 complet ed HISTORICA L INFORMATI ON - FROM OTHER REGISTRY, [facility] INFLUENZA, UNSPECIFIED FORMULATION [address] [facility] NOVEL INFLUENZA-H1N 1-09, ALL FORMULATIONS 2008 128 complet ed [employer] [facility] INFLUENZA, UNSPECIFIED FORMULATION [address] [facility] DTAP, UNSPECIFIED FORMULATION [address] [facility] PNEUMOCOCCAL, UNSPECIFIED FORMULATION 2008 109 complet ed [place], [id number], 10/03/[address] [facility] INFLUENZA, UNSPECIFIED FORMULATION 2007 88 complet ed [place] Results Combined list of recent chemistry, hematology and other laboratory results from [facility] [employer] [facility], ranging from 15 months to all on record, depending upon the facility. Order Name Results Value Reference Range Date Interpretation Specimen Comments Source POC UA (STL-PB-M A) PROTEIN [MASS/VOLUM E] IN URINE BY TEST STRIP 30 mg/dL 09/19 Specimen Type: URINE No comment entered. Ordering Provider: DANIEL BARNES Report Released Date/Time: October 09, 2024 02:06 PM Reporting Lab: [facility] [address] [facility] [address] Performing Lab: [facility] [address] [facility] [address] [facility] POC UA (STL-PB-M A) HEMOGLOBIN [MASS/VOLUM E] IN URINE BY TEST STRIP Trace-in tact 09/19 Specimen Type: URINE No comment entered. Ordering Provider: CAMERON,TA MMY Report Released Date/Time: October 09, 2024 02:06 PM Reporting Lab: [place] [place] [facility] [address] [facility] [place] [address] Performing Lab: [place] [address] [facility] [address] [facility] [address] [facility] POC UA (STL-PB-M A) LEUKOCYTES [PRESENCE] IN URINE Negative 09/19 Specimen Type: URINE No comment entered. Ordering Provider: DANIEL BARNES MMY Report Released Date/Time: October 09, 2024 02:06 PM Reporting Lab: [facility] [address] [facility] [address] Performing Lab: [place] [address] [facility] [address] [facility] [address] [facility] POC UA (STL-PB-M A) COLOR OF URINE Dark yellow 09/19 Specimen Type: URINE No comment entered. Ordering Provider: DANIEL BARNES MMY Report Released Date/Time: October 09, 2024 02:06 PM Reporting Lab: [place] [address] [facility] [address] Performing Lab: [place] [address] [facility] [address] [facility] [address] [facility] POC UA (STL-PB-M A) SPECIFIC GRAVITY OF URINE 1.025 1.005 - 1.030 09/19 Specimen Type: URINE No comment entered. Ordering Provider: DANIEL BARNES MMY Report Released Date/Time: October 09, 2024 02:06 PM Reporting Lab: [place] [address] [facility] [address] Performing Lab: [place] [address] [facility] [address] [facility] POC UA (STL-PB-M A) UROBILINOGE N [UNITS/VOLU ME] IN URINE 0.2 {Whitney 'U}/dL 0.1 - 1.0 09/19 Specimen Type: URINE No comment entered. Ordering Provider: DANEIL BARNES MMY Report Released Date/Time: October 09, 2024 02:06 PM Reporting Lab: [place] [address] [facility] [address] Performing Lab: [place] [address] [facility] [address] [facility] POC UA (STL-PB-M A) BILIRUBIN.T OTAL [PRESENCE] IN URINE Negative 09/19 Specimen Type: URINE No comment entered. Ordering Provider: DANIEL BARNES MMY Report Released Date/Time: October 09, 2024 02:06 PM Reporting Lab: [place] [address] [facility] [address] Performing Lab: [place] [address] [facility] [address] [facility] POC UA (STL-PB-M A) KETONES [MASS/VOLUM E] IN URINE BY TEST STRIP Negative mg/dL 09/19 Specimen Type: URINE No comment entered. Ordering Provider: DANIEL BARNES MMY Report Released Date/Time: October 09, 2024 02:06 PM Reporting Lab: [place] [address] [facility] [address] Performing Lab: [place] [address] [facility] [address] [facility] POC UA (STL-PB-M A) GLUCOSE [MASS/VOLUM E] IN URINE BY TEST STRIP Negative mg/dL 09/19 Specimen Type: URINE No comment entered. Ordering Provider: DANIEL BARNES MMY Report Released Date/Time: October 09, 2024 02:06 PM Reporting Lab: [place] [facility] [address] [facility] [address] Performing Lab: [place] [facility] [address] [facility] [address] [facility] POC UA (STL-PB-M A) PH OF URINE 5.5 5.0 - 8.0 09/19 Specimen Type: URINE No comment entered. Ordering Provider: DANIEL BARNES MMY Report Released Date/Time: October 09, 2024 02:06 PM Reporting Lab: [place] [address] [facility] [address] Performing Lab: [place] [facility] [address] [facility] [address] [facility] POC UA (STL-PB-M A) NITRITE [PRESENCE] IN URINE BY TEST STRIP Negative 09/19 Specimen Type: URINE No comment entered. Ordering Provider: DANIEL BARNES MMY Report Released Date/Time: October 09, 2024 02:06 PM Reporting Lab: [place] [facility] [address] [facility] [address] Performing Lab: [place] [address] [facility] [address] [facility] POC UA (STL-PB-M A) CLARITY OF URINE Clear 09/19 Specimen Type: URINE No comment entered. Ordering Provider: DANIEL BARNES MMY Report Released Date/Time: October 09, 2024 02:06 PM Reporting Lab: [place] [address] [facility] [address] Performing Lab: [place] [facility] [address] [facility] [address] [facility] B12 COBALAMIN (VITAMIN B12) [MASS/VOLUM E] IN SERUM OR PLASMA 517 pg/mL 213 - 816 09/19 Specimen Type: SERUM No comment entered. Ordering Provider: DANIEL BARNES MMY Report Released Date/Time: September 19, 2024 02:31 PM Reporting Lab: [place] [facility] [address] [place] [address] Performing Lab: [place] [facility] [address] [place] [address] [facility] FOLATE (PB) FOLATE [MASS/VOLUM E] IN SERUM OR PLASMA 3.5 ng/mL 7 - 20 09/19 L Specimen Type: SERUM No comment entered. Ordering Provider: DANIEL BARNES MMY Report Released Date/Time: September 19, 2024 02:31 PM Reporting Lab: [place] [facility] [address] [place] [address] Performing Lab: [place] [facility] [address] [place] [address] [place] [address] [facility] VITAMIN D, 25-HYDROX Y 25-HYDROXYV ITAMIN D3 [MASS/VOLUM E] IN SERUM OR PLASMA 28.8 ng/mL 30 - 96 09/19 L Specimen Type: SERUM No comment entered. Ordering Provider: DANIEL BARNES MMY Report Released Date/Time: September 19, 2024 02:31 PM Reporting Lab: [place] [facility] [address] [place] [address] Performing Lab: [place] [facility] [address] [place] [address] [facility] DRUG SCREEN URINE-inh ouse (PB) METHADONE [PRESENCE] IN URINE Negative 09/19 Specimen Type: URINE No comment entered. Ordering Provider: DANIEL BARNES MMY Report Released Date/Time: September 19, 2024 02:27 PM Reporting Lab: [place] [facility] [address] [place] [address] Performing Lab: [place] [facility] [address] [place] [address] [facility] DRUG SCREEN URINE-inh ouse (PB) OPIATES [PRESENCE] IN URINE BY SCREEN METHOD Positive 09/19 Specimen Type: URINE No comment entered. Ordering Provider: DANIEL BARNES MMY Report Released Date/Time: September 19, 2024 02:27 PM Reporting Lab: [place] [facility] [address] [place] [address] Performing Lab: [place] [facility] [address] [place] [address] [facility] DRUG SCREEN URINE-inh ouse (PB) COCAINE [PRESENCE] IN URINE Negative 09/19 Specimen Type: URINE No comment entered. Ordering Provider: DANIEL BARNES MMY Report Released Date/Time: September 19, 2024 02:27 PM Reporting Lab: [place] [facility] [address] [place] [facility] Performing Lab: [place] [facility] [address] [place] [address] [facility] DRUG SCREEN URINE-inh ouse (PB) TETRAHYDROC ANNABINOL [PRESENCE] IN URINE BY SCREEN METHOD Negative 09/19 Specimen Type: URINE No comment entered. Ordering Provider: DANIEL BARNES MMY Report Released Date/Time: September 19, 2024 02:27 PM Reporting Lab: [place] [facility] [address] [place] [address] Performing Lab: [place] [facility] [address] [place] [address] [place] [address] [facility] DRUG SCREEN URINE-inh ouse (PB) BENZODIAZEP HAYLEE [PRESENCE] IN URINE BY SCREEN METHOD Negative 09/19 Specimen Type: URINE No comment entered. Ordering Provider: DANIEL BARNES MMY Report Released Date/Time: September 19, 2024 02:27 PM Reporting Lab: [place] [facility] [address] [place] [address] Performing Lab: [place] [facility] [address] [place] [address] [facility] DRUG SCREEN URINE-inh ouse (PB) AMPHETAMINE [PRESENCE] IN URINE BY SCREEN METHOD Negative 09/19 Specimen Type: URINE No comment entered. Ordering Provider: DANIEL BARNES MMY Report Released Date/Time: September 19, 2024 02:27 PM Reporting Lab: [place] [facility] [address] [place] [address] Performing Lab: [place] [facility] [address] [place] [address] [facility] DRUG SCREEN URINE-inh ouse (PB) CREATININE [MASS/VOLUM E] IN URINE 194.03 mg/dL 09/19 Specimen Type: URINE No comment entered. Ordering Provider: DANIEL BARNES MMY Report Released Date/Time: September 19, 2024 02:27 PM Reporting Lab: [place] [facility] [address] [place] [address] Performing Lab: [place] [facility] [address] [place] [address] [facility] DRUG SCREEN URINE-inh ouse (PB) OXYCODONE CUTOFF [MASS/VOLUM E] IN URINE FOR SCREEN METHOD Negative 09/19 Specimen Type: URINE No comment entered. Ordering Provider: DANIEL BARNES MMY Report Released Date/Time: September 19, 2024 02:27 PM Reporting Lab: [place] [facility] [address] [place] [address] Performing Lab: [place] [facility] [address] [place] [address] [facility] DRUG SCREEN URINE-inh ouse (PB) BUPRENORPHI NE [PRESENCE] IN URINE Negative ng/mL 09/19 Specimen Type: URINE No comment entered. Ordering Provider: DANIEL BARNES MMY Report Released Date/Time: September 19, 2024 02:27 PM Reporting Lab: [place] [facility] [address] [place] [address] Performing Lab: [place] [facility] [address] [place] [address] [facility] DRUG SCREEN URINE-inh ouse (PB) ETHANOL [MASS/VOLUM E] IN URINE <10mg/dL 0 - 20 09/19 L Specimen Type: URINE No comment entered. Ordering Provider: DANIEL BARNES MMY Report Released Date/Time: September 19, 2024 02:27 PM Reporting Lab: [place] [facility] [address] [place] [address] Performing Lab: [place] [facility] [address] [place] [address] [facility] DRUG SCREEN URINE-inh ouse (PB) FENTANYL [PRESENCE] IN URINE Negative ng/mL 09/19 Specimen Type: URINE No comment entered. Ordering Provider: DANIEL BARNES MMY Report Released Date/Time: September 19, 2024 02:27 PM Reporting Lab: [place] [facility] [address] [place] [address] Performing Lab: [place] [facility] [address] [place] [address] [facility] COMPREHEN SIVE METABOLIC PANEL CREATININE [MASS/VOLUM E] IN SERUM OR PLASMA 1.57 mg/dL 0.7 - 1.3 09/19 H Specimen Type: PLASMA No comment entered. Ordering Provider: DANIEL BARNES MMY Report Released Date/Time: September 19, 2024 02:31 PM Reporting Lab: [place] [facility] [address] [place] [address] Performing Lab: [place] [facility] [address] [place] [address] [facility] COMPREHEN SIVE METABOLIC PANEL UREA NITROGEN [MASS/VOLUM E] IN SERUM OR PLASMA 25 mg/dL 9 - 25 09/19 Specimen Type: PLASMA No comment entered. Ordering Provider: DANIEL BARNES MMY Report Released Date/Time: September 19, 2024 02:31 PM Reporting Lab: [place] [facility] [address] [place] [address] Performing Lab: [place] [facility] [address] [place] [address] [facility] COMPREHEN SIVE METABOLIC PANEL GLUCOSE [MASS/VOLUM E] IN SERUM OR PLASMA 88 mg/dL 72 - 99 09/19 Specimen Type: PLASMA No comment entered. Ordering Provider: DANIEL BARNES MMY Report Released Date/Time: September 19, 2024 02:31 PM Reporting Lab: [place] [facility] [address] [place] [address] Performing Lab: [place] [facility] [address] [place] [address] [facility] COMPREHEN SIVE METABOLIC PANEL SODIUM [MOLES/VOLU ME] IN SERUM OR PLASMA 140 meq/L 136 - 145 09/19 Specimen Type: PLASMA No comment entered. Ordering Provider: DANIEL BARNES MMY Report Released Date/Time: September 19, 2024 02:31 PM Reporting Lab: [place] [facility] [address] [place] [address] Performing Lab: [place] [facility] [address] [place] [address] [facility] COMPREHEN SIVE METABOLIC PANEL POTASSIUM [MOLES/VOLU ME] IN SERUM OR PLASMA 4.2 meq/L 3.5 - 5 09/19 Specimen Type: PLASMA No comment entered. Ordering Provider: DANIEL BARNES MMY Report Released Date/Time: September 19, 2024 02:31 PM Reporting Lab: [place] [facility] [address] [place] [address] Performing Lab: [place] [facility] [address] [place] [address] [facility] COMPREHEN SIVE METABOLIC PANEL CHLORIDE [MOLES/VOLU ME] IN SERUM OR PLASMA 102 meq/L 98 - 107 09/19 Specimen Type: PLASMA No comment entered. Ordering Provider: DANIEL BARNES MMY Report Released Date/Time: September 19, 2024 02:31 PM Reporting Lab: [place] [facility] [address] [place] [address] Performing Lab: [place] [facility] [address] [place] [address] [facility] COMPREHEN SIVE METABOLIC PANEL CARBON DIOXIDE, TOTAL [MOLES/VOLU ME] IN SERUM OR PLASMA 27 meq/L 22 - 31 09/19 Specimen Type: PLASMA No comment entered. Ordering Provider: DANIEL BARNES Report Released Date/Time: September 19, 2024 02:31 PM Reporting Lab: [place] [facility] [address] [place] [address] Performing Lab: [place] [facility] [address] [place] [address] [facility] COMPREHEN SIVE METABOLIC PANEL CALCIUM [MASS/VOLUM E] IN SERUM OR PLASMA 9.5 mg/dL 8.4 - 10.4 09/19 Specimen Type: PLASMA No comment entered. Ordering Provider: DANIEL BARNES Report Released Date/Time: September 19, 2024 02:31 PM Reporting Lab: [place] [facility] [address] [place] [address] Performing Lab: [place] [facility] [address] [place] [address] [facility] COMPREHEN SIVE METABOLIC PANEL PROTEIN [MASS/VOLUM E] IN SERUM OR PLASMA 7.1 g/dL 6 - 8.6 09/19 Specimen Type: PLASMA No comment entered. Ordering Provider: DANIEL BARNES MMY Report Released Date/Time: September 19, 2024 02:31 PM Reporting Lab: [place] [facility] [address] [place] [address] Performing Lab: [place] [facility] [address] [place] [address] [facility] COMPREHEN SIVE METABOLIC PANEL ALBUMIN [MASS/VOLUM E] IN SERUM OR PLASMA 4.6 g/dL 3.4 - 5 09/19 Specimen Type: PLASMA No comment entered. Ordering Provider: DANIEL BARNES MMY Report Released Date/Time: September 19, 2024 02:31 PM Reporting Lab: [place] [facility] [address] [place] [address] Performing Lab: [place] [facility] [address] [place] [address] [facility] COMPREHEN SIVE METABOLIC PANEL BILIRUBIN.T OTAL [MASS/VOLUM E] IN SERUM OR PLASMA 0.5 mg/dL 0.2 - 1.2 09/19 Specimen Type: PLASMA No comment entered. Ordering Provider: DANIEL BARNES MMY Report Released Date/Time: September 19, 2024 02:31 PM Reporting Lab: [place] [facility] [address] [place] [address] Performing Lab: [place] [facility] [address] [place] [address] [facility] COMPREHEN SIVE METABOLIC PANEL ALKALINE PHOSPHATASE [ENZYMATIC ACTIVITY/VO LUME] IN SERUM OR PLASMA 58 U/L 40 - 150 09/19 Specimen Type: PLASMA No comment entered. Ordering Provider: DANIEL BARNES MMY Report Released Date/Time: September 19, 2024 02:31 PM Reporting Lab: [place] [facility] [address] [place] [address] Performing Lab: [place] [facility] [address] [place] [address] [facility] COMPREHEN SIVE METABOLIC PANEL ASPARTATE AMINOTRANSF ERASE [ENZYMATIC ACTIVITY/VO LUME] IN SERUM OR PLASMA 25 U/L 5 - 34 09/19 Specimen Type: PLASMA No comment entered. Ordering Provider: DANIEL BARNES MMY Report Released Date/Time: September 19, 2024 02:31 PM Reporting Lab: [place] [facility] [address] [place] [address] Performing Lab: [place] [facility] [address] [place] [address] [facility] COMPREHEN SIVE METABOLIC PANEL ALANINE AMINOTRANSF ERASE [ENZYMATIC ACTIVITY/VO LUME] IN SERUM OR PLASMA 19 U/L 8 - 40 09/19 Specimen Type: PLASMA No comment entered. Ordering Provider: DANIEL BARNES MMY Report Released Date/Time: September 19, 2024 02:31 PM Reporting Lab: [place] [facility] [address] [place] [address] Performing Lab: [place] [facility] [address] [place] [address] [facility] COMPREHEN SIVE METABOLIC PANEL GLOMERULAR FILTRATION RATE/1.73 SQ M.PREDICTED [VOLUME RATE/AREA] IN SERUM, PLASMA OR BLOOD BY CREATININE- BASED FORMULA (CKD-EPI 2020) 51 09/19 Specimen Type: PLASMA No comment entered. Ordering Provider: DANIEL BARNES MMY Report Released Date/Time: September 19, 2024 02:31 PM Reporting Lab: [place] [facility] [address] [place] [address] Performing Lab: [place] [facility] [address] [place] [address] [facility] CBC LEUKOCYTES [#/VOLUME] IN BLOOD BY AUTOMATED COUNT 7.9 10*3/uL 3.6 - 11.2 09/19 Specimen Type: BLOOD No comment entered. Ordering Provider: DANIEL BARNES MMY Report Released Date/Time: September 19, 2024 02:31 PM Reporting Lab: [place] [facility] [address] [place] [address] Performing Lab: [place] [facility] [address] [place] [address] [facility] CBC ERYTHROCYTE S [#/VOLUME] IN BLOOD BY AUTOMATED COUNT 4.58 10*6/uL 4.10 - 5.70 09/19 Specimen Type: BLOOD No comment entered. Ordering Provider: DANIEL BARNES MMY Report Released Date/Time: September 19, 2024 02:31 PM Reporting Lab: [place] [facility] [address] [place] [address] Performing Lab: [place] [facility] [address] [place] [address] [facility] CBC HEMOGLOBIN [MASS/VOLUM E] IN BLOOD 14.8 g/dL 13.1 - 16.8 09/19 Specimen Type: BLOOD No comment entered. Ordering Provider: DANIEL BARNES MM[facility] Report Released Date/Time: September 19, 2024 02:31 PM Reporting Lab: [place] [facility] [address] [place] [address] Performing Lab: [place] [facility] [address] [place] [address] [place] [address] [facility] CBC HEMATOCRIT [VOLUME FRACTION] OF BLOOD 43.2 38.2 - 48.4 09/19 Specimen Type: BLOOD No comment entered. Ordering Provider: DANIEL BARNES [facility] Report Released Date/Time: September 19, 2024 02:31 PM Reporting Lab: [place] [facility] [address] [place] [phone] Performing Lab: [place] [facility] [address] [place] [id number] [facility] CBC MCV [ENTITIC VOLUME] BY AUTOMATED COUNT 94.3 fL 80.0 - 100.0 09/19 Specimen Type: BLOOD No comment entered. Ordering Provider: DANIEL BARNES MM[facility] Report Released Date/Time: September 19, 2024 02:31 PM Reporting Lab: [place] [facility] [address] [place] [address] Performing Lab: [place] [facility] [address] [place] [address] [facility] CBC MCH [ENTITIC MASS] BY AUTOMATED COUNT 32.3 pg 27.0 - 34.0 09/19 Specimen Type: BLOOD No comment entered. Ordering Provider: DANIEL BARNES [facility] Report Released Date/Time: September 19, 2024 02:31 PM Reporting Lab: [place] [facility] [address] [place] [address] Performing Lab: [place] [facility] [address] [place] [address] [facility] CBC MCHC [MASS/VOLUM E] BY AUTOMATED COUNT 34.3 g/dL 33.0 - 36.0 09/19 Specimen Type: BLOOD No comment entered. Ordering Provider: DANIEL BARNES [facility] Report Released Date/Time: September 19, 2024 02:31 PM Reporting Lab: [place] [facility] [address] [place] [address] Performing Lab: [place] [facility] [address] [place] [address] [facility] CBC PLATELETS [#/VOLUME] IN BLOOD BY AUTOMATED COUNT 336 10*3/uL 150 - 400 09/19 Specimen Type: BLOOD No comment entered. Ordering Provider: DANIEL BARNES [facility] Report Released Date/Time: September 19, 2024 02:31 PM Reporting Lab: [place] [facility] [address] [place] [address] Performing Lab: [place] [facility] [address] [place] [address] [facility] CBC PLATELET MEAN VOLUME [ENTITIC VOLUME] IN BLOOD BY AUTOMATED COUNT 9.3 fL 7.5 - 11.2 09/19 Specimen Type: BLOOD No comment entered. Ordering Provider: DANIEL BARNES [facility] Report Released Date/Time: September 19, 2024 02:31 PM Reporting Lab: [place] [facility] [address] [place] [address] Performing Lab: [place] [facility] [address] [place] [address] [facility] CBC ERYTHROCYTE DISTRIBUTIO N WIDTH [RATIO] BY AUTOMATED COUNT 12.2 11.8 - 15.1 09/19 Specimen Type: BLOOD No comment entered. Ordering Provider: DANIEL BARNES [facility] Report Released Date/Time: September 19, 2024 02:31 PM Reporting Lab: [place] [facility] [address] [place] [address] Performing Lab: [place] [facility] [address] [place] [address] [facility] CBC LYMPHOCYTES /100 LEUKOCYTES IN BLOOD BY AUTOMATED COUNT 27.4 09/19 Specimen Type: BLOOD No comment entered. Ordering Provider: DANIEL BARNES [facility] Report Released Date/Time: September 19, 2024 02:31 PM Reporting Lab: [place] [facility] [address] [place] [address] Performing Lab: [place] [facility] [address] [place] [address] [facility] CBC MONOCYTES/1 00 LEUKOCYTES IN BLOOD BY AUTOMATED COUNT 7.2 09/19 Specimen Type: BLOOD No comment entered. Ordering Provider: DANIEL BARNES MMY Report Released Date/Time: September 19, 2024 02:31 PM Reporting Lab: [place] [facility] [address] [place] [address] Performing Lab: [place] [facility] [address] [place] [address] [facility] CBC NEUTROPHILS /100 LEUKOCYTES IN BLOOD BY AUTOMATED COUNT 62.0 09/19 Specimen Type: BLOOD No comment entered. Ordering Provider: DANIEL BARNES MMY Report Released Date/Time: September 19, 2024 02:31 PM Reporting Lab: [place] [facility] [address] [place] [address] Performing Lab: [place] [facility] [address] [place] [address] [facility] CBC EOSINOPHILS /100 LEUKOCYTES IN BLOOD BY AUTOMATED COUNT 2.0 09/19 Specimen Type: BLOOD No comment entered. Ordering Provider: DANIEL BARNES MMY Report Released Date/Time: September 19, 2024 02:31 PM Reporting Lab: [place] [facility] [address] [place] [address] Performing Lab: [place] [facility] [address] [place] [address] [facility] CBC BASOPHILS/1 00 LEUKOCYTES IN BLOOD BY AUTOMATED COUNT 1.1 09/19 Specimen Type: BLOOD No comment entered. Ordering Provider: DANIEL BARNES MMY Report Released Date/Time: September 19, 2024 02:31 PM Reporting Lab: [place] [facility] [address] [place] [address] Performing Lab: [place] [facility] [address] [place] [address] [facility] CBC LYMPHOCYTES [#/VOLUME] IN BLOOD BY AUTOMATED COUNT 2.17 10*3/uL 0.77 - 4.50 09/19 Specimen Type: BLOOD No comment entered. Ordering Provider: DANIEL BARNES MMY Report Released Date/Time: September 19, 2024 02:31 PM Reporting Lab: [place] [facility] [address] [place] [address] Performing Lab: [place] [facility] [address] [place] [address] [facility] CBC MONOCYTES [#/VOLUME] IN BLOOD BY AUTOMATED COUNT 0.57 10*3/uL 0.19 - 0.8 09/19 Specimen Type: BLOOD No comment entered. Ordering Provider: DANIEL BARNES MMY Report Released Date/Time: September 19, 2024 02:31 PM Reporting Lab: [place] [facility] [address] [place] [address] Performing Lab: [place] [facility] [address] [place] [address] [facility] CBC NEUTROPHILS [#/VOLUME] IN BLOOD BY AUTOMATED COUNT 4.90 10*3/uL 2.10 - 8.00 09/19 Specimen Type: BLOOD No comment entered. Ordering Provider: DANIEL BARNES MMY Report Released Date/Time: September 19, 2024 02:31 PM Reporting Lab: [place] [facility] [address] [place] [address] Performing Lab: [place] [facility] [address] [place] [address] [facility] CBC EOSINOPHILS [#/VOLUME] IN BLOOD BY AUTOMATED COUNT 0.16 10*3/uL 0.00 - 0.60 09/19 Specimen Type: BLOOD No comment entered. Ordering Provider: DANIEL BARNES MMY Report Released Date/Time: September 19, 2024 02:31 PM Reporting Lab: [place] [facility] [address] [place] [address] Performing Lab: [place] [facility] [address] [place] [address] [place] [address] [facility] CBC BASOPHILS [#/VOLUME] IN BLOOD BY AUTOMATED COUNT 0.09 10*3/uL 0.00 - 0.20 09/19 Specimen Type: BLOOD No comment entered. Ordering Provider: DANIEL BARNES MMY Report Released Date/Time: September 19, 2024 02:31 PM Reporting Lab: [place] [facility] [address] [place] [address] Performing Lab: [place] [facility] [address] [place] [address] [facility] CBC IMMATURE GRANULOCYTE S/100 LEUKOCYTES IN BLOOD BY AUTOMATED COUNT 0.3 09/19 Specimen Type: BLOOD No comment entered. Ordering Provider: DANIEL BARNES MMY Report Released Date/Time: September 19, 2024 02:31 PM Reporting Lab: [place] [facility] [address] [place] [address] Performing Lab: [place] [facility] [address] [place] [address] [facility] CBC IMMATURE GRANULOCYTE S [#/VOLUME] IN BLOOD BY AUTOMATED COUNT 0.02 10*3/uL 0.00 - 0.05 09/19 Specimen Type: BLOOD No comment entered. Ordering Provider: DANIEL BARNES MMY Report Released Date/Time: September 19, 2024 02:31 PM Reporting Lab: [place] [facility] [address] [place] [address] Performing Lab: [place] [facility] [address] [place] [address] [facility] TOTAL T3 (PB-SO) TRIIODOTHYR ONINE (T3) FREE [MASS/VOLUM E] IN SERUM OR PLASMA 79.9 ng/dL 76 - 181 05/04 Specimen Type: SERUM Comment: [facility], [facility], [address] [place], [place] Brent Dunne M.D., Ph.D., Director of Laboratorie s , [place] [id number] Ordering Provider: DANIEL BARNES Report Released Date/Time: Mar 27, 2024 08:43 AM Reporting Lab: [place] [facility] [address] [place] [address] Performing Lab: [place] [facility] [address] [facility] TSH (MA-PB) THYROTROPIN [UNITS/VOLU ME] IN SERUM OR PLASMA 5.025 u[IU]/mL 0.47 - 5 05/04 H Specimen Type: SERUM No comment entered. Ordering Provider: DANIEL BARNES Report Released Date/Time: Mar 27, 2024 08:43 AM Reporting Lab: [place] [facility] [address] [place] [address] Performing Lab: [place] [facility] [address] [place] [address] [facility] TSH (MA-PB) THYROXINE (T4) FREE [MASS/VOLUM E] IN SERUM OR PLASMA 1.12 ng/dL 05/04 Specimen Type: SERUM No comment entered. Ordering Provider: DANIEL BARNES Report Released Date/Time: Mar 27, 2024 08:43 AM Reporting Lab: [place] [facility] [address] [place] [address] Performing Lab: [place] [facility] [address] [place] [address] [facility] HGA1C HEMOGLOBIN A1C/HEMOGLO BIN.TOTAL IN BLOOD 5.5 4.0 - 6.0 03/23 Specimen Type: BLOOD No comment entered. Ordering Provider: DANIEL BARNES Report Released Date/Time: Jan 23, 2024 02:12 PM Reporting Lab: [place] [facility] [address] [place] [address] Performing Lab: [place] [facility] [address] [place] [address] [place] [facility] Vital Signs Combined list of inpatient and outpatient Vital Signs from Department of Defense and Veterans Affairs, ranging from 12 months to all on record, depending upon the facility. Vital Sign Value Date Comments Source SYSTOLIC BLOOD PRESSURE 100 01/01/2025 16:03:00 [place] [facility] DIASTOLIC BLOOD PRESSURE 69 01/01/2025 16:03:00 [facility] [place] [facility] PULSE OXIMETRY 95 % 01/01/2025 16:03:00 [place] [facility] WEIGHT 193.6 01/01/2025 16:03:00 [facility] [place] [facility] BMI 30 kg/m2 01/01/2025 16:03:00 [place] [facility] PAIN 6 01/01/2025 16:03:00 [place] [facility] PULSE 78 01/01/2025 16:03:[place] [facility] RESPIRATION 17 01/01/2025 16:03:[place] [facility] SYSTOLIC BLOOD PRESSURE 155 09/19/2024 13:58:00 [place] [facility] DIASTOLIC BLOOD PRESSURE 99 09/19/2024 13:58:00 [facility] [place] [facility] PULSE OXIMETRY 97 09/19/2024 13:58:00 [facility] [place] [facility] WEIGHT 201.8 09/19/2024 13:58:00 [place] [facility] BMI 32 kg/m2 09/19/2024 13:58:00 [place] [facility] PAIN 6 09/19/2024 13:58:00 [facility] [place] [facility] TEMPERATURE 98.5 09/19/2024 13[place]58:00 [place] [facility] PULSE 63 09/19/2024 13:58:[place] [facility] RESPIRATION 20 09/19/2024 13:58:00 [place] [facility] SYSTOLIC BLOOD PRESSURE 132 06/14/2024 10:49:00 [facility] [place] [facility] DIASTOLIC BLOOD PRESSURE 86 06/14/2024 10:49:00 [facility] [place] [facility] PULSE OXIMETRY 96 06/14/2024 10:49:00 [place] [facility] WEIGHT 196.8 06/14/2024 10:49:00 [place] [facility] BMI 31 kg/m2 06/14/2024 10:49:00 [place] [facility] TEMPERATURE 98.1 06/14/2024 10:49:00 [place] [facility] PULSE 59 06/14/2024 10:49:00 [place] [facility] RESPIRATION 18 06/14/2024 10:49:00 [place] [facility] SYSTOLIC BLOOD PRESSURE 144 03/23/2024 14:22:28 [place] [facility] DIASTOLIC BLOOD PRESSURE 95 03/23/2024 14:22:28 [place] [facility] PULSE OXIMETRY 95 03/23/2024 14:22:28 [place] [facility] PULSE 74 03/23/2024 14:22:28 [place] [facility] RESPIRATION 18 03/23/2024 14:22:28 [place] [facility] SYSTOLIC BLOOD PRESSURE 162 03/12/2024 13:30:00 [place] [facility] DIASTOLIC BLOOD PRESSURE 98 03/12/2024 13:30:00 [place] [facility] PULSE OXIMETRY 97 03/12/2024 13:30:00 [place] [facility] WEIGHT 214.4 03/12/2024 13:30:00 [place] [facility] BMI 34 kg/m2 03/12/2024 13:30:00 [place] [facility] TEMPERATURE 98.7 03/12/2024 13:30:00 [place] [facility] PULSE 68 03/12/2024 13:30:00 [place] [facility] RESPIRATION 18 03/12/2024 13:30:00 [place] [facility] Encounters Combined list of: 1) Encounters from Department of Veterans Affairs facilities going backup to the last 18 months, not all VA inpatient encounters are included; 2) Encounters from the Department of Defense facilities going backup to 280 months. Location Location Details Encounter Type Encounter Number Reason For Visit Attending Provider ADM Date DC Date Status Disposition Source [facility] Outpatient Encounter [id number] 07/27 [facility] Outpatient Encounter [id number] 07/27 [facility] [place] [facility] Outpatient Encounter [id number] 08/28 [facility] Outpatient Encounter [id number] 08/31 [facility] Outpatient Encounter [id number] 09/28 [facility] Encounter [id number] 09/28 [facility] Outpatient Encounter [id number] 10/19 [facility] Out[facility] Encounter [id number] 10/25 [facility] Out[facility] Encounter [id number] 10/26 [facility] Outpatient Encounter [id number] 11/21 [facility] Outpatient Encounter [id number] 11/23 [facility] Outpatient Encounter [id number] 1 12/04 [facility] Outpatient Encounter [id number] 1 12/05 [facility] Outpatient Encounter [id number] 12/19 [facility] Outpatient Encounter [id number] 12/21 [facility] Outpatient Encounter [id number] NICOLE VELAZQUEZ N 12/21 [facility] Outpatient Encounter [id number] 01/03 [facility] Outpatient Encounter [id number] 01/16 [facility] Outpatient Encounter [id number] 01/17 [facility] Outpatient Encounter [id number] 01/30 [facility] N [facility] Outpatient Encounter [id number] 02/02 [facility] Outpatient Encounter [id number] 02/13 [facility] Outpatient Encounter [id number] 02/14 [facility] Outpatient Encounter [id number] 02/28 [facility] Outpatient Encounter [id number] 03/12 [facility] OFFICE O/P EST MOD 30 MIN [id number] Diagnos is: ICD-10- CM I10 Essenti al (primar y) hyperte nsion Erik BARNES 03/12 [facility] Outpatient Encounter [id number] 1 03/12 [facility] Outpatient Encounter [id number] 03/13 [facility] Outpatient Encounter [id number] 03/14 [facility] BP SCRN PERF REC INTERVAL [id number] Diagnos is: ICD-10- CM I10 Essenti al (primar y) hyperte davianguadalupe SHAYNE JSUTICE L 03/23 [facility] [place] [facility] Outpatient Encounter [id number] 03/26 [place] [facility] Outpatient Encounter [id number] 04/10 [facility] Outpatient Encounter [id number] 1 04/11 [facility] Outpatient Encounter [id number] 4 04/24 [facility] Outpatient Encounter [id number] 04/25 [facility] Outpatient Encounter [id number] KORI HANKS 04/30 [facility] Outpatient Encounter [id number] 05/01 [facility] Outpatient Encounter [id number] 05/04 [facility] Outpatient Encounter [id number] 05/10 [facility] Outpatient Encounter [id number] 05/10 [facility] Outpatient Encounter [id number] 5 05/11 [facility] Outpatient Encounter [id number] 05/17 [facility] Outpatient Encounter [id number] 05/22 [facility] Outpatient Encounter [id number] KENYETTA BOLIVAR J 05/22 [facility] Outpatient Encounter [id number] WHITE,NAM SSA D 05/23 [facility] Outpatient Encounter [id number] 05/29 [facility] Outpatient Encounter [id number] 05/31 [facility] Outpatient Encounter [id number] 1 06/01 [facility] Outpatient Encounter [id number] 06/11 [facility] Outpatient Encounter [id number] 06/11 [facility] DRAIN/INJ JOINT/[place] A [place] [id number] Diagnos is: ICD-10- CM M17.0 Bilater al primary osteoar thritis of knee Erik BARNES 06/14 [facility] Outpatient Encounter [id number] 06/14 [facility] Outpatient Encounter [id number] 06/21 [facility] Outpatient Encounter [id number] 06/26 [facility] Outpatient Encounter [id number] 06/28 [facility] Outpatient Encounter [id number] 07/03 [facility] Outpatient Encounter [id number] 07/04 [facility] Outpatient Encounter [id number] 07/05 [facility] [place] [facility] Outpatient Encounter [id number] 07/05 [place] [facility] Outpatient Encounter [id number] BEBO,JE FRANSISCAIFER 07/17 [facility] Outpatient Encounter [id number] 07/18 [facility] Outpatient Encounter [id number] 1 08/09 [facility] Outpatient Encounter [id number] 08/09 [facility] Outpatient Encounter [id number] 6 08/10 [facility] Outpatient Encounter [id number] 4 08/15 [facility] Outpatient Encounter [id number] 2 08/27 [facility] Outpatient Encounter [id number] 08/27 [facility] Outpatient Encounter [id number] 08/27 [facility] Outpatient Encounter [id number] 2 08/28 [facility] Outpatient Encounter [id number] 08/31 [facility]/OP EST MAY X REQ PHY/QHP [id number] Diagnos is: ICD-10- CM R07.82 [address] pain HENRIETTA ANDRES 09/03 [facility] ACUP 1/> WO ESTIM 1ST 15 MIN [id number] Diagnos is: ICD-10- CM M54.50 Low back pain, unspeci fied Erik BARNES 09/03 [facility] Outpatient Encounter [id number] 09/04 [facility] Outpatient Encounter [id number] YOUSUF ELKINS M 09/06 [facility] Outpatient Encounter [id number] 09/07 [facility] Outpatient Encounter [id number] 09/19 [facility] OFFICE O/P EST MOD 30 MIN [id number] Diagnos is: ICD-10- CM K82.4 Cholest erolosi s Erik Mera 09/19 [facility] Outpatient Encounter [id number] 1 09/19 [facility] Outpatient Encounter [id number] YOUSUF ELKINS M 09/20 [facility] Outpatient Encounter [id number] KENYETTA BOLIVAR 09/20 [facility] Outpatient Encounter [id number] 09/20 [facility] OFF/OP EST MAY X REQ PHY/QHP [id number] Diagnos is: ICD-10- CM 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 EDILMA Mckeon 09/27 [facility] Outpatient Encounter [id number] 5 09/28 [facility] Outpatient Encounter [id number] 10/01 [facility] Outpatient Encounter [id number] 10/01 [facility] Outpatient Encounter [id number] DAVID FIGUEROA 10/01 [facility] Outpatient Encounter [id number] 10/12 [facility] Outpatient Encounter [id number] 10/15 [facility] Outpatient Encounter [id number] 1 10/18 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 HENRIETTA Youssef 10/26 [facility] Outpatient Encounter [id number] 10/26 [facility] Outpatient Encounter [id number] 11/08 [facility] Outpatient Encounter [id number] 11/20 [facility] Outpatient Encounter [id number] 11/21 [facility] Outpatient Encounter [id number] 11/27 [facility] DRAIN/INJ JOINT/[place] [id number] Diagnos is: ICD-10- CM M17.0 Charla al primary osteoar thritis of knee Erik BARNES 01/01 [facility] Outpatient Encounter [id number] 01/01 [facility] Social History Combined list of available smoking, tobacco, and other social history from [facility] Defense and [facility] facilities. Social History Type Response Date Comment Sourc e Tobacco smoking status NHIS VA-TOBACCO USER EVERY DAY 03/12/2024 [facility] History of tobacco use VA-TOBACCO DOESNT USE WI 30 MIN WAKEUP 03/12/2024 [facility] History of tobacco use VA-TOBACCO USER E VERY DAY 01/27/2023 [facility] History of tobacco use VA-TOBACCO USE WI 30 MIN OF WAKEUP 01/21/2022 [facility] History of tobacco use VA-TOBACCO USER E VERY DAY 10/30/2020 [facility] History of tobacco use VA-TOBACCO USE CO UNSEL NO 12/21/2018 [facility] History of tobacco use VA-TOBACCO USER E VERY DAY 03/20/[facility] of tobacco use TOBACCO USER OFFE RED MEDS 03/14/2018 [facility] History of tobacco use TOBACCO USER OFFE RED MEDS 01/26/2018 [facility] History of tobacco use TOBACCO USER OFFE RED MEDS 02/23/2017 [facility] History of tobacco use DAY TOBACCO CURRE NT USER 11/30/2016 [facility] History of tobacco use DAY TOBACCO CURRE NT USER 05/24/2016 [facility] History of tobacco use DAY TOBACCO FORME R USER >7 YEARS 12/28/2011 [facility] History of tobacco use LIFETIME NON-USER OF TOBACCO 01/12/2011 [facility] History of tobacco use FORMER TOBACCO US ER 7Y OR GREATER 10/29/[address] [facility] History of tobacco use DAY TOBACCO FORME R USER MORE 12 MONTHS 01/19/2008 [facility] History of tobacco use DAY TOBACCO LIFEL NASH NON-USER 04/20/2007 [facility] Plan of Care List of future care activities from [facility] facilities. Additional future care activities may be listed in the Assessment and Plan section. Date/Time Care Activity Care Activity Detail Facili ty 02/19/2025 AMBULATORY - MEDICINE AMBULATORY - [facility]
--- NOTE | 2025-01-16 14:22 | XR_ITS ---
WS: [id number] Portable AP upright chest, 01/16/2025 Clinical Data: chest pain Comparison: Portable chest, 05/23/2024 Findings: No nodules, masses or effusions are seen. The heart is normal. The pulmonary vascularity is not increased. No pneumonia or pneumothorax is seen. There is a small calcification adjacent to the left shoulder joint unchanged. XR/XR chest 1V portable [id number] Impression: Negative chest.
--- NOTE | 2025-01-16 14:23 | ECG_ITS ---
[facility] 2025-[facility]16 Pat Name: Tez Botello Department: Room: Gender: Male Supervisor Word Processing: : 1965 Requested By: Julia Lama Order Number: [id number] Dariusz MD: Montez Baum M.D. Measurements Intervals [place] Rate: 93 P: 6 RI: 124 QRS: 33 QRSD: 80 T: 41 QT: 343 QTc: 428 Interpretive Statements SINUS RHYTHM NONSPECIFIC ST & T-WAVE ABNORMALITY INTERPRETATION BASED ON A DEFAULT AGE OF 40 YEARS Compared to ECG 05/23/2024 08:41:10 No significant changes Electronically Signed On 01-16-2025 17:30:43 CDT by Montez Baum M.D. [email or web address]
--- OUTSIDE RECORDS SUMMARY | 2025-01-16 14:35 | XMS_ITS | Encounter Summary ---
Author Organization [facility], [facility] Address [address] [place] [address] Phone Care Team Providers Care Street Sweeper Name Role Phone Flex Vera MD Primary Care Provider [phone] Encounter Details Date Type Department Care Team (Late st Contact Info) Description 02/17/2023 Orders Only [facility] [address] [address] Acute kidney failure, not otherwise specified (HCC) Social History Tobacco Use Types Packs/Day Years Used Date Smoking Tobacco: Never Assessed Sex and Gender Information Value Date Recorded Sex Assigned at Not on file Legal Sex Male 9:56 AM EDT Gender Identity Not on file Sexual Orientation Not on file documented as of this encounter Plan of Treatment Upcoming Encounters Date Type Department Care Team (Late st Contact Info) Description 04/30/2025 1:30 PM 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
--- OUTSIDE RECORDS SUMMARY | 2025-01-16 14:35 | XMS_ITS | Patient Health Record ---
Author Organization [facility] Address [address] [place] [address] Care Team Providers Care Supervisor Glycerin Name Role Phone Erna Larsen MD Primary Care Provider Unav ailable YoselinjimmieBarby Pierre Unavailable [facility], [place] Unavailable Unavailable [facility], Provider Unavailable Unavailable Gastroenterology, [facility] Unavailable [phone] Allergies No Known Allergies Results Component Value Reference Range Flag Notes Urine Drug Screen (cup read) - [id number] Reviewed date:11/20/2024 04:07:13 PM Interpretation: Performing Lab: Notes/Report: OPI + OXY + Urine Confirmation Panel (in strument) - [id number] Reviewed date:11/28/2024 03:00:03 PM Interpretation: Performing Lab: Notes/Report: 6-Acetylmorphine 0 <6 ng/mL N This daryl t was developed and its performance characteristics determined by [facility]. It has not been cleared or approved by the U.S. Food and Drug Administration. 7-Aminoclonazepam 0 <60 ng/mL N This te st was developed and its performance characteristics determined by [facility]. It has not been cleared or approved by the U.S. Food and Drug Administration. Alprazolam 0 <60 ng/mL N This test was developed and its performance characteristics determined by [facility]. It has not been cleared or approved by the U.S. Food and Drug Administration. Amphetamine 0 <75 ng/mL N This test was developed and its performance characteristics determined by [facility]. It has not been cleared or approved by the U.S. Food and Drug Administration. aOH-Alprazolam 0 <60 ng/mL N This test was developed and its performance characteristics determined by [facility]. It has not been cleared or approved by the U.S. Food and Drug Administration. Buprenorphine 0.0 <7.5 ng/mL N This test w as developed and its performance characteristics determined by [facility]. It has not been cleared or approved by the U.S. Food and Drug Administration. Norbuprenorphine 0.0 <37.5 ng/mL N This te st was developed and its performance characteristics determined by [facility]. It has not been cleared or approved by the U.S. Food and Drug Administration. Carisoprodol 0 <75 ng/mL N This test wa s developed and its performance characteristics determined by [facility]. It has not been cleared or approved by the U.S. Food and Drug Administration. Codeine 0 <75 ng/mL N This test was developed and its performance characteristics determined by [facility]. It has not been cleared or approved by the U.S. Food and Drug Administration. EDDP 0 <75 ng/mL N This test was developed and its performance characteristics determined by [facility]. It has not been cleared or approved by the U.S. Food and Drug Administration. Fentanyl 0 <6 ng/mL N This test was developed and its performance characteristics determined by [facility]. It has not been cleared or approved by the U.S. Food and Drug Administration. Hydrocodone 2606 <75 ng/mL H This test was developed and its performance characteristics determined by [facility]. It has not been cleared or approved by the U.S. Food and Drug Administration. Hydromorphone 807 <75 ng/mL H This test w as developed and its performance characteristics determined by [facility]. It has not been cleared or approved by the U.S. Food and Drug Administration. Lorazepam 0 <60 ng/mL N This test was developed and its performance characteristics determined by [facility]. It has not been cleared or approved by the U.S. Food and Drug Administration. MDMA 0 <75 ng/mL N This test was developed and its performance characteristics determined by [facility]. It has not been cleared or approved by the U.S. Food and Drug Administration. Meperidine 0.0 <37.5 ng/mL N This test was developed and its performance characteristics determined by [facility]. It has not been cleared or approved by the U.S. Food and Drug Administration. Meprobamate 0 <75 ng/mL N This test was developed and its performance characteristics determined by [facility]. It has not been cleared or approved by the U.S. Food and Drug Administration. Methamphetamine 0 <75 ng/mL N This test was developed and its performance characteristics determined by [facility]. It has not been cleared or approved by the U.S. Food and Drug Administration. Methadone 0 <75 ng/mL N This test was developed and its performance characteristics determined by [facility]. It has not been cleared or approved by the U.S. Food and Drug Administration. Morphine 0 <75 ng/mL N This test was developed and its performance characteristics determined by [facility]. It has not been cleared or approved by the U.S. Food and Drug Administration. Nordiazepam 0 <60 ng/mL N This test was developed and its performance characteristics determined by [facility]. It has not been cleared or approved by the U.S. Food and Drug Administration. Norfentanyl 0 <6 ng/mL N This test was developed and its performance characteristics determined by [facility]. It has not been cleared or approved by the U.S. Food and Drug Administration. Normeperidine 0.0 <37.5 ng/mL N This test was developed and its performance characteristics determined by [facility]. It has not been cleared or approved by the U.S. Food and Drug Administration. O-desmethyltramadol 0 <75 ng/mL N This test was developed and its performance characteristics determined by [facility]. It has not been cleared or approved by the U.S. Food and Drug Administration. Oxazepam 0 <60 ng/mL N This test was developed and its performance characteristics determined by [facility]. It has not been cleared or approved by the U.S. Food and Drug Administration. Oxycodone 0.0 <37.5 ng/mL N This test was developed and its performance characteristics determined by [facility]. It has not been cleared or approved by the U.S. Food and Drug Administration. Oxymorphone 0 <75 ng/mL N This test was developed and its performance characteristics determined by [facility]. It has not been cleared or approved by the U.S. Food and Drug Administration. Phencyclidine 0.0 <7.5 ng/mL N This test w as developed and its performance characteristics determined by [facility]. It has not been cleared or approved by the U.S. Food and Drug Administration. Tapentadol 0.0 <37.5 ng/mL N This test was developed and its performance characteristics determined by [facility]. It has not been cleared or approved by the U.S. Food and Drug Administration. Temazepam 0 <60 ng/mL N This test was developed and its performance characteristics determined by [facility]. It has not been cleared or approved by the U.S. Food and Drug Administration. Tramadol 9 <75 ng/mL N This test was developed and its performance characteristics determined by [facility]. It has not been cleared or approved by the U.S. Food and Drug Administration. Norhydrocodone >5000 <75 ng/mL > This test was developed and its performance characteristics determined by [facility]. It has not been cleared or approved by the U.S. Food and Drug Administration. Noroxycodone 0 <38 ng/mL N This test wa s developed and its performance characteristics determined by [facility]. It has not been cleared or approved by the U.S. Food and Drug Administration. Pregabalin 0 <225 ng/mL N This test was developed and its performance characteristics determined by [facility]. It has not been cleared or approved by the U.S. Food and Drug Administration. Gabapentin >37429 <225 ng/mL > This test was developed and its performance characteristics determined by [facility]. It has not been cleared or approved by the U.S. Food and Drug Administration. Benzoylecgonine 0.0 <37.5 ng/mL N This daryl t was developed and its performance characteristics determined by [facility]. It has not been cleared or approved by the U.S. Food and Drug Administration. 4-Hydroxy Xylazine 0 <25 ng/mL N This t est was developed and its performance characteristics determined by [facility]. It has not been cleared or approved by the U.S. Food and Drug Administration. Tox Results Reviewed date:11/28/2024 03:30:15 PM Interpretation: Performing Lab: Notes/Report: Reason For Referral No Information Medications Medication SIG (Take, Route, Frequency, Duration) Notes Start Date End Date Status Levothyroxine *Reorder from [email or web address] for eRx and Interaction Alerts* Active fluticasone *Reorder from [facility] for eRx and Interaction Alerts* Active Fenofibrate *Pick strength-form from [facility] for eRX* Active Loratadine *Pick strength-form from [facility] for eRX* Active pantoprazole *Reorder from [facility] for eRx and Interaction Alerts* Active Losartan *Reorder from [facility] for eRx and Interaction Alerts* Active oxyCODONE-Acetaminop hen 10-325 MG Tablet 1 tablet Orally every 4-6 hrs; Duration: 30 days As needed Not to exceed 4 per day Fill on 01-24-2025 01/07/2025 02/23/2025 Active Meloxicam *Pick strength-form from [facility] for eRX* Unknown Vitamin B-12 *Pick strength-form from [facility] for eRX* Active Ursodiol *Pick strength-form from [facility] for eRX* Active ProAir HFA *Reorder from [facility] for eRx and Interaction Alerts* Active Social History Tobacco Use: Social History Observation Description Date Details (start date - stop date) Current Smoker NA - NA Social History Tobacco Use: Social Info Question Answer Notes Tobacco Control (Standard) Tobacco use: Current smoker How many cigarettes a day do you smoke? 11-20 Additional Details Category Social Info Options Details Miscellaneous: Sexually active: no Sexual abuse: no Drugs/Alcohol: Do you drink alcohol? Soci ally Migrated Social History Migrated Social History Alcoholic beverages? - No, Currently on disability? - No, Drug or substance abuse? - No, Marital Status - single, Nonprescription drug use? - No, Smoking - 1 PPD, Smoking status (MU) - Current every day smoker, Working currently? - No Problems Problem Type SNOMED Code ICD Code Onset Dates Problem Status W/U Status Risk Notes Problem Chronic pain (45876654) Other chronic pain (G89.29) Active confirmed Problem Chronic pain syndrome (580384731) Chronic pain syndrome (G89.4) Active confirmed Problem Pain of right knee region (finding) (347924843975965 ) Pain in right knee (M25.561) Active confirmed Problem Pain of left knee joint (finding) (326138759536899 ) Pain in left knee (M25.562) Active confirmed Problem Lumbosacral spondylosis without myelopathy (disorder) (50252974) Spondylosis without myelopathy or radiculopathy, lumbosacral region (M47.817) Active confirmed Problem Hip pain (97297939) Hip pain (M25.559) Active confirmed Problem Hypertension (06011989) Hypertension (I10) Active confirmed Problem Tobacco dependence (35292473) Tobacco dependence (F17.200) Active confirmed Problem High risk drug monitoring status (311715988) Chronic prescription opiate use (Z79.891) Active confirmed Problem Enthesopathy of hip region (84043742) Greater trochanteric bursitis of right hip (M70.61) Active confirmed Vital Signs Height-cm 170.18 cm 12/25/2024 Weight-kg 88.45 kg 12/25/2024 Height 67.00 in 12/25/2024 Weight 195 lbs 12/25/2024 BMI 30.54 kg/m2 12/25/2024 Encounters Encounter Location Date Provider Diagnosis [facility] [address] [address] 11/20/2024 Barby Carr Chronic pain syndrome G89.4 ; Spondylosis without myelopathy or radiculopathy, lumbosacral region M47.817 ; Hip pain M25.559 ; Greater trochanteric bursitis of right hip M70.61 ; Pain in right knee M25.561 ; Pain in left knee M25.562 ; Chronic prescription opiate use Z79.891 and Other chronic pain G89.29 [facility] [address] [address] 11/27/2024 Barby Carr Chronic pain syndrome G89.4 ; Spondylosis without myelopathy or radiculopathy, lumbosacral region M47.817 ; Hip pain M25.559 ; Greater trochanteric bursitis of right hip M70.61 ; Pain in right knee M25.561 ; Pain in left knee M25.562 ; Chronic prescription opiate use Z79.891 and Other chronic pain G89.29 [facility] [address] [address] 12/25/2024 Barby Carr Chronic pain syndrome G89.4 ; Spondylosis without myelopathy or radiculopathy, lumbosacral region M47.817 ; Hip pain M25.559 ; Greater trochanteric bursitis of right hip M70.61 ; Pain in right knee M25.561 ; Pain in left knee M25.562 ; Chronic prescription opiate use Z79.891 ; Other chronic pain G89.29 and Tobacco dependence F17.200 Migrated_Facility 0 0 03/10/2024 Provider Migration Migrated_Facility 0 0 03/11/2024 Provider Migration On License Of [facility] [address] [place] [address] 08/16/2024 [facility] On License Of [facility] [address] [place] [address] 12/13/2024 Barby Carr Chronic pain syndrome G89.4 On License Of [facility] [place] [address] [place] [address] 12/24/2024 Barby Carr On License Of [facility] [address] [place] [address] 01/07/2025 Barby Bruno Spondylosis without myelopathy or radiculopathy, lumbosacral region M47.817 Assessments Encounter Date Diagnosis (ICD Code) Assessment Notes Treatment Notes Treatment Clinical Notes Section Notes 11/20/2024 Chronic pain syndrome (ICD-10 - G89.4) Mr. 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 He has history, physical exam, and imaging consistent with lumbosacral spondylosis mediated pain as well as physical exam consistent of right greater trochanteric bursitis. We'll change him from Hydrocodone 10/325 mg eight tablets per day to Oxycodone 10/325 mg four tablets per day. PDMP reviewed. He would get #224 Hydrocodone 10/325 mg last filled 10/26/24 for a 28 day quantity supply from Dr. Hidalgo. In the future, we will get updated bilateral hip and bilateral knee X-rays for consideration of bilateral knee injections with ultrasound guidance. We'll obtain a UDS confirmation today as the patient is establishing care. 11/20/2024 Spondylosis without myelopathy or radiculopathy, lumbosacral region (ICD-10 - M47.817) Patient has imaging, history, and physical exam consistent with pain generated from spondylosis of the lumbar region. Patient has tried conservative measures including medication with limited benefit and physical therapy and is currently undergoing a home exercise regimen. Imaging studies suggest no other obvious cause of pain (such as fracture, tumor, infection, or significant extraspinal lesion. They have had a decrease in their quality of life as a result of this pain. This pain is impairing their ability to perform ADLs and care for their family. This pain is also interfering with their ability to work. They now have had to increase their medication use. It is medically necessary to proceed with this procedure, risks and expectations of the procedures were discussed with the patient and they agreed to proceed. The patient understands that this is a diagnostic block. The patient and I are in agreement and understanding that these blocks must be at least two weeks apart. The options for treatment were explained in detail, this included PT, medications, injections, lifestyle modifications and exercise. Will proceed with Bilateral L4/L5 and L5/S1 Medial Branch Blocks, if more than 80% relief of pain and/or function it will be medically necessary to proceed with Bilateral L4/L5 and L5/S1 medial branch RFTC 11/27/2024 Chronic pain syndrome (ICD-10 - G89.4) 12/13/2024 Chronic pain syndrome (ICD-10 - G89.4) 12/25/2024 Chronic pain syndrome (ICD-10 - G89.4) Mr. 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 We're pending his diagnostic medial branch block. He had no good relief from his Right GTB injection with ultrasound guidance. Doing well on his regimen of oxycodone 10 up to 4 tablets per day. He gets his knee injections from an onsite facility. He wants his prescription split, 7 days going to [facility] and the remaining 23 days for the first one going to the [facility]. Will obliged. PDMP reviewed with no untoward events. Last UDS was consistent with prescribed medication at that time. We'll get a UDS confirmation in 2 months time for reevaluation. The options for treatment were explained in detail, this included PT, medications, injections, lifestyle modifications and exercise. The patient presents to clinic for medication evaluation and management. The patient is stable on their current medication regimen and endorses adequate analgesia, increased ADLs, denies abuse and side effects. A bowel regimen was discussed with the patient. He's bending his diagnostic medial branch blocks. He did not medicinal plant picker the phone in order to get those scheduled. 12/25/2024 Spondylosis without myelopathy or radiculopathy, lumbosacral region (ICD-10 - M47.817) 01/07/2025 Spondylosis without myelopathy or radiculopathy, lumbosacral region (ICD-10 - M47.817) 12/25/2024 Hip pain (ICD-10 - M25.559) 11/27/2024 Spondylosis without myelopathy or radiculopathy, lumbosacral region (ICD-10 - M47.817) 11/20/2024 Hip pain (ICD-10 - M25.559) 11/20/2024 Greater trochanteric bursitis of right hip (ICD-10 - M70.61) Patient has history, physical exam, and imaging consistent of greater trochanteric bursitis. I discussed with the patient pursuing greater trochanteric bursae injections with ultrasound guidance. Risks and expectations of the procedure were discussed with the patient, and they agree to proceed. Ultrasound is needed for needle localization into joint and to decrease the risk of intravascular injection. The options for treatment were explained in detail, this included PT, medications, injections, lifestyle modifications and exercise. Proceed with RIGHT greater trochanteric bursae injection with ultrasound guidance 11/27/2024 Hip pain (ICD-10 - M25.559) 12/25/2024 Greater trochanteric bursitis of right hip (ICD-10 - M70.61) 12/25/2024 Pain in right knee (ICD-10 - M25.561) 11/27/2024 Greater trochanteric bursitis of right hip (ICD-10 - M70.61) 11/20/2024 Pain in right knee (ICD-10 - M25.561) 11/20/2024 Pain in left knee (ICD-10 - M25.562) 11/27/2024 Pain in right knee (ICD-10 - M25.561) 12/25/2024 Pain in left knee (ICD-10 - M25.562) 12/25/2024 Chronic prescription opiate use (ICD-10 - Z79.891) 11/27/2024 Pain in left knee (ICD-10 - M25.562) 11/20/2024 Chronic prescription opiate use (ICD-10 - Z79.891) RECOMMEND URINE TESTING TODAY Urine drug screening will be performed today to monitor compliance with opioid therapy or to serve as a baseline screen for a patient who may be a candidate for opioid therapy in the future, pending UDS results. We will monitor with in-office testing (rapid testing) today and review the results prior to dispensing prescription. All positive results will be sent for quantitative analysis to ensure accuracy and quantify amounts. Any expected positive results that return negative will also be sent for quantitative analysis. Any questionable read or any medication we cannot test for in the office confidently will be sent for quantitative analysis, as well. Patient has been made aware of this policy and agrees to abide by our urine testing policy. 11/20/2024 Other chronic pain (ICD-10 - G89.29) 11/27/2024 Chronic prescription opiate use (ICD-10 - Z79.891) 12/25/2024 Other chronic pain (ICD-10 - G89.29) 11/27/2024 Other chronic pain (ICD-10 - G89.29) 12/25/2024 Tobacco dependence (ICD-10 - F17.200) Spent greater than 7 minutes counseling patient on smoking cessation. They will make attempts to cut back. 11/20/2024 Other Sita Carpio am scribing for Dr. Pierre. Dr. Ignacio Carpio, personally performed the services described in this documentation, as scribed by Sita Rock, and it is both accurate and complete. 11/27/2024 Sita España am scribing for Dr. Pierre. Dr. Ignacio Carpio, personally performed the services described in this documentation, as scribed by Sita Rock, and it is both accurate and complete. 12/25/2024 Other Mikayla Carpio am scribing for Dr. Pierre. I, Dr. Pierre, personally performed the services described in this documentation, as scribed by Mikayla Santizo, and it is both accurate and complete. Plan Of Treatment Future Test Test Name Order Date Facet Inj. / MBB Lumbar/Sacral, 2 levels - 91105, 48670 11/21/2024 Facet Inj. / MBB Lumbar/Sacral, 2 levels - 68484, 93093 11/22/2024 Next Appt Details Provider Name:Helen bhatti, 02/14/2025 08:40:00 AM, [address] [place], [address], Provider Name:Dada Lugo , 02/19/2025 09:30:00 AM, [address], [place], [address], Insurance Providers Payer Name Payer Address Payer Phone Subscriber Number Group Number Insured Name Patient Relationship to Insured Coverage Start Date Coverage End Date [employer] [address] [place] [address] [id number] Tez Botello Self - patient is the insured Medications Administered Medication Instructions Date of Administration Dosage Notes BUPivacaine HCl 11/27/2024 4 mL see notes [facility] [phone] DEPO-Medrol 11/27/2024 40 mg see notes [facility] [id number] Medical (General) History Medical History History ICD Code High blood pressure Muscle disease Stomach Ulcer Arthritis kidney stones Swelling of multiple joints Thyroid disease Surgical History Surgery Date(Month/Year) Gastric bypass surgery 2016 gall bladder removal 2024
--- OUTSIDE RECORDS SUMMARY | 2025-01-16 14:35 | XMS_ITS | Clinical Summary ---
Author Organization [facility] Facility Address [address] [place] [id number] Care Team Providers Care Cloth Bolt Bander Name Role Phone Flex Vera MD Primary Care Provider [phone] Allergies Active Allergy Reactions Criticality Noted Date Comments Sulfa Antibiotics Other (see comments) 04/24/20 24 CKD G3a Medications albuterol HFA (ProAir HFA) 108 (90 Base) MCG/ACT inhaler Inhale 2 puffs in the morning and 2 puffs at noon and 2 puffs in the evening and 2 puffs before bedtime. Active fluticasone (FLONASE) 50 MCG/ACT nasal spray Administer 1 spray into each nostril 1 (one) time each day Active HYDROcodone-ayde taminophen (LORCET PLUS) 10-325 MG per tablet Take 1 tablet by mouth every 4 (four) hours if needed for moderate pain 3 Active cetirizine (ZyrTEC) 10 MG tablet Take 1 tablet every day by oral route. Active folic acid (FOLVITE) 800 MCG tablet Take 400 mcg by mouth 1 (one) time each day Active levothyroxine (SYNTHROID, LEVOTHROID) 50 MCG tablet Take 50 mcg by mouth 1 (one) time each day Active gabapentin (NEURONTIN) 600 MG tablet Take 600 mg by mouth in the morning and 600 mg in the evening and 600 mg before bedtime. Active furosemide (LASIX) 20 MG tablet Take 1 tablet by mouth if needed (if edema devlops or weight is increasing) Active metoclopramide (REGLAN) 10 MG tablet Take 10 mg by mouth in the morning and 10 mg in the evening. 4 Active hydroCHLOROthia zide 25 MG tablet Take 25 mg by mouth 1 (one) time each day 4 Active losartan (COZAAR) 100 MG tablet Take 100 mg by mouth 1 (one) time each day 4 Active Active Problems Problem Noted Date Diagnosed Date Acute nontraumatic kidney injury 02/21/2023 Chronic gastritis 01/27/2023 Hyperlipidemia 01/10/2023 Essential hypertension 01/10/2023 Family History Relation Status Comments Father Mother Alive Social History Tobacco Use Types Packs/Day Years Used Date Smoking Tobacco: Every Day Cigarettes Passive Smoke Exposure: Current Smokeless Tobacco: Never Tobacco Cessation:Ready to Q uit: Not Asked; Counseling Given: Not Answered Alcohol Use Standard Drinks/Week Comments Yes 0 (1 standard drink = 0.6 oz pur e alcohol) One beer every 3-4 months Sex and Gender Information Value Date Recorded Sex Assigned at Not on file Legal Sex Male 9:56 AM EDT Gender Identity Not on file Sexual Orientation Not on file Last Filed Vital Signs Vital Sign Reading Time Taken Comments Blood Pressure 130/86 04/24/2024 1:48 PM VETERINARY TECHNICIAN Pulse 83 04/24/2024 1:48 PM VETERINARY TECHNICIAN Temperature - - Respiratory Rate - - Oxygen Saturation 98% 04/24/2024 1:48 PM VETERINARY TECHNICIAN Inhaled Oxygen Concentration - - Weight 91.2 kg (201 lb) 04/24/2024 1:48 PM VETERINARY TECHNICIAN Height 170.2 cm (5' 7 ) 04/24/2024 1:48 PM VETERINARY TECHNICIAN Body Mass Index 31.48 04/24/2024 1:48 PM VETERINARY TECHNICIAN Plan of Treatment Upcoming Encounters Date Type Department Care Team (Late st Contact Info) Description 04/30/2025 1:30 PM VETERINARY TECHNICIAN Office Visit [facility] [address] [place] [address] Radha Nguyen, JOSE [address] [facility] [address] [place] [address] Health Maintenance Due Date Last Done Comments Hepatitis B Vaccine (1 of 3 - 19+ 3-dose series) 11/24/1986 Pneumococcal Vaccine: 50+ Ye ars (1 of 2 - PCV) 11/24/1986 02/01/2012, 10/29/2008 Colorectal Cancer Screening: Annual FOBT 11/24/2016 Colorectal Cancer Screening: Colonoscopy 11/24/2016 Colorectal Cancer Screening: Sigmoidoscopy 11/24/2016 Influenza Vaccine (#1) 2025 8, 02/13/2018, 03/16/2017, Additional history exists Pneumococcal Vaccine: Peds ( 0 to 5 Years) and At-Risk Patients (6 to 49 Years) Discontinued 02/01/2012, 10/29/2008 Insurance [facility] [employer] 1,2,3 (VACCN) Care Teams Cloth Bolt Bander Relationship Specialty Start Date End Date Flex Vera MD [address] [place] [address] PCP - General Family Medicine 02/17/23
--- OUTSIDE RECORDS SUMMARY | 2025-01-16 14:35 | XMS_ITS | Clinical Summary ---
Author Organization [facility] Address [address] [place] [address] Phone Care Team Providers Care Gericare Aide Name Role Phone Unavailable Primary Care Provider Unavailabl e Social History Tobacco Use Types Packs/Day Years Used Date Smoking Tobacco: Never Assessed Sex and Gender Information Value Date Recorded Sex Assigned at Not on file Legal Sex Male 1:26 PM CDT Gender Identity Not on file Sexual Orientation Not on file Plan of Treatment Health Maintenance Due Date Last Done Comments DTAP/TDAP/TD VACCINES (1 - Tdap) 11/24/1986 HEPATITIS B VACCINES (1 of 3 - 19+ 3-dose series) 11/13 COLORECTAL SCREENING 11/24/2012 Colorectal Cancer Screening 11/24/2012 FIT-DNA Q 3 years 11/24/2012 FIT/FOBT Q 1 year 11/24/2012 Flex Sig/CT Colonography Q 5 years 11/24/2012 ZOSTER VACCINE (1 of 2) 11/24/2017 INFLUENZA VACCINE (#1) [address] [place] [address] [address] [place] [address] [employer]
--- NOTE | 2025-01-16 14:43 | ECG_ITS ---
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 Measurements Intervals [place] Rate: 77 P: 37 MA: 148 QRS: 20 QRSD: 90 T: 28 QT: 394 QTc: 448 Interpretive Statements SINUS RHYTHM Compared to ECG 01/16/2025 14:23:46 T-wave abnormality no longer present Electronically Signed On 01-16-2025 17:30:31 CDT by Montez Baum M.D. [email or web address] [id number]
--- NOTE | 2025-01-16 14:44 | W.ED.CHESTPA ---
HPI - Chest Pain General: Chief Complaint: Chest Pain Stated Complaint: CP arm going numb Time Seen by Provider: 01/16/25 14:21 History of Present Illness: Patient is a 59-year-old male with a past medical history significant for high blood pressure, high cholesterol and smoking presents with a chief complaint of left-sided pressure-like chest pain with radiation to the left arm present at rest. He thinks that it may get worse with exertion. Patient states that he had a heart trouble long time ago but does not know what type of heart problems he has had. He denies any fever, cough, hemoptysis or shortness of breath. He has been feeling nauseated at home but has not vomited. He denies any abdominal pain, change in bowel habits or dysuria or hematuria. No lower extremity swelling. Related Data Home Medications ?Medication ?Instructions ?Recorded ?Confirmed metoclopramide HCl 10 mg tablet 10 mg PO BID PRN Abdominal Pain 04/28/24 01/16/25 albuterol sulfate 90 mcg/actuation 1 inh inhalation QID PRN Shortness 05/18/24 01/16/25 aerosol inhaler Of Breath fluticasone propionate 50 1 spray intranasal DAILY 05/18/24 01/16/25 mcg/actuation nasal spray,suspension levothyroxine 50 mcg tablet 50 mcg PO DAILY 05/18/24 01/16/25 cholecalciferol (vitamin D3) 50 50 mcg PO DAILY 05/21/24 01/16/25 mcg (2,000 unit) tablet (Vitamin D3) finasteride 5 mg tablet 5 mg PO DAILY 05/21/24 01/16/25 losartan 100 mg tablet 100 mg PO DAILY 05/21/24 01/16/25 atorvastatin 40 mg tablet 20 mg PO DAILY 01/16/25 01/16/25 cetirizine 10 mg tablet (Zyrtec) 10 mg PO DAILY PRN allergies 01/16/25 01/16/25 folic acid 1 mg tablet 1 mg PO DAILY 01/16/25 01/16/25 gabapentin 600 mg tablet 600 mg PO TID 01/16/25 01/16/25 hydrochlorothiazide 25 mg tablet 25 mg PO DAILY 01/16/25 01/16/25 oxycodone-acetaminophen 10 mg-325 See Rx Instructions .Route .COMPLEX 01/16/25 01/16/25 mg tablet sucralfate 1 gram tablet 1 g PO BID 01/16/25 01/16/25 trazodone 100 mg tablet 100 mg PO DAILY 01/16/25 01/16/25 Previous Rx's ?Medication ?Instructions ?Recorded pantoprazole 40 mg tablet,delayed 40 mg PO DAILY #60 tabs 04/28/24 release (Protonix) Allergies Allergy/AdvReac Type Severity Reaction Status Date / Time No Known Allergies Allergy Verified 10/18/24 08:54 PFSH ED PFSH: Social History Smoking and tobacco/nicotine status: former use of tobacco/nicotine Physical Exam Narrative: EXAM NARRATIVE: Vital signs were reviewed. Patient is alert and oriented. He appears uncomfortable. No increased WOB or accessory muscle use. SpO2 is above 95% on RA. Patient has clear lung sounds bilaterally. No hypotension or tachycardia. Normal heart sounds. Abdomen is soft, nondistended nontender. Patient is moving all extremities, no deformity or gross injury. No lower extremity swelling or asymmetry. Course Vital Signs: Vital signs: Vital Signs Pulse Rate 88 01/16/25 14:21 Respiratory Rate 17 01/16/25 15:09 Blood Pressure 114/85 01/16/25 16:05 Pulse Oximetry 97 01/16/25 16:05 Oxygen Delivery Me thod Room Air 01/16/25 16:05 MDM - Chest Pain Medical Decision Making 59-year-old male with a chief complaint of chest pain that started 2 hours ago. Differential diagnosis includes, but is not limited to, ACS, myocarditis, pericarditis, pneumonia, viral upper respiratory infection, PE, GERD, other. On initial exam, patient is hemodynamically stable nontoxic appearing. EKG was personally reviewed and interpreted and shows normal sinus rhythm with a heart rate of 93, normal axis, normal intervals, no evidence of ST segment elevation. Obtained repeat EKG and patient was treated with aspirin, nitroglycerin, morphine and fluids. Patient was evaluate CBC, CMP, troponin, BNP, EKG, chest x-ray and UA. Repeat EKG was obtained due to concerning history and does not show any change or ischemic appearance or STEMI. Initial troponin is within normal limits and he has only a mildly elevated BNP. Creatinine is somewhat elevated but it does not appear too far off baseline. Patient has a heart score of 6 and is a moderate risk for ACS. Discussed with dock manager on-call who agreed that it is reasonable to admit patient for ACS rule out. Lab Data 01/16/25 14:37 01/16/25 14:37 Radiology Impressions Chest X-Ray 01/16/25 14:22 Impression: Negative chest. Laboratory Results WBC 13.58 10^3/uL (3.29-11.43) H 01/16/25 14:37 RBC 4.42 10^6/uL (3.85-5.65) 01/16/25 14:37 Hgb 14.70 g/dL (11.27-16.99) 01/16/25 14:37 Hct 42.2 % (37-53) 01/16/25 14:37 MCV 95.5 fl (82-101) 01/16/25 14:37 MCH 33.3 pg (27-33) H 01/16/25 14:37 MCHC 34.8 g/dL (30-55) 01/16/25 14:37 RDW 13.2 % (12.1-15.1) 01/16/25 14:37 Plt Count 312 10^3/cmm (157-399) 01/16/25 14:37 MPV 8.9 fL (7.4-10.4) 01/16/25 14:37 Neut % (Auto) 68.6 % 01/16/25 14:37 Lymph % (Auto) 21.2 % 01/16/25 14:37 [place] % (Auto) 8.2 % 01/16/25 14:37 Eos % (Auto) 0.7 % 01/16/25 14:37 Baso % (Auto) 0.7 % 01/16/25 14:37 Neut # (Auto) 9.31 10^3/uL (1.8-7.7) H 01/16/25 14:37 Lymph # (Auto) 2.9 10^3/uL (0.8-4.8) 01/16/25 14:37 [place] # (Auto) 1.1 10^3/uL (0.2-0.9) H 01/16/25 14:37 Eos # (Auto) 0.1 10^3/uL (0.0-0.8) 01/16/25 14:37 Baso # (Auto) 0.1 10^3/uL (0.0-0.1) 01/16/25 14:37 Nucleated RBC % (auto) 0 % 01/16/25 14:37 Nucleated RBCs # 0.0 /100WBC 01/16/25 14:37 Sodium 140 mmol/L (136-145) 01/16/25 14:37 Potassium 4.2 mmol/L (3.5-5.1) 01/16/25 14:37 Chloride 100 mmol/L (98-107) 01/16/25 14:37 Carbon Dioxide 24 mmol/L (22-29) 01/16/25 14:37 Anion Gap 20.2 (5-19) H 01/16/25 14:37 BUN 32 mg/dL (6-20) H 01/16/25 14:37 Creatinine 1.9 mg/dL (0.7-1.2) H 01/16/25 14:37 GFR Calculation 36.7 mL/min (90-130) L 01/16/25 14:37 Glucose 71 mg/dL (65-115) 01/16/25 14:37 Calculated Osmolality 295 mOsm/kg (285-295) 01/16/25 14:37 Calcium 9.6 mg/dL (8.5-10.5) 01/16/25 14:37 Total Bilirubin 0.4 mg/dL (0.15-1.2) 01/16/25 14:37 AST 19 U/L (0-40) 01/16/25 14:37 ALT 18 U/L (0-41) 01/16/25 14:37 Alkaline Phosphatase 74 U/L (40-130) 01/16/25 14:37 Troponin T Baseline 11 ng/L (0-15) 01/16/25 14:37 NT-Pro-B Natriuret Pep 136 pg/mL (0-125) H 01/16/25 14:37 Total Protein 6.8 g/dL (6.6-8.7) 01/16/25 14:37 Albumin 4.4 g/dL (3.5-5.2) 01/16/25 14:37 Globulin 2.4 g/dL (1.3-4.6) 01/16/25 14:37 Amorphous Sediment Not Reportable 01/16/25 15:37 All radiology interpretation(s) finalized by discharge Discharge Plan Discharge Condition: Stable Prescriptions: No Action levothyroxine 50 mcg tablet 50 mcg PO DAILY albuterol sulfate 90 mcg/actuation HFA aerosol inhaler 1 inh inhalation QID PRN (Reason: Shortness Of Breath) fluticasone propionate 50 mcg/actuation spray,suspension 1 spray intranasal DAILY Rx Instructions: administer into each nostril metoclopramide HCl 10 mg tablet 10 mg PO BID PRN (Reason: Abdominal Pain) pantoprazole [Protonix] 40 mg tablet,delayed release (DR/EC) 40 mg PO DAILY Qty: 60 0RF losartan 100 mg Tablet 100 mg PO DAILY finasteride 5 mg Tablet 5 mg PO DAILY cholecalciferol (vitamin D3) [Vitamin D3] 50 mcg (2,000 unit) Tablet 50 mcg PO DAILY atorvastatin 40 mg Tablet 20 mg PO DAILY oxycodone-acetaminophen 10-325 mg tablet See Rx Instructions .ROUTE .COMPLEX Rx Instructions: TAKE 1 TABLET BY MOUTH EVERY 4-6 HRS NEEDED NOT TO EXCEED 4 PER DAY gabapentin 600 mg Tablet 600 mg PO TID cetirizine [Zyrtec] 10 mg Tablet 10 mg PO DAILY PRN (Reason: allergies) sucralfate 1 gram Tablet 1 g PO BID trazodone 100 mg Tablet 100 mg PO DAILY folic acid 1 mg Tablet 1 mg PO DAILY hydrochlorothiazide 25 mg Tablet 25 mg PO DAILY Referrals: Erna Boston MD [Primary Care Provider, Family Practice] Print Language: Ukrainian Coding Level of Care Code ED Kettle Chipper for Azul Nash
[2025-01-16 14:56] LABS: Hematocrit 42.2 % (37-53); Hemoglobin 14.70 g/dL (11.27-16.99); Mean Corpuscular HGB Conc 34.8 g/dL (30-55); Mean Corpuscular Hemoglobin 33.3 pg (27-33); Mean Corpuscular Volume 95.5 fl (82-101); Nucleated Red Blood Cells % 0 %; Platelet Count 312 10^3/cmm (157-399); Red Blood Count 4.42 10^6/uL (3.85-5.65); White Blood Count 13.58 10^3/uL (3.29-11.43)
[2025-01-16] MEDS: ondansetron 2 mg/ML SDV 2 mL 4 MG IVP ×2 (15:08→23:26)
[2025-01-16] MEDS: morphine 4 mg/mL SDV 1 mL IVP (15:09)
[2025-01-16 15:17] LABS: Troponin(5th) Baseline 11 ng/L (0-15)
[2025-01-16 15:31] LABS: Potassium 4.2 mmol/L (3.5-5.1)
[2025-01-16 15:39] LABS: Alanine Aminotransferase 18 U/L (0-41); Albumin Level 4.4 g/dL (3.5-5.2); Alkaline Phosphatase 74 U/L (40-130); Anion Gap 20.2 (5-19); Aspartate Amino Transferase 19 U/L (0-40); Blood Urea Nitrogen 32 mg/dL (6-20); Calcium 9.6 mg/dL (8.5-10.5); Carbon Dioxide 24 mmol/L (22-29); Chloride 100 mmol/L (98-107); Creatinine Clr Calc Pharmacy 45.5289; Globulin 2.4 g/dL (1.3-4.6); Glucose 71 mg/dL (65-115); NT Pro B Type Natriuretic Pept 136 pg/mL (0-125); Osmolality Calculated 295 mOsm/kg (285-295); Sodium 140 mmol/L (136-145); Total Protein 6.8 g/dL (6.6-8.7)
[2025-01-16 15:53] LABS: Glucose Urine UA Negative (Normal); Nitrate Urine Negative (Negative)
[2025-01-16 15:58] LABS: Add Urine Microscopic? YES
--- NOTE | 2025-01-16 16:37 | ECG_ITS ---
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 Measurements Intervals [place] Rate: 69 P: 31 MS: 158 QRS: 16 QRSD: 88 T: 17 QT: 384 QTc: 413 Interpretive Statements SINUS RHYTHM Compared to ECG 01/16/2025 14:43:27 No significant changes Electronically Signed On 01-16-2025 23:53:38 CDT by Montez Baum M.D. [id number]
[2025-01-16 16:40] LABS: Specific Gravity, Urine 1.031 (1.005-1.030)
[2025-01-16] MEDS: oxyCODONE 5 mg IR Tab/Cap 10 MG PO (16:41)
[2025-01-16 16:42] LABS: UA Slide Review UA Slide Review Perf
--- NOTE | 2025-01-16 16:51 | USCV_ITS ---
Tez Botello Age: 59 Gender: M : 1965 Exam Date: 01/16/2025 20:44 Ordering Phys: Dann Villegas MD Technologist: VANGIE [place] [facility] [place], history of CAD s/p PCI in remote past, HTN, HL, long-term smoker, continues smoking BP: 108 / 80 HR: 55 Rhythm: Sinus Technical Quality: Adequate MEASUREMENTS (Male / Female) Normal Values 2D ECHO LV Diastolic Diameter PLAX 4.6 cm 4.2 - 5.9 / 3.9 - 5.3 cm IVS Diastolic Thickness 1.3 cm 0.6 - 1.0 / 0.6 - 0.9 cm IVS Systolic Thickness 1.7 cm LVPW Diastolic Thickness 1.3 cm 0.6 - 1.0 / 0.6 - 0.9 cm LVPW Systolic Thickness 1.7 cm LVOT Diameter 1.7 cm LV Ejection Fraction 2D Teich 61.8 % LV Ejection Fraction MOD 4C 61.0 % LV Ejection Fraction MOD 2C 71.1 % LV Ejection Fraction 2C AL 72.0 % LA Diameter 3.5 cm Aorta at Sinotubular Diameter 2.9 cm IVC Diameter 1.4 cm M-MODE LA Ao Ratio MM 1.3 AV Cusp Separation MM 2.0 cm DOPPLER AV Peak Velocity 124.0 cm/s LVOT Peak Velocity 93.0 cm/s AV Area Cont Eq vti 2.1 cm squared AV Area Cont Eq pk 1.7 cm squared MV Peak Velocity 68.0 cm/s MV Area PHT 2.3 cm squared Mitral E to A Ratio 1.3 TV Peak E Velocity 43.0 cm/s PV Peak Velocity 89.0 cm/s FINDINGS Left Ventricle Normal left ventricular size, systolic function and wall thickness, with no regional wall motion abnormalities. Left ventricular ejection fraction is estimated at 60 %. Normal diastolic function. Right Ventricle The right ventricle is normal in size and function. Right Atrium The right atrium is normal in size. Left Atrium The left atrium is normal in size. Mitral Valve Mild mitral annular calcification. No mitral valve stenosis. Trace mitral valve regurgitation. Aortic Valve Moderate aortic valve calcification. No aortic valve stenosis. Trace aortic valve regurgitation. Tricuspid Valve Structurally normal tricuspid valve without significant stenosis or regurgitation. Pulmonary artery systolic pressure is normal. Pulmonic Valve Trace pulmonary valve regurgitation. Pericardium Normal pericardium without effusion. Aorta Normal ascending aorta dimension. IVC The inferior vena cava appears normal. CONCLUSIONS Normal left ventricular size, systolic function and wall thickness, with no regional wall motion abnormalities. Left ventricular ejection fraction is estimated at 60 %. Normal diastolic function. No significant valve abnormalities. There is no pericardial effusion. Right atrial pressure is around 5 mm of mercury. Kimberyln Howell MD (Electronically Signed) Final Date: 17 January 2025 09:54 S
--- NOTE | 2025-01-16 16:58 | PM.HP ---
Providers/Chief Complaint Primary Care Provider: Erna Boston MD Chief Complaint: CP arm going numb History of Present Illness Tez Botello is a 59 year old male with a past medical history of CAD, hypertension, hyperlipidemia, current smoker who presents [facility] for chest pain. Patient reports severe substernal chest pain rating down the left arm, no nausea, vomiting, lightheadedness, dizziness. Currently chest pain is 4 out of 10, but continues to have chest pain radiating to the left arm Review of Systems Const: Denies: fever(s) or chills Card: Reports: chest pain Resp: Denies: dyspnea Medications/Allergies Home Medications ?Medication ?Instructions ?Recorded ?Confirmed ?Last Taken ?Type metoclopramide HCl 10 mg tablet 10 mg PO BID PRN Abdominal Pain 04/28/24 01/16/25 10/02/24 History pantoprazole 40 mg tablet,delayed 40 mg PO DAILY #60 tabs 04/28/24 01/16/25 09/30/24 Rx release (Protonix) albuterol sulfate 90 mcg/actuation 1 inh inhalation QID PRN Shortness 05/18/24 01/16/25 10/02/24 History aerosol inhaler Of Breath fluticasone propionate 50 1 spray intranasal DAILY 05/18/24 01/16/25 10/02/24 History mcg/actuation nasal spray,suspension levothyroxine 50 mcg tablet 50 mcg PO DAILY 05/18/24 01/16/25 10/03/24 History cholecalciferol (vitamin D3) 50 50 mcg PO DAILY 05/21/24 01/16/25 10/02/24 History mcg (2,000 unit) tablet (Vitamin D3) finasteride 5 mg tablet 5 mg PO DAILY 05/21/24 01/16/25 10/02/24 History losartan 100 mg tablet 100 mg PO DAILY 05/21/24 01/16/25 01/16/25 History atorvastatin 40 mg tablet 20 mg PO DAILY 01/16/25 01/16/25 01/16/25 History cetirizine 10 mg tablet (Zyrtec) 10 mg PO DAILY PRN allergies 01/16/25 01/16/25 Unknown History folic acid 1 mg tablet 1 mg PO DAILY 01/16/25 01/16/25 Unknown History gabapentin 600 mg tablet 600 mg PO TID 01/16/25 01/16/25 Unknown History hydrochlorothiazide 25 mg tablet 25 mg PO DAILY 01/16/25 01/16/25 01/16/25 History oxycodone-acetaminophen 10 mg-325 See Rx Instructions .Route .COMPLEX 01/16/25 01/16/25 01/16/25 History mg tablet sucralfate 1 gram tablet 1 g PO BID 01/16/25 01/16/25 01/16/25 History trazodone 100 mg tablet 100 mg PO DAILY 01/16/25 01/16/25 Unknown History Allergies Allergy/AdvReac Type Severity Reaction Status Date / Time No Known Allergies Allergy Verified 10/18/24 08:54 PFSH Acute PFSH: Medical History (Updated 01/16/25 @ 17:00 by Dann Villegas MD) History of chronic kidney disease Family history of CKD (chronic kidney disease) History of CAD (coronary artery disease) Surgical History (Updated 01/16/25 @ 16:59 by Dann Villegas MD) Hx of gastric bypass 2016 Hx of colonoscopy with polypectomy History of esophagogastroduodenoscopy (EGD) Social History Smoking and tobacco/nicotine status: former use of tobacco/nicotine Vitals/I&O/Wt Last Vital Signs Pulse 78 01/16/25 16:45 Resp 18 01/16/25 16:45 BP 127/89 01/16/25 16:45 Pulse Ox 99 01/16/25 16:45 O2 Del Method Room Air 01/16/25 16:45 Weight last 48 hrs Weight 88.451 kg Physical Exam Const: COMMON NORMALS: no acute distress and patient oriented x3 HENMT: COMMON NORMALS: normocephalic HEAD & SCALP: normocephalic Neck/C-Spine: COMMON NORMALS: no JVD Resp: COMMON NORMALS: normal respiratory effort, No retractions, No use of accessory muscles and clear to auscultation bilaterally AUSCULTATION: clear to auscultation bilaterally Cardio: COMMON NORMALS: no JVD, regular rate, regular rhythm, S1 normal heart sound present and S2 normal heart sound present RATE: regular rate RHYTHM: regular rhythm HEART SOUNDS: S1 normal heart sound present and S2 normal heart sound present GI: COMMON NORMALS: Normal to inspection, nondistended, normoactive bowel sounds present, Soft to palpation and non-tender Extremity: COMMON NORMALS: no calf tenderness and no pedal edema Neuro: COMMON NORMALS: patient oriented x3, CN's II-XII intact bilaterally and moves all extremities Psych: COMMON NORMALS: mental status grossly normal Data 01/16/25 14:37 01/16/25 14:37 A&P Assessment and plan 1. Angina pectoris, unstable: Plan: Unstable angina -initially was reluctant to take aspirin, he is agreeable to aspirin - Atorvastatin - Nitro as needed for chest pain -Stroke disease, stroke troponins, telemetry monitoring -heparin drip - Cardiac echo - N.p.o. midnight - For cardiogram tomorrow morning EDEN on CKD, IV fluids PDMP PDMP Reviewed: Not Reviewed Attestations Medical Necessity Statement*: Patient requires hospitalization for unstable angina, inpatient, greater than 2 nights Diagnoses Angina pectoris, unstable I20.0
[2025-01-16 17:23] LABS: Troponin 5 2HR 14.38 ng/L (0-15); Troponin 5 2HR Delta 3.38 ABS# (0-10)
--- NOTE | 2025-01-16 18:47 | USR_ITS ---
PROCEDURE INFORMATION: Exam: US Retroperitoneal, Complete, Kidneys and Bladder Exam date and time: 01/16/2025 9:09 PM Age: 59 years old Clinical indication: Other: Elevated bun = 36, elevated creatinine = 1.9; Additional info: Jose Guadalupe TECHNIQUE: Imaging protocol: Real-time ultrasound of the retroperitoneum with image documentation. Complete exam focused on the bilateral kidneys and urinary bladder. 489 image(s) are submitted. COMPARISON: US renal BI* [id number] 08/24/2023 11:07 AM FINDINGS: Right kidney: there is a possible renal cyst with hypoechogenicity measuring 1.1 cm along the cortex of the midpole of the right kidney adjacent to the renal hilum, however it is not seen on recent CT study of the abdomen. Therefore this possible renal cyst is not confidently diagnosed. Otherwise, unremarkable bilateral renal ultrasound study without renal hydronephrosis, calculus, atrophy or avni mass lesion. Right kidney measures 10.2 x 6.4 x 5.1 cm and the left kidney measures 9.4 x 4.9 x 5.2 cm. Postvoid urinary bladder volume of 0.5 mL. Left kidney: Normal. No stones. No hydronephrosis. Urinary bladder: See Right kidney finding. US/US renal BI* [id number] IMPRESSION: There is a possible renal cyst with hypoechogenicity measuring 1.1 cm along the cortex of the midpole of the right kidney adjacent to the renal hilum, however it is not seen on recent CT study of the abdomen. Therefore this possible renal cyst is not confidently diagnosed. Otherwise, unremarkable bilateral renal ultrasound study without renal hydronephrosis, calculus, atrophy or avni mass lesion. Right kidney measures 10.2 x 6.4 x 5.1 cm and the left kidney measures 9.4 x 4.9 x 5.2 cm. Postvoid urinary bladder volume of 0.5 mL.
[2025-01-16] MEDS: heparin drip 25,000 UNIT/500 ML PREMIX 25 UNIT IV (19:21)
[2025-01-16] MEDS: heparin 5,000 unit/mL INJ 1 mL IVP (19:22)
[2025-01-16 19:23] LABS: Cholesterol 205 mg/dL (0-200); HDL Cholesterol 47 mg/dL (60-100); Triglycerides 219 mg/dL (0-150)
--- NOTE | 2025-01-16 19:30 | PC.NURSE ---
Initiated heparin drip for FITO Thomas and verified with TIKA Torres.
[2025-01-16 19:39] LABS: Estmated Average Glucose 108; Hemoglobin A1C 5.4 % (4.0-6.0)
--- NOTE | 2025-01-16 21:53 | PM.CONSULT ---
Providers/Reason For Consult Consulting Physician/Specialty*: Gautam Bonilla MD/Cardiology Reason for Consult*: Unstable angina Requesting Physician: Dr Lama Attending Physician: Dann Villegas MD Primary Care Provider: Erna Boston MD History of Present Illness History of Present Illness Tez Botello is a 59 year old male with past medical history of CKD, hyperlipidemia who has been having severe chest pain for last several hours. It is radiating to the left arm. EKG not showing acute ST-T wave changes. Initial troponin is negative. He had a stress test earlier this year that did not show ischemia. Review of Systems Const: Denies: fever(s) or chills Card: Reports: chest pain Resp: Denies: dyspnea Medications/Allergies Home Medications ?Medication ?Instructions ?Recorded ?Confirmed ?Last Taken ?Type metoclopramide HCl 10 mg tablet 10 mg PO BID PRN Abdominal Pain 04/28/24 01/16/25 10/02/24 History pantoprazole 40 mg tablet,delayed 40 mg PO DAILY #60 tabs 04/28/24 01/16/25 09/30/24 Rx release (Protonix) albuterol sulfate 90 mcg/actuation 1 inh inhalation QID PRN Shortness 05/18/24 01/16/25 10/02/24 History aerosol inhaler Of Breath fluticasone propionate 50 1 spray intranasal DAILY 05/18/24 01/16/25 10/02/24 History mcg/actuation nasal spray,suspension levothyroxine 50 mcg tablet 50 mcg PO DAILY 05/18/24 01/16/25 10/03/24 History cholecalciferol (vitamin D3) 50 50 mcg PO DAILY 05/21/24 01/16/25 10/02/24 History mcg (2,000 unit) tablet (Vitamin D3) finasteride 5 mg tablet 5 mg PO DAILY 05/21/24 01/16/25 10/02/24 History losartan 100 mg tablet 100 mg PO DAILY 05/21/24 01/16/25 01/16/25 History atorvastatin 40 mg tablet 20 mg PO DAILY 01/16/25 01/16/25 01/16/25 History cetirizine 10 mg tablet (Zyrtec) 10 mg PO DAILY PRN allergies 01/16/25 01/16/25 Unknown History folic acid 1 mg tablet 1 mg PO DAILY 01/16/25 01/16/25 Unknown History gabapentin 600 mg tablet 600 mg PO TID 01/16/25 01/16/25 Unknown History hydrochlorothiazide 25 mg tablet 25 mg PO DAILY 01/16/25 01/16/25 01/16/25 History oxycodone-acetaminophen 10 mg-325 See Rx Instructions .Route .COMPLEX 01/16/25 01/16/25 01/16/25 History mg tablet sucralfate 1 gram tablet 1 g PO BID 01/16/25 01/16/25 01/16/25 History trazodone 100 mg tablet 100 mg PO DAILY 01/16/25 01/16/25 Unknown History Allergies Allergy/AdvReac Type Severity Reaction Status Date / Time No Known Allergies Allergy Verified 10/18/24 08:54 Current Medications Generic Name Dose Route Start Last Admin Trade Name Freq PRN Reason Stop Dose Admin Gabapentin 600 mg 01/16/25 21:00 01/16/25 21:26 Gabapentin 300 Mg Capsule PO 600 mg TID DIETER Administration Sodium Chloride 1,000 mls @ 75 mls/hr 01/16/25 16:45 01/16/25 16:43 Sodium Chloride 0.9% IV 75 mls/hr .[id number] DIETER Administration Heparin Sodium/Sodium Chloride 25,000 unit in 500 mls @ 0 mls/hr 01/16/25 18:40 01/16/25 19:21 Heparin Drip IV 14.13 unit/kg/hr CONT DIETER 25 mls/hr Protocol Administration Per Protocol Pantoprazole Sodium 40 mg 01/16/25 18:40 01/16/25 19:23 Pantoprazole 40 Mg Sdv IVP Not Given Q24H DIETER Sucralfate 1 gm 01/16/25 18:40 01/16/25 19:09 Sucralfate 1 Gm Tablet PO 1 gm BID DIETER Administration PFSH Acute PFSH: Medical History (Updated 01/16/25 @ 17:00 by Dann Villegas MD) History of chronic kidney disease Family history of CKD (chronic kidney disease) History of CAD (coronary artery disease) Surgical History (Updated 01/16/25 @ 16:59 by Dann Villegas MD) Hx of gastric bypass 2015 Hx of colonoscopy with polypectomy History of esophagogastroduodenoscopy (EGD) Social History Smoking and tobacco/nicotine status: former use of tobacco/nicotine Vitals/I&O/Wt Last Vital Signs Pulse 82 01/16/25 20:25 Resp 18 01/16/25 20:25 BP 108/80 01/16/25 20:25 Pulse Ox 94 01/16/25 20:25 O2 Del Method Room Air 01/16/25 20:25 01/16/25 01/16/25 01/16/25 06:59 14:59 22:59 Intake Total 0 / 0 Balance 0 / 0 Weight last 48 hrs Weight 195 lb Physical Exam Narrative: GENERAL: Patient is alert, awake and oriented x3. [] NECK: No jugular vein distension. [] HEENT: No cyanosis. No icterus. No pallor. [] HEART: Regular S1 and S2. No murmur, rub or gallop. [] LUNGS: Clear to auscultate bilaterally. [] CENTRAL NERVOUS SYSTEM: Grossly nonfocal. [] EXTREMITIES: Lower extremities with 1+ edema bilaterally. Data 01/17/25 04:34 01/17/25 04:34 A&P Assessment and plan 1. Angina pectoris, unstable: 2. CKD (chronic kidney disease): Plan: Patient's presentation is consistent with unstable angina. Will proceed with coronary angiogram with possible PCI tomorrow. N.p.o. past midnight. Continue IV fluids overnight. Will recheck creatinine in the morning and if downtrending will proceed with coronary angiogram. Continue heparin. Aspirin given. Obtain echocardiogram. Thank you for involving us in the care of this patient. Will continue to follow. Please call with questions. PDMP PDMP Reviewed: Not Reviewed Consult Attestations Medical Necessity Statement: Care expected to cross 2 midnights. Coding Level of Care Code Acute Code for [facility] Fwd Diagnoses Angina pectoris, unstable I20.0 CKD (chronic kidney disease) N18.9
--- NOTE | 2025-01-16 22:36 | PC.NURSE ---
Dr. mccall told nurse to order 2mg morphine ivp every 6h prn and to change pts oxycodone to q6h prn instead of Q8h prn.
[2025-01-16] MEDS: morphine 4 mg/mL SDV 1 mL 2 MG IVP (22:54)
[2025-01-17] VITALS (49 sets, daily range): BP systolic 90–152; BP diastolic 59–104; PULSE 45–72; RESP 10–31; TEMP 36.8; O2SAT 81–100
[2025-01-17 02:00] LABS: Partial Thromboplastin Time 102.9 SECONDS (23.9-36.7)
[2025-01-17] MEDS: oxyCODONE 5 mg IR Tab/Cap 10 MG PO ×3 (02:57→21:33)
[2025-01-17 04:40] LABS: Hematocrit 36.8 % (37-53); Hemoglobin 12.30 g/dL (11.27-16.99); Mean Corpuscular HGB Conc 33.4 g/dL (30-55); Mean Corpuscular Hemoglobin 31.9 pg (27-33); Mean Corpuscular Volume 95.3 fl (82-101); Nucleated Red Blood Cells % 0 %; Platelet Count 227 10^3/cmm (157-399); Red Blood Count 3.86 10^6/uL (3.85-5.65); White Blood Count 9.86 10^3/uL (3.29-11.43)
[2025-01-17 05:02] LABS: Alanine Aminotransferase 15 U/L (0-41); Albumin Level 3.8 g/dL (3.5-5.2); Alkaline Phosphatase 60 U/L (40-130); Anion Gap 14.1 (5-19); Aspartate Amino Transferase 16 U/L (0-40); Blood Urea Nitrogen 29 mg/dL (6-20); Calcium 8.8 mg/dL (8.5-10.5); Carbon Dioxide 28 mmol/L (22-29); Chloride 102 mmol/L (98-107); Creatinine Clr Calc Pharmacy 54.0656; Globulin 2.0 g/dL (1.3-4.6); Glucose 97 mg/dL (65-115); Osmolality Calculated 296 mOsm/kg (285-295); Potassium 4.1 mmol/L (3.5-5.1); Sodium 140 mmol/L (136-145); Total Protein 5.8 g/dL (6.6-8.7)
--- NOTE | 2025-01-17 07:20 | W.PM.OPSUD ---
Surgery/Procedure H&P Update DATE OF PROCEDURE: January 17, 2025 DATE H&P PERFORMED: 01/16/25 H&P UPDATE INFORMATION: I have reviewed H&P completed within last 30 days, I have examined patient prior to procedure and No changes to prior documentation PREOP DIAGNOSIS: Unstable angina PRIMARY INDICATION FOR PROCEDURE: Unstable angina PLANNED PROCEDURE: Operation Date: 01/17/25 07:00 Proposed Procedures p Cardiac Catheterization(Not Applicable) - Gautam Bonilla M.D Possible percutaneous coronary intervention PATIENT REASSESSED PRIOR TO SEDATION, WITH NO CHANGE NOTED: Yes PHYSICAL EXAM: alert, oriented x 3, clear to auscultation bilaterally and regular rate & rhythm AIRWAY EVAL/ANESTHESIA PLAN: normal airway, ASA III, Local Anesthesia, Risks, benefits & alternatives of sedation and/or procedure discussed and Patient agrees to continue as planned ADDITIONAL INFORMATION: Moderate sedation
--- NOTE | 2025-01-17 07:55 | PM.PROC ---
Procedure Note: Date of procedure: 01/17/25 Pre-procedure diagnosis: Unstable angina Post-procedure diagnosis: other (Severe mid RCA stenosis s/p PCI with 1 stent) Procedure: Severe mid RCA stenosis s/p PCI with 1 stent. Patent LAD and LCx Performing Provider: Gautam Bonilla Complications: None Condition: stable Disposition: floor Coding Level of Care Code Acute Code for [facility]
--- NOTE | 2025-01-17 08:00 | PC.NURSE ---
Received patient from cathode washer post PCI. Pt drowsy and oriented. Easily arousable to verbal stimuli. Right radial TR band is in place. Site clean and dry with no signs of bleeding or hematoma. Pt denies and chest pain or nausea. Placed on bedside clinical research monitor. NS infusing at 100ml/hr post cath. Daughter at bedside. Educated patient and daughter on right arm restrictions, verbalized understanding.
[2025-01-17] MEDS: morphine 4 mg/mL SDV 1 mL 2 MG IVP ×2 (09:35→17:03)
[2025-01-17] MEDS: fluticasone nasal spray 16gm Btl 1 SPRAY NASAL (12:41)
[2025-01-17] MEDS: ondansetron 2 mg/ML SDV 2 mL 4 MG IVP (13:24)
--- NOTE | 2025-01-17 13:41 | PC.NURSE ---
Pt transferred to U 112-2 via bed. Report called to TIKA Gomez.
--- NOTE | 2025-01-17 13:46 | P.PN_ITS ---
Subjective 2 Subjective: Patient was seen this morning, alert oriented x 3, follow commands, denies any fevers, chills, no cough, no chest pain, currently in post-cath recovery, no current chest pain, status post tenting to RCA Vitals/I&O/Wt Last Vital Signs Pulse 69 01/17/25 13:30 Resp 15 01/17/25 13:30 BP 132/88 01/17/25 13:30 Pulse Ox 96 01/17/25 13:30 O2 Del Method Room Air 01/17/25 09:45 01/16/25 01/17/25 01/17/25 22:59 06:59 14:59 Intake Total 0 / 0 692.917 / 692.917 737.5 / 737.5 Balance 0 / 0 692.917 / 692.917 737.5 / 737.5 Weight last 48 hrs Weight 88.451 kg Physical Exam 2 Const: COMMON NORMALS: no acute distress and patient oriented x3 Resp: COMMON NORMALS: normal respiratory effort, No retractions, No use of accessory muscles and clear to auscultation bilaterally AUSCULTATION: clear to auscultation bilaterally Cardio: COMMON NORMALS: regular rate, regular rhythm, S1 normal heart sound present and S2 normal heart sound present RATE: regular rate RHYTHM: r egular rhythm HEART SOUNDS: S1 normal heart sound present and S2 normal heart sound present GI: COMMON NORMALS: Normal to inspection, nondistended, normoactive bowel sounds present and non-tender Extremity: COMMON NORMALS: no pedal edema Neuro: COMMON NORMALS: patient oriented x3 Psych: COMMON NORMALS: mental status grossly normal Data 01/17/25 04:34 01/17/25 04:34 A&P Assessment and plan 1. Angina pectoris, unstable: Plan: Unstable angina - Aspirin 81 mg daily -Plavix - Atorvastatin -Status post 1 stent to RCA - Nitro as needed for chest pain -telemetry monitoring -heparin drip discontinued, switch to DVT prophylaxis Lovenox - Cardiac echo pending -Cardiac diet EDEN on CKD, IV fluids status post Cardiac cath PDMP PDMP Reviewed: Not Reviewed Attestations 2 Medical Necessity Statement*: Patient requires hospitalization for unstable angina, status post RCA stenting Diagnoses Angina pectoris, unstable I20.0
--- NOTE | 2025-01-17 18:45 | PC.NURSE ---
see vitals documented in chart for post cath
[2025-01-17] MEDS: morphine 4 mg/mL SDV 1 mL 1 MG IVP (19:47)
[2025-01-18] VITALS: BP 128/90; PULSE 48; RESP 14; TEMP 37; O2SAT 93
[2025-01-18 01:39] VITALS: RESP 16; O2SAT 92
[2025-01-18] MEDS: morphine 4 mg/mL SDV 1 mL 2 MG IVP ×2 (01:39→07:39)
[2025-01-18 03:55] VITALS: RESP 16; O2SAT 96
[2025-01-18] MEDS: oxyCODONE 5 mg IR Tab/Cap 10 MG PO (03:55)
[2025-01-18 04:00] VITALS: BP 136/85; PULSE 53; RESP 16; O2SAT 96
[2025-01-18 04:40] LABS: Hematocrit 34.5 % (37-53); Hemoglobin 11.60 g/dL (11.27-16.99); Mean Corpuscular HGB Conc 33.6 g/dL (30-55); Mean Corpuscular Hemoglobin 32.2 pg (27-33); Mean Corpuscular Volume 95.8 fl (82-101); Nucleated Red Blood Cells % 0 %; Platelet Count 219 10^3/cmm (157-399); Red Blood Count 3.60 10^6/uL (3.85-5.65); White Blood Count 6.74 10^3/uL (3.29-11.43)
[2025-01-18 05:10] LABS: Anion Gap 13.9 (5-19); Blood Urea Nitrogen 25 mg/dL (6-20); Calcium 8.4 mg/dL (8.5-10.5); Carbon Dioxide 27 mmol/L (22-29); Chloride 105 mmol/L (98-107); Creatinine Clr Calc Pharmacy 57.6699; Glucose 96 mg/dL (65-115); Osmolality Calculated 298 mOsm/kg (285-295); Potassium 3.9 mmol/L (3.5-5.1); Sodium 142 mmol/L (136-145)
--- NOTE | 2025-01-18 06:59 | PC.NURSE ---
Patient stating that his pain is 9/10 and morphine or the two 5mg oxycodone is helping because the oxy he takes at home is one 10mg tablet and that the two 5mg tablets are not the same. Dr Alcaraz was notified and gave new orders for 1mg morphine. Patient was still very anxious and stating that the morphine did not help and that he would like for the doctor to write script for his new medication plavix and to leave. Dr Alcaraz was again notified and no new orders were placed. I educated the patient about the meds to bed program that the hospital has and he decided to stay until morning.
--- NOTE | 2025-01-18 07:00 | PC.NURSE ---
Bedside shift report/shift note Pt was looking for his T shirt. Pt stated, He has an [employer] brand shirt and it cost 35$. Pt stated, I just got it last week. They remove my shirt in that room before i came to this room yesterday. Nurse Emma called candlemaking laborer and told pt they don't have his shirt, and he was already on a gown from the ER. Pt was explained that we could not find his shirt and we can provide him with a shirt as an exchange, nurse asked what size he wears and he said, extra Large but I want to get paid from that lost shirt, I want them to pay for it. Discuss this with our customer acquisition manager and fish housekeeper about pt's issues. This nurse have called his prescriptions at our pharmacy as meds to bed around 08:[address] Sidhu. Around 08:30 AM was having a talk with generator technician BEHAVIORAL HEALTH COUNSELOR Ms Deb Forte and pt could not wait for his papers. The meds to bed has been delivered in his room early on. By the time this nurse got his discharge papers, the nurse practitioner walked him out of his room and let him signs AMA papers since he could not wait for the paperworks. IVs were remved by the BEHAVIORAL HEALTH COUNSELOR. We will mail his discharge papers to him.
[2025-01-18 07:38] VITALS: BP 139/94; PULSE 62; RESP 16; TEMP 36.4; O2SAT 99
[2025-01-18 07:39] VITALS: RESP 20; O2SAT 97
--- NOTE | 2025-01-18 08:25 | PC.NURSE ---
called for meds to bed Pt stated, he wants his prescriptions called to our pharmacy because, I don't have any money to pay for it. [facility] also [facility] so they can [facility] for it. I asked the pt that i will call his prescriptions as meds to bed but their is no guarantee they will be here soon prior to his decision to leave by 9AM. Talked to Salesperson Jewelry and Dr Sidhu for Discharge order.
--- NOTE | 2025-01-18 08:31 | P.PN_ITS ---
Subjective 2 Subjective: He has done well overnight, no chest pain or shortness of breath. Can discharge home today. Vitals/I&O/Wt Last Vital Signs Temp 97.5 F L 01/18/25 07:38 Pulse 62 01/18/25 07:38 Resp 20 H 01/18/25 07:39 BP 139/94 01/18/25 07:38 Pulse Ox 97 01/18/25 07:39 O2 Del Method Room Air 01/18/25 07:38 01/17/25 01/18/25 01/18/25 22:59 06:59 14:59 Intake Total 1028.333 / 1765.833 Balance 1028.333 / 1765.833 Weight last 48 hrs Weight 195 lb Physical Exam 2 Const: COMMON NORMALS: no acute distress and patient oriented x3 GENERAL APPEARANCE: cooperative ORIENTATION/CONSCIOUSNESS: Yes awake, Yes oriented to person, Yes oriented to place and Yes oriented to time Chest: COMMONS NORMALS: normal inspection of the chest and normal palpation of entire chest wall CHEST: Yes Symmetrical chest wall rise Resp: COMMON NORMALS: normal respiratory effort, No retractions, No use of accessory muscles and clear to auscultation bilaterally AUSCULTATION: clear to auscultation bilaterally Cardio: COMMON NORMALS: regular rate, regular rhythm, S1 normal heart sound present, S2 normal heart sound present, No gallops present (Cardio), No clicks present (Cardio), No murmurs present (Cardio) and No rub (Cardio) RATE: r egular rate RHYTHM: regular rhythm HEART SOUNDS: S1 normal heart sound present and S2 normal heart sound present PERIPHERAL PULSES: radial pulses present positive right 2+ and femoral pulses present positive right 2+ Neuro: COMMON NORMALS: patient oriented x3 and moves all extremities S ENSORIUM/ORIENTATION: Yes oriented to person, Yes oriented to place and Yes oriented to time Skin: WOUNDS: Yes surgical site (no hematoma palpable) Details: no odor Data 01/18/25 04:13 01/18/25 04:13 A&P Assessment and plan 1. Angina pectoris, unstable: 2. Coronary artery disease: Plan: Creatinine 1.5 this morning. S/P stent to RCA yesterday. Provided education on aspirin and Plavix, instructed that it is very important to not miss a single dose. Statin dose increased. Follow up with Dr Bonilla in 2 weeks. PDMP PDMP Reviewed: Not Reviewed Attestations 2 Medical Necessity Statement*: discharge home Coding Level of Care Code Acute Code for g Fwd Diagnoses Angina pectoris, unstable I20.0 Coronary artery disease I25.10
--- NOTE | 2025-01-18 08:48 | PC.NURSE ---
meds to bed delivered
--- NOTE | 2025-01-18 08:57 | P.DS_ITS ---
Discharge Providers Date of Admission: 01/16/25 17:13 Date of Discharge: January 18, 2025 Attending Provider at Admission: Dann Villegas MD Attending Provider at Discharge: Emory Sidhu Primary Care Provider: Erna Boston MD Diagnoses at Discharge Discharge Diagnosis 1. Angina pectoris, unstable: 2. Coronary artery disease: Reason for Visit Reason for Visit: CP arm going numb Brief History: Tez Botello is a 59 year old male with a past medical history of CAD, hypertension, hyperlipidemia, current smoker who presents [facility] for chest pain. Patient reports severe substernal chest pain rating down the left arm, no nausea, vomiting, lightheadedness, dizziness. Currently chest pain is 4 out of 10, but continues to have chest pain radiating to the left arm Hospital Course Hospital Course He was treated for unstable angina underwent additional assessment with cardiology, had echocardiogram which showed normal ejection fraction and normal diastolic function coronary angiogram was done and he underwent angioplasty and stenting of severe lesion of RCA. He was started on aspirin and Plavix as well as increase in dose of statin. This morning during reassessment by cardiology he was doing well, but had to leave urgently and left AGAINST MEDICAL ADVICE before he could be reassessed. His medications were brought to his room. His discharge instructions are going to be delivered to him postdischarge. Discharge Data Studies Completed and Pending Completed Studies During Hospitalization Category Date Time Status XR chest 1V portable [id number] Stat Exams 01/16/25 14:22 Completed CV. echo complete* [id number] Stat Ultrasound 01/16/25 16:51 Completed US renal BI* [id number] Routine Ultrasound 01/16/25 18:47 Completed Pending at discharge Category Date Time Status BRANCH OPERATIONS MANAGER request for service Routine Exams 01/17/25 07:00 Taken Radiology Impressions Chest X-Ray 01/16/25 14:22 Impression: Negative chest. Renal Ultrasound 01/16/25 18:47 IMPRESSION: There is a possible renal cyst with hypoechogenicity measuring 1.1 cm along the cortex of the midpole of the right kidney adjacent to the renal hilum, however it is not seen on recent CT study of the abdomen. Therefore this possible renal cyst is not confidently diagnosed. Otherwise, unremarkable bilateral renal ultrasound study without renal hydronephrosis, calculus, atrophy or avni mass lesion. Right kidney measures 10.2 x 6.4 x 5.1 cm and the left kidney measures 9.4 x 4.9 x 5.2 cm. Postvoid urinary bladder volume of 0.5 mL. Laboratory Results WBC 6.74 10^3/uL (3.29-11.43) 01/18/25 04:13 RBC 3.60 10^6/uL (3.85-5.65) L 01/18/25 04:13 Hgb 11.60 g/dL (11.27-16.99) 01/18/25 04:13 Hct 34.5 % (37-53) L 01/18/25 04:13 MCV 95.8 fl (82-101) 01/18/25 04:13 MCH 32.2 pg (27-33) 01/18/25 04:13 MCHC 33.6 g/dL (30-55) 01/18/25 04:13 RDW 12.8 % (12.1-15.1) 01/18/25 04:13 Plt Count 219 10^3/cmm (157-399) 01/18/25 04:13 MPV 9.0 fL (7.4-10.4) 01/18/25 04:13 Neut % (Auto) 59.6 % 01/18/25 04:13 Lymph % (Auto) 28.5 % 01/18/25 04:13 [place] % (Auto) 10.1 % 01/18/25 04:13 Eos % (Auto) 1.0 % 01/18/25 04:13 Baso % (Auto) 0.7 % 01/18/25 04:13 Neut # (Auto) 4.01 10^3/uL (1.8-7.7) 01/18/25 04:13 Lymph # (Auto) 1.9 10^3/uL (0.8-4.8) 01/18/25 04:13 [place] # (Auto) 0.7 10^3/uL (0.2-0.9) 01/18/25 04:13 Eos # (Auto) 0.1 10^3/uL (0.0-0.8) 01/18/25 04:13 Baso # (Auto) 0.1 10^3/uL (0.0-0.1) 01/18/25 04:13 Nucleated RBC % (auto) 0 % 01/18/25 04:13 Nucleated RBCs # 0.0 /100WBC 01/18/25 04:13 APTT Cancelled 01/17/25 11:00 Sodium 142 mmol/L (136-145) 01/18/25 04:13 Potassium 3.9 mmol/L (3.5-5.1) 01/18/25 04:13 Chloride 105 mmol/L (98-107) 01/18/25 04:13 Carbon Dioxide 27 mmol/L (22-29) 01/18/25 04:13 Anion Gap 13.9 (5-19) 01/18/25 04:13 BUN 25 mg/dL (6-20) H 01/18/25 04:13 Creatinine 1.5 mg/dL (0.7-1.2) H 01/18/25 04:13 GFR Calculation 48.2 mL/min (90-130) L 01/18/25 04:13 Glucose 96 mg/dL (65-115) 01/18/25 04:13 Estimat Average Glucose 108 01/16/25 14:37 Hemoglobin A1c 5.4 % (4.0-6.0) 01/16/25 14:37 Calculated Osmolality 298 mOsm/kg (285-295) H 01/18/25 04:13 Calcium 8.4 mg/dL (8.5-10.5) L 01/18/25 04:13 Total Bilirubin 0.6 mg/dL (0.15-1.2) 01/17/25 04:34 AST 16 U/L (0-40) 01/17/25 04:34 ALT 15 U/L (0-41) 01/17/25 04:34 Alkaline Phosphatase 60 U/L (40-130) 01/17/25 04:34 Troponin T Baseline 11 ng/L (0-15) 01/16/25 14:37 Troponin T 120 Minute 14.38 ng/L (0-15) 01/16/25 16:25 Delta Troponin T 3.38 ABS# (0-10) 01/16/25 16:25 NT-Pro-B Natriuret Pep 136 pg/mL (0-125) H 01/16/25 14:37 Total Protein 5.8 g/dL (6.6-8.7) L 01/17/25 04:34 Albumin 3.8 g/dL (3.5-5.2) 01/17/25 04:34 Globulin 2.0 g/dL (1.3-4.6) 01/17/25 04:34 Triglycerides 219 mg/dL (0-150) H 01/16/25 14:37 Cholesterol 205 mg/dL (0-200) H 01/16/25 14:37 LDL Cholesterol, Calc 114 mg/dL (50-129) 01/16/25 14:37 HDL Cholesterol 47 mg/dL (60-100) L 01/16/25 14:37 LDL/HDL Ratio 2.43 RATIO (0.00-3.22) 01/16/25 14:37 Cholesterol/HDL Ratio 4.36 mg/dL (1.0-5.00) 01/16/25 14:37 Urine Color Dark yellow (Yellow) A 01/16/25 15:37 Urine Appearance Cloudy (CLEAR) A 01/16/25 15:37 Urine pH 5.5 (5-7) 01/16/25 15:37 Ur Specific [place] 1.031 (1.005-1.030) H 01/16/25 15:37 Urine Protein Trace (Negative) A 01/16/25 15:37 Urine Glucose (UA) Negative (Normal) 01/16/25 15:37 Urine Ketones Trace (Negative) 01/16/25 15:37 Urine Blood Negative (Negative) 01/16/25 15:37 Urine Nitrate Negative (Negative) 01/16/25 15:37 Urine Bilirubin 1+ (Negative) H 01/16/25 15:37 Urine Urobilinogen 1.0 mg/dL (Negative) 01/16/25 15:37 Ur Leukocyte Esterase Negative (Negative) 01/16/25 15:37 Urine RBC 0-2 /hpf (0-2) 01/16/25 15:37 Urine WBC 0-5 /hpf (0-5) 01/16/25 15:37 Ur Squamous Epith Cells 0-5 /hpf (0-5) 01/16/25 15:37 Amorphous Sediment Not Reportable 01/16/25 15:37 Urine Bacteria None seen /hpf (NONE) 01/16/25 15:37 Hyaline Casts 0-4 /lpf H 01/16/25 15:37 Vitals Last Vital Signs Temp 97.5 F L 01/18/25 07:38 Pulse 62 01/18/25 07:38 Resp 20 H 01/18/25 07:39 BP 139/94 01/18/25 07:38 Pulse Ox 97 01/18/25 07:39 O2 Del Method Room Air 01/18/25 07:38 Discharge Plan Discharge Patient Disposition: Home Condition: Stable Prescriptions: New atorvastatin 40 mg Tablet 40 mg PO DAILY 30 Days Qty: 60 0RF aspirin 81 mg Tablet,Delayed Release (Dr/Ec) 81 mg PO DAILY 30 Days Qty: 30 0RF clopidogrel 75 mg Tablet 75 mg PO DAILY Qty: 30 0RF Continued levothyroxine 50 mcg tablet 50 mcg PO DAILY albuterol sulfate 90 mcg/actuation HFA aerosol inhaler 1 inh inhalation QID PRN (Reason: Shortness Of Breath) fluticasone propionate 50 mcg/actuation spray,suspension 1 spray intranasal DAILY Rx Instructions: administer into each nostril metoclopramide HCl 10 mg tablet 10 mg PO BID PRN (Reason: Abdominal Pain) pantoprazole [Protonix] 40 mg tablet,delayed release (DR/EC) 40 mg PO DAILY Qty: 60 0RF losartan 100 mg Tablet 100 mg PO DAILY finasteride 5 mg Tablet 5 mg PO DAILY cholecalciferol (vitamin D3) [Vitamin D3] 50 mcg (2,000 unit) Tablet 50 mcg PO DAILY oxycodone-acetaminophen 10-325 mg tablet See Rx Instructions .ROUTE .COMPLEX Rx Instructions: TAKE 1 TABLET BY MOUTH EVERY 4-6 HRS NEEDED NOT TO EXCEED 4 PER DAY gabapentin 600 mg Tablet 600 mg PO TID cetirizine [Zyrtec] 10 mg Tablet 10 mg PO DAILY PRN (Reason: allergies) sucralfate 1 gram Tablet 1 g PO BID trazodone 100 mg Tablet 100 mg PO DAILY folic acid 1 mg Tablet 1 mg PO DAILY hydrochlorothiazide 25 mg Tablet 25 mg PO DAILY Discontinued atorvastatin 40 mg Tablet 20 mg PO DAILY Discharge Order = DC NOW: Discharge Order (Routine); Ordered 01/18/25 Ordered By: Emory Sidhu Referrals: Erna Boston MD [Primary Care Provider, Family Practice] Referral Note: The doctor's office will call the PT today to arrange discharge appt Deb Forte FNP [Nurse Practitioner, Cardiology] - 02/05/25 1:00 pm Discharge Diet: Cardiac Discharge Activity: Increase activity as tolerated and Limit activity as instructed Patient Instructions: Aspirin (By mouth), Atorvastatin (By mouth), Clopidogrel (By mouth), Coronary Artery Disease (DC), How to Stop Smoking (DC), Cardiac Rehabilitation (DC), Coronary Intravascular Stent Placement (DC), Opioid Safety, Post Angiogram Home Care Instructions, Patient Portal & Thomas Instructions Activity Restrictions/Additional Instructions: Please make sure you do not stop or miss any aspirin or Plavix due to risk of stent thrombosis and heart attack. Avoid lifting more than 2 pounds for 3 days. In case of pulsatile mass bleeding at the access site or other issues or any worsening or new concerning symptoms, seek medical immediately. Follow-up with your primary provider for reassessment after the heart attack as well as reassessment of kidney function. Avoid any NSAIDs like ibuprofen, Aleve, etc. Continue to monitor blood pressure at least twice daily. Discharge Attestations Time Spent in Discharge Care*: greater than 30 min Quality Metrics Clinical Quality Measures [ No reported AMI, CVA or VTE this stay] Coding Level of Care Code 82069 Total time (in minutes) for Discharge: 40 Diagnoses Angina pectoris, unstable I20.0 Coronary artery disease I25.10
--- NOTE | 2025-01-18 09:48 | PC.SOCIAL ---
*Social Service* Attempted to see patient in ED 01/17/25 he was in medical lab technician, attempted to see pt in room today and pt left AMA.
== END 2025-01-18 09:00 | disposition left against medical advice (07) | DRG 322 ==
LOC: ER 16:17 → ER IP 17:14 → CSU 01-17 13:55
PROVIDERS: Internal Medicine; Nurse Practitioner Family; Admitting Provider Family Medicine; Emergency Provider Emergency Medicine; PCP Family Medicine; Visit Provider Internal Medicine
PROC: 027034Z Dilation of Coronary Artery, One Artery with Drug-eluting Intraluminal Device, Percutaneous Approach (ICD-10-PCS; principal; 2025-01-17 07:00)
PROC: 027034Z Dilation of Coronary Artery, One Artery with Drug-eluting Intraluminal Device, Percutaneous Approach (ICD-10-PCS; 2025-01-17 07:00)
DX: I25.110 Atherosclerotic heart disease of native coronary artery with unstable angina pectoris (principal); N17.9 Acute kidney failure, unspecified; I12.9 Hypertensive chronic kidney disease with stage 1 through stage 4 chronic kidney disease, or unspecified chronic kidney disease; N18.9 Chronic kidney disease, unspecified; E78.5 Hyperlipidemia, unspecified; Z87.891 Personal history of nicotine dependence; Z53.29 Procedure and treatment not carried out because of patient's decision for other reasons
CPT/HCPCS: 36415; 71045; 76770; 80048; 80053; 80061; 81001; 83036; 83880; 84484; 85025; 85347; 85730; 93005; 93306; 93454; 94640; 94664; 96372; 96374; 96375; 99152; 99153; 99285; C1725; C1769; C1874; C1887; C1894; C9600; J1200; J1644; J1650; J2250; J2270; J2405; J3010; J3490; J7030; J7120; J7611; J9999; Q9967

== ENCOUNTER → 2025-02-05 12:48 | Outpatient (BNVA) | payer OTHER, SELFPAY | PROVIDERS: PCP Family Medicine; Visit Provider Internal Medicine | DX: I25.118 Atherosclerotic heart disease of native coronary artery with other forms of angina pectoris (principal); F17.200 Nicotine dependence, unspecified, uncomplicated | CPT/HCPCS: 99214 ==

== ENCOUNTER 2025-02-26 11:30 | Outpatient (CLI) | payer OTHER, SELFPAY ==
--- NOTE | 2025-02-26 11:46 | MR_ITS ---
WS: [id number] MRI OF THE ABDOMEN WITHOUT GADOLINIUM ENHANCEMENT TECHNIQUE: Coronal SSFP, axial SSFP, axial T2, in and out of phase dual echo imaging CLINICAL INFORMATION: ABNORMAL KIDNEY ULTRASOUND COMPARISON: Ultrasound 01/16/2025 FINDINGS: No hydronephrosis in either kidney. No suspicious cystic or solid lesions. No definite abnormalities to correspond to the ultrasound findings. Normal caliber upper abdominal aorta. Adrenal glands are normal. Liver and spleen are only partially visualized. No other remarkable abnormalities. Small 8 mm hepatic cyst in the dome of the liver MR/MR abdomen wo con [id number] Impression: 1. No suspicious cystic or solid lesions in either kidney 2. No hydronephrosis in either kidney. 3. No other suspicious findings.
== END 2025-02-26 11:31 | disposition home or self-care (01) ==
PROVIDERS: PCP Family Medicine; Visit Provider Nurse Practitioner Family
DX: Z01.89 Encounter for other specified special examinations (principal); K76.89 Other specified diseases of liver
CPT/HCPCS: 74181

== ENCOUNTER 2025-03-15 09:51 | Outpatient (CLI) | payer OTHER, SELFPAY ==
--- NOTE | 2025-03-15 10:01 | MR_ITS ---
WS: [id number] MRI CERVICAL SPINE NONCONTRAST TECHNIQUE: Sagittal T1, T2 and STIR imaging. Axial T2, gradient, and fiesta imaging. CLINICAL INFORMATION: NECK PAIN W/NUMBNESS IN ARMS HANDS COMPARISON: None. FINDINGS: Straightening of the normal cervical lordosis. Shallow disc protrusion C4-C5 and C6-7. Mucosal thickening RIGHT mastoid air cells. C2-C3: Mild facet arthropathy. C3-C4: Mild disc bulging. Shallow central protrusion. Mild central canal stenosis. Moderate facet arthropathy. Mild LEFT greater than RIGHT foraminal narrowing. Moderate facet arthropathy. C4-C5: Central disc osteophyte complex with moderate central canal stenosis. Moderate facet arthropathy. Moderate LEFT greater than RIGHT bony foraminal narrowing. Uncovertebral joint hypertrophy. C5-C6: Disc osteophyte complex with endplate ridging. Moderate facet arthropathy. Uncovertebral joint hypertrophy. Moderate LEFT and mild RIGHT bony foraminal narrowing. C6-C7: LEFT paracentral disc osteophyte complex with indentation on the LEFT ventral cervical cord. Moderate to severe LEFT and moderate RIGHT bony foraminal narrowing. C7-T1: No significant disc bulging. Mild to moderate LEFT and no significant RIGHT foraminal narrowing. Spinal canal is patent. Visualized brain stem structures: Normal. Prevertebral soft tissues: Normal. Partially visualized RIGHT mastoid effusion. MR/MR cervical spin wo con* [id number] IMPRESSION: 1. Straightening of the normal cervical lordosis. 2. Mild central canal stenosis C3-C4. Moderate central canal stenosis C4-C5 an d C6-C7 with slight indentation on the cervical cord worse at C4-5. 3. Suggestion of a tiny amount of myelomalacia in the cervical cord at C5-6. 4. Moderate multilevel bony foraminal narrowing worse at LEFT C4-5, LEFT C5-C6 , and RIGHT C6-7. Moderate to severe LEFT C6-7.
== END 2025-03-15 09:52 | disposition home or self-care (01) ==
LOC: RAD 09:52
PROVIDERS: PCP Family Medicine; Visit Provider Nurse Practitioner Family
DX: Z01.89 Encounter for other specified special examinations (principal); M47.892 Other spondylosis, cervical region; M50.31 Other cervical disc degeneration, high cervical region; M48.02 Spinal stenosis, cervical region; M50.21 Other cervical disc displacement, high cervical region; M25.78 Osteophyte, vertebrae; M89.38 Hypertrophy of bone, other site; M50.123 Cervical disc disorder at C6-C7 level with radiculopathy; M50.33 Other cervical disc degeneration, cervicothoracic region; M48.03 Spinal stenosis, cervicothoracic region
CPT/HCPCS: 72141

== ENCOUNTER 2025-04-24 08:54 | Outpatient (CLI) | payer OTHER, SELFPAY ==
[2025-04-24 10:01] LABS: Hematocrit 42.1 % (37-53); Hemoglobin 14.60 g/dL (11.27-16.99); Mean Corpuscular HGB Conc 34.7 g/dL (30-55); Mean Corpuscular Hemoglobin 32.2 pg (27-33); Mean Corpuscular Volume 92.7 fl (82-101); Nucleated Red Blood Cells % 0 %; Platelet Count 282 10^3/cmm (157-399); Red Blood Count 4.54 10^6/uL (3.85-5.65); White Blood Count 7.17 10^3/uL (3.29-11.43)
[2025-04-24 10:30] LABS: Albumin Level 4.6 g/dL (3.5-5.2); Anion Gap 17.7 (5-19); Blood Urea Nitrogen 23 mg/dL (6-20); Calcium 9.6 mg/dL (8.5-10.5); Carbon Dioxide 28 mmol/L (22-29); Chloride 98 mmol/L (98-107); Glucose 70 mg/dL (65-115); Potassium 3.7 mmol/L (3.5-5.1); Sodium 140 mmol/L (136-145)
[2025-04-24 10:32] LABS: Calcium 9.7 mg/dL (8.5-10.5)
== END 2025-04-24 08:55 | disposition home or self-care (01) ==
PROVIDERS: PCP Nurse Practitioner Family; Visit Provider Registered Nurse
DX: N18.31 Chronic kidney disease, stage 3a (principal)
CPT/HCPCS: 36415; 80069; 82310; 83970; 85025